=== PATIENT | male | born 1950 | race Caucasian/White ===

== ENCOUNTER 2017-03-13 05:58 | Day surgery (SDC) | payer MEDICARE ==
[2017-03-13] MEDS ORDERED: Ketamine HCl 50 MG/ML IV ONE (05:59)
[2017-03-13] MEDS ORDERED: DIPRIVAN 200 MG/20 ML IV ONE (05:59)
[2017-03-13] MEDS ORDERED: Lactated Ringers 1,000 ML IV ONE (06:34)
[2017-03-13] MEDS ORDERED: Lactated Ringers 1,000 ML IV SCH (07:30)
--- NOTE | 2017-03-13 09:20 | OP ---
SURGERY DATE/TIME: 03/13/2017809 PREOPERATIVE DIAGNOSIS: Epigastric pain. POSTOPERATIVE DIAGNOSIS: Moderate to severe gastritis. PROCEDURE: Esophagogastroduodenoscopy with biopsy. SURGEON: Dr. Hester. ANESTHESIA: Medications were given by the anesthesia department. BRIEF HISTORY: The patient is a 66 year old white male patient who has continued to complain of severe epigastric pain where previous endoscopy did reveal moderate to severe gastritis. The patient persists to smoke and takes multiple medications including for diabetes. The patient was felt the need to have endoscopic evaluation. He was appraised of the risks of the procedure including the risk of perforation, phlebitis, untoward reaction to medication, bleeding and missed lesions. The patient verbalized his understanding and desired to have the procedure performed. DESCRIPTION OF PROCEDURE: The patient was given the medications by the anesthesia department. He had continuous pulse oximetry, ECG monitoring, intermittent blood pressure monitoring and tidal CO2 monitoring during the examination. He was placed in the left lateral decubitus position. A bite block was placed and the flexible Olympus gastroscope was used to intubate the oropharynx. A view of the larynx was obtained and was normal. The scope was easily introduced in the esophagus which appeared to be normal throughout its length. The stomach was entered where normal gastric rugal folds were seen and these distended nicely with insufflation of air. There was a fair amount of erythema noted throughout the stomach and what appeared to be mild erosions present but no ulcerations. The pylorus was encountered and intubated. The duodenum was inspected and found to be more normal in its appearance. The scope is then withdrawn towards the stomach. A retroflex view was obtained of the lesser curvature, fundus and cardia regions of the stomach and these appeared to be essentially normal. The scope was redirected towards the gastric antrum and biopsies were obtained to rule out the presence of Helicobacter pylori-type organisms and to confirm the presence of gastritis. The scope was then removed from the patient who tolerated the procedure well and was sent back to outpatient recovery in good condition.
[2017-03-13 10:25] VITALS: O2SAT 96
[2017-03-13 10:28] VITALS: BP 188/97; PULSE 81
== END 2017-03-13 09:45 | disposition home or self-care (01) ==
LOC: SDC 05:58
PROVIDERS: ATTEND Family Medicine
PROC: 0DB78ZX Excision of Stomach, Pylorus, Via Natural or Artificial Opening Endoscopic, Diagnostic (ICD-10-PCS; principal; 2017-03-13)
DX: K29.70 Gastritis, unspecified, without bleeding (principal); E11.9 Type 2 diabetes mellitus without complications; Z79.4 Long term (current) use of insulin; J44.9 Chronic obstructive pulmonary disease, unspecified
CPT/HCPCS: 00740; 82962; 88305; J2704

== ENCOUNTER 2017-05-07 05:38 | Emergency (ER) | payer MEDICARE ==
[2017-05-07] MEDS ORDERED: Phenergan 25 MG INJ IV ONE (05:53)
--- NOTE | 2017-05-07 05:53 | ERPHSYRPT ---
- History of Present Illness Source: patient Exam Limitations: no limitations Hx Tetanus, Diphtheria Vaccination/Date Given: Yes (unknown) Hx Influenza Vaccination/Date Given: Yes Hx Pneumococcal Vaccination/Date Given: No <RAVEN VALDIVIA - Last Filed: 05/07/17 06:55> <RAVEN LOVELACE - Last Filed: 05/07/17 10:18> - History of Present Illness Time Seen by Provider: 05/07/17 05:40 Physician History: THIS AM PT VOMITED X3; DENIES FEVER, ABDOMINAL PAIN, DIARRHEA, CHEST PAIN, SHORTNESS OF AIR. LAST BM WAS YESTERDAY & WNL. PT C/O EARACHES HIS ENTIRE LIFE. (RAVEN VALDIVIA) Allergies/Adverse Reactions: No Known Drug Allergies Allergy (Verified 05/07/17 06:06) Home Medications: Amlodipine Besylate 5 mg [Norvasc 5 mg] 5 mg PO DAILY 04/04/13 [History] Fluoxetine HCl [Prozac] 20 mg PO HS 04/04/13 [History] Glipizide 10 mg [Glucotrol 10 MG] 10 mg PO BID 04/04/13 [History] Lacosamide [Vimpat] 200 mg PO BID 04/04/13 [History] Lamotrigine 150 mg PO BID 04/04/13 [History] Metoprolol Succinate 25 mg Xl* [Toprol-Xl 25MG Tablets] 50 mg PO DAILY [History] Nitroglycerin 0.4 mg Tablet [Nitrostat 0.4 MG Tablet] 1 tab SL Q5MIN PRN MR X 3 PRN 04/04/13 [History] Omeprazole [Prilosec] 1 tab PO BID 06/22/14 [History] Clopidogrel Bisulfate [Plavix] 75 mg PO DAILY 07/29/15 [History] Lovastatin 80 mg PO QPM 07/29/15 [History] Metformin HCl 1000 mg [Glucophage 1000 MG] 1,000 mg PO BID 07/29/15 [History] Oxycodone HCl/Acetaminophen [Percocet 5-325 mg Tablet] 1 tab PO Q6HPRN PRN 07/28 [History] Insulin Glargine [Lantus Insulin] 10 unit SQ DAILY 08/08/16 [History] Lisinopril [Zestril] 12.5 mg PO BID 08/08/16 [History] Cyanocobalamin (Vitamin B-12) [B-12] 500 mcg PO DAILY 03/13/17 [History] Famotidine 20 mg [Pepcid 20 MG] 20 mg PO HS 03/13/17 [History] Loratadine 10 mg [Claritin 10 mg] 10 mg PO DAILY 03/13/17 [History] Metoclopramide HCl 5 mg [Reglan 5 MG] 5 mg PO HS 03/13/17 [History] Polyethylene Glycol 3350 17 gm [Miralax Powder 17GM PACKET] 17 gm PO DAILY [History] Celecoxib 100 mg [celeBREX 100 MG] 100 mg PO BID 05/07/17 [History] Gabapentin [Neurontin] 300 mg PO DAILY 05/07/17 [History] Insulin Lispro [Humalog] 100 unit SQ TID 05/07/17 [History] Muscle Relaxer 05/07/17 [History] - Review of Systems Ears, Nose, & Throat: Ear Pain Abdominal/Gastrointestinal: Vomiting All Other Systems: Reviewed and Negative <RAVEN VALDIVIA - Last Filed: 05/07/17 06:55> - Past Medical History Pertinent Past Medical History: Yes Neurological History: Epilepsy, Seizures, TIA, Other ENT History: No Pertinent History Cardiac History: Angina, High Cholesterol, Hypertension Respiratory History: COPD Endocrine Medical History: Diabetes Type II Musculoskeletal History: Arthritis, Other GI Medical History: GERD, Hernia History: No Pertinent History Psycho-Social History: Depression Male Reproductive Disorders: No Pertinent History Other Medical History: TYPE IIDDM, SZ HX D/T EPILEPSY. hx sort term memory loss. recent chest pain 1 month ago - Past Surgical History Past Surgical History: Yes Neuro Surgical History: No Pertinent History Cardiac: No Pertinent History Respiratory: No Pertinent History Gastrointestinal: Cholecystectomy, Hernia Repair Genitourinary: No Pertinent History Musculoskeletal: Orthopedic Surgery Male Surgical History: No Pertinent History Other Surgical History: cervicle fusion - Social History Smoking Status: Current every day smoker How long have you smoked: 52 years Exposure to second hand smoke: No Drug Use: none Patient Lives Alone: No <RAVEN VALDIVIA - Last Filed: 05/07/17 06:55> - Physical Exam General Appearance: alert Eye Exam: PERRL/EOMI Ears, Nose, Throat Exam: TMs normal, moist mucous membranes, pharyngeal erythema Neck Exam: normal inspection Respiratory Exam: lungs clear Cardiovascular Exam: normal heart sounds Gastrointestinal/Abdomen Exam: soft, normal bowel sounds, No tenderness Back Exam: normal range of motion Extremity Exam: normal inspection, No pedal edema Neurologic Exam: alert, cooperative Skin Exam: warm, dry <RAVEN VALDIVIA - Last Filed: 05/07/17 06:55> - Nursing Vital Signs Nursing Vital Signs: Initial Vital Signs Pulse Rate 90 05/07/17 05:41 Respiratory Rate 20 05/07/17 05:41 Blood Pressure 157/105 05/07/17 05:41 O2 Sat by Pulse Oximetry 96 05/07/17 05:41 Pain Scale Pain Intensity 0 - Course Nursing assessment & vital signs reviewed: Yes <RAVEN VALDIVIA SKYLER - Last Filed: 05/07/17 06:55> - CT Exams Abdomen/Pelvis CT Interpretation: Negative, Tele-radiologist Report, Other (fecal stasis; diverticulosis; no acutes intra-abd/pelvic abnormalities per Dr Arora.) <RAVEN LOVELACE - Last Filed: 05/07/17 10:18> Ordered Tests: Active Orders 24 hr Category Date Time Status ABDOMEN AND PELVIS W/0 CONTRAS [CT] Stat Exams 05/07/17 06:54 Completed AMYLASE Stat Lab 05/07/17 05:58 Completed CBC W DIFF Stat Lab 05/07/17 05:58 Completed CMP Stat Lab 05/07/17 05:58 Completed CULTURE, THROAT Stat Lab 05/07/17 05:48 Received LIPASE Stat Lab 05/07/17 05:58 Completed MAG [MAGNESIUM] Stat Lab 05/07/17 05:58 Completed [place] Screen Stat Lab 05/07/17 05:58 Completed STREP SCREEN-BETA A Stat Lab 05/07/17 05:48 Completed UA W/ MICROSCOPIC Stat Lab 05/07/17 09:30 Completed Medication Summary Discontinued Medications Generic Name Dose Route Start Last Admin Trade Name Freq PRN Reason Stop Dose Admin Sodium Chloride 1,000 mls @ 999 mls/hr 05/07/17 08:38 05/07/17 08:55 Sodium Chloride 0.9% 1000 Ml IV 05/07/17 09:38 999 mls/hr .Q1H1M STA Administration Sodium Chloride Confirm 05/07/17 08:54 Sodium Chloride 0.9% 1000 Ml Administered 05/07/17 08:55 Dose 1,000 mls @ ud .ROUTE .STK-MED ONE Promethazine HCl 12.5 mg 05/07/17 05:53 05/07/17 05:59 Phenergan 25 Mg Inj IV 05/07/17 05:54 12.5 mg STAT ONE Administration Promethazine HCl Confirm 05/07/17 05:57 Phenergan 25 Mg Inj Administered 05/07/17 05:58 Dose 25 mg .ROUTE .STK-MED ONE Lab/Rad Data: Laboratory Result Diagrams 05/07/17 05:58 05/07/17 05:58 Laboratory Results 05/07/17 05/07/17 05/07/17 Range/Units 09:30 06:15 05:58 WBC (4.0-10.5) K/mm3 RBC (4.1-5.6) M/mm3 Hgb (12.5-18.0) gm/dl Hct (42-50) % MCV (78-100) fl MCH (26-32) pg MCHC (32-36) g/dl RDW (11.5-14.0) % Plt Count (150-450) K/mm3 MPV (6-9.5) fl Gran % (36.0-66.0) % Lymphocytes % (24.0-44.0) % Monocytes % (0.0-12.0) % Eosinophils % (0.00-5.0) % Basophils % (0.0-0.4) % Basophils # (0-0.4) Sodium (136-145) mEq/L Potassium (3.5-5.1) mEq/L Chloride (98-107) mEq/L Carbon Dioxide (21-32) mEq/L Anion Gap (5-15) MEQ/L BUN (9-20) mg/dL Creatinine (0.55-1.30) mg/dl Estimated GFR ML/MIN Glucose (70-110) MG/DL Calcium (8.5-10.1) mg/dL Magnesium (1.8-2.4) mg/dL Total Bilirubin (0.2-1.0) mg/dL AST (15-37) U/L ALT (12-78) U/L Alkaline Phosphatase (46-116) U/L Serum Total Protein (6.4-8.2) gm/dL Albumin (3.4-5.0) g/dL Amylase (25-115) U/L Lipase (73-393) U/L Ur Collection Type VOID Urine Color YELLOW (YELLOW) Urine Appearance CLEAR (CLEAR) Urine pH 5.0 (5-6) Ur Specific [place] 1.025 (1.005-1.025) Urine Protein 500 (Negative) Urine Ketones NEGATIVE (NEGATIVE) Urine Blood NEGATIVE (0-5) Chip/ul Urine Nitrite NEGATIVE (NEGATIVE) Urine Bilirubin NEGATIVE (NEGATIVE) Urine Urobilinogen NORMAL (0-1) mg/dL Ur Leukocyte Esterase NEGATIVE (NEGATIVE) Urine Microscopic RBC 0-2 (0-2) /HPF Urine Microscopic WBC 0-2 (0-5) /HPF Ur Epithelial Cells RARE (FEW) /HPF Urine Bacteria RARE (NEGATIVE) /HPF Hyaline Casts 25-50 (0-2) /LPF Urine Mucus SLIGHT (NEGATIVE) /HPF Urine Culture Reflexed NO (NO) Urine Glucose 250 (NEGATIVE) mg/dL Monoscreen NEGATIVE (Negative) Influenza Type A Ag NEGATIVE (NEGATIVE) Influenza Type B Ag NEGATIVE (NEGATIVE) RSV (PCR) NEGATIVE (Negative) Streptococcus Screen (Negative) Specimen Received 05/07/17 0930 05/07/17 05/07/17 05/07/17 Range/Units 05:58 05:58 05:48 WBC 10.5 (4.0-10.5) K/mm3 RBC 4.21 (4.1-5.6) M/mm3 Hgb 13.3 (12.5-18.0) gm/dl Hct 40.5 L (42-50) % MCV 96.2 (78-100) fl MCH 31.6 (26-32) pg MCHC 32.8 (32-36) g/dl RDW 12.8 (11.5-14.0) % Plt Count 295 (150-450) K/mm3 MPV 12.5 H (6-9.5) fl Gran % 48.5 (36.0-66.0) % Lymphocytes % 37.4 (24.0-44.0) % Monocytes % 9.5 (0.0-12.0) % Eosinophils % 4.0 (0.00-5.0) % Basophils % 0.6 (0.0-0.4) % Basophils # 0.06 (0-0.4) Sodium 135 L (136-145) mEq/L Potassium 4.3 (3.5-5.1) mEq/L Chloride 99 (98-107) mEq/L Carbon Dioxide 21.7 (21-32) mEq/L Anion Gap 18.5 H (5-15) MEQ/L BUN 28 H (9-20) mg/dL Creatinine 1.85 H (0.55-1.30) mg/dl Estimated GFR 39 ML/MIN Glucose 254 H (70-110) MG/DL Calcium 9.3 (8.5-10.1) mg/dL Magnesium 2.0 (1.8-2.4) mg/dL Total Bilirubin 0.30 (0.2-1.0) mg/dL AST 33 (15-37) U/L ALT 34 (12-78) U/L Alkaline Phosphatase 88 (46-116) U/L Serum Total Protein 7.9 (6.4-8.2) gm/dL Albumin 3.9 (3.4-5.0) g/dL Amylase 32 (25-115) U/L Lipase 112 (73-393) U/L Ur Collection Type Urine Color (YELLOW) Urine Appearance (CLEAR) Urine pH (5-6) Ur Specific [place] (1.005-1.025) Urine Protein (Negative) Urine Ketones (NEGATIVE) Urine Blood (0-5) Chip/ul Urine Nitrite (NEGATIVE) Urine Bilirubin (NEGATIVE) Urine Urobilinogen (0-1) mg/dL Ur Leukocyte Esterase (NEGATIVE) Urine Microscopic RBC (0-2) /HPF Urine Microscopic WBC (0-5) /HPF Ur Epithelial Cells (FEW) /HPF Urine Bacteria (NEGATIVE) /HPF Hyaline Casts (0-2) /LPF Urine Mucus (NEGATIVE) /HPF Urine Culture Reflexed (NO) Urine Glucose (NEGATIVE) mg/dL Monoscreen (Negative) Influenza Type A Ag (NEGATIVE) Influenza Type B Ag (NEGATIVE) RSV (PCR) (Negative) Streptococcus Screen NEGATIVE (Negative) Specimen Received <RAVEN VALDIVIA - Last Filed: 05/07/17 06:55> - Progress Progress: improved Counseled pt/family regarding: lab results, diagnosis, need for follow-up, rad results <RAVEN LOVELACE - Last Filed: 05/07/17 10:18> - Progress Progress Note: 05/07/17 07:18 Pt care discussed and care accepted from Dr Valdivia at 07:00. (RAVEN LOVELACE) <RAVEN VALDIVIA - Last Filed: 05/07/17 06:55> - Departure Time of Disposition: 10:14 Departure Disposition: Home Critical Care Time: No <RAVEN LOVELACE - Last Filed: 05/07/17 10:18> - Departure Clinical Impression: Vertigo, Vomiting Condition: Stable Referrals: CRYSTAL MURILLO [Primary Care Provider] - Additional Instructions: You have vertigo and vomiting. You were given Phenergan and fluids in the ER. Physical therapy evaluated you and has recommended that your primary care doctor order outpatient treatment for the vertigo. Take meclizine 25 mg every 8 hours as needed for dizziness. Take Zofran 4 mg ODT every 6 hours as needed for nausea and vomiting. Stay well hydrated. Follow-up today or tomorrow. Prescriptions: Ondansetron ODT 4 MG [Zofran Odt 4 mg] 1 tab PO Q6H PRN PRN #10 tab.rapdis PRN Reason: Nausea/Vomiting Meclizine HCl 25 mg [Antivert 25 mg] 25 mg PO Q8H PRN PRN #12 tablet PRN Reason: Dizziness
[2017-05-07] MEDS ORDERED: Phenergan 25 MG INJ ONE (05:57)
[2017-05-07 06:04] LABS: BASOPHIL % 0.6 % (0.0-0.4); Basophil (Absolute #) 0.06 (0-0.4); Eosinophil (Absolute #) 0.42 (0-0.5); Granulocyte Absolute (ANC) 5.11 (1.4-6.9); Granulocytes % 48.5 % (36.0-66.0); Hematocrit 40.5 % (42-50); Hemoglobin 13.3 gm/dl (12.5-18.0); Lymphocyte (Absolute #) 3.94 (1.0-4.6); Lymphocytes % 37.4 % (24.0-44.0); Mean Cell Volume 96.2 fl (78-100); Mean Corpuscular Hemoglobin 31.6 pg (26-32); Mean Corpuscular Hgb Concent. 32.8 g/dl (32-36); Mean Platelet Volume 12.5 fl (6-9.5); Monocytes % 9.5 % (0.0-12.0); Platelet Count 295 K/mm3 (150-450); Red Blood Count 4.21 M/mm3 (4.1-5.6); Red Cell Distribution Width 12.8 % (11.5-14.0); White Blood Count 10.5 K/mm3 (4.0-10.5)
[2017-05-07 06:28] LABS: ALBUMIN 3.9 g/dL (3.4-5.0); ANION GAP 18.5 MEQ/L (5-15); BILIRUBIN,TOTAL 0.3 mg/dL (0.2-1.0); Calcium 9.3 mg/dL (8.5-10.1); Carbon Dioxide 21.7 mEq/L (21-32); Creatinine 1 1.85 mg/dl (0.55-1.30); Potassium 4.3 mEq/L (3.5-5.1); Total Protein 7.9 gm/dL (6.4-8.2)
[2017-05-07 06:44] LABS: INFLUENZA A NEGATIVE (NEGATIVE); INFLUENZA B NEGATIVE (NEGATIVE); RESPIRATORY SYNCTIAL VIRUS NEGATIVE (Negative)
[2017-05-07 07:25] VITALS: PULSE 70
[2017-05-07] MEDS ORDERED: Sodium Chloride 0.9% 1000 ML 1,000 ML IV STA (08:38)
[2017-05-07] MEDS ORDERED: Sodium Chloride 0.9% 1000 ML 1,000 ML ONE (08:54)
--- NOTE | 2017-05-07 08:56 | XRAY ---
Indication: Vomiting, dizziness, and chills. Multiple contiguous axial images obtained through the abdomen and pelvis without contrast as ordered. Comparison: None Lung bases demonstrates bibasilar dependent atelectasis. Heart is not enlarged. Noncontrasted stomach and bowel loops appear nonobstructed. There is mild diffuse scattered colonic fecal debris throughout and scattered descending/sigmoid diverticulosis. Normal appendix. No free fluid/air. Mild diffuse fatty liver and previous cholecystectomy. Remaining liver, pancreas, spleen, adrenal glands, kidneys, ureters, and bladder appear unremarkable for noncontrast exam. Moderate scattered aortoiliac calcifications without AAA. Osseous structures intact with mild degenerative spondylosis. Impression: 1. Fecal stasis without obstruction and diverticulosis without diverticulitis. 2. Fatty liver. 3. No acute intra-abdominal/pelvic abnormalities on this noncontrast exam. CT DI 22.71
[2017-05-07 09:59] LABS: Appearance CLEAR (CLEAR); Bilirubin NEGATIVE (NEGATIVE); Blood NEGATIVE Ery/ul (0-5); Glucose 250 mg/dL (NEGATIVE); Ketones NEGATIVE (NEGATIVE); Leukocyte Esterase NEGATIVE (NEGATIVE); Nitrite NEGATIVE (NEGATIVE); Protein,Urine Dip 500 (Negative); Specific Gravity 1.025 (1.005-1.025); Urobilinogen NORMAL mg/dL (0-1)
[2017-05-07 10:01] LABS: Bacteria RARE /HPF (NEGATIVE); Epithelial Cells RARE /HPF (FEW); Hyaline Casts 25-50 /LPF (0-2); Mucus SLIGHT /HPF (NEGATIVE); WBC 0-2 /HPF (0-5)
[2017-05-07 10:40] VITALS: BP 151/74; O2SAT 94
== END 2017-05-07 10:53 | disposition home or self-care (01) ==
LOC: ED 05:38
DX: R42 Dizziness and giddiness (principal); R11.10 Vomiting, unspecified; E78.00 Pure hypercholesterolemia, unspecified; I10 Essential (primary) hypertension; E11.9 Type 2 diabetes mellitus without complications; J44.9 Chronic obstructive pulmonary disease, unspecified; Z79.4 Long term (current) use of insulin; Z79.891 Long term (current) use of opiate analgesic; Z79.899 Other long term (current) drug therapy; Z79.84 Long term (current) use of oral hypoglycemic drugs; G40.909 Epilepsy, unspecified, not intractable, without status epilepticus; Z87.891 Personal history of nicotine dependence
CPT/HCPCS: 36415; 74176; 80053; 81000; 82150; 83690; 83735; 85025; 86308; 87070; 87430; 87631; 96360; 96374; 99284; J2550

== ENCOUNTER 2017-05-19 22:22 | Inpatient (IN) | payer MEDICARE ==
[2017-05-19] MEDS ORDERED: Sodium Chloride 0.9% 1000 ML 1,000 ML IV STA (22:43)
[2017-05-19] MEDS ORDERED: Zofran 4 MG/2 ML VIAL IV ONE ×2 (22:45→22:51)
--- NOTE | 2017-05-19 22:50 | ERPHSYRPT ---
- History of Present Illness Time Seen by Provider: 05/19/17 22:40 Historian: patient, family Exam Limitations: no limitations Patient Subjective Stated Complaint: c/o nausea and vomiting, unable to hold anything down even with taking medications Triage Nursing Assessment: dry heaving on assessment, pale skin Physician History: 67 y/o male brought in by ambulance for nausea and dry heaving for the last few days. Pt was seen in the ER in the middle of the month for similar reasons and was given meclizine with no relief. Pt has not been able to keep anything down. Pt admits to vertigo an dhaving trouble with balance. Pt states that he gets dizzy with moving his head side to side. Pt denies any fever, chills, headache, blurry vision, chest pain, shortness of breath, palpitations, abdominal pain or diarrhea. Timing/Duration: day(s) Activities at Onset: none Modifying Factors: Improves With: vomiting Associated Symptoms: loss of appetite, nausea, vomiting, weakness, No diarrhea Previous symptoms: no prior history Allergies/Adverse Reactions: No Known Drug Allergies Allergy (Verified 05/07/17 06:06) Home Medications: Amlodipine Besylate 5 mg [Norvasc 5 mg] 5 mg PO DAILY 04/04/13 [History] Fluoxetine HCl [Prozac] 20 mg PO HS 04/04/13 [History] Glipizide 10 mg [Glucotrol 10 MG] 10 mg PO BID 04/04/13 [History] Lacosamide [Vimpat] 200 mg PO BID 04/04/13 [History] Lamotrigine 150 mg PO BID 04/04/13 [History] Metoprolol Succinate 25 mg Xl* [Toprol-Xl 25MG Tablets] 50 mg PO DAILY [History] Nitroglycerin 0.4 mg Tablet [Nitrostat 0.4 MG Tablet] 1 tab SL Q5MIN PRN MR X 3 PRN 04/04/13 [History] Omeprazole [Prilosec] 1 tab PO BID 06/22/14 [History] Clopidogrel Bisulfate [Plavix] 75 mg PO DAILY 07/29/15 [History] Lovastatin 80 mg PO QPM 07/29/15 [History] Metformin HCl 1000 mg [Glucophage 1000 MG] 1,000 mg PO BID 07/29/15 [History] Oxycodone HCl/Acetaminophen [Percocet 5-325 mg Tablet] 1 tab PO Q6HPRN PRN 07/28 [History] Insulin Glargine [Lantus Insulin] 10 unit SQ DAILY 08/08/16 [History] Lisinopril [Zestril] 12.5 mg PO BID 08/08/16 [History] Cyanocobalamin (Vitamin B-12) [B-12] 500 mcg PO DAILY 03/13/17 [History] Famotidine 20 mg [Pepcid 20 MG] 20 mg PO HS 03/13/17 [History] Loratadine 10 mg [Claritin 10 mg] 10 mg PO DAILY 03/13/17 [History] Metoclopramide HCl 5 mg [Reglan 5 MG] 5 mg PO HS 03/13/17 [History] Polyethylene Glycol 3350 17 gm [Miralax Powder 17GM PACKET] 17 gm PO DAILY [History] Celecoxib 100 mg [celeBREX 100 MG] 100 mg PO BID 05/07/17 [History] Gabapentin [Neurontin] 300 mg PO DAILY 05/07/17 [History] Insulin Lispro [Humalog] 100 unit SQ TID 05/07/17 [History] Muscle Relaxer 05/07/17 [History] Hx Tetanus, Diphtheria Vaccination/Date Given: Yes Hx Influenza Vaccination/Date Given: Yes Hx Pneumococcal Vaccination/Date Given: No Immunizations Up to Date: Yes - Review of Systems Constitutional: No Fever, No Chills Eyes: No Symptoms Ears, Nose, & Throat: No Symptoms Respiratory: No Cough, No Dyspnea Cardiac: No Chest Pain, No Edema, No Syncope Abdominal/Gastrointestinal: Nausea, Vomiting, No Abdominal Pain, No Diarrhea, No Constipation Genitourinary Symptoms: No Dysuria, No Frequency, No Hematuria Musculoskeletal: No Back Pain, No Neck Pain Skin: No Rash Neurological: No Dizziness, No Focal Weakness, No Sensory Changes Psychological: No Symptoms Endocrine: No Symptoms All Other Systems: Reviewed and Negative - Past Medical History Pertinent Past Medical History: Yes Neurological History: Epilepsy, Seizures, TIA, Other ENT History: No Pertinent History Cardiac History: Angina, High Cholesterol, Hypertension Respiratory History: COPD Endocrine Medical History: Diabetes Type II Musculoskeletal History: Arthritis, Other GI Medical History: GERD, Hernia History: No Pertinent History Psycho-Social History: Depression Male Reproductive Disorders: No Pertinent History Other Medical History: TYPE IIDDM, SZ HX D/T EPILEPSY. hx sort term memory loss. recent chest pain 1 month ago - Past Surgical History Past Surgical History: Yes Neuro Surgical History: No Pertinent History Cardiac: No Pertinent History Respiratory: No Pertinent History Gastrointestinal: Cholecystectomy, Hernia Repair Genitourinary: No Pertinent History Musculoskeletal: Orthopedic Surgery Male Surgical History: No Pertinent History Other Surgical History: cervicle fusion - Social History Smoking Status: Current every day smoker How long have you smoked: 52 years Exposure to second hand smoke: No Drug Use: none Patient Lives Alone: No - Nursing Vital Signs Nursing Vital Signs: Initial Vital Signs Temperature 98.7 F 05/19/17 22:33 Pulse Rate 82 05/19/17 22:33 Respiratory Rate 14 05/19/17 22:33 Blood Pressure 164/75 05/19/17 22:33 O2 Sat by Pulse Oximetry 96 05/19/17 22:33 Pain Scale Pain Intensity 1 - Physical Exam General Appearance: no apparent distress, alert Eye Exam: PERRL/EOMI, eyes nml inspection, other (horizontal nystagmus) Ears, Nose, Throat Exam: normal ENT inspection, pharynx normal, moist mucous membranes Neck Exam: normal inspection, non-tender, supple, full range of motion Respiratory Exam: normal breath sounds, lungs clear, No chest tenderness, No respiratory distress Cardiovascular Exam: regular rate/rhythm, normal heart sounds Gastrointestinal/Abdomen Exam: soft, normal bowel sounds, No tenderness, No distention, No mass, No guarding Back Exam: normal inspection, normal range of motion, No CVA tenderness, No vertebral tenderness Extremity Exam: normal inspection, normal range of motion, pelvis stable Neurologic Exam: alert, oriented x 3, cooperative, normal mood/affect, nml cerebellar function, sensation nml, No motor deficits Skin Exam: normal color, warm, dry SpO2: 96 Oxygen Delivery: Room Air - Course Nursing assessment & vital signs reviewed: Yes EKG Interpreted by Me: RATE, NORMAL AXIS, NORMAL INTERVALS, Non-specific ST Changes Ordered Tests: Active Orders 24 hr Category Date Time Status EKG-ER Only STAT Care 05/19/17 22:43 Active IV Insertion STAT Care 05/19/17 22:43 Active HEAD WITHOUT CONTRAST [CT] Stat Exams 05/19/17 22:43 Taken OBSTR/ACUTE ABDOMEN SERIES Stat Exams 05/20/17 01:08 Taken AMYLASE Stat Lab 05/19/17 22:51 Completed CBC W DIFF Stat Lab 05/19/17 22:47 Completed CMP Stat Lab 05/19/17 22:47 Completed LIPASE Stat Lab 05/19/17 22:51 Completed MAGNESIUM Stat Lab 05/19/17 22:47 Completed TROPONIN Q3H Lab 05/20/17 00:00 Completed TROPONIN Q3H Lab 05/20/17 04:15 Ordered TROPONIN Q3H Lab 05/20/17 07:15 Ordered TROPONIN Q3H Lab 05/20/17 10:15 Ordered TROPONIN Q3H Lab 05/20/17 13:15 Ordered UA W/RFX UR CULTURE Stat Lab 05/19/17 22:43 Ordered VBG [VENOUS BLOOD GAS] Stat Lab 05/20/17 01:25 Completed Medication Summary Generic Name Dose Route Start Last Admin Trade Name Freq PRN Reason Stop Dose Admin Magnesium Sulfate/Dextrose 100 mls @ 100 mls/hr 05/20/17 00:45 05/20/17 01:23 Magnesium 1 Gm / 100 Ml D5w IV 05/20/17 02:44 100 mls/hr Q1H BELLO Administration Discontinued Medications Generic Name Dose Route Start Last Admin Trade Name Freq PRN Reason Stop Dose Admin Sodium Chloride 1,000 mls @ 999 mls/hr 05/19/17 22:43 05/19/17 22:56 Sodium Chloride 0.9% 1000 Ml IV 05/19/17 23:43 999 mls/hr .Q1H1M STA Administration Sodium Chloride Confirm 05/19/17 22:53 Sodium Chloride 0.9% 1000 Ml Administered 05/19/17 22:54 Dose 1,000 mls @ ud .ROUTE .STK-MED ONE Sodium Chloride 1,000 mls @ 999 mls/hr 05/20/17 00:37 05/20/17 00:50 Sodium Chloride 0.9% 1000 Ml IV 05/20/17 01:37 999 mls/hr .Q1H1M STA Administration Sodium Chloride Confirm 05/20/17 00:45 Sodium Chloride 0.9% 1000 Ml Administered 05/20/17 00:46 Dose 1,000 mls @ ud .ROUTE .STK-MED ONE Insulin Human Regular 8 unit 05/20/17 01:37 05/20/17 01:42 Novolin R IV 05/20/17 01:38 8 unit STAT ONE Administration Insulin Human Regular Confirm 05/20/17 01:40 Novolin R Administered 05/20/17 01:41 Dose 8 unit .ROUTE .STK-MED ONE Ondansetron HCl 8 mg 05/19/17 22:45 05/19/17 23:02 Zofran 4 Mg/2 Ml Vial IV 05/19/17 22:46 Not Given STAT ONE Ondansetron HCl 4 mg 05/19/17 22:51 05/19/17 22:56 Zofran 4 Mg/2 Ml Vial IV 05/19/17 22:52 4 mg STAT ONE Administration Ondansetron HCl Confirm 05/19/17 22:53 Zofran 4 Mg/2 Ml Vial Administered 05/19/17 22:54 Dose 4 mg .ROUTE .STK-[facility] ONE Promethazine HCl 25 mg 05/20/17 00:52 05/20/17 01:02 Phenergan 25 Mg Inj IV 05/20/17 00:53 25 mg STAT ONE Administration Promethazine HCl Confirm 05/20/17 00:59 Phenergan 25 Mg Inj Administered 05/20/17 01:00 Dose 25 mg .ROUTE .[facility] ONE Lab/Rad Data: Laboratory Result Diagrams 05/19/17 22:47 05/19/17 22:47 Laboratory Results 05/20/17 05/20/17 05/19/17 Range/Units 01:25 00:00 22:51 WBC (4.0-10.5) K/mm3 RBC (4.1-5.6) M/mm3 Hgb (12.5-18.0) gm/dl Hct (42-50) % MCV (78-100) fl MCH (26-32) pg MCHC (32-36) g/dl RDW (11.5-14.0) % Plt Count (150-450) K/mm3 MPV (6-9.5) fl Gran % (36.0-66.0) % Lymphocytes % (24.0-44.0) % Monocytes % (0.0-12.0) % Eosinophils % (0.00-5.0) % Basophils % (0.0-0.4) % Basophils # (0-0.4) VBG pH 7.34 (7.32-7.42) VBG pCO2 at Pat Temp 35 L (42-55) mm/Hg VBG pO2 at Pat Temp 51 H (25-40) mm/Hg VBG HCO3 18.9 L (22-28) meq/L VBG O2 Sat (Harry) 90.1 L (95-100) VBG Base Excess -6.1 L (-2.0-2.0) VBG Hemoglobin 12.3 VBG Carboxyhemoglobin 2.3 (0.0-6.9) % T HGB POC Potassium 4.0 (3.5-5.1) Sodium (136-145) mEq/L Potassium (3.5-5.1) mEq/L Chloride (98-107) mEq/L Carbon Dioxide (21-32) mEq/L Anion Gap (5-15) MEQ/L BUN (9-20) mg/dL Creatinine (0.55-1.30) mg/dl Estimated GFR ML/MIN Glucose (70-110) MG/DL Calcium (8.5-10.1) mg/dL Magnesium (1.8-2.4) mg/dL Total Bilirubin (0.2-1.0) mg/dL AST (15-37) U/L ALT (12-78) U/L Alkaline Phosphatase (46-116) U/L Troponin I < 0.017 (0.000-0.056) ng/ml Serum Total Protein (6.4-8.2) gm/dL Albumin (3.4-5.0) g/dL Amylase 30 (25-115) U/L Lipase (73-393) U/L 05/19/17 05/19/17 05/19/17 Range/Units 22:51 22:47 22:47 WBC 12.3 H (4.0-10.5) K/mm3 RBC 4.50 (4.1-5.6) M/mm3 Hgb 14.4 (12.5-18.0) gm/dl Hct 42.6 (42-50) % MCV 94.7 (78-100) fl MCH 32.0 (26-32) pg MCHC 33.8 (32-36) g/dl RDW 12.9 (11.5-14.0) % Plt Count 283 (150-450) K/mm3 MPV 12.2 H (6-9.5) fl Gran % 54.7 (36.0-66.0) % Lymphocytes % 37.0 (24.0-44.0) % Monocytes % 7.0 (0.0-12.0) % Eosinophils % 0.9 (0.00-5.0) % Basophils % 0.4 (0.0-0.4) % Basophils # 0.05 (0-0.4) VBG pH (7.32-7.42) VBG pCO2 at Pat Temp (42-55) mm/Hg VBG pO2 at Pat Temp (25-40) mm/Hg VBG HCO3 (22-28) meq/L VBG O2 Sat (Harry) (95-100) VBG Base Excess (-2.0-2.0) VBG Hemoglobin VBG Carboxyhemoglobin (0.0-6.9) % T HGB POC Potassium (3.5-5.1) Sodium 143 (136-145) mEq/L Potassium 4.4 (3.5-5.1) mEq/L Chloride 103 (98-107) mEq/L Carbon Dioxide 19.5 L (21-32) mEq/L Anion Gap 24.7 H (5-15) MEQ/L BUN 27 H (9-20) mg/dL Creatinine 2.11 H (0.55-1.30) mg/dl Estimated GFR 33 ML/MIN Glucose 327 H (70-110) MG/DL Calcium 9.0 (8.5-10.1) mg/dL Magnesium 1.7 L (1.8-2.4) mg/dL Total Bilirubin 0.20 (0.2-1.0) mg/dL AST 16 (15-37) U/L ALT 31 (12-78) U/L Alkaline Phosphatase 99 (46-116) U/L Troponin I (0.000-0.056) ng/ml Serum Total Protein 7.1 (6.4-8.2) gm/dL Albumin 4.0 (3.4-5.0) g/dL Amylase (25-115) U/L Lipase 96 (73-393) U/L - Progress Progress: improved Progress Note: 05/20/17 01:51 Pt has multiple issues including, acute kidney injury, hyperglycemia with an anion gap but no DKA, hypomagnesemia and vertigo. Pt has a creatinine of 2.11, Mg of 1.7, glucose over 300, an anion gap of about 20 and a bicarb of 19.5, but the pH is 7.34. Pt was given 2 liters of fluids and 8 units of regular insulin. The patient was also given 2 grams of magnesium and a total of 8 mg of zofran and 25mg of phenergan. Pt is starting to feel better after receiving phenergan. The CT scan head and abdominal x ray does not show any acute findings. Pt has been admitted to Dr Hester. 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
[2017-05-19 22:51] LABS: BASOPHIL % 0.4 % (0.0-0.4); Basophil (Absolute #) 0.05 (0-0.4); Eosinophil % 0.9 % (0.00-5.0); Eosinophil (Absolute #) 0.11 (0-0.5); Granulocytes % 54.7 % (36.0-66.0); Hematocrit 42.6 % (42-50); Hemoglobin 14.4 gm/dl (12.5-18.0); Lymphocyte (Absolute #) 4.54 (1.0-4.6); Mean Cell Volume 94.7 fl (78-100); Mean Corpuscular Hgb Concent. 33.8 g/dl (32-36); Mean Platelet Volume 12.2 fl (6-9.5); Monocyte (Absolute #) 0.86 (0.0-1.3); Platelet Count 283 K/mm3 (150-450); Red Cell Distribution Width 12.9 % (11.5-14.0); White Blood Count 12.3 K/mm3 (4.0-10.5)
[2017-05-19] MEDS ORDERED: Sodium Chloride 0.9% 1000 ML 1,000 ML ONE (22:53)
[2017-05-19] MEDS ORDERED: Zofran 4 MG/2 ML VIAL ONE (22:53)
[2017-05-19 23:40] LABS: ANION GAP 24.7 MEQ/L (5-15); BILIRUBIN,TOTAL 0.2 mg/dL (0.2-1.0); Carbon Dioxide 19.5 mEq/L (21-32); Creatinine 1 2.11 mg/dl (0.55-1.30); Potassium 4.4 mEq/L (3.5-5.1); Total Protein 7.1 gm/dL (6.4-8.2)
[2017-05-20] MEDS ORDERED: Sodium Chloride 0.9% 1000 ML 1,000 ML IV STA (00:37)
[2017-05-20] MEDS ORDERED: Sodium Chloride 0.9% 1000 ML 2,000 ML ONE (00:45)
[2017-05-20] MEDS: Magnesium 1 Gm / 100 Ml D5W*** 100 ML IV SCH ×2 (00:50→01:23)
[2017-05-20] MEDS ORDERED: Phenergan 25 MG INJ IV ONE (00:52)
[2017-05-20] MEDS ORDERED: Phenergan 25 MG INJ ONE (00:59)
[2017-05-20 01:35] LABS: VBG BASE EXCESS -6.1 (-2.0-2.0); VBG CARBOXYHEMOGLOBIN 2.3 % T HGB (0.0-6.9); VBG HCO3- 18.9 meq/L (22-28); VBG HEMOGLOBIN 12.3; VBG O2 SATURATION 90.1 (95-100); VBG pH 7.34 (7.32-7.42)
[2017-05-20] MEDS ORDERED: NovoLIN R IV ONE (01:37)
[2017-05-20] MEDS ORDERED: NovoLIN R ONE (01:40)
[2017-05-20] MEDS ORDERED: Phenergan 25 MG INJ IM PRN (01:56)
[2017-05-20 02:14] LABS: Appearance CLEAR (CLEAR); Bacteria MODERATE /HPF (NEGATIVE); Bilirubin NEGATIVE (NEGATIVE); Blood 50 Ery/ul (0-5); Epithelial Cells FEW /HPF (FEW); Glucose 500 mg/dL (NEGATIVE); Hyaline Casts 0-2 /LPF (0-2); Ketones SMALL (NEGATIVE); Leukocyte Esterase NEGATIVE (NEGATIVE); Mucus MODERATE /HPF (NEGATIVE); Nitrite NEGATIVE (NEGATIVE); Protein,Urine Dip 100 (Negative); Urobilinogen NORMAL mg/dL (0-1); WBC 0-2 /HPF (0-5)
[2017-05-20] MEDS: Sodium Chloride 0.9% 1000 ML 1,000 ML IV SCH (04:46)
[2017-05-20 04:55] LABS: BASOPHIL % 0.2 % (0.0-0.4); Basophil (Absolute #) 0.02 (0-0.4); Eosinophil % 0.1 % (0.00-5.0); Eosinophil (Absolute #) 0.01 (0-0.5); Granulocyte Absolute (ANC) 7.64 (1.4-6.9); Granulocytes % 84.2 % (36.0-66.0); Hematocrit 33.7 % (42-50); Hemoglobin 11.3 gm/dl (12.5-18.0); Lymphocyte (Absolute #) 0.94 (1.0-4.6); Lymphocytes % 10.4 % (24.0-44.0); Mean Cell Volume 94.1 fl (78-100); Mean Corpuscular Hgb Concent. 33.5 g/dl (32-36); Mean Platelet Volume 11.8 fl (6-9.5); Monocyte (Absolute #) 0.46 (0.0-1.3); Monocytes % 5.1 % (0.0-12.0); Platelet Count 187 K/mm3 (150-450); Red Blood Count 3.58 M/mm3 (4.1-5.6); Red Cell Distribution Width 12.5 % (11.5-14.0); White Blood Count 9.1 K/mm3 (4.0-10.5)
[2017-05-20 05:01] LABS: Mean Corpuscular Hemoglobin 31.5 pg (26-32)
[2017-05-20 05:14] LABS: ANION GAP 18.8 MEQ/L (5-15); Carbon Dioxide 20.8 mEq/L (21-32); Creatinine 1 1.5 mg/dl (0.55-1.30); Potassium 4.1 mEq/L (3.5-5.1)
--- NOTE | 2017-05-20 08:44 | XRAY ---
Indication: Dizziness and vomiting. Left facial weakness. History of vertigo. Multiple contiguous axial images obtained through the head without contrast. Comparison: August 01, 2015. Stable age-appropriate global atrophy and minimal periventricular degenerative micro-ischemia. No acute intracranial hemorrhage, abnormal extra-axial fluid collection, or mass effect. Fourth ventricle is midline without hydrocephalus. Bony calvarium intact. Visualized paranasal sinuses and mastoid air cells are clear. Impression: Stable nonacute senile brain. Comment: Preliminary interpretation was made by [facility]. No critical discrepancy. CT DI 64.15
--- NOTE | 2017-05-20 08:55 | XRAY ---
Indication: Vomiting. Vertigo. Comparison: Chest exam July 29, 2015. 2 views of the abdomen demonstrates nonspecific nonobstructed bowel gas pattern with cholecystectomy clips and moderate scattered vascular calcifications. Solid organs unremarkable. Osseous structures intact with mild multilevel degenerative spondylosis. Single frontal chest again demonstrates normal heart and lungs with a few incidental calcified granulomas. Bony thorax intact again with partially visualized lower cervical fusion surgery. Impression: Negative abdomen. Stable nonacute one view chest.
[2017-05-20] MEDS ORDERED: Zofran 4 MG/2 ML VIAL IV PRN (09:40)
[2017-05-20] MEDS: PROTONIX 40 MG IV IV SCH (10:02)
[2017-05-20] MEDS: NovoLOG Insulin SQ PRN ×2 (10:02→16:35)
[2017-05-20] MEDS: NICODERM CQ 14 MG TOP SCH (10:02)
--- NOTE | 2017-05-20 10:05 | HP ---
CHIEF COMPLAINT: Nausea and vomiting. HISTORY OF PRESENT ILLNESS: The patient is a 67 year-old white male who has been having problems with abdominal discomfort, nausea and vertigo over the past three months. He has had upper GI endoscopy back in February which was essentially unrevealing other than mild gastritis. The patient has been treated with meclizine with success as well as Zofran. He reports that he is just unable to eat. PAST MEDICAL/SURGICAL HISTORY: Significant for hypertension, diabetes mellitus type 2, chronic pain, arthritis. MEDICATIONS: Amlodipine, Celebrex, Plavix, Pepcid, Prozac, Neurontin, Lantus insulin, Humalog insulin, lamotrigine, Lamictal, lisinopril, Claritin, lovastatin, meclizine, Metformin, glimepiride, Toprol XL, Zofran, Percocet, potassium and Zanaflex. ALLERGIES: NKDA. PHYSICAL EXAMINATION: Revealed a well nourished, well developed 67 year-old white male patient currently in no obvious distress. His vital signs initially showed a blood pressure of 164/75, respiratory rate 14, pulse 82, temperature 98.7F. Pulse ox 94%. HEENT: Normocephalic, atraumatic. Pupils equal round reactive to light. Extraocular movements intact. Oropharynx is dry. NECK: Supple without lymphadenopathy, thyromegaly or JVD. CHEST: Clear to auscultation with good air movement bilaterally. HEART: Regular rate and rhythm without murmurs, rubs or gallops. ABDOMEN: Soft. No palpable massses. EXTREMITIES: Without clubbing, cyanosis or edema. NEUROLOGIC: The patient appears to be alert and oriented x3 with no obvious focal deficits. LAB DATA AND TESTS: His laboratory studies show UA with specific gravity 1.020, glucose 500, protein 100. Troponin was less than 0.017. Venous blood gas showed a pH of 7.34, pCO2 35. International normalized ratio 1.56. His white blood cell count 12,300, hemoglobin 14.4, PLT count 283,000. Lipase is normal. Amylase normal. His metabolic panel showed glucose 327 nonfasting, BUN 27, creatinine 2.11 which is up for him. His electrolytes were normal. Carbon dioxide slightly low at 19.5. Liver enzymes were normal. ASSESSMENT: A patient with vomiting and dehydration. He also has chronic vertigo. His medicine list is exhaustive and likely is part of his problem and we will try to limit these. He will be given IV Reglan, IV Protonix and IV fluid hydration. He is somewhat hypertensive so will continue to receive his hypertensive medications but most all his other medications will be held at the present time. I will get PT evaluation to assess him for fall risk and for ambulatory improvement.
[2017-05-20] MEDS ORDERED: PERCOCET TABLET 5/325MG PO PRN (10:23)
[2017-05-20] MEDS ORDERED: ANTIVERT 25 MG PO PRN (10:23)
[2017-05-20] MEDS ORDERED: ZOFRAN ODT 4 MG PO PRN (10:23)
[2017-05-20] MEDS ORDERED: Toprol-Xl 25MG Tablets PO SCH (10:45)
[2017-05-20] MEDS: PLAVIX 75 MG Tablet PO SCH (11:13)
[2017-05-20] MEDS: Reglan 10 MG/2 ML IV SCH ×3 (11:13→22:51)
[2017-05-20] MEDS: NORVASC 5 MG PO SCH (11:13)
[2017-05-20] MEDS: Zestril 20 MG PO SCH (11:13)
[2017-05-20] MEDS: Toprol Xl 50 MG PO SCH (11:13)
[2017-05-20] MEDS: Pepcid 20 MG PO SCH (11:13)
[2017-05-20] MEDS ORDERED: NON-FORMULARY ITEM (Insulin Lispro 100 UNIT) SQ SCH (15:00)
[2017-05-20] MEDS: Lantus Insulin SQ SCH (16:35)
[2017-05-20] MEDS ORDERED: TYLENOL 325 MG PO PRN (18:04)
[2017-05-20] MEDS: Prozac 20 MG PO SCH (22:50)
[2017-05-21] MEDS: Sodium Chloride 0.9% 1000 ML 1,000 ML IV SCH (04:10)
[2017-05-21 06:17] LABS: Hematocrit 32.6 % (42-50); Mean Cell Volume 95.3 fl (78-100); Mean Corpuscular Hgb Concent. 33.7 g/dl (32-36); Platelet Count 175 K/mm3 (150-450); Red Blood Count 3.42 M/mm3 (4.1-5.6); Red Cell Distribution Width 12.6 % (11.5-14.0); White Blood Count 6.8 K/mm3 (4.0-10.5)
[2017-05-21 06:28] LABS: Mean Corpuscular Hemoglobin 32.1 pg (26-32)
[2017-05-21 06:46] LABS: ALKALINE PHOSPHATASE 73 U/L (46-116); ANION GAP 14.9 MEQ/L (5-15); BLOOD UREA NITROGEN 11 mg/dL (9-20); CHLORIDE 110 mEq/L (98-107); Calcium 8.4 mg/dL (8.5-10.1); Carbon Dioxide 24.1 mEq/L (21-32); Creatinine 1 1.15 mg/dl (0.55-1.30); Glucose 101 MG/DL (70-110); Potassium 3.8 mEq/L (3.5-5.1); SGOT/AST 24 U/L (15-37); SGPT/ALT 32 U/L (12-78); SODIUM 145 mEq/L (136-145); Total Protein 5.9 gm/dL (6.4-8.2)
[2017-05-21] MEDS: Reglan 10 MG/2 ML IV SCH ×4 (07:59→21:19)
[2017-05-21] MEDS: PROTONIX 40 MG IV IV SCH (07:59)
[2017-05-21] MEDS: NICODERM CQ 14 MG TOP SCH (07:59)
[2017-05-21] MEDS: Pepcid 20 MG PO SCH (08:00)
[2017-05-21] MEDS: Zestril 20 MG PO SCH (08:00)
[2017-05-21] MEDS: NORVASC 5 MG PO SCH (08:00)
[2017-05-21] MEDS: PLAVIX 75 MG Tablet PO SCH (08:01)
[2017-05-21] MEDS: Toprol Xl 50 MG PO SCH (08:01)
[2017-05-21] MEDS: hydroDIURIL 25 MG PO SCH (09:54)
[2017-05-21] MEDS ORDERED: LISINOPRIL PO SCH (10:00)
[2017-05-21] MEDS ORDERED: HCTZ PO SCH (10:00)
[2017-05-21] MEDS ORDERED: MAALOX ES 30 ML UNIT DOSE PO ONE (13:05)
[2017-05-21] MEDS: Lantus Insulin SQ SCH (16:50)
[2017-05-21] MEDS: NovoLOG Insulin SQ PRN (16:51)
[2017-05-21] MEDS ORDERED: Sodium Chloride 0.9% 10 ML FLUSH Syringe IV PRN (17:12)
[2017-05-21] MEDS: Prozac 20 MG PO SCH (21:19)
[2017-05-21] MEDS: Sodium Chloride 0.9% 10 ML FLUSH Syringe IV SCH (21:21)
[2017-05-22] MEDS: Sodium Chloride 0.9% 10 ML FLUSH Syringe IV SCH (05:42)
[2017-05-22] MEDS: Zestril 20 MG PO SCH (08:40)
[2017-05-22] MEDS: NORVASC 5 MG PO SCH (08:40)
[2017-05-22] MEDS: Toprol Xl 50 MG PO SCH (08:40)
[2017-05-22] MEDS: PLAVIX 75 MG Tablet PO SCH (08:40)
[2017-05-22] MEDS: PROTONIX 40 MG IV IV SCH (08:41)
[2017-05-22] MEDS: Pepcid 20 MG PO SCH (08:41)
[2017-05-22] MEDS: hydroDIURIL 25 MG PO SCH (08:41)
[2017-05-22] MEDS: NICODERM CQ 14 MG TOP SCH (08:45)
[2017-05-22] MEDS: Reglan 10 MG/2 ML IV SCH ×2 (08:45→11:02)
[2017-05-22 08:59] VITALS: BP 191/81; PULSE 74; O2SAT 96
--- NOTE | 2017-05-22 09:09 | PCM.DS ---
Discharge Summary Date of Admission: 05/20/17 02:11 Admitting Physician: CRYSTAL MURILLO Primary Care Provider: CRYSTAL MURILLO Allergies Allergies No Known Drug Allergies Allergy (Verified 05/07/17 06:06) Hospital Summary - Hospital Course Hospital Course: Pt admitted with vomiting and dehydration; has a hx chronic GI issues which he is being worked up for. He improved during his stay. Abd series neg. CT head neg acutely. Will d/c after breakfast if he tolerates. Discussed diet, advised against biscuits and gravy. - Vitals & Intake/Output Vital Signs: Vital Signs Temperature 98.6 F 05/22/17 08:56 Pulse Rate 74 05/22/17 08:56 Respiratory Rate 20 05/22/17 08:56 Blood Pressure 191/81 05/22/17 08:56 O2 Sat by Pulse Oximetry 96 05/22/17 08:56 Intake & Output: Intake & Output 05/19/17 05/20/17 05/21/17 05/22/17 11:59 11:59 11:59 11:59 Intake Total 0 2731 2753 Output Total 150 1200 850 Balance -150 1531 1903 Weight 76.3 kg - Lab Result Diagrams: 05/21/17 06:06 05/21/17 06:06 Lab Results-Last 24 Hrs: Accuchecks Date 05/22/17 Date 05/21/17 Date 05/21/17 Date 05/21/17 Time 07:30 Time 21:00 Time 16:30 Time 11:30 Accucheck Value: 128 Accucheck Value: 89 Accucheck Value: 216 Accucheck Value: 133 Lab Results-Last 24 Hours 05/21/17 Range/Units 13:20 Troponin I < 0.017 (0.000-0.056) ng/ml Micro Results-Entire Visit: Accuchecks Date 05/22/17 Date 05/21/17 Date 05/21/17 Date 05/21/17 Time 07:30 Time 21:00 Time 16:30 Time 11:30 Accucheck Value: 128 Accucheck Value: 89 Accucheck Value: 216 Accucheck Value: 133 - Procedures and Test Procedures and Tests throughout Hospitalization: Therapy Orders & Screens 05/20/17 03:39 Smoking Cessation Education ONCE Comment: Diagnosis: acute kidney injury Smoking Status: Current every day smoker How long have you smoked: since 14yo Have you smoked in the past 12 months: Yes Approximately how many cigarettes per day: 1pk Do you dip or chew tobacco: No If,Former Smoker,when did you quit: 4 WEEKS 05/20/17 09:37 PT Eval & Treat ( Order) ROUTINE Reason for Eval:: weakness and vertigo Diagnosis: acute kidney injury 05/21/17 13:02 EKG STAT Comment: Diagnosis: acute kidney injury, DEHYDRATION Discharge Exam General Appearance: no apparent distress, alert Neurologic Exam: oriented x 3, cooperative Skin Exam: normal color, warm, dry, No rash Respiratory Exam: normal breath sounds, lungs clear, No crackles/rales, No rhonchi, No wheezing Cardiovascular Exam: regular rate/rhythm, normal heart sounds, No murmur Gastrointestinal/Abdomen Exam: soft, normal bowel sounds, No tenderness, No distention, No mass Extremity Exam: No pedal edema, No swelling Back Exam: normal inspection, No rash Final Diagnosis/Problem List - Final Discharge Diagnosis/Problem (1) Vomiting Current Visit: Yes Status: Resolved Assessment & Plan: resolved; will try a bland breakfast, if can mandy ok to d/c home. (2) Dehydration Current Visit: Yes Status: Resolved (3) Acute kidney injury Current Visit: Yes Status: Resolved - Discharge Disposition: Home, Self-Care Condition: Stable Prescriptions: New Hydrochlorothiazide 25 mg [hydroDIURIL 25 MG] 25 mg PO QAM #30 tablet Continue Fluoxetine HCl [Prozac] 20 mg PO HS Amlodipine Besylate 5 mg [Norvasc 5 mg] 10 mg PO DAILY Metoprolol Succinate 25 mg Xl* [Toprol-Xl 25MG Tablets] 50 mg PO DAILY Omeprazole [Prilosec] 40 mg PO BID Clopidogrel Bisulfate [Plavix] 75 mg PO DAILY Oxycodone HCl/Acetaminophen [Percocet 5-325 mg Tablet] 1 tab PO Q8HPRN PRN PRN Reason: Pain Insulin Glargine [Lantus Insulin] 10 unit SQ 1600 Famotidine 20 mg [Pepcid 20 MG] 40 mg PO DAILY Metoclopramide HCl 5 mg [Reglan 5 MG] 10 mg PO ACHS Insulin Lispro [Humalog] 100 unit SQ TID Ondansetron ODT 4 MG [Zofran Odt 4 mg] 1 tab PO Q6H PRN PRN #10 tab.rapdis PRN Reason: Nausea/Vomiting Meclizine HCl 25 mg [Antivert 25 mg] 25 mg PO Q8H PRN PRN #12 tablet PRN Reason: Dizziness Lisinopril/Hctz 20/12.5 mg [Lisinopril/ Hctz 20/12.5] 2 tab PO DAILY Discontinued Lacosamide [Vimpat] 200 mg PO BID Lamotrigine 150 mg PO DAILY Metformin HCl 1000 mg [Glucophage 1000 MG] 1,000 mg PO BID Lovastatin 40 mg PO QPM Loratadine 10 mg [Claritin 10 mg] 10 mg PO DAILY Celecoxib 100 mg [celeBREX 100 MG] 200 mg PO BID Gabapentin [Neurontin] 1 - 2 tab PO HS Potassium Chloride 10 Meq Tab* [Klor Con 10 MEQ] 10 meq PO DAILY Lamotrigine [Lamictal] 225 mg PO EVENING MEAL Tizanidine HCl 4 mg [Zanaflex 4 MG] 4 mg PO HS Instructions: Dehydration, Adult (DC), Nausea and Vomiting, Adult (DC) Additional Instructions: Take accu check reading before each meal and at bedtime. Record each accu check reading. Take the record to your next physician's appointment. Follow up with: CRYSTAL MURILLO [Primary Care Provider] - 05/28/17 10:15 am Forms: Discharge Instructions
[2017-05-22] MEDS: NovoLOG Insulin SQ PRN (11:02)
== END 2017-05-22 11:59 | disposition home or self-care (01) | DRG 392 ==
LOC: ED 22:22 → MED SURG 05-20 02:11
PROVIDERS: ADMIT Family Medicine; ATTEND Family Medicine
DX: R42 Dizziness and giddiness (principal); E83.42 Hypomagnesemia; R11.2 Nausea with vomiting, unspecified; E11.65 Type 2 diabetes mellitus with hyperglycemia; E86.0 Dehydration; N17.9 Acute kidney failure, unspecified; E78.00 Pure hypercholesterolemia, unspecified; E11.9 Type 2 diabetes mellitus without complications; J44.9 Chronic obstructive pulmonary disease, unspecified; Z79.4 Long term (current) use of insulin; K21.9 Gastro-esophageal reflux disease without esophagitis; F32.9 Major depressive disorder, single episode, unspecified; G40.909 Epilepsy, unspecified, not intractable, without status epilepticus; F17.200 Nicotine dependence, unspecified, uncomplicated; F41.9 Anxiety disorder, unspecified; I10 Essential (primary) hypertension; F03.90 Unspecified dementia, unspecified severity, without behavioral disturbance, psychotic disturbance, mood disturbance, and anxiety; M19.90 Unspecified osteoarthritis, unspecified site; G89.29 Other chronic pain; F45.42 Pain disorder with related psychological factors; Z79.899 Other long term (current) drug therapy
CPT/HCPCS: 36415; 70450; 74022; 80048; 80053; 81000; 82150; 82805; 82962; 83690; 83735; 84484; 85025; 85027; 87086; 93005; 96360; 96361; 96365; 96366; 96374; 99285; J2405; J2550; J3475; A9270-GY

== ENCOUNTER 2017-07-01 08:05 | Day surgery (SDC) | payer MEDICARE ==
[2012-02-24 16:24] VITALS: BP 125/64
[2017-07-01] MEDS ORDERED: DIPRIVAN 200 MG/20 ML IV ONE (08:06)
[2017-07-01 09:05] LABS: Hematocrit 39.7 % (42-50); Hemoglobin 13.7 gm/dl (12.5-18.0); Mean Cell Volume 93.4 fl (78-100); Mean Corpuscular Hemoglobin 32.2 pg (26-32); Mean Corpuscular Hgb Concent. 34.5 g/dl (32-36); Mean Platelet Volume 11.9 fl (6-9.5); Platelet Count 238 K/mm3 (150-450); Red Blood Count 4.25 M/mm3 (4.1-5.6); Red Cell Distribution Width 12.7 % (11.5-14.0); White Blood Count 8.6 K/mm3 (4.0-10.5)
[2017-07-01 09:23] LABS: INR 1.02 (0.8-3.0)
[2017-07-01] MEDS ORDERED: Marcaine 0.5% SDV 10 ML ONE (10:00)
[2017-07-01] MEDS ORDERED: LIDOCAINE HCL 1% AMPUL 5 ML IJ ONE (10:00)
[2017-07-01] MEDS ORDERED: LIDOCAINE HCL 2% 100 MG/5 ML ONE (10:00)
--- NOTE | 2017-07-01 11:36 | XRAY ---
13 seconds fluoroscopy time in surgery for L3-4 MBB.
--- NOTE | 2017-07-01 11:41 | XRAY ---
Indication: L3-L4 MBB. Intraoperative fluoroscopy was provided for 13 seconds. 2 digital spot images submitted for interpretation demonstrates 2 posterior spinal needle tips projecting over the left L3 and L4 pedicles. Correlate with intraoperative findings/report.
--- NOTE | 2017-07-02 08:27 | OP ---
DATE OF PROCEDURE: 07/01/2017 0955 SURGEON: Mariah Tran D.O. PREOPERATIVE DIAGNOSIS: Degenerative lumbar spine disease, spondylosis, low back pain. POSTOPERATIVE DIAGNOSIS: Degenerative lumbar spine disease, spondylosis, low back pain. PROCEDURE PERFORMED: Left L3-L2 medial branch block under fluoroscopic guidance. DESCRIPTION OF THE PROCEDURE: The patient was taken to the operating room and placed in the prone position on the table. Skin at the injection site was prepped and draped in sterile fashion. Under fluoroscopy, bony anatomy of the targeted injection site was visualized. Induction agent was given as per anesthesia while vital signs were monitored. Local anesthetic agent of 0.5 cc of 1% lidocaine preservative free was introduced to anesthetize the skin and the subcutaneous tissue through the injection site. Under fluoroscopic guidance, a #20 gauge standard spinal needle was advanced into the target medial branch through the oblique approach. The preservative free 0.5 cc of 1% lidocaine and 0.5 cc of 0.25% Marcaine were injected into each of the targeted medial branch nerve. After the needle was being removed, the skin was cleansed with alcohol and then a bandage was applied. No complications or adverse consequences were observed. The patient was returned to the holding area until stabilized before discharge to home. Preoperative pain level is 9 out of 10 and the postoperative pain level is 0 out of 10. The patient will be followed up within ten days after the injection for re-evaluation.
== END 2017-07-01 10:35 | disposition home or self-care (01) ==
LOC: SDC-PAIN 08:05
PROVIDERS: ATTEND Internal Medicine
DX: M54.5 Low back pain (principal); M51.36 Other intervertebral disc degeneration, lumbar region; M47.816 Spondylosis without myelopathy or radiculopathy, lumbar region; Z79.891 Long term (current) use of opiate analgesic
CPT/HCPCS: 36415; 64493; 64494; 72020; 77003; 85027; 85610; 85730; J2704

== ENCOUNTER 2018-01-20 09:01 | Day surgery (SDC) | payer MEDICARE ==
[2012-02-24 16:24] VITALS: BP 125/64
[2018-01-20] MEDS ORDERED: DIPRIVAN 200 MG/20 ML IV ONE (09:02)
[2018-01-20] MEDS ORDERED: NovoLIN R SQ ONE ×2 (09:02→10:00)
[2018-01-20] MEDS ORDERED: Xylocaine-Mpf 2% 5 Ml Vial IJ ONE (09:02)
[2018-01-20] MEDS ORDERED: Depo-Medrol 40 MG/ML IM ONE (09:02)
[2018-01-20] MEDS ORDERED: NovoLIN R ONE (09:39)
--- NOTE | 2018-01-20 10:39 | XRAY ---
27 seconds fluoroscopy time in surgery for Bilateral L4-S1 MBB.
--- NOTE | 2018-01-20 10:40 | XRAY ---
Indication: Bilateral L4-S1 MBB. Intraoperative fluoroscopy was provided for 27 seconds. 2 digital spot images submitted for interpretation demonstrates posterior spinal needle tips projecting over the expected course of the left and right L4-S1 nerve roots. Correlate with intraoperative findings/report.
[2018-01-20] MEDS ORDERED: Lactated Ringers 1,000 ML IV ONE (10:54)
== END 2018-01-20 10:40 | disposition home or self-care (01) ==
LOC: SDC-PAIN 09:01
PROVIDERS: ATTEND Psychiatry & Neurology Pain Medicine
DX: M47.16 Other spondylosis with myelopathy, lumbar region (principal); M54.5 Low back pain; E11.9 Type 2 diabetes mellitus without complications
CPT/HCPCS: 64493; 64494; 72020; 77003; 82962; J1030; J2704; A9270-GY

== ENCOUNTER 2018-05-26 07:55 | Day surgery (SDC) | payer MEDICARE ==
[2012-02-24 16:24] VITALS: BP 125/64
[2018-05-26] MEDS ORDERED: Depo-Medrol 40 MG/ML IM ONE (07:56)
[2018-05-26] MEDS ORDERED: Sodium Chloride 0.9(Preservative Free) 10 ML IJ ONE (07:56)
[2018-05-26] MEDS ORDERED: Xylocaine 1% Vial 30 ML PF IJ ONE (07:56)
[2018-05-26] MEDS ORDERED: DIPRIVAN 200 MG/20 ML IV ONE (07:56)
--- NOTE | 2018-05-26 10:25 | XRAY ---
Indication: L4-L5 BANDAR. Intraoperative fluoroscopy was provided for 22 seconds. 2 digital spot images submitted for interpretation demonstrates posterior spinal needle tip projecting just posterior to the L4-L5 interspace. Correlate with intraoperative findings/report.
--- NOTE | 2018-05-26 10:28 | XRAY ---
22 seconds fluoroscopy time in surgery for L4-5 BANDAR.
[2018-05-26] MEDS ORDERED: Lactated Ringers 1,000 ML IV ONE (11:29)
== END 2018-05-26 09:50 | disposition home or self-care (01) ==
LOC: SDC-PAIN 07:55
PROVIDERS: ATTEND Psychiatry & Neurology Pain Medicine
DX: M54.16 Radiculopathy, lumbar region (principal); I10 Essential (primary) hypertension; E11.9 Type 2 diabetes mellitus without complications; Z79.899 Other long term (current) drug therapy
CPT/HCPCS: 62323; 72020; 77003; 82962; J1030; J2001; J2704; Q9967

== ENCOUNTER 2018-06-16 09:54 | Day surgery (SDC) | payer MEDICARE ==
[2012-02-24 16:24] VITALS: BP 125/64
[2018-06-16] MEDS ORDERED: Ketamine HCl 50 MG/ML IJ ONE (09:55)
[2018-06-16] MEDS ORDERED: Marcaine 0.5% SDV 10 ML IJ ONE (09:55)
--- NOTE | 2018-06-16 12:17 | XRAY ---
Indication: Bilateral L4-S1 MBB. Intraoperative fluoroscopy was provided for 9 seconds. Single digital spot image submitted for interpretation demonstrates posterior needle tips projecting over the expected course of the left and right L4-S1 nerve roots. Correlate with intraoperative findings/report.
--- NOTE | 2018-06-16 12:19 | XRAY ---
9 seconds fluoroscopy time in surgery for bilateral L4-S1 MBB.
[2018-06-16] MEDS ORDERED: Lactated Ringers 1,000 ML IV ONE (13:03)
[2018-06-16] MEDS ORDERED: DIPRIVAN 200 MG/20 ML IV ONE (15:24)
== END 2018-06-16 11:27 | disposition home or self-care (01) ==
LOC: SDC-PAIN 09:54
PROVIDERS: ATTEND Psychiatry & Neurology Pain Medicine
DX: M47.816 Spondylosis without myelopathy or radiculopathy, lumbar region (principal); E11.9 Type 2 diabetes mellitus without complications; J44.9 Chronic obstructive pulmonary disease, unspecified; Z79.899 Other long term (current) drug therapy; I10 Essential (primary) hypertension
CPT/HCPCS: 72020; 77002; J2704

== ENCOUNTER 2018-07-21 07:43 | Day surgery (SDC) | payer MEDICARE ==
[2012-02-24 16:24] VITALS: BP 125/64
[2018-07-21] MEDS ORDERED: DIPRIVAN 200 MG/20 ML IV ONE (07:44)
[2018-07-21] MEDS ORDERED: Marcaine 0.5% SDV 10 ML IJ ONE (07:44)
[2018-07-21] MEDS ORDERED: Ketamine HCl 50 MG/ML IJ ONE (07:44)
--- NOTE | 2018-07-21 12:03 | XRAY ---
Indication: Bilateral L4-S1 MBB. Intraoperative fluoroscopy was provided for 11 seconds. Single digital spot image submitted for interpretation demonstrates posterior needle tips projecting over the expected course of the left and right L4-S1 nerve roots. Correlate with intraoperative findings/report.
--- NOTE | 2018-07-21 12:07 | XRAY ---
11 seconds of fluoroscopy was used in surgery for bilateral L4-L5, L5-S1 MBB.
[2018-07-21] MEDS ORDERED: Lactated Ringers 1,000 ML IV ONE (14:51)
== END 2018-07-21 09:52 | disposition home or self-care (01) ==
LOC: SDC-PAIN 07:43
PROVIDERS: ATTEND Psychiatry & Neurology Pain Medicine
DX: M47.816 Spondylosis without myelopathy or radiculopathy, lumbar region (principal); E11.9 Type 2 diabetes mellitus without complications; I10 Essential (primary) hypertension; G89.4 Chronic pain syndrome; K21.9 Gastro-esophageal reflux disease without esophagitis; Z79.01 Long term (current) use of anticoagulants; Z79.899 Other long term (current) drug therapy
CPT/HCPCS: 64493; 64494; 72020; 77002; 82962; J2704

== ENCOUNTER 2019-08-17 08:02 | Day surgery (SDC) | payer MEDICARE ==
[2012-02-24 16:24] VITALS: BP 125/64
[2019-08-17] MEDS ORDERED: Marcaine 0.5% SDV 10 ML IM ONE (08:03)
[2019-08-17] MEDS ORDERED: Depo-Medrol 40 MG/ML IM ONE (08:03)
[2019-08-17] MEDS ORDERED: Ketamine HCl 50 MG/ML ONE (09:19)
[2019-08-17] MEDS ORDERED: DIPRIVAN 200 MG/20 ML IV ONE (09:19)
--- NOTE | 2019-08-17 10:57 | XRAY ---
Indication: Bilateral SI joint injection. Intraoperative fluoroscopy was provided for 13 seconds. 4 digital spot images submitted for interpretation demonstrates posterior needle tip projecting over the inferior left and right SI joint. Correlate with intraoperative findings/report.
--- NOTE | 2019-08-17 11:13 | XRAY ---
13 seconds fluoroscopy time in surgery for bilateral SI joint injections.
[2019-08-17] MEDS ORDERED: Lactated Ringers 1,000 ML IV ONE (14:43)
== END 2019-08-17 09:43 | disposition home or self-care (01) ==
LOC: SDC-PAIN 08:02
PROVIDERS: ATTEND Psychiatry & Neurology Pain Medicine
DX: M46.1 Sacroiliitis, not elsewhere classified (principal); E11.9 Type 2 diabetes mellitus without complications; I10 Essential (primary) hypertension; G89.4 Chronic pain syndrome; K21.9 Gastro-esophageal reflux disease without esophagitis; Z86.73 Personal history of transient ischemic attack (TIA), and cerebral infarction without residual deficits; Z86.79 Personal history of other diseases of the circulatory system
CPT/HCPCS: 64451; 72202; 77002; 82962; J1030; J2704

== ENCOUNTER 2019-09-14 07:59 | Day surgery (SDC) | payer MEDICARE ==
[2012-02-24 16:24] VITALS: BP 125/64
[2019-09-14] MEDS ORDERED: Xylocaine 1% Vial 30 ML PF IJ ONE (08:00)
[2019-09-14] MEDS ORDERED: Marcaine 0.5% SDV 10 ML IM ONE (08:00)
[2019-09-14] MEDS ORDERED: Depo-Medrol 40 MG/ML IM ONE (08:00)
[2019-09-14] MEDS ORDERED: DIPRIVAN 200 MG/20 ML IV ONE (08:44)
[2019-09-14] MEDS ORDERED: Ketamine HCl 50 MG/ML ONE (08:45)
--- NOTE | 2019-09-14 10:59 | XRAY ---
Indication: Left L4-S1 RFA. Intraoperative fluoroscopy was provided for 33 seconds. 3 digital spot images submitted for interpretation demonstrates posterior needle tips projecting over the expected course of the left L4-S1 nerve roots. Correlate with intraoperative findings/report.
--- NOTE | 2019-09-14 11:52 | XRAY ---
33 seconds fluoroscopy time in surgery for left L4-S1 RFA.
[2019-09-14] MEDS ORDERED: Lactated Ringers 1,000 ML IV ONE (14:50)
== END 2019-09-14 09:27 | disposition home or self-care (01) ==
LOC: SDC-PAIN 07:59
PROVIDERS: ATTEND Psychiatry & Neurology Pain Medicine
DX: M47.816 Spondylosis without myelopathy or radiculopathy, lumbar region (principal); I10 Essential (primary) hypertension; E11.9 Type 2 diabetes mellitus without complications; K21.9 Gastro-esophageal reflux disease without esophagitis; Z86.73 Personal history of transient ischemic attack (TIA), and cerebral infarction without residual deficits; G89.4 Chronic pain syndrome; Z79.899 Other long term (current) drug therapy
CPT/HCPCS: 64635; 64636; 72100; 77002; 82962; J1030; J2001; J2704

== ENCOUNTER 2019-09-28 07:52 | Day surgery (SDC) | payer MEDICARE ==
[2012-02-24 16:24] VITALS: BP 125/64
[2019-09-28] MEDS ORDERED: Xylocaine 1% Vial 30 ML PF IJ ONE (07:53)
[2019-09-28] MEDS ORDERED: Depo-Medrol 40 MG/ML IM ONE (07:53)
[2019-09-28] MEDS ORDERED: Marcaine 0.5% SDV 10 ML IJ ONE (07:53)
[2019-09-28] MEDS ORDERED: DIPRIVAN 200 MG/20 ML IV ONE (09:04)
[2019-09-28] MEDS ORDERED: Ketamine HCl 50 MG/ML ONE (09:07)
--- NOTE | 2019-09-28 11:02 | XRAY ---
Indication: Right L4-S1 RFA. Intraoperative fluoroscopy was provided for 16 seconds. 3 digital spot images submitted for interpretation demonstrates posterior needle tips projecting over the expected course of the right L4-S1 nerve roots. Correlate with intraoperative findings/report.
--- NOTE | 2019-09-28 11:49 | XRAY ---
16 seconds of fluoroscopy was used in surgery for right L4-S1 RFA.
[2019-09-28] MEDS ORDERED: Lactated Ringers 1,000 ML IV ONE (15:54)
== END 2019-09-28 09:30 | disposition home or self-care (01) ==
LOC: SDC-PAIN 07:52
PROVIDERS: ATTEND Psychiatry & Neurology Pain Medicine
DX: M47.816 Spondylosis without myelopathy or radiculopathy, lumbar region (principal); E11.9 Type 2 diabetes mellitus without complications; I10 Essential (primary) hypertension; G89.4 Chronic pain syndrome; K21.9 Gastro-esophageal reflux disease without esophagitis; Z86.73 Personal history of transient ischemic attack (TIA), and cerebral infarction without residual deficits; Z79.899 Other long term (current) drug therapy
CPT/HCPCS: 64635; 64636; 72100; 77002; 82962; J1030; J2001; J2704

== ENCOUNTER 2020-01-25 10:58 | Day surgery (SDC) | payer MEDICARE ==
[2012-02-24 16:24] VITALS: BP 125/64
[2020-01-25] MEDS ORDERED: Depo-Medrol 40 MG/ML IM ONE (10:59)
[2020-01-25] MEDS ORDERED: BUPIVACAINE 0.5% VIAL IJ ONE (10:59)
[2020-01-25] MEDS ORDERED: DIPRIVAN 200 MG/20 ML IV ONE (12:55)
[2020-01-25] MEDS ORDERED: Ketamine HCl 50 MG/ML ONE (12:55)
--- NOTE | 2020-01-25 14:07 | XRAY ---
13 seconds fluoroscopy time in surgery for bilateral SI joint injections.
[2020-01-25] MEDS ORDERED: Lactated Ringers 1,000 ML IV ONE (16:47)
== END 2020-01-25 13:20 | disposition home or self-care (01) ==
LOC: SDC-PAIN 10:58
PROVIDERS: ATTEND Psychiatry & Neurology Pain Medicine
DX: M46.1 Sacroiliitis, not elsewhere classified (principal); I10 Essential (primary) hypertension; E11.9 Type 2 diabetes mellitus without complications; G89.4 Chronic pain syndrome; K21.9 Gastro-esophageal reflux disease without esophagitis; Z86.73 Personal history of transient ischemic attack (TIA), and cerebral infarction without residual deficits; Z79.899 Other long term (current) drug therapy
CPT/HCPCS: 72202; 77002; 82947; 82962; G0260; 27096; J1030; J2704

== ENCOUNTER 2020-02-09 09:10 | Emergency (ER) | payer MEDICARE ==
--- NOTE | 2020-02-09 09:56 | ERPHSYRPT ---
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 Symptoms worsened in the evening of 02/08/2020 but he was not evaluated or treated anywhere Timing/Duration: day(s) (2), worse (over the past one day) Activities at Onset: none Quality: aching, stabbing Abdominal Pain Onset Location: LLQ Pain Radiation: no radiation Severity of Pain-Max: severe Severity of Pain-Current: moderate Modifying Factors: Worsens With: movement Associated Symptoms: chest pain (chest pain lasts less than 10 minutes, intermittent, aching without any radiation, none currently; symptoms began last evening, substernally without radiation), No back, No diaphoresis, No diarrhea, No fever/chills, No fatigue, No headache, No heartburn, No loss of appetite, No nausea, No neck pain, No rash, No shortness of breath, No syncope, No testicular pain, No vomiting Previous symptoms: no prior history, no recent treatment Allergies/Adverse Reactions: No Known Drug Allergies Allergy (Verified 05/07/17 06:06) Home Medications: Amlodipine Besylate 5 mg [Norvasc 5 mg] 10 mg PO DAILY 04/04/13 [History] Fluoxetine HCl [Prozac] 20 mg PO HS 04/04/13 [History] Metoprolol Succinate 25 mg Xl* [Toprol-Xl 25MG Tablets] 50 mg PO DAILY 04/04/13 [History] Omeprazole [Prilosec] 40 mg PO BID 06/22/14 [History] Clopidogrel Bisulfate [Plavix] 75 mg PO DAILY 07/29/15 [History] Insulin Glargine [Lantus Insulin] 10 unit SQ 1600 08/08/16 [History] Metoclopramide HCl 5 mg [Reglan 5 MG] 10 mg PO ACHS 03/13/17 [History] Insulin Lispro [Humalog] 100 unit SQ TID 05/07/17 [History] Lisinopril/Hctz 20/12.5 mg [Lisinopril/ Hctz 20/12.5] 2 tab PO DAILY 05/20/17 [History] Gabapentin 300 mg PO DAILY 02/09/20 [History] Hydrocodone/APAP 10/325 mg [[place] 10/325 MG Tablet] 1 tab PO TID PRN PRN 02/09/20 [History] Hx Tetanus, Diphtheria Vaccination/Date Given: Yes Hx Influenza Vaccination/Date Given: Yes Hx Pneumococcal Vaccination/Date Given: No Travel Risk - International Travel Have you traveled outside of the country in past 3 weeks: No - Coronavirus Screening Are you exhibiting any of the following symptoms?: No Close contact with a COVID-19 positive Pt in past 14-21 Days: No - Review of Systems Constitutional: No Fever, No Chills, No Fatigue Eyes: No Symptoms, No Discharge, No Eye Pain Ears, Nose, & Throat: No Nose Congestion, No Sinus Drainage, No Throat Pain Respiratory: No Cough, No Dyspnea Cardiac: Chest Pain, No Edema, No Syncope Abdominal/Gastrointestinal: Abdominal Pain, No Nausea, No Vomiting, No Diarrhea, No Constipation, No Hematemesis, No Hematochezia, No Melena Genitourinary Symptoms: No Dysuria, No Hematuria, No Flank Pain Musculoskeletal: No Back Pain, No Neck Pain Skin: No Pruritis, No Rash Neurological: No Dizziness, No Focal Weakness, No Headache, No Sensory Changes Psychological: No Alcohol Abuse, No Anxiety Hematologic/Lymphatic: No Easy Bleeding, No Gum Bleeding All Other Systems: Reviewed and Negative - Past Medical History Pertinent Past Medical History: Yes Neurological History: Peripheral Neuropathy ENT History: No Pertinent History Cardiac History: High Cholesterol, Hypertension Respiratory History: No Pertinent History Endocrine Medical History: Diabetes Type II Musculoskeletal History: Arthritis GI Medical History: GERD, Other History: No Pertinent History Psycho-Social History: Depression Male Reproductive Disorders: No Pertinent History Other Medical History: TYPE IIDDM, SZ HX D/T EPILEPSY. hx sort term memory loss. recent chest pain 1 month ago. gastritis,vertigo - Past Surgical History Past Surgical History: Yes Neuro Surgical History: No Pertinent History Cardiac: No Pertinent History Respiratory: No Pertinent History Gastrointestinal: Cholecystectomy, Hernia Repair Genitourinary: No Pertinent History Musculoskeletal: Orthopedic Surgery Male Surgical History: No Pertinent History Other Surgical History: cervicle fusion - Social History Smoking Status: Current every day smoker How long have you smoked: since 14yo Exposure to second hand smoke: No Drug Use: none Patient Lives Alone: No - Nursing Vital Signs Nursing Vital Signs: Initial Vital Signs Temperature 98.3 F 02/09/20 09:27 Pulse Rate 84 02/09/20 09:27 Respiratory Rate 20 02/09/20 09:27 Blood Pressure 195/93 02/09/20 09:27 O2 Sat by Pulse Oximetry 96 02/09/20 09:27 Pain Scale Pain Intensity 4 - Physical Exam General Appearance: no apparent distress, alert Eye Exam: PERRL/EOMI, eyes nml inspection, No scleral icterus Ears, Nose, Throat Exam: normal ENT inspection, pharynx normal, moist mucous membranes Neck Exam: normal inspection, non-tender, supple, full range of motion Respiratory Exam: normal breath sounds, lungs clear, airway intact, No respiratory distress, No diminished breath sounds, No accessory muscle use, No crackles/rales, No rhonchi, No wheezing, No stridor Cardiovascular Exam: regular rate/rhythm, normal heart sounds, normal peripheral pulses Gastrointestinal/Abdomen Exam: soft, normal bowel sounds, tenderness (LLQ), No distention, No mass, No guarding, No rebound Back Exam: normal inspection, normal range of motion, No CVA tenderness, No vertebral tenderness Extremity Exam: normal inspection, normal range of motion, pelvis stable, calf tenderness (left posterior) Neurologic Exam: alert, oriented x 3, cooperative, 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 as tested, normal mood/affect, sensation nml, No motor deficits Skin Exam: normal color, warm, dry, No rash, No petechiae, No jaundice SpO2 Interpretation: normal SpO2: 96 O2 Delivery: Room Air - Course Nursing assessment & vital signs reviewed: Yes EKG Interpreted by Me: RATE (61), Sinus Rhythm, NORMAL AXIS, NORMAL INTERVALS, NORMAL QRS, NORMAL ST-T, Other (Normal sinus rhythm at 61 bpm normal RI and QTC intervals, normal axis, no acute ST or T wave changes with no appreciable change in comparison to EKG from 05/20/2017) - Radiology Exams Chest X-ray Interpretation: Interpreted by me, Reviewed by me, Other (Per radiology interpretation in comparison to chest x-ray from 05/12/2017, formal chest remains clear. Heart is not enlarged. Bony thorax intact again with mild degenerative changes in the cervical fusion hardware. No new/acute findings) - Radiology Ultrasound Exam Venous Lower Extremity Ultrasound: negative, Other (Per radiologist, negative for any DVT bilaterally) Ordered Tests: Active Orders 24 hr Category Date Time Status IV Insertion STAT Care 02/09/20 10:24 Active ABDOMEN AND PELVIS W/0 CONTRAS [CT] Stat Exams 02/09/20 11:28 Completed CHEST 1 VIEW (PORTABLE) Stat Exams 02/09/20 10:24 Completed VENOUS BILATERAL EXTREMITY [US] Stat Exams 02/09/20 10:08 Completed AMYLASE Stat Lab 02/09/20 10:50 Completed CBC W DIFF Stat Lab 02/09/20 10:50 Completed CMP Stat Lab 02/09/20 10:50 Completed LIPASE Stat Lab 02/09/20 10:50 Completed Lactic Acid Stat Lab 02/09/20 10:58 Completed PROTIME WITH INR Stat Lab 02/09/20 10:50 Completed TROPONIN Q3H Lab 02/09/20 10:50 Completed TROPONIN Q3H Lab 02/09/20 13:30 Ordered TROPONIN Q3H Lab 02/09/20 16:30 Ordered TROPONIN Q3H Lab 02/09/20 19:30 Ordered TROPONIN Q3H Lab 02/09/20 22:30 Ordered UA W/RFX UR CULTURE Stat Lab 02/09/20 10:50 Completed Medication Summary Discontinued Medications Generic Name Dose Route Start Last Admin Trade Name Freq PRN Reason Stop Dose Admin Aspirin 324 mg 02/09/20 10:25 02/09/20 10:30 Baby Aspirin 81 Mg Chew PO 02/09/20 10:26 324 mg STAT ONE Administration Aspirin Confirm 02/09/20 10:27 Baby Aspirin 81 Mg Chew Administered 02/09/20 10:28 Dose 324 mg .ROUTE .STK-MED ONE Sodium Chloride 1,000 mls @ 999 mls/hr 02/09/20 10:24 02/09/20 11:36 Sodium Chloride 0.9% 1000 Ml IV 02/09/20 11:24 Infused .Q1H1M STA Infusion Sodium Chloride Confirm 02/09/20 10:27 Sodium Chloride 0.9% 1000 Ml Administered 02/09/20 10:28 Dose 1,000 mls @ ud .ROUTE .K-MED ONE Lab/Rad Data: Laboratory Result Diagrams 02/09/20 10:50 02/09/20 10:50 Laboratory Results 02/09/20 02/09/20 02/09/20 Range/Units 10:58 10:50 10:50 WBC (4.0-10.5) K/mm3 RBC (4.1-5.6) M/mm3 Hgb (12.5-18.0) gm/dl Hct (42-50) % MCV (78-100) fl MCH (26-32) pg MCHC (32-36) g/dl RDW (11.5-14.0) % Plt Count (150-450) K/mm3 MPV (7.5-11.0) fl Gran % (36.0-66.0) % Eos # (Auto) (0-0.5) Absolute Lymphs (auto) (1.0-4.6) Absolute Monos (auto) (0.0-1.3) Lymphocytes % (24.0-44.0) % Monocytes % (0.0-12.0) % Eosinophils % (0.00-5.0) % Basophils % (0.0-0.4) % Absolute Granulocytes (1.4-6.9) Basophils # (0-0.4) PT 12.2 (8.83-12.87) SECONDS INR 1.08 (0.8-3.0) Sodium (137-145) mmol/L Potassium (3.5-5.1) mmol/L Chloride (98-107) mmol/L Carbon Dioxide (22-30) mmol/L Anion Gap (5-15) MEQ/L BUN (9-20) mg/dL Creatinine (0.66-1.25) mg/dL Estimated GFR ML/MIN Glucose (74-106) mg/dL Lactic Acid 1.0 (0.4-2.0) Calcium (8.4-10.2) mg/dL Total Bilirubin (0.2-1.3) mg/dL AST (17-59) U/L ALT (0-50) U/L Alkaline Phosphatase (38-126) U/L Troponin I < 0.012 (0.000-0.034) ng/mL Serum Total Protein (6.3-8.2) g/dL Albumin (3.5-5.0) g/dL Amylase (30-110) U/L Lipase (23-300) U/L Urine Color (YELLOW) Urine Appearance (CLEAR) Urine pH (5-6) Ur Specific [place] (1.005-1.025) Urine Protein (Negative) Urine Ketones (NEGATIVE) Urine Blood (0-5) Chip/ul Urine Nitrite (NEGATIVE) Urine Bilirubin (NEGATIVE) Urine Urobilinogen (0-1) mg/dL Ur Leukocyte Esterase (NEGATIVE) Urine WBC (Auto) (0-5) /HPF Urine RBC (Auto) (0-2) /HPF U Epithel Cells (Auto) (FEW) /HPF Urine Bacteria (Auto) (NEGATIVE) /HPF Urine Mucus (Auto) (NEGATIVE) /HPF Urine Culture Reflexed (NO) Urine Glucose (NEGATIVE) mg/dL 02/09/20 02/09/20 02/09/20 Range/Units 10:50 10:50 10:50 WBC 8.5 (4.0-10.5) K/mm3 RBC 4.19 (4.1-5.6) M/mm3 Hgb 13.3 (12.5-18.0) gm/dl Hct 40.7 L (42-50) % MCV 97.1 (78-100) fl MCH 31.7 (26-32) pg MCHC 32.7 (32-36) g/dl RDW 13.6 (11.5-14.0) % Plt Count 170 (150-450) K/mm3 MPV 12.2 H (7.5-11.0) fl Gran % 67.2 H (36.0-66.0) % Eos # (Auto) 0.36 (0-0.5) Absolute Lymphs (auto) 1.54 (1.0-4.6) Absolute Monos (auto) 0.84 (0.0-1.3) Lymphocytes % 18.1 L (24.0-44.0) % Monocytes % 9.9 (0.0-12.0) % Eosinophils % 4.2 (0.00-5.0) % Basophils % 0.6 (0.0-0.4) % Absolute Granulocytes 5.72 (1.4-6.9) Basophils # 0.05 (0-0.4) PT (8.83-12.87) SECONDS INR (0.8-3.0) Sodium 138 (137-145) mmol/L Potassium 4.2 (3.5-5.1) mmol/L Chloride 109 H (98-107) mmol/L Carbon Dioxide 22 (22-30) mmol/L Anion Gap 11.0 (5-15) MEQ/L BUN 31 H (9-20) mg/dL Creatinine 1.36 H (0.66-1.25) mg/dL Estimated GFR 55.2 ML/MIN Glucose 193 H (74-106) mg/dL Lactic Acid (0.4-2.0) Calcium 9.0 (8.4-10.2) mg/dL Total Bilirubin 0.30 (0.2-1.3) mg/dL AST 20 (17-59) U/L ALT 20 (0-50) U/L Alkaline Phosphatase 66 (38-126) U/L Troponin I (0.000-0.034) ng/mL Serum Total Protein 6.8 (6.3-8.2) g/dL Albumin 3.9 (3.5-5.0) g/dL Amylase 50 (30-110) U/L Lipase 62 (23-300) U/L Urine Color YELLOW (YELLOW) Urine Appearance CLEAR (CLEAR) Urine pH 5.0 (5-6) Ur Specific [place] 1.016 (1.005-1.025) Urine Protein 100 (Negative) Urine Ketones NEGATIVE (NEGATIVE) Urine Blood NEGATIVE (0-5) Chip/ul Urine Nitrite NEGATIVE (NEGATIVE) Urine Bilirubin NEGATIVE (NEGATIVE) Urine Urobilinogen NEGATIVE (0-1) mg/dL Ur Leukocyte Esterase NEGATIVE (NEGATIVE) Urine WBC (Auto) 0-2 (0-5) /HPF Urine RBC (Auto) 0-2 (0-2) /HPF U Epithel Cells (Auto) FEW (FEW) /HPF Urine Bacteria (Auto) RARE (NEGATIVE) /HPF Urine Mucus (Auto) SLIGHT (NEGATIVE) /HPF Urine Culture Reflexed NO (NO) Urine Glucose NEGATIVE (NEGATIVE) mg/dL - Progress Progress: improved Progress Note: 02/09/20 12:40 Patient's pain has improved and he does take [place] 10 mg tablets through pain management services. Due to patient's renal function and his pain management that he has with the fecal stasis seen on the CT scan, no further pain management is required at this time as patient does not appear to be in significant distress and has pain medication at home 02/09/20 13:00 Patient comes in the emergency department due to having increasing left lower quadrant pain over last 2 days with intermittent chest pain in the evening of 02/08/2020. Patient's cardiac evaluation was negative as EKG, chest x-ray, and lab work did not show any definitive etiology to his symptoms as his troponin was negative and his chest x-ray was negative andhis EKG had not changed in comparison to previous EKGs and he was currently asymptomatic in regards to his chest pain. Patient's left lower quadrant abdominal pain had no specific etiology in comparison the labs and urinalysis, and with patient's renal function not being at its premium, a CT of the abdomen pelvis was performed without contrast. The CT of the abdomen and pelvis did not show any acute abnormalities to explain his pain but did show some diverticulosis with no diverticulitis, fecal stasis and most likely chronic arteriosclerotic disease and fatty liver. Patient has [place] you take for pain control, I explained to him that this may be contributing to his discomfort is having to that area do the fecal stasis seen on the CT scan so he will be given a short course of MiraLAX take once daily to see if that helps with the symptoms as he takes his [place] 10 mg tablets as directed. Patient is to follow-up with his primary care provider or general surgery referral in 1 day if symptoms persist and return immediately back to the emergency room if he has any worsening abdominal pain at any time or is unable to get into his primary care physician or general surgery referral for immediate reevaluation in the emergency department. I reviewed with patient the importance of follow-up and when to return back to the emergency department in detail. At this time, patient denies any acute surgical or urologic abnormalities that required inpatient admission or immediate general surgical or urologic surgical consultation and patient be discharged home to follow-up as an outpatient. Counseled pt/family regarding: lab results, diagnosis, need for follow-up, rad results - Departure Departure Disposition: Home Clinical Impression: LLQ abdominal pain, Diverticulosis of colon, Fatty liver, Arteriosclerosis, Chest pain in adult CKD (chronic kidney disease) stage 3, GFR 30-59 ml/min Qualifiers: Chronic kidney disease stage 3 subtype: stage 3a (GFR 45-59) Qualified Code(s): N18.31 - Chronic kidney disease, stage 3a Hypertension Qualifiers: Hypertension type: essential hypertension Qualified Code(s): I10 - Essential ( primary) hypertension Condition: Good Critical Care Time: No Referrals: CRYSTAL MURILLO [Primary Care Provider] - 02/10/20 (Return immediately back to the emergency department if you have any worse abdominal pain or unable to get into see her primary care provider) ARTHUR DELONG MD [ASSOCIATE STAFF] - 02/10/20 (General surgeon for your reference) Instructions: Atherosclerosis, Constipation, Adult (DC), High Blood Pressure (DC), Flank Pain, Acute Abdomen (Belly Pain), Adult (DC), Diverticulosis (DC), Nonalcoholic Fatty Liver Disease (DC) Additional Instructions: Return immediately back to the emergency department if you have any worsening abdominal pain, any fever, any blood in the stool, new chest pain, new fever, any shortness of breath, new cough, new vomiting blood, new black stool, new blood in the urine, new painful urination, new uncontrolled diarrhea or any other concerning signs or symptoms that were not present at today's emergency room visit for immediate reevaluation in the emergency department Prescriptions: Polyethylene Glycol 3350 17 gm [Miralax Powder 17GM PACKET] 17 gm PO DAILY PRN #7 packet PRN Reason: Constipation
[2020-02-09] MEDS ORDERED: Sodium Chloride 0.9% 1000 ML 1,000 ML IV STA (10:24)
[2020-02-09] MEDS ORDERED: BABY ASPIRIN 81 MG CHEW PO ONE (10:25)
[2020-02-09] MEDS ORDERED: BABY ASPIRIN 81 MG CHEW ONE (10:27)
[2020-02-09] MEDS ORDERED: Sodium Chloride 0.9% 1000 ML 1,000 ML ONE (10:27)
--- NOTE | 2020-02-09 11:00 | XRAY ---
Indication: Left lower extremity pain. Two-dimensional sonogram and color Doppler imaging of the major venous vessels of the left and right leg was performed. Comparison: None No thrombus seen in the examined deep venous vessels of the left and right leg including greater saphenous vein. Veins demonstrate normal compressibility. Venous waveforms are normal with and without augmentation. Impression: Left and right legs negative for DVT.
[2020-02-09 11:04] LABS: Absolute Neutrophil Ct (ANC) 5.72 (1.4-6.9); BASOPHIL % 0.6 % (0.0-0.4); Basophil (Absolute #) 0.05 (0-0.4); Eosinophil % 4.2 % (0.00-5.0); Eosinophil (Absolute #) 0.36 (0-0.5); Hematocrit 40.7 % (42-50); Hemoglobin 13.3 gm/dl (12.5-18.0); Lymphocyte (Absolute #) 1.54 (1.0-4.6); Lymphocytes % 18.1 % (24.0-44.0); Mean Cell Volume 97.1 fl (78-100); Mean Corpuscular Hemoglobin 31.7 pg (26-32); Mean Corpuscular Hgb Concent. 32.7 g/dl (32-36); Mean Platelet Volume 12.2 fl (7.5-11.0); Monocyte (Absolute #) 0.84 (0.0-1.3); Monocytes % 9.9 % (0.0-12.0); Neutrophil % 67.2 % (36.0-66.0); Platelet Count 170 K/mm3 (150-450); Red Blood Count 4.19 M/mm3 (4.1-5.6); Red Cell Distribution Width 13.6 % (11.5-14.0); White Blood Count 8.5 K/mm3 (4.0-10.5)
[2020-02-09 11:05] LABS: Appearance CLEAR (CLEAR); Bilirubin NEGATIVE (NEGATIVE); Blood NEGATIVE Ery/ul (0-5); Glucose NEGATIVE (NEGATIVE); Ketones NEGATIVE (NEGATIVE); Leukocyte Esterase NEGATIVE (NEGATIVE); Mucus SLIGHT /HPF (NEGATIVE); Nitrite NEGATIVE (NEGATIVE); Protein,Urine Dip 100 (Negative); Specific Gravity 1.016 (1.005-1.025); Urobilinogen NEGATIVE mg/dL (0-1)
[2020-02-09 11:10] LABS: INR 1.08 (0.8-3.0); PROTIME 12.2 SECONDS (8.83-12.87)
[2020-02-09 11:13] LABS: Bacteria RARE /HPF (NEGATIVE); Epithelial Cells FEW /HPF (FEW); RBC 0-2 /HPF (0-2); WBC 0-2 /HPF (0-5)
[2020-02-09 11:14] LABS: ALBUMIN 3.9 g/dL (3.5-5.0); BILIRUBIN,TOTAL 0.3 mg/dL (0.2-1.3); Creatinine 1 1.36 mg/dL (0.66-1.25); EST GLOMERULAR FILTRATION RATE 55.2 ML/MIN; Potassium 4.2 mmol/L (3.5-5.1); Total Protein 6.8 g/dL (6.3-8.2)
--- NOTE | 2020-02-09 11:20 | XRAY ---
Indication: Chest pain. Comparison: May 20, 2017. Portable chest remains clear. Heart is not enlarged. Bony thorax intact again with mild degenerative changes and cervical fusion hardware. No new/acute findings.
--- NOTE | 2020-02-09 12:35 | XRAY ---
Indication: Left groin pain. Multiple contiguous axial images obtained through the abdomen and pelvis without contrast as ordered. Comparison: May 07, 2017. Lung bases again demonstrates scattered atelectasis/scarring. No infiltrate or effusion. Heart is not enlarged. Noncontrasted stomach and bowel loops appear nonobstructed. Normal appendix. There is again mild diffuse scattered colonic fecal debris and descending/sigmoid diverticulosis. No free fluid/air. Stable fatty liver, cholecystectomy, and splenic calcified granulomas. Remaining liver, pancreas, spleen, adrenal glands, kidneys, ureters, and bladder appear unremarkable for noncontrast exam. Stable moderate scattered vascular calcifications including both renal arteries. No AAA. Osseous structures intact again with mild degenerative changes throughout the thoracolumbar spine. No ventral or inguinal hernias. Impression: 1. Again diffuse fecal stasis, colonic diverticulosis, fatty liver, and diffuse arteriosclerotic disease. 2. Remaining CT abdomen/pelvis without contrast exam is negative.
[2020-02-09 12:47] VITALS: O2SAT 96
[2020-02-09 13:18] VITALS: BP 172/82; PULSE 82
== END 2020-02-09 13:15 | disposition home or self-care (01) ==
LOC: ED 09:10
DX: R10.32 Left lower quadrant pain (principal); K57.30 Diverticulosis of large intestine without perforation or abscess without bleeding; I70.90 Unspecified atherosclerosis; R07.9 Chest pain, unspecified; R07.89 Other chest pain; Z79.899 Other long term (current) drug therapy; Z79.4 Long term (current) use of insulin; Z79.891 Long term (current) use of opiate analgesic; E11.9 Type 2 diabetes mellitus without complications; E78.00 Pure hypercholesterolemia, unspecified; I10 Essential (primary) hypertension; G62.9 Polyneuropathy, unspecified
CPT/HCPCS: 36000; 36415; 71045; 74176; 80053; 81001; 82150; 83605; 83690; 84484; 85025; 85610; 93970; 96360; 99284; A9270-GY

== ENCOUNTER 2020-04-25 08:05 | Day surgery (SDC) | payer MEDICARE ==
[2012-02-24 16:24] VITALS: BP 125/64
[~2020-04-25 08:05] MED LIST: DIPRIVAN 200 MG/20 ML IV ONE; Ketamine HCl 50 MG/ML ONE
[2020-04-25] MEDS ORDERED: Depo-Medrol 40 MG/ML IM ONE (08:06)
[2020-04-25] MEDS ORDERED: Xylocaine 1% Vial 30 ML PF IJ ONE (08:06)
[2020-04-25] MEDS ORDERED: BUPIVACAINE 0.5% VIAL IJ ONE (08:06)
[2020-04-25] MEDS ORDERED: Ketamine HCl 50 MG/ML ONE (09:46)
[2020-04-25] MEDS ORDERED: DIPRIVAN 200 MG/20 ML IV ONE (09:46)
--- NOTE | 2020-04-25 10:37 | XRAY ---
Indication: Right SI joint RFA. Intraoperative fluoroscopy was provided for 43 seconds. 3 digital spot images submitted for interpretation demonstrates 4 posterior needle tips projecting over the right sacrum, possibly S1-S4 nerve roots. Correlate with intraoperative findings/report.
--- NOTE | 2020-04-25 12:12 | XRAY ---
43 seconds of fluoroscopy was used in surgery for a right SI joint RFA.
[2020-04-25] MEDS ORDERED: Lactated Ringers 1,000 ML IV ONE (14:40)
== END 2020-04-25 10:30 | disposition home or self-care (01) ==
LOC: SDC-PAIN 08:05
PROVIDERS: ATTEND Psychiatry & Neurology Pain Medicine
DX: M47.816 Spondylosis without myelopathy or radiculopathy, lumbar region (principal); I10 Essential (primary) hypertension; K21.9 Gastro-esophageal reflux disease without esophagitis; Z86.73 Personal history of transient ischemic attack (TIA), and cerebral infarction without residual deficits; Z79.899 Other long term (current) drug therapy; E11.9 Type 2 diabetes mellitus without complications; R56.9 Unspecified convulsions
CPT/HCPCS: 64625; 72202; 77002; 82947; 99100; J1030; J2001; J2704

== ENCOUNTER 2020-05-23 08:00 | Day surgery (SDC) | payer MEDICARE ==
[2012-02-24 16:24] VITALS: BP 125/64
[2020-05-23] MEDS ORDERED: BUPIVACAINE 0.5% VIAL IJ ONE (08:01)
[2020-05-23] MEDS ORDERED: Xylocaine 1% Vial 30 ML PF IJ ONE (08:01)
[2020-05-23] MEDS ORDERED: Depo-Medrol 40 MG/ML IM ONE (08:01)
[2020-05-23] MEDS ORDERED: DIPRIVAN 200 MG/20 ML IV ONE ×2 (08:53→09:34)
[2020-05-23] MEDS ORDERED: Ketamine HCl 50 MG/ML ONE ×2 (08:54→09:34)
--- NOTE | 2020-05-23 10:54 | XRAY ---
Indication: Left SI joint RFA. Intraoperative fluoroscopy provided for 58 seconds. 2 digital spot images submitted for interpretation demonstrates 4 posterior needle tips projecting over the left sacrum, possibly S1-S4 nerve roots. Correlate with intraoperative findings/report.
--- NOTE | 2020-05-23 12:00 | XRAY ---
58 seconds fluoroscopy time in surgery for left SI joint RFA.
[2020-05-23] MEDS ORDERED: Lactated Ringers 1,000 ML IV ONE (14:58)
== END 2020-05-23 10:10 | disposition home or self-care (01) ==
LOC: SDC-PAIN 08:00
PROVIDERS: ATTEND Psychiatry & Neurology Pain Medicine
DX: M46.1 Sacroiliitis, not elsewhere classified (principal); K21.9 Gastro-esophageal reflux disease without esophagitis; F41.9 Anxiety disorder, unspecified; F32.9 Major depressive disorder, single episode, unspecified; E11.9 Type 2 diabetes mellitus without complications; R51.9 Headache, unspecified; I10 Essential (primary) hypertension; M19.90 Unspecified osteoarthritis, unspecified site; R56.9 Unspecified convulsions; Z79.899 Other long term (current) drug therapy
CPT/HCPCS: 64625; 72202; 77002; 82947; 99100; J1030; J2001; J2704

== ENCOUNTER 2020-08-01 09:07 | Day surgery (SDC) | payer MEDICARE ==
[2012-02-24 16:24] VITALS: BP 125/64
[2020-08-01] MEDS ORDERED: Lactated Ringers 1,000 ML IV ONE (16:28)
== END 2020-08-01 10:20 | disposition home or self-care (01) ==
LOC: SDC-PAIN 09:07
PROVIDERS: ATTEND Psychiatry & Neurology Pain Medicine
DX: Z53.09 Procedure and treatment not carried out because of other contraindication (principal); E11.9 Type 2 diabetes mellitus without complications; I10 Essential (primary) hypertension; Z79.899 Other long term (current) drug therapy
CPT/HCPCS: 82947

== ENCOUNTER 2020-08-22 07:38 | Day surgery (SDC) | payer MEDICARE ==
[2012-02-24 16:24] VITALS: BP 125/64
[2020-08-22] MEDS ORDERED: Depo-Medrol 40 MG/ML IM ONE (07:39)
[2020-08-22] MEDS ORDERED: BUPIVACAINE 0.5% VIAL IJ ONE (07:39)
[2020-08-22] MEDS ORDERED: DIPRIVAN 200 MG/20 ML IV ONE (08:54)
--- NOTE | 2020-08-22 10:41 | XRAY ---
Indication: Left hip injection. Intraoperative fluoroscopy provided for 17 seconds. Single digital spot image submitted for interpretation demonstrates needle tip projecting just lateral to left femur head. Small amount of contrast injected for needle tip placement. Correlate with intraoperative findings/report.
--- NOTE | 2020-08-22 12:07 | XRAY ---
17 seconds fluoroscopy time in surgery for intra-articular injection of the left hip.
[2020-08-22] MEDS ORDERED: Lactated Ringers 1,000 ML IV ONE (15:53)
== END 2020-08-22 09:35 | disposition home or self-care (01) ==
LOC: SDC-PAIN 07:38
PROVIDERS: ATTEND Psychiatry & Neurology Pain Medicine
DX: M16.12 Unilateral primary osteoarthritis, left hip (principal); I10 Essential (primary) hypertension; G45.9 Transient cerebral ischemic attack, unspecified; E11.9 Type 2 diabetes mellitus without complications; K21.9 Gastro-esophageal reflux disease without esophagitis; F41.9 Anxiety disorder, unspecified; F32.9 Major depressive disorder, single episode, unspecified; Z79.899 Other long term (current) drug therapy
CPT/HCPCS: 20610; 73501; 77002; 82947; J1030; J2704; Q9966

== ENCOUNTER 2020-09-11 05:58 | Day surgery (SDC) | payer MEDICARE ==
[2020-09-11] MEDS ORDERED: Lactated Ringers 1,000 ML IV ONE (06:44)
[2020-09-11] MEDS ORDERED: Lactated Ringers 1,000 ML IV SCH (07:30)
[2020-09-11] MEDS ORDERED: DIPRIVAN 200 MG/20 ML IV ONE (07:47)
[2020-09-11] MEDS ORDERED: Xylocaine-Mpf 2% 5 Ml Vial ONE (07:47)
[2020-09-11 08:27] VITALS: O2SAT 95
[2020-09-11 08:58] VITALS: BP 127/59; PULSE 67
--- NOTE | 2020-09-11 15:14 | OP ---
SURGERY DATE: 09/11/2020 SURGERY TIME: 751 PREOPERATIVE DIAGNOSIS: 1. ABDOMINAL PAIN. 2. CHOKING. POSTOPERATIVE DIAGNOSIS: 1. MODERATE GASTRITIS. PROCEDURE: 1. Esophagogastroduodenoscopy with cold forceps biopsy of the gastric antrum. SURGEON: Dr. Hester. ANESTHESIA: MAC. Medication given by the Anesthesia Department. BRIEF HISTORY: The patient is a 70 y/o WM patient, a diabetic, who complaints of epigastric pain and taking stomach pills like they are candy. The patient was felt to need endoscopic evaluation. He was appraised of the risks of the procedure including the risk of perforation, phlebitis, untoward reaction to medication, bleeding, missed lesions, and sore throat. The patient verbalized his understanding and desired to have the procedure performed. DESCRIPTION OF PROCEDURE: The patient was given the medications by the Anesthesia Department. He had continuous pulse oximetry, ECG monitoring, intermittent BP monitoring, and end tidal CO2 monitoring during the examination. He was placed in the left lateral decubitus position. A bite block was placed and the flexible Olympus gastroscope was used to intubate the oropharynx. A view of the larynx was obtained and was normal. The scope was easily introduced in the esophagus which appeared to be normal throughout its length, although there did appear to be some esophageal spasms occurring. The scope was entered in the stomach where normal gastric rugal folds were seen and these distended nicely with the insufflation of air. The gastric berry was suctioned dry. The stomach was reinsufflated. The scope was passed along the greater curvature of the stomach to the antrum. The pylorus was encountered and intubated. The duodenum was inspected and found to be normal. The scope was withdrawn towards the stomach. Again, a retroflex view was obtained of the lesser curvature, fundus, and cardia regions of the stomach and these appeared normal other than the appearance of some gastritis. The scope was then redirected towards the gastric antrum. Biopsies were obtained to rule out the presence of H-pylori type organisms. The scope was then removed from the patient who tolerated the procedure well and was sent back to outpatient recovery in good condition.
== END 2020-09-11 08:52 | disposition home or self-care (01) ==
LOC: SDC 05:58
PROVIDERS: ATTEND Family Medicine
DX: K29.70 Gastritis, unspecified, without bleeding (principal); R09.89 Other specified symptoms and signs involving the circulatory and respiratory systems; E11.9 Type 2 diabetes mellitus without complications; I10 Essential (primary) hypertension; Z79.899 Other long term (current) drug therapy
CPT/HCPCS: 82947; 99100; J2704

== ENCOUNTER 2020-11-02 23:49 | Emergency (ER) | payer MEDICARE ==
--- NOTE | 2020-11-03 01:12 | ERPHSYRPT ---
- History of Present Illness Time Seen by Provider: 11/03/20 01:12 Source: patient Exam Limitations: clinical condition (Poor historian) Physician History: This is a 70-year-old white male patient of Dr. Hester who is a poor historian. He sees Dr. Sosa for chronic pain issues. Patient has a history of chronic headaches, hypertension, gastroesophageal reflux disease. He did not take his hypertensive medication all day today. He stated he did not remember to take them. He has not had any nausea vomiting or diarrhea. He has had chronic intermittent abdominal pain issues as well. Patient is an insulin-dependent diabetic and takes Plavix chronically. He has elevated cholesterol. Patient has had a cholecystectomy in the past. He is here today primarily because of a headache that has been present all day as well as the chronic intermittent abdominal pain. Timing/Duration: today Severity: mild (To moderate) Associated Symptoms: abdominal pain (Generalized mild), headaches Allergies/Adverse Reactions: No Known Drug Allergies Allergy (Verified 11/03/20 01:18) Home Medications: Amlodipine Besylate 5 mg [Norvasc 5 mg] 10 mg PO DAILY 04/04/13 [History] Fluoxetine HCl [Prozac] 20 mg PO HS 04/04/13 [History] Metoprolol Succinate 25 mg Xl* [Toprol-Xl 25MG Tablets] 50 mg PO DAILY 04/04/13 [History] Clopidogrel Bisulfate [Plavix] 75 mg PO DAILY 07/29/15 [History] Insulin Glargine [Lantus Insulin] 25 unit SQ 1600 08/08/16 [History] Insulin Lispro [Humalog] 80 unit SQ TID 05/07/17 [History] Lisinopril/Hctz 20/12.5 mg [Lisinopril/ Hctz 20/12.5] 12.5 mg PO DAILY 05/20/17 [History] Gabapentin 600 mg PO DAILY 02/09/20 [History] Esomeprazole Magnesium [Nexium] 09/06/20 [History] Hydrochlorothiazide 09/06/20 [History] Metformin HCl 500 mg [Glucophage 500 MG] 500 mg PO 09/06/20 [History] Oxycodone HCl/Acetaminophen [Percocet 7.5-325 mg Tablet] 1 tab PO TID 09/11/20 [History] Hx Tetanus, Diphtheria Vaccination/Date Given: Yes Hx Influenza Vaccination/Date Given: Yes Hx Pneumococcal Vaccination/Date Given: No Travel Risk - International Travel Have you traveled outside of the country in past 3 weeks: No - Coronavirus Screening Are you exhibiting any of the following symptoms?: No Close contact with a COVID-19 positive Pt in past 14-21 Days: No - Review of Systems Constitutional: No Symptoms Eyes: No Symptoms Ears, Nose, & Throat: No Symptoms Respiratory: No Symptoms Cardiac: No Symptoms Abdominal/Gastrointestinal: Abdominal Pain, No Nausea, No Vomiting, No Diarrhea, No Constipation Genitourinary Symptoms: No Symptoms Musculoskeletal: No Symptoms Skin: No Symptoms Neurological: Headache Psychological: No Symptoms Endocrine: No Symptoms Hematologic/Lymphatic: No Symptoms Immunological/Allergic: No Symptoms All Other Systems: Reviewed and Negative - Past Medical History Pertinent Past Medical History: Yes Neurological History: Peripheral Neuropathy ENT History: No Pertinent History Cardiac History: High Cholesterol, Hypertension Respiratory History: No Pertinent History Endocrine Medical History: Diabetes Type II Musculoskeletal History: Arthritis GI Medical History: GERD, Other History: No Pertinent History Psycho-Social History: Depression Male Reproductive Disorders: No Pertinent History Other Medical History: TYPE IIDDM, SZ HX D/T EPILEPSY. hx sort term memory loss. gastritis,vertigo - Past Surgical History Past Surgical History: Yes Neuro Surgical History: No Pertinent History Cardiac: No Pertinent History Respiratory: No Pertinent History Gastrointestinal: Cholecystectomy, Hernia Repair Genitourinary: No Pertinent History Musculoskeletal: Orthopedic Surgery Male Surgical History: No Pertinent History Other Surgical History: cervicle fusion - Social History Smoking Status: Current every day smoker How long have you smoked: 55 Exposure to second hand smoke: Yes Drug Use: none Patient Lives Alone: No - Nursing Vital Signs Nursing Vital Signs: Initial Vital Signs Temperature 99.1 F 11/03/20 00:57 Pulse Rate 70 11/03/20 00:57 Respiratory Rate 18 11/03/20 00:57 Blood Pressure 244/92 11/03/20 00:57 O2 Sat by Pulse Oximetry 96 11/03/20 00:57 Pain Scale Pain Intensity 0 - Physical Exam General Appearance: no apparent distress, alert, anxiety Eye Exam: PERRL/EOMI, eyes nml inspection Ears, Nose, Throat Exam: normal ENT inspection, moist mucous membranes Neck Exam: normal inspection, non-tender, supple, full range of motion Respiratory Exam: normal breath sounds, lungs clear, airway intact, No chest tenderness, No respiratory distress Cardiovascular Exam: regular rate/rhythm, normal heart sounds, normal peripheral pulses Gastrointestinal/Abdomen Exam: soft, normal bowel sounds, tenderness (Mild diffuse), No guarding, No rebound Rectal Exam: not done Back Exam: normal inspection, normal range of motion, No CVA tenderness, No vertebral tenderness Extremity Exam: normal inspection, normal range of motion, pelvis stable Neurologic Exam: alert, oriented x 3, cooperative, communications project lead II-XII nml as tested, normal mood/affect, nml cerebellar function, nml station & gait, sensation nml Skin Exam: normal color, warm, dry Lymphatic Exam: No adenopathy SpO2 Interpretation: normal SpO2: 96 O2 Delivery: Room Air - Course Nursing assessment & vital signs reviewed: Yes Ordered Tests: Active Orders 24 hr Category Date Time Status IV Insertion STAT Care 11/03/20 01:29 Active Pulse Oximetry (ED) STAT Care 11/03/20 01:29 Active ABDOMEN AND PELVIS W/0 CONTRAS [CT] Stat Exams 11/03/20 01:32 Completed HEAD WITHOUT CONTRAST [CT] Stat Exams 11/03/20 01:31 Taken AMYLASE Stat Lab 11/03/20 01:30 Completed CBC W DIFF Stat Lab 11/03/20 01:30 Completed CMP Stat Lab 11/03/20 01:30 Completed LIPASE Stat Lab 11/03/20 01:30 Completed TROPONIN Q3H Lab 11/03/20 01:30 Completed UA W/RFX UR CULTURE Stat Lab 11/03/20 03:33 Completed Medication Summary Discontinued Medications Generic Name Dose Route Start Last Admin Trade Name Marianne PRN Reason Stop Dose Admin Enalaprilat 1.25 mg 11/03/20 01:33 11/03/20 01:55 Vasotec I.V. 2.5 Mg IV 11/03/20 01:34 1.25 mg STAT ONE Administration Enalaprilat Confirm 11/03/20 01:49 Vasotec I.V. 2.5 Mg Administered 11/03/20 01:50 Dose 2.5 mg IV .STK-MED ONE Morphine Sulfate 4 mg 11/03/20 01:29 11/03/20 01:56 Morphine Sulfate 4 Mg Inj IV 11/03/20 01:30 4 mg STAT ONE Administration Morphine Sulfate Confirm 11/03/20 01:50 Morphine Sulfate 4 Mg Inj Administered 11/03/20 01:51 Dose 4 mg .ROUTE .STK-MED ONE Ondansetron HCl 4 mg 11/03/20 01:29 11/03/20 01:55 Zofran 4 Mg/2 Ml Vial IV 11/03/20 01:30 4 mg STAT ONE Administration Ondansetron HCl Confirm 11/03/20 01:49 Zofran 4 Mg/2 Ml Vial Administered 11/03/20 01:50 Dose 4 mg .ROUTE .STK-MED ONE Potassium Chloride 10 meq 11/03/20 03:47 11/03/20 03:54 Klor Con 10 Meq PO 11/03/20 03:48 10 meq STAT ONE Administration Potassium Chloride Confirm 11/03/20 03:53 Klor Con 10 Meq Administered 11/03/20 03:54 Dose 10 meq PO .STK-MED ONE Lab/Rad Data: Laboratory Result Diagrams 11/03/20 01:30 11/03/20 01:30 Laboratory Results 11/03/20 11/03/20 11/03/20 Range/Units 03:33 01:30 01:30 WBC (4.0-10.5) K/mm3 RBC (4.1-5.6) M/mm3 Hgb (12.5-18.0) gm/dl Hct (42-50) % MCV (78-100) fl MCH (26-32) pg MCHC (32-36) g/dl RDW (11.5-14.0) % Plt Count (150-450) K/mm3 MPV (7.5-11.0) fl Gran % (36.0-66.0) % Eos # (Auto) (0-0.5) Absolute Lymphs (auto) (1.0-4.6) Absolute Monos (auto) (0.0-1.3) Lymphocytes % (24.0-44.0) % Monocytes % (0.0-12.0) % Eosinophils % (0.00-5.0) % Basophils % (0.0-0.4) % Absolute Granulocytes (1.4-6.9) Basophils # (0-0.4) Sodium (137-145) mmol/L Potassium (3.5-5.1) mmol/L Chloride (98-107) mmol/L Carbon Dioxide (22-30) mmol/L Anion Gap (5-15) MEQ/L BUN (9-20) mg/dL Creatinine (0.66-1.25) mg/dL Estimated GFR ML/MIN Glucose (74-106) mg/dL Calcium (8.4-10.2) mg/dL Total Bilirubin (0.2-1.3) mg/dL AST (17-59) U/L ALT (0-50) U/L Alkaline Phosphatase (38-126) U/L Troponin I 0.012 (0.000-0.034) ng/mL Serum Total Protein (6.3-8.2) g/dL Albumin (3.5-5.0) g/dL Amylase 47 (30-110) U/L Lipase 77 (23-300) U/L Urine Color YELLOW (YELLOW) Urine Appearance SLIGHTLY CLOUDY (CLEAR) Urine pH 5.0 (5-6) Ur Specific [place] 1.022 (1.005-1.025) Urine Protein 300 mg/dL (Negative) Urine Ketones TRACE (NEGATIVE) Urine Blood NEGATIVE (0-5) Chip/ul Urine Nitrite NEGATIVE (NEGATIVE) Urine Bilirubin NEGATIVE (NEGATIVE) Urine Urobilinogen 2 (0-1) mg/dL Ur Leukocyte Esterase NEGATIVE (NEGATIVE) Urine WBC (Auto) 0-2 (0-5) /HPF Urine RBC (Auto) 0-2 (0-2) /HPF U Epithel Cells (Auto) NONE (FEW) /HPF Urine Bacteria (Auto) NONE SEEN (NEGATIVE) /HPF U Non-Squamous Epi Cells RARE (FEW) /HPF Urine Mucus (Auto) SLIGHT (NEGATIVE) /HPF Urine Culture Reflexed NO (NO) Urine Glucose NEGATIVE (NEGATIVE) mg/dL 11/03/20 11/03/20 Range/Units 01:30 01:30 WBC 6.8 (4.0-10.5) K/mm3 RBC 4.32 (4.1-5.6) M/mm3 Hgb 13.2 (12.5-18.0) gm/dl Hct 40.0 L (42-50) % MCV 92.6 (78-100) fl MCH 30.6 (26-32) pg MCHC 33.0 (32-36) g/dl RDW 13.7 (11.5-14.0) % Plt Count 188 (150-450) K/mm3 MPV 12.2 H (7.5-11.0) fl Gran % 57.1 (36.0-66.0) % Eos # (Auto) 0.25 (0-0.5) Absolute Lymphs (auto) 1.98 (1.0-4.6) Absolute Monos (auto) 0.66 (0.0-1.3) Lymphocytes % 29.1 (24.0-44.0) % Monocytes % 9.7 (0.0-12.0) % Eosinophils % 3.7 (0.00-5.0) % Basophils % 0.4 (0.0-0.4) % Absolute Granulocytes 3.89 (1.4-6.9) Basophils # 0.03 (0-0.4) Sodium 137 (137-145) mmol/L Potassium 3.3 L (3.5-5.1) mmol/L Chloride 104 (98-107) mmol/L Carbon Dioxide 21 L (22-30) mmol/L Anion Gap 15.3 H (5-15) MEQ/L BUN 24 H (9-20) mg/dL Creatinine 1.59 H (0.66-1.25) mg/dL Estimated GFR 46.0 ML/MIN Glucose 152 H (74-106) mg/dL Calcium 9.4 (8.4-10.2) mg/dL Total Bilirubin 0.50 (0.2-1.3) mg/dL AST 21 (17-59) U/L ALT 15 (0-50) U/L Alkaline Phosphatase 78 (38-126) U/L Troponin I (0.000-0.034) ng/mL Serum Total Protein 7.2 (6.3-8.2) g/dL Albumin 4.2 (3.5-5.0) g/dL Amylase (30-110) U/L Lipase (23-300) U/L Urine Color (YELLOW) Urine Appearance (CLEAR) Urine pH (5-6) Ur Specific [place] (1.005-1.025) Urine Protein (Negative) Urine Ketones (NEGATIVE) Urine Blood (0-5) Chip/ul Urine Nitrite (NEGATIVE) Urine Bilirubin (NEGATIVE) Urine Urobilinogen (0-1) mg/dL Ur Leukocyte Esterase (NEGATIVE) Urine WBC (Auto) (0-5) /HPF Urine RBC (Auto) (0-2) /HPF U Epithel Cells (Auto) (FEW) /HPF Urine Bacteria (Auto) (NEGATIVE) /HPF U Non-Squamous Epi Cells (FEW) /HPF Urine Mucus (Auto) (NEGATIVE) /HPF Urine Culture Reflexed (NO) Urine Glucose (NEGATIVE) mg/dL - Progress Progress: improved, pain not gone completely, re-examined Progress Note: 11/03/20 03:32 CAT scan of the head without contrast shows no acute intracranial findings 11/03/20 03:52 Patient reexamined. Patient states that he is feeling much better. Counseled pt/family regarding: lab results, diagnosis, need for follow-up, rad results - Departure Departure Disposition: Home Clinical Impression: Headache, Hypertension, Abdominal pain, Diverticulosis of colon Condition: Stable Critical Care Time: No Referrals: CRYSTAL HESTER [Primary Care Provider] - Additional Instructions: Take medications as prescribed. Follow-up with your primary care physician
[2020-11-03] MEDS ORDERED: MORPHINE SULFATE 4 MG INJ IV ONE (01:29)
[2020-11-03] MEDS ORDERED: Zofran 4 MG/2 ML VIAL IV ONE (01:29)
[2020-11-03] MEDS ORDERED: VASOTEC I.V. 2.5 MG IV ONE ×2 (01:33→01:49)
[2020-11-03 01:49] LABS: Absolute Neutrophil Ct (ANC) 3.89 (1.4-6.9); BASOPHIL % 0.4 % (0.0-0.4); Basophil (Absolute #) 0.03 (0-0.4); Eosinophil % 3.7 % (0.00-5.0); Eosinophil (Absolute #) 0.25 (0-0.5); Hemoglobin 13.2 gm/dl (12.5-18.0); Lymphocyte (Absolute #) 1.98 (1.0-4.6); Lymphocytes % 29.1 % (24.0-44.0); Mean Cell Volume 92.6 fl (78-100); Mean Corpuscular Hemoglobin 30.6 pg (26-32); Mean Platelet Volume 12.2 fl (7.5-11.0); Monocyte (Absolute #) 0.66 (0.0-1.3); Monocytes % 9.7 % (0.0-12.0); Neutrophil % 57.1 % (36.0-66.0); Platelet Count 188 K/mm3 (150-450); Red Blood Count 4.32 M/mm3 (4.1-5.6); Red Cell Distribution Width 13.7 % (11.5-14.0); White Blood Count 6.8 K/mm3 (4.0-10.5)
[2020-11-03] MEDS ORDERED: Zofran 4 MG/2 ML VIAL ONE (01:49)
[2020-11-03] MEDS ORDERED: MORPHINE SULFATE 4 MG INJ ONE (01:50)
[2020-11-03 01:54] LABS: ALBUMIN 4.2 g/dL (3.5-5.0); AMYLASE 47 U/L (30-110); ANION GAP 15.3 MEQ/L (5-15); BILIRUBIN,TOTAL 0.5 mg/dL (0.2-1.3); Calcium 9.4 mg/dL (8.4-10.2); Creatinine 1 1.59 mg/dL (0.66-1.25); LIPASE 77 U/L (23-300); Potassium 3.3 mmol/L (3.5-5.1); Total Protein 7.2 g/dL (6.3-8.2)
[2020-11-03] MEDS ORDERED: Klor Con 10 MEQ PO ONE ×2 (03:47→03:53)
[2020-11-03 04:24] LABS: Appearance SLIGHTLY CLOUDY (CLEAR); Leukocyte Esterase NEGATIVE (NEGATIVE); Nitrite NEGATIVE (NEGATIVE); Specific Gravity 1.022 (1.005-1.025)
[2020-11-03 04:25] LABS: Bilirubin NEGATIVE (NEGATIVE); Blood NEGATIVE Ery/ul (0-5); Glucose NEGATIVE (NEGATIVE); Ketones TRACE (NEGATIVE); Mucus SLIGHT /HPF (NEGATIVE); Protein,Urine Dip 300 mg/dL (Negative); Urobilinogen 2 mg/dL (0-1); WBC 0-2 /HPF (0-5)
[2020-11-03 04:26] LABS: Bacteria NONE SEEN /HPF (NEGATIVE); Non-Squamous Epithelial Cells RARE /HPF (FEW); RBC 0-2 /HPF (0-2)
--- NOTE | 2020-11-03 06:04 | XRAY ---
Indication: Abdomen pain. Multiple contiguous axial images obtained through the abdomen and pelvis without contrast. Comparison: February 09, 2020. Lung bases again demonstrates mild bilateral dependent atelectasis. No infiltrate or effusion. Heart not enlarged. Noncontrasted stomach and bowel loops appear nonobstructed. Normal appendix. Again scattered descending and sigmoid diverticulosis without diverticulitis. Previous cholecystectomy. No free fluid/air. Again fatty liver and splenic calcified granulomas. Remaining liver, pancreas, spleen, adrenal glands, kidneys, ureters, and bladder are unremarkable for noncontrast exam. Moderate scattered aortoiliac calcifications without AAA. Osseous structures intact with again with mild degenerative changes throughout the spine. Impression: 1. Again colonic diverticulosis, fatty liver, chronic bony findings, diffuse arteriosclerotic disease, and old granulomatous disease. 2. Remaining CT abdomen/pelvis without contrast exam is negative. Comment: Preliminary interpretation made by [facility]. No critical discrepancy.
[2020-11-03 06:10] VITALS: BP 170/61; PULSE 68
[2020-11-03 06:15] VITALS: O2SAT 96
--- NOTE | 2020-11-03 06:15 | XRAY ---
Indication: Headache. Multiple contiguous axial images obtained through the head without contrast. Comparison: May 19, 2017. Again age-appropriate global atrophy and minimal periventricular degenerative micro-ischemia. New finding small focus of old infarct right frontal lobe presumed from old infarct/insult. No acute intracranial hemorrhage, abnormal extra-axial fluid collection, or mass effect. Fourth ventricle is midline without hydrocephalus. Bony calvarium intact. Visualized paranasal sinuses and mastoid air cells are clear. 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 Comment: Preliminary interpretation made by [facility]. No critical discrepancy.
== END 2020-11-03 06:18 | disposition home or self-care (01) ==
LOC: ED 23:49
DX: R51.9 Headache, unspecified (principal); I10 Essential (primary) hypertension; R10.9 Unspecified abdominal pain; K21.9 Gastro-esophageal reflux disease without esophagitis; K57.90 Diverticulosis of intestine, part unspecified, without perforation or abscess without bleeding; Z98.890 Other specified postprocedural states; Z79.899 Other long term (current) drug therapy; G62.9 Polyneuropathy, unspecified
CPT/HCPCS: 36000; 36415; 70450; 74176; 80053; 81001; 82150; 83690; 84484; 85025; 94760; 96374; 96375; 99284; J2270; J2405; A9270-GY

== ENCOUNTER 2020-11-07 09:03 | Day surgery (SDC) | payer MEDICARE ==
[2012-02-24 16:24] VITALS: BP 125/64
[2020-11-07] MEDS ORDERED: Depo-Medrol 40 MG/ML IM ONE (09:04)
[2020-11-07] MEDS ORDERED: BUPIVACAINE 0.5% VIAL IJ ONE (09:04)
[2020-11-07] MEDS ORDERED: DIPRIVAN 200 MG/20 ML IV ONE (10:27)
[2020-11-07] MEDS ORDERED: Lactated Ringers 1,000 ML IV ONE (10:31)
--- NOTE | 2020-11-07 17:00 | XRAY ---
9 seconds of fluoroscopy was used in surgery for a bilateral L4-S1 MBB.
--- NOTE | 2020-11-09 09:18 | XRAY ---
Indication: Bilateral L4-S1 MBB. Intraoperative fluoroscopy was provided for 9 seconds. A single digital spot image submitted for interpretation demonstrates posterior spinal needle tips projected over the expected course of the left and right L4-S1 nerve roots. Correlate with intraoperative findings/report.
== END 2020-11-07 11:00 | disposition home or self-care (01) ==
LOC: SDC-PAIN 09:03
PROVIDERS: ATTEND Psychiatry & Neurology Pain Medicine
DX: M47.816 Spondylosis without myelopathy or radiculopathy, lumbar region (principal); Z79.899 Other long term (current) drug therapy; E11.9 Type 2 diabetes mellitus without complications
CPT/HCPCS: 64493; 64494; 72020; 77002; 82947; J1030; J2704

== ENCOUNTER 2021-01-09 09:25 | Day surgery (SDC) | payer MEDICARE ==
[2012-02-24 16:24] VITALS: BP 125/64
[2021-01-09] MEDS ORDERED: Xylocaine 1% Vial 30 ML PF IJ ONE (09:26)
[2021-01-09] MEDS ORDERED: Depo-Medrol 40 MG/ML IM ONE (09:26)
[2021-01-09] MEDS ORDERED: BUPIVACAINE 0.5% VIAL IJ ONE (09:26)
[2021-01-09] MEDS ORDERED: DIPRIVAN 200 MG/20 ML IV ONE (11:18)
--- NOTE | 2021-01-09 13:11 | XRAY ---
Indication: Bilateral hip injection. Intraoperative fluoroscopy provided for 27 seconds. 2 digital spot image submitted for interpretation demonstrates needle tip projecting lateral to the left and right femur necks. Small amount of contrast injected for both needle tip placement. Correlate with intraoperative findings/report.
--- NOTE | 2021-01-09 14:13 | XRAY ---
27 seconds of fluoroscopy was used in surgery for a bilateral intra articular hip injection.
[2021-01-09] MEDS ORDERED: Lactated Ringers 1,000 ML IV ONE (16:28)
== END 2021-01-09 11:47 | disposition home or self-care (01) ==
LOC: SDC-PAIN 09:25
PROVIDERS: ATTEND Psychiatry & Neurology Pain Medicine
DX: M16.0 Bilateral primary osteoarthritis of hip (principal); E11.9 Type 2 diabetes mellitus without complications; Z79.899 Other long term (current) drug therapy
CPT/HCPCS: 20610; 73521; 77002; 82947; J1030; J2001; J2704; Q9966

== ENCOUNTER 2021-07-12 10:45 | Inpatient (IN) | payer MEDICARE ==
[2021-07-12] MEDS ORDERED: Aplisol ID ONE (11:08)
[2021-07-12] MEDS ORDERED: Miralax Powder 17GM PACKET PO PRN (16:19)
[2021-07-12] MEDS ORDERED: NON-FORMULARY ITEM (Oxycodone Hcl/Acetaminophen [Percocet 7.5-325 Mg Tablet] 1 EACH Tablet PO PRN (16:19)
[2021-07-12] MEDS: Lantus Insulin SQ SCH (17:13)
[2021-07-12] MEDS: PERCOCET TABLET 5/325MG PO PRN (19:43)
[2021-07-12] MEDS: HUMALOG SQ PRN (22:01)
[2021-07-12] MEDS: Cymbalta 30 MG Capsule PO SCH (22:02)
[2021-07-12] MEDS: ECOTRIN 81 MG PO SCH (22:02)
[2021-07-12] MEDS: Cordarone 200 MG PO SCH (22:02)
[2021-07-12] MEDS: Zestril 20 MG PO SCH (22:02)
[2021-07-12] MEDS: Lopressor 50 MG PO SCH (22:02)
[2021-07-12] MEDS: TYLENOL 325 MG PO PRN (23:49)
[2021-07-13] MEDS: PERCOCET TABLET 5/325MG PO PRN ×3 (04:51→18:58)
[2021-07-13] MEDS: TYLENOL 325 MG PO PRN ×3 (08:07→23:10)
[2021-07-13] MEDS: Lopressor 50 MG PO SCH ×2 (08:34→21:15)
[2021-07-13] MEDS: PLAVIX 75 MG Tablet PO SCH (08:34)
[2021-07-13] MEDS: Cymbalta 30 MG Capsule PO SCH ×2 (08:34→21:15)
[2021-07-13] MEDS: ZOCOR 20MG PO SCH (08:34)
[2021-07-13] MEDS: Klor Con 10 MEQ PO SCH (08:34)
[2021-07-13] MEDS: Protonix 40MG Tablet PO SCH (08:34)
[2021-07-13] MEDS: Docusate Sodium 100 MG PO SCH (08:35)
[2021-07-13] MEDS: Lasix 40 MG PO SCH (08:35)
[2021-07-13] MEDS: Zestril 20 MG PO SCH ×2 (08:35→21:15)
[2021-07-13] MEDS: Cordarone 200 MG PO SCH ×2 (08:35→21:15)
[2021-07-13] MEDS ORDERED: NON-FORMULARY ITEM (Rosuvastatin Calcium [Rosuvastatin Calcium] 20 MG Tablet) PO SCH (10:00)
--- NOTE | 2021-07-13 17:22 | XRAY ---
Indication: Follow-up thoracentesis July 11, 2021. Comparison: March 21, 2021. PA/lateral chest demonstrates new small left and tiny right effusions/atelectasis. New left hilar surgical clips. No pneumothorax. Heart not enlarged with interval CABG. Bony thorax intact with mild osteopenia, degenerative changes, and lower cervical fusion hardware. Comment: Preliminary interpretation made by [facility]. No critical discrepancy.
[2021-07-13] MEDS: HUMALOG SQ PRN (17:33)
[2021-07-13] MEDS: Lantus Insulin SQ SCH (17:33)
[2021-07-13] MEDS: ECOTRIN 81 MG PO SCH (21:15)
[2021-07-14] MEDS: Tums EX 750 MG PO PRN (00:18)
[2021-07-14] MEDS: PERCOCET TABLET 5/325MG PO PRN ×4 (01:35→21:38)
[2021-07-14] MEDS: ZOCOR 20MG PO SCH (08:34)
[2021-07-14] MEDS: Cymbalta 30 MG Capsule PO SCH ×2 (08:34→21:38)
[2021-07-14] MEDS: Lopressor 50 MG PO SCH ×2 (08:35→21:39)
[2021-07-14] MEDS: Docusate Sodium 100 MG PO SCH (08:35)
[2021-07-14] MEDS: Klor Con 10 MEQ PO SCH (08:35)
[2021-07-14] MEDS: Cordarone 200 MG PO SCH ×2 (08:35→21:39)
[2021-07-14] MEDS: PLAVIX 75 MG Tablet PO SCH (08:36)
[2021-07-14] MEDS: Protonix 40MG Tablet PO SCH (08:36)
[2021-07-14] MEDS: Lasix 40 MG PO SCH (08:36)
[2021-07-14] MEDS: Zestril 20 MG PO SCH ×2 (08:36→21:39)
--- NOTE | 2021-07-14 14:14 | PCM.NOTE ---
Date and Time: 07/14/21 1413 Subjective Assessment: Nurse reports patient fatigued and having some confusion and decreased appetite.. is visiting. Objective Exam Wound Assessment: Skin/Wound Assessment Wound/Incision Assessment Start: 07/14/21 09:09 Text: Status: Active Freq: Q6H Protocol: Document 07/14/21 09:09 MW (Rec: 07/14/21 09:28 MW [id number]) Wound/Incision Assessment Left Calf Wound Assessment Shift Assessment Wound Type Incision Wound Stage Non Pressure Wound Dressing Status Dry & Intact General Appearance Well Approximated Surrounding Tissue [place] Primary Dressing Absorbant Pad Comment Scabbed areas x 2 from graft sites. Bandage intact. Abdomen Wound Assessment Shift Assessment Wound Type Incision Wound Stage Non Pressure Wound Dressing Status Dry & Intact Drainage Amount None Drainage Odor None/Absent General Appearance Well Approximated,Reddened Comment Incision x 3 with stitches, reddened. No drainage. Medial Chest Wound Assessment Shift Assessment Wound Type Incision Wound Stage Non Pressure Wound Dressing Status Dry & Intact Drainage Amount None Drainage Odor None/Absent General Appearance Clean/Dry Primary Dressing Black wound vac foam Secondary Dressing Tegarderm Comment Wound vac dressing intact. OBJECTIVE DATA Vital Signs: Vital Signs - 24 hr Temp Pulse Resp BP Pulse Ox 07/14/21 08:00 98.4 F 65 23 181/77 94 L 07/13/21 19:41 97.7 F 65 21 179/74 93 L Pain Assessment - Last Documented Pain Intensity 4 Pain Scale Used 0-10 Pain Scale Intake and Output: Intake & Output 07/12/21 07/13/21 07/14/21 07/15/21 11:59 11:59 11:59 11:59 Intake Total 580 1040 Output Total 525 1150 Balance 55 -110 Weight 81.8 kg 79 kg Lab Results: Lab Results-Last 24 Hours 07/13/21 07/13/21 07/14/21 Range/Units 16:20 21:13 07:40 POC Glucometer 364 H 115 H 115 H (74 to 106) mg/dL 07/14/21 Range/Units 11:51 POC Glucometer 179 H (74 to 106) mg/dL Radiology Exams: Radiology Procedures Category Date Time Status CHEST 2 VIEWS (PA AND LAT) Routine Exams 07/13/21 08:00 Completed
[2021-07-14 15:32] LABS: Hematocrit 31.3 % (42-50); Hemoglobin 10.2 gm/dl (12.5-18.0); Mean Cell Volume 99.1 fl (78-100); Mean Corpuscular Hemoglobin 32.3 pg (26-32); Mean Corpuscular Hgb Concent. 32.6 g/dl (32-36); Mean Platelet Volume 12.3 fl (7.5-11.0); Platelet Count 287 K/mm3 (150-450); Red Blood Count 3.16 M/mm3 (4.1-5.6); Red Cell Distribution Width 16.8 % (11.5-14.0); White Blood Count 7.2 K/mm3 (4.0-10.5)
[2021-07-14 16:13] LABS: ALBUMIN 3.4 g/dL (3.5-5.0); ANION GAP 13.4 MEQ/L (5-15); BILIRUBIN,TOTAL 0.5 mg/dL (0.2-1.3); Calcium 8.5 mg/dL (8.4-10.2); Creatinine 1 1.53 mg/dL (0.66-1.25); EST GLOMERULAR FILTRATION RATE 47.9 ML/MIN; Potassium 4.8 mmol/L (3.5-5.1); TSH, 3RD Generation 3.25 mIU/L (0.47-4.68); Total Protein 6.3 g/dL (6.3-8.2)
[2021-07-14 16:26] LABS: Lymphocytes 12 % (24-44); Total Cells Counted 100
[2021-07-14 16:27] LABS: Platelet Estimate NORMAL (NORMAL)
[2021-07-14] MEDS: HUMALOG SQ PRN ×2 (17:05→21:36)
[2021-07-14] MEDS: Lantus Insulin SQ SCH (17:05)
[2021-07-14] MEDS: ECOTRIN 81 MG PO SCH (21:39)
[2021-07-14 22:52] LABS: Appearance CLEAR (CLEAR); Bilirubin NEGATIVE (NEGATIVE); Dipstick done @ ? MAIN LAB; Glucose 250 mg/dL (NEGATIVE); Ketones NEGATIVE (NEGATIVE); Nitrite NEGATIVE (NEGATIVE); Protein,Urine Dip >=300 (Negative); RBC TRACE-INTACT Ery/ul (0-5); Urobilinogen 0.2 mg/dL (0-1)
[2021-07-14 23:16] LABS: Urine Cultured Indicated? NO
[2021-07-14] MEDS: TYLENOL 325 MG PO PRN (23:55)
[2021-07-15] MEDS: PERCOCET TABLET 5/325MG PO PRN ×5 (01:30→21:57)
[2021-07-15] MEDS ORDERED: PERCOCET TABLET 5/325MG ONE (05:48)
[2021-07-15] MEDS: Protonix 40MG Tablet PO SCH (09:07)
[2021-07-15] MEDS: Docusate Sodium 100 MG PO SCH (09:07)
[2021-07-15] MEDS: Cymbalta 30 MG Capsule PO SCH ×2 (09:07→21:56)
[2021-07-15] MEDS: ZOCOR 20MG PO SCH (09:07)
[2021-07-15] MEDS: Lasix 40 MG PO SCH (09:08)
[2021-07-15] MEDS: Cordarone 200 MG PO SCH ×2 (09:08→21:57)
[2021-07-15] MEDS: Klor Con 10 MEQ PO SCH (09:08)
[2021-07-15] MEDS: Zestril 20 MG PO SCH ×2 (09:08→21:57)
[2021-07-15] MEDS: Lopressor 50 MG PO SCH ×2 (09:08→21:57)
[2021-07-15] MEDS: PLAVIX 75 MG Tablet PO SCH (09:08)
[2021-07-15] MEDS: TYLENOL 325 MG PO PRN ×2 (12:29→23:39)
[2021-07-15] MEDS: HUMALOG SQ PRN (12:29)
[2021-07-15] MEDS: Lantus Insulin SQ SCH (16:48)
[2021-07-15] MEDS: Vitamin B-12 500 MCG PO SCH (17:52)
[2021-07-15] MEDS: ECOTRIN 81 MG PO SCH (21:57)
[2021-07-16] MEDS: PERCOCET TABLET 5/325MG PO PRN ×5 (05:23→23:55)
[2021-07-16] MEDS: Lopressor 50 MG PO SCH ×2 (09:06→21:15)
[2021-07-16] MEDS: TYLENOL 325 MG PO PRN ×3 (09:06→18:32)
[2021-07-16] MEDS: Docusate Sodium 100 MG PO SCH (09:06)
[2021-07-16] MEDS: Protonix 40MG Tablet PO SCH (09:07)
[2021-07-16] MEDS: Zestril 20 MG PO SCH ×2 (09:07→21:15)
[2021-07-16] MEDS: Klor Con 10 MEQ PO SCH (09:07)
[2021-07-16] MEDS: Cordarone 200 MG PO SCH ×2 (09:07→21:15)
[2021-07-16] MEDS: PLAVIX 75 MG Tablet PO SCH (09:07)
[2021-07-16] MEDS: Cymbalta 30 MG Capsule PO SCH ×2 (09:07→21:15)
[2021-07-16] MEDS: ZOCOR 20MG PO SCH (09:07)
[2021-07-16] MEDS: Lasix 40 MG PO SCH (09:07)
[2021-07-16] MEDS: Vitamin B-12 500 MCG PO SCH (09:08)
[2021-07-16] MEDS: Tums EX 750 MG PO PRN (09:16)
[2021-07-16] MEDS: Lantus Insulin SQ SCH (17:17)
[2021-07-16] MEDS: ECOTRIN 81 MG PO SCH (21:15)
[2021-07-16] MEDS: HUMALOG SQ PRN (21:28)
[2021-07-17] MEDS: TYLENOL 325 MG PO PRN (02:10)
[2021-07-17] MEDS: PERCOCET TABLET 5/325MG PO PRN ×3 (03:50→12:08)
[2021-07-17 07:44] VITALS: BP 149/68; PULSE 63; O2SAT 94
[2021-07-17] MEDS: PLAVIX 75 MG Tablet PO SCH (07:59)
[2021-07-17] MEDS: Lasix 40 MG PO SCH (07:59)
[2021-07-17] MEDS: Lopressor 50 MG PO SCH (07:59)
[2021-07-17] MEDS: Klor Con 10 MEQ PO SCH (07:59)
[2021-07-17] MEDS: Vitamin B-12 500 MCG PO SCH (08:00)
[2021-07-17] MEDS: Cymbalta 30 MG Capsule PO SCH (08:00)
[2021-07-17] MEDS: Protonix 40MG Tablet PO SCH (08:00)
[2021-07-17] MEDS: ZOCOR 20MG PO SCH (08:00)
[2021-07-17] MEDS: Cordarone 200 MG PO SCH (08:00)
[2021-07-17] MEDS: Zestril 20 MG PO SCH (08:00)
[2021-07-17] MEDS: Docusate Sodium 100 MG PO SCH (08:00)
--- NOTE | 2021-07-17 09:41 | PCM.DS ---
Discharge Summary Date of Admission: 07/12/21 14:28 Admitting Physician: CRYSTAL MURILLO Primary Care Provider: CRYSTAL MURILLO Allergies Allergies No Known Drug Allergies Allergy (Verified 07/12/21 14:47) Hospital Summary - Hospital Course Hospital Course: patient was admitted for swingbed stay following CABG, had wound vac placed initially. he is ambulatory in his room today, tolerating po intake and able to care for himself, lives with his . will return to home with [facility]. - Vitals & Intake/Output Vital Signs: Vital Signs Temperature 97.5 F 07/17/21 07:44 Pulse Rate 63 07/17/21 07:44 Respiratory Rate 21 07/17/21 07:44 Blood Pressure 149/68 07/17/21 07:44 O2 Sat by Pulse Oximetry 94 L 07/17/21 07:44 Intake & Output: Intake & Output 07/14/21 07/15/21 07/16/21 07/17/21 11:59 11:59 11:59 11:59 Intake Total 1040 1460 840 480 Output Total 1150 300 Balance -110 1160 840 480 Weight 79 kg 76.9 kg 76.9 kg - Lab Result Diagrams: 07/14/21 15:05 07/14/21 15:05 Lab Results-Last 24 Hrs: Lab Results-Last 24 Hours 07/16/21 07/16/21 07/16/21 Range/Units 11:40 16:10 21:24 POC Glucometer 284 H 198 H 235 H (74 to 106) mg/dL 07/17/21 Range/Units 07:34 POC Glucometer 77 (74 to 106) mg/dL Micro Results-Entire Visit: Accuchecks Date 07/17/21 Date 07/16/21 Date 07/16/21 Date 07/16/21 Time 07:35 Time 21:30 Time 16:17 Time 11:47 - Procedures and Test Procedures and Tests throughout Hospitalization: Therapy Orders & Screens 07/12/21 11:08 OT Eval and Treat ( Order) ONCE Comment: Consulting Provider: Physician Instructions: Reason For Exam: PT Eval & Treat ( Order) ONCE Reason for Eval:: WEAKNESS Diagnosis: DECONDITIONING R/T CABGX4 07/15/21 15:26 PT Clarification Order ROUTINE Comment: Physician Instructions: Reason For Exam: PT Clarification: P.T. 5X PER WEEK FOR THERAPEUTIC EXERCISES FOR LOWER EXTREMITY STRENGTHENING, BALANCE AND ADL TRAINING INCLUDING GAIT AND TRANSFERS TO MAXIMIZE ABILITY TO DISCHARGE HOME WITH SPOUSE 07/15/21 16:13 OT Clarification Order ROUTINE Comment: Physician Instructions: Reason For Exam: OT Clarification: OT to provide treatment 5x/week to faciliate independence with I/ADLs, promote safety insight, and reduce caregiver burden. Discharge Exam General Appearance: no apparent distress, alert Neurologic Exam: alert, oriented x 3 Respiratory Exam: normal breath sounds, lungs clear, No respiratory distress Cardiovascular Exam: regular rate/rhythm, normal heart sounds Gastrointestinal/Abdomen Exam: soft, No tenderness, No mass Extremity Exam: normal inspection, normal range of motion Skin Exam: normal color, warm, dry Wound Assessment: Skin/Wound Assessment Wound/Incision Assessment Start: 07/14/21 09:09 Text: Status: Active Freq: Q6H Protocol: Document 07/17/21 03:00 TK (Rec: 07/17/21 03:11 TK [id number]) Wound/Incision Assessment Left Calf Wound Assessment Shift Assessment Wound Type Incision Wound Stage Non Pressure Wound Drainage Amount None General Appearance Well Approximated,Open to air, Clean/Dry Surrounding Tissue Compton Comment open to air Abdomen Wound Assessment Shift Assessment Wound Type Incision Wound Stage Non Pressure Wound Drainage Amount None General Appearance Well Approximated,Open to air, Clean/Dry,Reddened Surrounding Tissue Compton Comment chest tube sites- open to air Medial Chest Wound Assessment Shift Assessment Wound Type Incision Wound Stage Non Pressure Wound Dressing Status Dry & Intact,Changed Drainage Amount None Drainage Odor None/Absent General Appearance Clean/Dry Primary Dressing Non-Adherent Gauze Pads Secondary Dressing [id number] Final Diagnosis/Problem List - Final Discharge Diagnosis/Problem (1) History of coronary artery bypass graft Current Visit: Yes Status: Acute (2) Arteriosclerosis Current Visit: No Status: Acute Code(s): I70.90 - UNSPECIFIED ATHEROSCLER OSIS (3) CKD (chronic kidney disease) stage 3, GFR 30-59 ml/min Current Visit: No Status: Acute Code(s): N18.30 - CHRONIC KIDNEY DISEASE, STAGE 3 UNSPECIFIED - Discharge Disposition: Home, Self-Care Condition: Stable Prescriptions: Continue Clopidogrel Bisulfate [Plavix] 75 mg PO DAILY Insulin Glargine [Lantus Insulin] 30 unit SQ 1600 Esomeprazole Magnesium [Nexium] 20 mg PO DAILY Oxycodone HCl/Acetaminophen [Percocet 7.5-325 mg Tablet] 1 tab PO Q6HPRN PRN PRN Reason: Moderate Pain Rosuvastatin Calcium 20 mg PO DAILY Docusate Sodium 100 mg PO DAILY Potassium Chloride 20 meq PO DAILY Furosemide 40 mg PO DAILY Gabapentin 100 mg [Neurontin 100 MG] 100 mg PO QID PRN PRN Reason: Pain lisinopriL [Lisinopril] 20 mg PO BID Aspirin [Aspirin EC] 81 mg PO HS Metoprolol Tartrate 50 mg [Lopressor 50 MG] 50 mg PO BID Amiodarone HCl 200 mg [Cordarone 200 MG] 200 mg PO BID Polyethylene Glycol 3350 [Miralax] 17 gm PO DAILY PRN PRN Reason: Constipation Duloxetine HCl 30 mg [Cymbalta 30 MG Capsule] 30 mg PO BID Acetaminophen 325 mg [Tylenol 325 mg] 650 mg PO Q4-6HPRN PRN PRN Reason: Pain, Fever, Headache PANTOPRAZOLE 40 mg Tablet [Protonix 40MG Tablet] 40 mg PO DAILY Insulin Lispro [Humalog] 0 unit SQ ACHS Additional Instructions: Stitches x 3 to abdomen from chest drainage tubes to be removed at f/u appt with Dr. Ledbetter. [facility] HAS ACCEPTED YOU FOR CARE AFTER DISCHARGE. THEY WILL CALL YOU TO SET UP YOUR FIRST VISIT. IF YOU NEED TO CONTACT THEM, THEIR PHONE NUMBER IS [phone]. Follow up with: CRYSTAL MURILLO [Primary Care Provider] - LAUREANO LEDBETTER [COURTESY STAFF] - 07/22/21 1:30 pm NEHEMIAS ANTHONY [ACTIVE STAFF] -
[2021-07-24] MEDS ORDERED: Aplisol ID ONE (10:00)
== END 2021-07-17 13:36 | disposition home or self-care (01) | DRG 951 ==
LOC: MED SURG 14:28
PROVIDERS: ADMIT Family Medicine; ATTEND Family Medicine
DX: Z95.1 Presence of aortocoronary bypass graft (principal); I70.90 Unspecified atherosclerosis; E11.22 Type 2 diabetes mellitus with diabetic chronic kidney disease; I12.9 Hypertensive chronic kidney disease with stage 1 through stage 4 chronic kidney disease, or unspecified chronic kidney disease; N18.30 Chronic kidney disease, stage 3 unspecified; I25.10 Atherosclerotic heart disease of native coronary artery without angina pectoris; I73.9 Peripheral vascular disease, unspecified; J44.9 Chronic obstructive pulmonary disease, unspecified; F03.90 Unspecified dementia, unspecified severity, without behavioral disturbance, psychotic disturbance, mood disturbance, and anxiety; R41.0 Disorientation, unspecified; Z72.0 Tobacco use; Z79.899 Other long term (current) drug therapy; Z79.01 Long term (current) use of anticoagulants; Z86.69 Personal history of other diseases of the nervous system and sense organs; Z20.828 Contact with and (suspected) exposure to other viral communicable diseases
CPT/HCPCS: 36415; 71046; 80053; 81015; 82607; 82947; 84443; 85025; J1817; 97110-GP; A9270-GY

== ENCOUNTER 2021-08-02 19:51 | Emergency (ER) | payer MEDICARE ==
[2021-08-02] MEDS ORDERED: BABY ASPIRIN 81 MG CHEW PO ONE (20:12)
--- NOTE | 2021-08-02 20:23 | ERPHSYRPT ---
- History of Present Illness Time Seen by Provider: 08/02/21 20:05 Historian: patient, family Exam Limitations: clinical condition (Patient has a degree of dementia) Patient Subjective Stated Complaint: Pt states "My chest started hurting last night and it hasn't let up." Triage Nursing Assessment: Pt c/o L sided chest pain that radiates to L jaw. pt does have hx of dementia so is answering most questions. pt has hx of open heart surgery on july 05, 2021. pt took 2 nitros and a percocet within the last hour to help relieve the pain Physician History: This is a 71-year-old white male patient who states he is having left-sided chest pain that radiates up to his left jaw that began last evening. Patient took 2 nitroglycerin and a Percocet at home. He arrives to the emergency department with a 6 out of 10 chest pain complaint. He is a current daily smoker of cigarettes. He is on Plavix. On 07/05/2021 patient had an open heart surgery performed at [facility] in [facility]. Patient's [facility] care doctor is Dr. Murillo. Patient has a document control coordinator who is Dr. Velasco and his cardiothoracic surgeon is Dr. Beal. Timing/Duration: yesterday Quality: aching Location: other (Left chest around the nipple) Chest Pain Radiation: jaw (Left), neck (Left) Severity of Pain-Max: mild (To moderate) Severity of Pain-Current: mild (To moderate) Modifying Factors: Improves With: nothing Associated Symptoms: denies symptoms Prior Chest Pain/Cardiac Workup: recently seen/treated, recent hospitalization Nitro Today/Relief: 0.4 mg x 2, provided at home Aspirin Treatment Today: no aspirin today (On Plavix), 81 mg x 4, provided by ED Allergies/Adverse Reactions: No Known Drug Allergies Allergy (Verified 08/02/21 20:03) Home Medications: Clopidogrel Bisulfate [Plavix] 75 mg PO DAILY 07/29/15 [History] Insulin Glargine [Lantus Insulin] 30 unit SQ 1600 08/08/16 [History] Oxycodone HCl/Acetaminophen [Percocet 7.5-325 mg Tablet] 1 tab PO Q6HPRN PRN 09/11/20 [History] Aspirin [Aspirin EC] 81 mg PO HS 07/12/21 [History] Docusate Sodium 100 mg PO DAILY 07/12/21 [History] Duloxetine HCl 30 mg [Cymbalta 30 MG Capsule] 30 mg PO BID 07/12/21 [History] Gabapentin 100 mg [Neurontin 100 MG] 100 mg PO QID PRN 07/12/21 [History] Insulin Lispro [Humalog] 0 unit SQ ACHS 07/12/21 [History] Polyethylene Glycol 3350 [Miralax] 17 gm PO DAILY PRN 07/12/21 [History] Rosuvastatin Calcium 20 mg PO DAILY 07/12/21 [History] Hx Tetanus, Diphtheria Vaccination/Date Given: Yes Hx Influenza Vaccination/Date Given: No Hx Pneumococcal Vaccination/Date Given: No Immunizations Up to Date: Yes Travel Risk - International Travel Have you traveled outside of the country in past 3 weeks: No - Coronavirus Screening Are you exhibiting any of the following symptoms?: No Close contact with a COVID-19 positive Pt in past 14-21 Days: No - Vaccine Status Have you recieved a Covid-19 vaccination: Yes [employer]: Moderna - Vaccination Dates Date of 2cond Vaccination (if applicable): 2020 - Review of Systems Constitutional: No Symptoms Eyes: No Symptoms Ears, Nose, & Throat: No Symptoms Respiratory: No Symptoms Cardiac: Chest Pain Abdominal/Gastrointestinal: No Symptoms Genitourinary Symptoms: No Symptoms Musculoskeletal: No Symptoms Skin: No Symptoms Neurological: No Symptoms Psychological: No Symptoms Endocrine: No Symptoms Hematologic/Lymphatic: No Symptoms Immunological/Allergic: No Symptoms All Other Systems: Reviewed and Negative - Past Medical History Pertinent Past Medical History: Yes Neurological History: Peripheral Neuropathy ENT History: Cataracts Cardiac History: Congestive Heart Failure, Coronary Artery Disease, High Cholesterol, Hypertension, Myocardial Infarction (ND) Respiratory History: No Pertinent History Endocrine Medical History: Diabetes Type II Musculoskeletal History: No Pertinent History GI Medical History: GERD History: No Pertinent History Psycho-Social History: Anxiety, Depression Male Reproductive Disorders: No Pertinent History Other Medical History: PATIENT REPORTS PROBLEMS WITH SHORT TERM MEMORY AND NOTED ON E.R. REPORT FROM OCTOBER 2020. ALSO GERD, DEPRESSION, CERVICAL FUSION, CHOLECYSTECTOMY. PATIENT REPORTS VACCINATED AND BOOSTER FOR COVID. - Past Surgical History Past Surgical History: Yes Neuro Surgical History: No Pertinent History Cardiac: CABG, Cardiac Catheterization, Cardiac Stent Respiratory: Chest Surgery Gastrointestinal: No Pertinent History Genitourinary: No Pertinent History Musculoskeletal: No Pertinent History Male Surgical History: No Pertinent History Other Surgical History: cervicle fusion - Social History Smoking Status: Current every day smoker How long have you smoked: 55 Exposure to second hand smoke: No Drug Use: none Patient Lives Alone: No - Nursing Vital Signs Nursing Vital Signs: Initial Vital Signs Temperature 97.3 F 08/02/21 19:52 Pulse Rate 57 L 08/02/21 19:52 Respiratory Rate 18 08/02/21 19:52 Blood Pressure 147/60 08/02/21 19:52 O2 Sat by Pulse Oximetry 92 L 08/02/21 19:52 Pain Scale Pain Intensity 6 - Physical Exam General Appearance: no apparent distress, alert, anxiety Eye Exam: PERRL/EOMI, eyes nml inspection Ears, Nose, Throat Exam: normal ENT inspection, moist mucous membranes Neck Exam: normal inspection, non-tender, supple, full range of motion Respiratory Exam: normal breath sounds, chest tenderness, lungs clear, No respiratory distress, No airway intact Cardiovascular Exam: regular rate/rhythm, normal heart sounds, normal peripheral pulses Gastrointestinal/Abdomen Exam: soft, normal bowel sounds, No tenderness Rectal Exam: not done Back Exam: normal inspection, normal range of motion, No CVA tenderness, No vertebral tenderness Extremity Exam: normal inspection, normal range of motion, pelvis stable Neurologic Exam: alert, oriented x 3, cooperative, ob/gyn II-XII nml as tested, normal mood/affect, nml cerebellar function, nml station & gait, sensation nml Skin Exam: normal color, warm, dry Lymphatic Exam: No adenopathy SpO2 Interpretation: borderline oxygenation SpO2: 92 O2 Delivery: Room Air - Course Nursing assessment & vital signs reviewed: Yes EKG Interpreted by Me: RATE (56), Sinus Rhythm, NORMAL AXIS, NORMAL INTERVALS, NORMAL QRS, Non-specific ST Changes, Other (No acute ischemic changes on today's EKG. There is no comparison EKG available.) Ordered Tests: Active Orders 24 hr Category Date Time Status EKG-ER Only STAT Care 08/02/21 20:14 Active IV Insertion STAT Care 08/02/21 20:14 Active Pulse Oximetry (ED) STAT Care 08/02/21 20:12 Active CHEST 1 VIEW (PORTABLE) Stat Exams 08/02/21 20:13 Taken CBC W DIFF Stat Lab 08/02/21 20:23 Completed CMP Stat Lab 08/02/21 20:23 Completed D-DIMER QUANTITATIVE Stat Lab 08/02/21 20:23 Completed NT PRO BNP Stat Lab 08/02/21 20:23 Completed TROPONIN Q3H Lab 08/02/21 20:23 Completed TROPONIN Q3H Lab 08/02/21 23:15 Ordered TROPONIN Q3H Lab 08/03/21 02:15 Ordered TROPONIN Q3H Lab 08/03/21 05:15 Ordered TROPONIN Q3H Lab 08/03/21 08:15 Ordered Medication Summary Generic Name Dose Route Start Last Admin Trade Name Freq PRN Reason Stop Dose Admin Ceftriaxone Sodium/Dextrose 1 g in 50 mls @ 100 mls/hr 08/02/21 21:43 Rocephin 1 Gm-D5w 50 Ml Bag IV 08/02/21 22:12 STAT STA Discontinued Medications Generic Name Dose Route Start Last Admin Trade Name Freq PRN Reason Stop Dose Admin Aspirin 324 mg 08/02/21 20:12 08/02/21 20:21 Aspirin 81 Mg Tab.Chew PO 08/02/21 20:13 324 mg STAT ONE Administration Lab/Rad Data: Laboratory Result Diagrams 08/02/21 20:23 08/02/21 20:23 Laboratory Results 08/02/21 08/02/21 08/02/21 Range/Units 20:23 20:23 20:23 WBC (4.0-10.5) K/mm3 RBC (4.1-5.6) M/mm3 Hgb (12.5-18.0) gm/dl Hct (42-50) % MCV (78-100) fl MCH (26-32) pg MCHC (32-36) g/dl RDW (11.5-14.0) % Plt Count (150-450) K/mm3 MPV (7.5-11.0) fl Gran % (36.0-66.0) % Eos # (Auto) (0-0.5) Absolute Lymphs (auto) (1.0-4.6) Absolute Monos (auto) (0.0-1.3) Lymphocytes % (24.0-44.0) % Monocytes % (0.0-12.0) % Eosinophils % (0.00-5.0) % Basophils % (0.0-0.4) % Absolute Granulocytes (1.4-6.9) Basophils # (0-0.4) D-Dimer 3379 H* (215-500) ng/mL Sodium 134 L (137-145) mmol/L Potassium 4.4 (3.5-5.1) mmol/L Chloride 101 (98-107) mmol/L Carbon Dioxide 22 (22-30) mmol/L Anion Gap 15.6 H (5-15) MEQ/L BUN 35 H (9-20) mg/dL Creatinine 1.88 H (0.66-1.25) mg/dL Estimated GFR 37.8 ML/MIN Glucose 313 H (74-106) mg/dL Calcium 8.7 (8.4-10.2) mg/dL Total Bilirubin 0.40 (0.2-1.3) mg/dL AST 18 (17-59) U/L ALT 13 (0-50) U/L Alkaline Phosphatase 155 H (38-126) U/L Troponin I 0.021 (0.000-0.034) ng/mL NT-Pro-B Natriuret Pep 2660 H (0-900) pg/mL Serum Total Protein 6.2 L (6.3-8.2) g/dL Albumin 3.5 (3.5-5.0) g/dL 08/02/21 Range/Units 20:23 WBC 5.8 (4.0-10.5) K/mm3 RBC 3.28 L (4.1-5.6) M/mm3 Hgb 10.4 L (12.5-18.0) gm/dl Hct 32.6 L (42-50) % MCV 99.4 (78-100) fl MCH 31.7 (26-32) pg MCHC 31.9 L (32-36) g/dl RDW 16.3 H (11.5-14.0) % Plt Count 227 (150-450) K/mm3 MPV 11.8 H (7.5-11.0) fl Gran % 63.5 (36.0-66.0) % Eos # (Auto) 0.24 (0-0.5) Absolute Lymphs (auto) 1.19 (1.0-4.6) Absolute Monos (auto) 0.65 (0.0-1.3) Lymphocytes % 20.5 L (24.0-44.0) % Monocytes % 11.2 (0.0-12.0) % Eosinophils % 4.1 (0.00-5.0) % Basophils % 0.7 (0.0-0.4) % Absolute Granulocytes 3.68 (1.4-6.9) Basophils # 0.04 (0-0.4) D-Dimer (215-500) ng/mL Sodium (137-145) mmol/L Potassium (3.5-5.1) mmol/L Chloride (98-107) mmol/L Carbon Dioxide (22-30) mmol/L Anion Gap (5-15) MEQ/L BUN (9-20) mg/dL Creatinine (0.66-1.25) mg/dL Estimated GFR ML/MIN Glucose (74-106) mg/dL Calcium (8.4-10.2) mg/dL Total Bilirubin (0.2-1.3) mg/dL AST (17-59) U/L ALT (0-50) U/L Alkaline Phosphatase (38-126) U/L Troponin I (0.000-0.034) ng/mL NT-Pro-B Natriuret Pep (0-900) pg/mL Serum Total Protein (6.3-8.2) g/dL Albumin (3.5-5.0) g/dL - Progress Progress: improved, re-examined Air Movement: fair Progress Note: 08/02/21 22:10 X-ray shows left-sided infiltrate versus fluid. There is no left side pleural effusion. Medical decision making: This patient has CHF, chest pain, acute renal insufficiency and left pleural effusion. He also may have a left sided infiltrate/pneumonia present. The patient's D-dimer is elevated. However his GFR is too low to perform a CTA of the chest. We will provide him with Lovenox 80 mg subcutaneously. I did speak with Dr. Deutsch who is the emergency department physician. I reviewed the patient history, physical findings, EKG results, laboratory results and x-ray findings. He accepts the patient in transfer. Blood Culture(s) Obtained: No Antibiotics given: Yes Counseled pt/family regarding: lab results, diagnosis, need for follow-up, rad results - Departure Departure Disposition: Transfer Clinical Impression: Chest pain, Elevated d-dimer, Acute renal insufficiency, CHF (congestive heart failure), Pleural effusion on left Condition: Fair Critical Care Time: Yes Critical Care Time(excluding separately billable procedures): Critical 30-74 mins (35 minutes) Referrals: CRYSTAL MURILLO [Primary Care Provider] - Follow up/PCP as directed Instructions: Heart Failure
[2021-08-02 20:26] LABS: Absolute Neutrophil Ct (ANC) 3.68 (1.4-6.9); Basophil (Absolute #) 0.04 (0-0.4); Eosinophil % 4.1 % (0.00-5.0); Eosinophil (Absolute #) 0.24 (0-0.5); Hematocrit 32.6 % (42-50); Hemoglobin 10.4 gm/dl (12.5-18.0); Lymphocyte (Absolute #) 1.19 (1.0-4.6); Lymphocytes % 20.5 % (24.0-44.0); Mean Cell Volume 99.4 fl (78-100); Mean Corpuscular Hemoglobin 31.7 pg (26-32); Mean Corpuscular Hgb Concent. 31.9 g/dl (32-36); Mean Platelet Volume 11.8 fl (7.5-11.0); Monocyte (Absolute #) 0.65 (0.0-1.3); Monocytes % 11.2 % (0.0-12.0); Neutrophil % 63.5 % (36.0-66.0); Platelet Count 227 K/mm3 (150-450); Red Blood Count 3.28 M/mm3 (4.1-5.6); Red Cell Distribution Width 16.3 % (11.5-14.0); White Blood Count 5.8 K/mm3 (4.0-10.5)
[2021-08-02 20:49] LABS: ALBUMIN 3.5 g/dL (3.5-5.0); ANION GAP 15.6 MEQ/L (5-15); BILIRUBIN,TOTAL 0.4 mg/dL (0.2-1.3); Calcium 8.7 mg/dL (8.4-10.2); Creatinine 1 1.88 mg/dL (0.66-1.25); EST GLOMERULAR FILTRATION RATE 37.8 ML/MIN; Potassium 4.4 mmol/L (3.5-5.1); Total Protein 6.2 g/dL (6.3-8.2)
[2021-08-02 21:14] VITALS: PULSE 55
[2021-08-02] MEDS ORDERED: ROCEPHIN 1 Gm-D5w 50 ml Bag** 1 G/50 ML IVPB IV STA (21:43)
[2021-08-02] MEDS ORDERED: ROCEPHIN 1 Gm-D5w 50 ml Bag** 1 G/50 ML IVPB IV ONE (22:08)
[2021-08-02] MEDS ORDERED: ENOXAPARIN SODIUM SQ ONE ×2 (22:10→22:12)
[2021-08-02 22:23] VITALS: BP 165/73; O2SAT 97
--- NOTE | 2021-08-03 07:11 | XRAY ---
Indication: Chest pain. Comparison: July 13, 2021. Portable apical lordotic chest demonstrates increasing moderate left base effusion with worsening atelectasis now obscuring left heart border. Right lung clear. Heart grossly not enlarged again with CABG and left hilar surgical clips. Bony thorax intact with osteopenia, degenerative changes, and cervical fusion hardware.
== END 2021-08-02 23:02 | disposition short-term general hospital (02) ==
LOC: ED 19:51
DX: N28.9 Disorder of kidney and ureter, unspecified (principal); I50.9 Heart failure, unspecified; R79.1 Abnormal coagulation profile; R07.9 Chest pain, unspecified; E78.5 Hyperlipidemia, unspecified; I11.0 Hypertensive heart disease with heart failure; E11.42 Type 2 diabetes mellitus with diabetic polyneuropathy; Z72.0 Tobacco use; Z79.01 Long term (current) use of anticoagulants; Z79.4 Long term (current) use of insulin; Z79.891 Long term (current) use of opiate analgesic; Z79.899 Other long term (current) drug therapy
CPT/HCPCS: 36000; 36415; 71045; 80053; 83880; 84484; 85025; 85379; 93005; 94760; 96365; 96372; 99285; 99291; J0696; J1650; A9270-GY

== ENCOUNTER 2021-08-21 12:46 | Observation (INO) | payer MEDICARE ==
--- NOTE | 2021-08-21 13:07 | XRAY ---
Indication: Left sided weakness and left facial droop. Multiple contiguous axial images obtained through the head without contrast. Comparison: November 03, 2020. 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 No acute intracranial hemorrhage, abnormal extra-axial fluid collection, or mass effect. Fourth ventricle is midline without hydrocephalus. Bony calvarium intact. Visualized paranasal sinuses and mastoid air cells are clear. 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
--- NOTE | 2021-08-21 13:09 | XRAY ---
Indication: Short of breath. Comparison: August 02, 2021. Portable chest unchanged again demonstrating moderate left base pleural effusion/thickening with atelectasis obscuring left heart border. Heart remains borderline enlarged with CABG and left hilar surgical clips. No new cardiopulmonary abnormalities.
--- NOTE | 2021-08-21 13:17 | ERPHSYRPT ---
- History of Present Illness Time Seen by Provider: 08/21/21 12:50 Source: patient, family Exam Limitations: no limitations Physician History: Patient is a 71-year-old male who presents with a complaint of facial droop noted by the this morning which started as facial swelling. Upon presentation nursing staff felt there was some slight left facial droop and left sided weakness. Patient is remarkable for having a CABG x4 July 05 of this year. He has had falls and syncopal episodes since and is scheduled to receive a heart monitor tomorrow at [facility]. He is followed by loading machine tool setter Dr. Velasco. The patient is also an insulin-dependent diabetic diabetic. Timing/Duration: today Severity: moderate Character of Deficits: Left Facial (Initially some left facial droop all different deficits improving), LLE (Left facial droop initially left lower extremity weakness), LUE (Initially left upper extremity weakness) Deficits: falling Baseline/Normal Cognition: alert oriented x 3 Baseline Gait: uses cane Allergies/Adverse Reactions: No Known Drug Allergies Allergy (Verified 08/21/21 13:28) Home Medications: Clopidogrel Bisulfate [Plavix] 75 mg PO DAILY 07/29/15 [History] Insulin Glargine [Lantus Insulin] 30 unit SQ 1600 08/08/16 [History] Oxycodone HCl/Acetaminophen [Percocet 7.5-325 mg Tablet] 1 tab PO Q6HPRN PRN 09/11/20 [History] Aspirin [Aspirin EC] 81 mg PO HS 07/12/21 [History] Duloxetine HCl 30 mg [Cymbalta 30 MG Capsule] 30 mg PO BID 07/12/21 [History] Gabapentin [Neurontin ] 600 mg PO TID 07/12/21 [History] Insulin Lispro [Humalog] 0 unit SQ ACHS 07/12/21 [History] Polyethylene Glycol 3350 [Miralax] 17 gm PO DAILY PRN 07/12/21 [History] Rosuvastatin Calcium 20 mg PO DAILY 07/12/21 [History] Amiodarone HCl 200 mg [Cordarone 200 MG] 200 mg PO DAILY 08/21/21 [History] lisinopriL [Lisinopril] 20 mg PO DAILY 08/21/21 [History] Hx Tetanus, Diphtheria Vaccination/Date Given: Yes Hx Influenza Vaccination/Date Given: No Hx Pneumococcal Vaccination/Date Given: No Travel Risk - Vaccine Status Have you recieved a Covid-19 vaccination: Yes Die Engraving Supervisor: Moderna - Vaccination Dates Date of 2cond Vaccination (if applicable): 2020 - Review of Systems Constitutional: No Fever, No Chills Eyes: No Symptoms Ears, Nose, & Throat: No Symptoms Respiratory: No Cough, No Dyspnea Cardiac: No Chest Pain, No Edema, No Syncope Abdominal/Gastrointestinal: No Abdominal Pain, No Nausea, No Vomiting, No Diarrhea Genitourinary Symptoms: No Dysuria Musculoskeletal: No Back Pain, No Neck Pain Skin: No Rash Neurological: Paralysis, Parasthesia, No Dizziness, No Focal Weakness, No Sensory Changes Psychological: No Symptoms Endocrine: No Symptoms All Other Systems: Reviewed and Negative - Past Medical History Pertinent Past Medical History: Yes Neurological History: Peripheral Neuropathy ENT History: Cataracts Cardiac History: Congestive Heart Failure, Coronary Artery Disease, High Cholesterol, Hypertension, Myocardial Infarction (SD) Respiratory History: No Pertinent History Endocrine Medical History: Diabetes Type II Musculoskeletal History: No Pertinent History GI Medical History: GERD History: No Pertinent History Psycho-Social History: Anxiety, Depression Male Reproductive Disorders: No Pertinent History Other Medical History: PATIENT REPORTS PROBLEMS WITH SHORT TERM MEMORY AND NOTED ON E.R. REPORT FROM OCTOBER 2020. ALSO GERD, DEPRESSION, CERVICAL FUSION, CHOLECYSTECTOMY. PATIENT REPORTS VACCINATED AND BOOSTER FOR COVID. - Past Surgical History Past Surgical History: Yes Neuro Surgical History: No Pertinent History Cardiac: CABG, Cardiac Catheterization, Cardiac Stent Respiratory: Chest Surgery Gastrointestinal: No Pertinent History Genitourinary: No Pertinent History Musculoskeletal: No Pertinent History Male Surgical History: No Pertinent History Other Surgical History: cervicle fusion - Social History Smoking Status: Current every day smoker How long have you smoked: 55 Exposure to second hand smoke: No Drug Use: none Patient Lives Alone: No - Nursing Vital Signs Nursing Vital Signs: Initial Vital Signs Temperature 97.0 F 08/21/21 12:52 Pulse Rate 65 08/21/21 12:52 Blood Pressure 154/62 08/21/21 12:52 O2 Sat by Pulse Oximetry 90 L 08/21/21 12:52 Pain Scale Pain Intensity 0 - [place] Coma Scale Best Eye Response ([place]): (4) open spontaneously Best Verbal Response ([place]): (5) oriented Best Motor Response ([place]): (6) obeys commands [place] Total: 15 - Physical Exam General Appearance: mild distress Eye Exam: bilateral eye: PERRL, EOMI Ears, Nose, Throat Exam: normal ENT inspection Neck Exam: normal inspection, non-tender, supple Respiratory: normal breath sounds, lungs clear, airway intact, No respiratory distress Cardiovascular: regular rate/rhythm, No edema Gastrointestinal: soft, No tenderness, No distention Back Exam: normal inspection Extremity Exam: normal inspection, No pedal edema Mental Status: alert, oriented x 3 shanker out Exam: tongue midline Coordination/Gait: normal finger to nose, normal gait Motor/Sensory: no motor deficit, no sensory deficit, no pronator drift Skin Exam: normal color, warm, dry SpO2 Interpretation: normal O2 Delivery: Room Air - Course Nursing assessment & vital signs reviewed: Yes EKG Interpreted by Me: RATE (64), Sinus Rhythm, NORMAL AXIS, NORMAL INTERVALS, NORMAL QRS, Non-specific ST Changes - Radiology Exams Chest X-ray Interpretation: Reviewed by me (Chest x-ray is basically unchanged from her recent 1 left effusion or pleural thickening noted. ) - CT Exams Head CT Interpretation: Negative (No acute findings there is a previous old CVA) Ordered Tests: Active Orders 24 hr Category Date Time Status Transport Technician STAT Care 08/21/21 13:16 Active EKG-ER Only STAT Care 08/21/21 12:55 Active IV Insertion STAT Care 08/21/21 12:55 Active IV Insertion-2nd Peripheral STAT Care 08/21/21 12:55 Active NPO (ED) STAT Care 08/21/21 12:55 Active Oxygen-ED Only Nasal Cannula 2 lpm Care 08/21/21 13:55 Active CHEST 1 VIEW (PORTABLE) Stat Exams 08/21/21 12:55 Completed HEAD WITHOUT CONTRAST [CT] Stat Exams 08/21/21 12:58 Completed CBC W DIFF Stat Lab 08/21/21 13:15 Completed CMP Stat Lab 08/21/21 15:14 Completed ETHYL ALCOHOL Stat Lab 08/21/21 13:15 Completed Glucose Stat Lab 08/21/21 13:15 Completed NT PRO BNP Stat Lab 08/21/21 13:15 Completed POCT GLUCOSE Stat Lab 08/21/21 13:04 Completed PTT Stat Lab 08/21/21 13:15 Completed TROPONIN Q3H Lab 08/21/21 13:15 Completed TROPONIN Q3H Lab 08/21/21 16:00 Ordered TROPONIN Q3H Lab 08/21/21 19:00 Ordered TROPONIN Q3H Lab 08/21/21 22:00 Ordered TROPONIN Q3H Lab 08/22/21 01:00 Ordered UA W/RFX CULTURE Stat Lab 08/21/21 13:54 Completed Medication Summary Discontinued Medications Generic Name Dose Route Start Last Admin Trade Name Marianne PRN Reason Stop Dose Admin Furosemide 20 mg 08/21/21 15:10 08/21/21 15:30 Furosemide 40 Mg/4 Ml Vial IV 08/21/21 15:11 20 mg STAT ONE Administration Furosemide Confirm 08/21/21 15:28 Furosemide 40 Mg/4 Ml Vial Administered 08/21/21 15:29 Dose 40 mg .ROUTE [facility] Lab/Rad Data: Laboratory Result Diagrams 08/21/21 13:15 08/21/21 15:14 Laboratory Results 08/21/21 08/21/21 08/21/21 Range/Units 15:14 13:54 13:15 WBC (4.0-10.5) x10^3/uL RBC (4.1-5.6) x10^6/uL Hgb (12.5-18.0) g/dL Hct (42-50) % MCV (78-100) fL MCH (26-32) pg MCHC (32-36) g/dL RDW (11.5-14.0) % Plt Count (150-450) x10^3/uL MPV (7.5-11.0) fL Gran % (36.0-66.0) % Immature Gran % (Auto) (0.00-0.4) % Nucleat RBC Rel Count (0.00-0.1) % Eos # (Auto) (0-0.5) x10^3/uL Immature Gran # (Auto) (0.00-0.03) x10^3u/L Absolute Lymphs (auto) (1.0-4.6) x10^3/uL Absolute Monos (auto) (0.0-1.3) x10^3/uL Absolute Nucleated RBC (0.00-0.01) x10^3u/L Lymphocytes % (24.0-44.0) % Monocytes % (0.0-12.0) % Eosinophils % (0.00-5.0) % Basophils % (0.0-0.4) % Absolute Granulocytes (1.4-6.9) x10^3/uL Basophils # (0-0.4) x10^3/uL APTT (25.1-36.5) SECONDS Sodium 133 L (137-145) mmol/L Potassium 4.5 (3.5-5.1) mmol/L Chloride 102 (98-107) mmol/L Carbon Dioxide 23 (22-30) mmol/L Anion Gap 12.6 (5-15) MEQ/L BUN 26 H (9-20) mg/dL Creatinine 1.51 H (0.66-1.25) mg/dL Estimated GFR 48.7 ML/MIN Glucose 126 H (74-106) mg/dL POC Glucometer (74 to 106) mg/dL Calcium 9.0 (8.4-10.2) mg/dL Total Bilirubin 0.40 (0.2-1.3) mg/dL AST 27 (17-59) U/L ALT 29 (0-50) U/L Alkaline Phosphatase 136 H (38-126) U/L Troponin I 0.019 (0.000-0.034) ng/mL NT-Pro-B Natriuret Pep (0-900) pg/mL Serum Total Protein 5.6 L (6.3-8.2) g/dL Albumin 3.0 L (3.5-5.0) g/dL Urinalys Dipstick Clnc MAIN LAB Urine Color YELLOW (YELLOW) Urine Appearance CLEAR (CLEAR) Urine pH 6.5 (5-6) Ur Specific [place] 1.015 (1.005-1.025) POC Urine Protein Conf 100 (Negative) Urine Ketones NEGATIVE (NEGATIVE) Urine Nitrite NEGATIVE (NEGATIVE) Urine Bilirubin NEGATIVE (NEGATIVE) Urine Urobilinogen 0.2 (0-1) mg/dL Urine Leukocytes NEGATIVE (NEGATIVE) Urine WBC (Auto) NONE (0-5) /HPF Urine RBC (Auto) NONE (0-2) /HPF U Epithel Cells (Auto) NONE (FEW) /HPF Urine Bacteria (Auto) NONE (NEGATIVE) /HPF Urine RBC NEGATIVE (0-5) Chip/ul Urine Mucus (Auto) SLIGHT (NEGATIVE) /HPF Ur Culture Indicated? NO Urine Glucose NEGATIVE (NEGATIVE) mg/dL Ethyl Alcohol (0-10) mg/dL 08/21/21 08/21/21 08/21/21 Range/Units 13:15 13:15 13:15 WBC 5.4 (4.0-10.5) x10^3/uL RBC 2.77 L (4.1-5.6) x10^6/uL Hgb 8.8 L (12.5-18.0) g/dL Hct 27.4 L (42-50) % MCV 98.9 (78-100) fL MCH 31.8 (26-32) pg MCHC 32.1 (32-36) g/dL RDW 15.6 H (11.5-14.0) % Plt Count 137 L (150-450) x10^3/uL MPV 12.6 H (7.5-11.0) fL Gran % 66.8 H (36.0-66.0) % Immature Gran % (Auto) 0.4 (0.00-0.4) % Nucleat RBC Rel Count 0.0 (0.00-0.1) % Eos # (Auto) 0.13 (0-0.5) x10^3/uL Immature Gran # (Auto) 0.02 (0.00-0.03) x10^3u/L Absolute Lymphs (auto) 1.10 (1.0-4.6) x10^3/uL Absolute Monos (auto) 0.51 (0.0-1.3) x10^3/uL Absolute Nucleated RBC 0.00 (0.00-0.01) x10^3u/L Lymphocytes % 20.5 L (24.0-44.0) % Monocytes % 9.5 (0.0-12.0) % Eosinophils % 2.4 (0.00-5.0) % Basophils % 0.4 (0.0-0.4) % Absolute Granulocytes 3.58 (1.4-6.9) x10^3/uL Basophils # 0.02 (0-0.4) x10^3/uL APTT 24.8 L (25.1-36.5) SECONDS Sodium (137-145) mmol/L Potassium (3.5-5.1) mmol/L Chloride (98-107) mmol/L Carbon Dioxide (22-30) mmol/L Anion Gap (5-15) MEQ/L BUN (9-20) mg/dL Creatinine (0.66-1.25) mg/dL Estimated GFR ML/MIN Glucose 127 H (74-106) mg/dL POC Glucometer (74 to 106) mg/dL Calcium (8.4-10.2) mg/dL Total Bilirubin (0.2-1.3) mg/dL AST (17-59) U/L ALT (0-50) U/L Alkaline Phosphatase (38-126) U/L Troponin I (0.000-0.034) ng/mL NT-Pro-B Natriuret Pep 4540 H (0-900) pg/mL Serum Total Protein (6.3-8.2) g/dL Albumin (3.5-5.0) g/dL Urinalys Dipstick Clnc Urine Color (YELLOW) Urine Appearance (CLEAR) Urine pH (5-6) Ur Specific [place] (1.005-1.025) POC Urine Protein Conf (Negative) Urine Ketones (NEGATIVE) Urine Nitrite (NEGATIVE) Urine Bilirubin (NEGATIVE) Urine Urobilinogen (0-1) mg/dL Urine Leukocytes (NEGATIVE) Urine WBC (Auto) (0-5) /HPF Urine RBC (Auto) (0-2) /HPF U Epithel Cells (Auto) (FEW) /HPF Urine Bacteria (Auto) (NEGATIVE) /HPF Urine RBC (0-5) Chip/ul Urine Mucus (Auto) (NEGATIVE) /HPF Ur Culture Indicated? Urine Glucose (NEGATIVE) mg/dL Ethyl Alcohol < 10 (0-10) mg/dL 08/21/21 Range/Units 13:04 WBC (4.0-10.5) x10^3/uL RBC (4.1-5.6) x10^6/uL Hgb (12.5-18.0) g/dL Hct (42-50) % MCV (78-100) fL MCH (26-32) pg MCHC (32-36) g/dL RDW (11.5-14.0) % Plt Count (150-450) x10^3/uL MPV (7.5-11.0) fL Gran % (36.0-66.0) % Immature Gran % (Auto) (0.00-0.4) % Nucleat RBC Rel Count (0.00-0.1) % Eos # (Auto) (0-0.5) x10^3/uL Immature Gran # (Auto) (0.00-0.03) x10^3u/L Absolute Lymphs (auto) (1.0-4.6) x10^3/uL Absolute Monos (auto) (0.0-1.3) x10^3/uL Absolute Nucleated RBC (0.00-0.01) x10^3u/L Lymphocytes % (24.0-44.0) % Monocytes % (0.0-12.0) % Eosinophils % (0.00-5.0) % Basophils % (0.0-0.4) % Absolute Granulocytes (1.4-6.9) x10^3/uL Basophils # (0-0.4) x10^3/uL APTT (25.1-36.5) SECONDS Sodium (137-145) mmol/L Potassium (3.5-5.1) mmol/L Chloride (98-107) mmol/L Carbon Dioxide (22-30) mmol/L Anion Gap (5-15) MEQ/L BUN (9-20) mg/dL Creatinine (0.66-1.25) mg/dL Estimated GFR ML/MIN Glucose (74-106) mg/dL POC Glucometer 126 H (74 to 106) mg/dL Calcium (8.4-10.2) mg/dL Total Bilirubin (0.2-1.3) mg/dL AST (17-59) U/L ALT (0-50) U/L Alkaline Phosphatase (38-126) U/L Troponin I (0.000-0.034) ng/mL NT-Pro-B Natriuret Pep (0-900) pg/mL Serum Total Protein (6.3-8.2) g/dL Albumin (3.5-5.0) g/dL Urinalys Dipstick Clnc Urine Color (YELLOW) Urine Appearance (CLEAR) Urine pH (5-6) Ur Specific [place] (1.005-1.025) POC Urine Protein Conf (Negative) Urine Ketones (NEGATIVE) Urine Nitrite (NEGATIVE) Urine Bilirubin (NEGATIVE) Urine Urobilinogen (0-1) mg/dL Urine Leukocytes (NEGATIVE) Urine WBC (Auto) (0-5) /HPF Urine RBC (Auto) (0-2) /HPF U Epithel Cells (Auto) (FEW) /HPF Urine Bacteria (Auto) (NEGATIVE) /HPF Urine RBC (0-5) Chip/ul Urine Mucus (Auto) (NEGATIVE) /HPF Ur Culture Indicated? Urine Glucose (NEGATIVE) mg/dL Ethyl Alcohol (0-10) mg/dL - Progress Progress: improved Discussed with Dr.: Mcintosh (Admission was discussed with Dr. Wood and approved.), Other (Dr Avery telemetry neurologist was consulted his diagnosis was an apparent TIA and recommendation for an MRI MRA of the head neck.) - Departure Departure Disposition: Observation Clinical Impression: TIA (transient ischemic attack), History of coronary artery bypass graft, CHF (congestive heart failure), Cerebral arteriosclerosis with history of previous cerebrovascular accident Condition: Fair Critical Care Time: No Referrals: CRYSTAL MURILLO [Primary Care Provider] - Follow up/PCP as directed Instructions: Heart Failure
[2021-08-21 13:21] LABS: Absolute Neutrophil Ct (ANC) 3.58 x10^3/uL (1.4-6.9); Basophil (Absolute #) 0.02 x10^3/uL (0-0.4); Eosinophil % 2.4 % (0.00-5.0); Eosinophil (Absolute #) 0.13 x10^3/uL (0-0.5); Hematocrit 27.4 % (42-50); Hemoglobin 8.8 g/dL (12.5-18.0); Lymphocytes % 20.5 % (24.0-44.0); Mean Cell Volume 98.9 fL (78-100); Mean Corpuscular Hemoglobin 31.8 pg (26-32); Mean Corpuscular Hgb Concent. 32.1 g/dL (32-36); Mean Platelet Volume 12.6 fL (7.5-11.0); Monocyte (Absolute #) 0.51 x10^3/uL (0.0-1.3); Monocytes % 9.5 % (0.0-12.0); Neutrophil % 66.8 % (36.0-66.0); Platelet Count 137 x10^3/uL (150-450); Red Blood Count 2.77 x10^6/uL (4.1-5.6); Red Cell Distribution Width 15.6 % (11.5-14.0); White Blood Count 5.4 x10^3/uL (4.0-10.5)
[2021-08-21 13:55] LABS: ETHYL ALCOHOL < 10 mg/dL (0-10); Glucose 127 mg/dL (74-106); NT PRO BNP 4540 pg/mL (0-900)
[2021-08-21 15:02] LABS: Mucus SLIGHT /HPF (NEGATIVE)
[2021-08-21 15:04] LABS: Appearance CLEAR (CLEAR); Bilirubin NEGATIVE (NEGATIVE); Dipstick done @ ? MAIN LAB; Glucose NEGATIVE (NEGATIVE); Ketones NEGATIVE (NEGATIVE); Nitrite NEGATIVE (NEGATIVE); Ph 6.5 (5-6); Protein,Urine Dip 100 (Negative); RBC NEGATIVE Ery/ul (0-5); Specific Gravity 1.015 (1.005-1.025); Urine Cultured Indicated? NO; Urobilinogen 0.2 mg/dL (0-1)
[2021-08-21] MEDS ORDERED: Lasix 40 MG/4 ML IV ONE (15:10)
[2021-08-21 15:26] LABS: ANION GAP 12.6 MEQ/L (5-15); BILIRUBIN,TOTAL 0.4 mg/dL (0.2-1.3); Creatinine 1 1.51 mg/dL (0.66-1.25); EST GLOMERULAR FILTRATION RATE 48.7 ML/MIN; Potassium 4.5 mmol/L (3.5-5.1); Total Protein 5.6 g/dL (6.3-8.2)
[2021-08-21] MEDS ORDERED: Lasix 40 MG/4 ML ONE (15:28)
[2021-08-21] MEDS ORDERED: Zofran 4 MG/2 ML VIAL IV PRN (15:47)
[2021-08-21 16:55] LABS: INFLUENZA A NEGATIVE (NEGATIVE); INFLUENZA B NEGATIVE (NEGATIVE); RESPIRATORY SYNCTIAL VIRUS NEGATIVE (Negative); SARS-CoV-2 Xpert Express NEGATIVE (NEGATIVE)
[2021-08-21] MEDS ORDERED: Ecotrin 325 MG PO SCH (18:00)
[2021-08-21] MEDS ORDERED: HUMALOG SQ PRN (18:15)
[2021-08-21] MEDS ORDERED: Nicoderm CQ 21 MG TOP SCH (18:15)
[2021-08-21] MEDS: PLAVIX Tablet PO SCH (18:29)
[2021-08-21] MEDS: PERCOCET TABLET 5/325MG PO PRN (19:36)
[2021-08-21] MEDS: Cymbalta 30 MG Capsule PO SCH (21:36)
[2021-08-21] MEDS: NEURONTIN PO SCH (21:36)
[2021-08-21] MEDS: Lopressor 50 MG PO SCH (21:36)
[2021-08-22 04:44] LABS: Absolute Neutrophil Ct (ANC) 3.15 x10^3/uL (1.4-6.9); Basophil (Absolute #) 0.01 x10^3/uL (0-0.4); Eosinophil % 2.2 % (0.00-5.0); Eosinophil (Absolute #) 0.11 x10^3/uL (0-0.5); Hematocrit 28.7 % (42-50); Hemoglobin 9.3 g/dL (12.5-18.0); Lymphocyte (Absolute #) 1.15 x10^3/uL (1.0-4.6); Lymphocytes % 23.1 % (24.0-44.0); Mean Cell Volume 99.3 fL (78-100); Mean Corpuscular Hemoglobin 32.2 pg (26-32); Mean Corpuscular Hgb Concent. 32.4 g/dL (32-36); Mean Platelet Volume 12.1 fL (7.5-11.0); Monocyte (Absolute #) 0.53 x10^3/uL (0.0-1.3); Monocytes % 10.6 % (0.0-12.0); Neutrophil % 63.3 % (36.0-66.0); Platelet Count 141 x10^3/uL (150-450); Red Blood Count 2.89 x10^6/uL (4.1-5.6); Red Cell Distribution Width 15.9 % (11.5-14.0)
[2021-08-22 05:16] LABS: ANION GAP 11.1 MEQ/L (5-15); BILIRUBIN,TOTAL 0.3 mg/dL (0.2-1.3); Calcium 8.7 mg/dL (8.4-10.2); Creatinine 1 1.57 mg/dL (0.66-1.25); EST GLOMERULAR FILTRATION RATE 46.5 ML/MIN; Potassium 4.1 mmol/L (3.5-5.1)
[2021-08-22 05:17] LABS: INR 1.05 (0.8-3.0); PROTIME 11.1 SECONDS (9.4-12.5)
[2021-08-22] MEDS ORDERED: Miralax Powder 17GM PACKET PO PRN (07:03)
[2021-08-22 07:16] VITALS: O2SAT 96
--- NOTE | 2021-08-22 08:50 | SSS ---
DISCHARGE DIAGNOSIS: TRANSIENT ISCHEMIC ATTACK INVOLVING LEFT SIDE WITH PARTIAL HEMIPARESIS. HISTORY: The patient is a 71-year-old white male patient who had been noted to have a little what appeared to be some facial droop, possible left-sided weakness in his arm and leg. The patient was seen in the emergency room and had a tele-neurology consult. They did not recommend any clot buster medications and he was admitted to the hospital for their desire to have him have a MRI/MRA of the brain. The patient's symptoms have totally resolved. He is back to his normal for him at this point in time. PAST MEDICAL/SURGICAL HISTORY: Significant for previous history of problems with dementia. He has coronary artery disease and in fact a fairly recent coronary artery bypass graft performed at [facility]. The patient is borderline in his functional abilities over the past actually several years. The patient previously had myocardial infarction, has hypertension, hyperlipidemia, congestive heart failure. He previously had cataracts. He has peripheral neuropathy issues. He has history of anxiety, depression, gastroesophageal reflux disease, diabetes mellitus type II. HOME MEDICATIONS: Plavix 75 mg daily. He is on Lantus insulin 30 units subcu in the evening. He takes Percocet 7.5 every 4 hours PRN for pain, aspirin 81 mg a day, duloxetine 30 mg b.i.d., gabapentin 600 mg t.i.d., Lispro insulin on sliding scale coverage. He uses MiraLAX daily, rosuvastatin 20 mg a day, amiodarone 200 mg a day and lisinopril 20 mg a day. ALLERGIES: NKDA. PHYSICAL EXAMINATION: The patient's vital signs on admission temperature 97.0F, pulse 65, blood pressure 154/62. O2 saturation 90%. HEENT: Normocephalic, atraumatic. Pupils equal round reactive to light. He is currently wearing oxygen per nasal cannula. He has poor dentition. Oropharynx is pink and moist. NECK: Supple without lymphadenopathy, thyromegaly or JVD. CHEST: Clear to auscultation. HEART: Regular rate and rhythm without significant murmurs, rubs or gallops heard. ABDOMEN: Soft. No palpable masses. EXTREMITIES: Without cyanosis, clubbing or edema. NEUROLOGIC: The patient is currently alert and oriented x3 and able to move all four extremities without difficulty. I do not notice any particular left facial droop as previously noted. SKIN: The patient's skin showed multiple ecchymosis over his arms likely from his taking aspirin. LAB DATA AND TESTS: The patient's laboratory studies showed his troponins to be 0.021 and 0.017. Lactic acid was 0.7. His hemoglobin is 9.3, white count 5,000, PLT count 141,000. Sugar was at 110. BUN 23, creatinine 1.57. Electrolytes were normal. Liver enzymes were normal. INR 1.05. His UA showed specific gravity 1.015, negative for sugar and no evidence of infection. His Pro-BNP was elevated at 4540. ETOH less than 10. Portable chest x-ray showed borderline enlarged heart, coronary artery bypass graft surgical clips but no other abnormalities noted. CT scan of the head showed acute senile brain with small focus of old right infarct in the frontal lobe. HOSPITAL COURSE: The patient was admitted to the hospital. He was easily awaken this morning with no focal deficits. He was scheduled for MRI/MRA of the brain this morning. We will get him up and move him around. When he is back to his baseline status we will let him go back home again. He actually has an appointment to see his energy manager, Dr. Velasco, today for some cardiac scan of which type he does not know. He will likely not make that appointment by the time he finishes our evaluation here. I will see him in follow up in the office in one week and continue his home medications currently including the aspirin and Plavix.
[2021-08-22] MEDS: NEURONTIN PO SCH (09:58)
[2021-08-22] MEDS: Lopressor 50 MG PO SCH (09:58)
[2021-08-22] MEDS: PLAVIX Tablet PO SCH (09:58)
[2021-08-22] MEDS: Cymbalta 30 MG Capsule PO SCH (09:58)
[2021-08-22] MEDS ORDERED: ZOCOR 20MG PO SCH (10:00)
[2021-08-22] MEDS ORDERED: Zestril 20 MG PO SCH (10:00)
[2021-08-22] MEDS ORDERED: NON-FORMULARY ITEM (Rosuvastatin Calcium [Rosuvastatin Calcium] 20 MG Tablet) PO SCH (10:00)
[2021-08-22] MEDS ORDERED: Protonix 40MG Tablet PO SCH (10:00)
[2021-08-22] MEDS ORDERED: Lantus Insulin SQ SCH (10:00)
[2021-08-22] MEDS ORDERED: Cordarone 200 MG PO SCH (10:00)
[2021-08-22 11:26] VITALS: BP 152/67; PULSE 66
[2021-08-22] MEDS: PERCOCET TABLET 5/325MG PO PRN (13:25)
--- NOTE | 2021-08-22 13:29 | XRAY ---
Indication: TIA. Only sagittal and axial MRI brain was performed without contrast using T1, T2, FLAIR, diffusion, and ADC sequences. Examination incomplete due to patient motion. Comparison: January 23, 2010 Several images/sequences degraded by motion artifact. Age-appropriate global atrophy with progressive worsening mild/moderate periventricular degenerative micro-ischemia signal bilaterally. Right frontal lobe demonstrates new small focus of encephalomalacia with surrounding gliosis favoring old infarct. No gross acute intracranial hemorrhage, abnormal extra-axial fluid collection, or mass effect. Diffusion images are negative for restricted signal. Fourth ventricle is midline without hydrocephalus. 7/8 cranial nerve complex bilaterally symmetric. Normal flow-void signal within the major intracerebral circulation. Normal appearing cranial cervical junction and sella turcica. Impression: 1. Limited incomplete MRI brain exam as detailed. 2. Progressive normal aging brain with atrophy and degenerative micro-ischemia. 3. New finding small old infarct right frontal lobe. 4. No gross acute intracranial abnormalities or evidence for evolving large vessel territorial stroke.
--- NOTE | 2021-08-22 13:31 | XRAY ---
Indication: TIA. Multi-slab 3-D [id number] MRA [place] performed. Comparison: None Distal internal carotid arteries are mildly arteriosclerotic without critical stenosis or obstruction. Normal carotid terminus with normal branching A1 and M1 segments bilaterally. More distal anterior cerebral and middle cerebral arteries are normal in MRA appearance. Posterior circulation demonstrates dominant distal left vertebral artery. Remaining basilar, left/right posterior cerebral, and left/right superior cerebellar arteries are normal in MRA appearance. Impression: Negative MRA [place].
[2021-08-22] MEDS ORDERED: ECOTRIN 81 MG PO SCH (22:00)
== END 2021-08-22 14:34 | disposition home health service (06) ==
LOC: ED 12:46 → MED SURG 17:18
PROVIDERS: ADMIT Family Medicine; ATTEND Family Medicine
DX: G45.9 Transient cerebral ischemic attack, unspecified (principal); I11.0 Hypertensive heart disease with heart failure; I50.9 Heart failure, unspecified; F03.90 Unspecified dementia, unspecified severity, without behavioral disturbance, psychotic disturbance, mood disturbance, and anxiety; I25.10 Atherosclerotic heart disease of native coronary artery without angina pectoris; E11.9 Type 2 diabetes mellitus without complications; E78.5 Hyperlipidemia, unspecified; I25.2 Old myocardial infarction; R79.89 Other specified abnormal findings of blood chemistry; Z79.899 Other long term (current) drug therapy; Z79.01 Long term (current) use of anticoagulants; Z20.828 Contact with and (suspected) exposure to other viral communicable diseases
CPT/HCPCS: 0241U; 36000; 36415; 70450; 70544; 70551; 71045; 80053; 81015; 82947; 83605; 83880; 84484; 85025; 85610; 85730; 93005; 93041; 93268; 94762; 96374; 99285; G0378; G0480; 80307; J1817; J1940; A9270-GY

== ENCOUNTER 2021-09-07 16:06 | Observation (INO) | payer MEDICARE ==
--- NOTE | 2021-09-07 16:54 | ERPHSYRPT ---
- History of Present Illness Source: patient, EMS Exam Limitations: other (Pt w dementia) Patient Subjective Stated Complaint: Pt states "I am weak. I was in the bathroom and my legs gave out and I slid to the floor." Triage Nursing Assessment: Pt presented alert and oriented X 3, skin pwd. Pt able to speak in clear full sentences pt in no apparent respiratory distress. Pt denied any pain. No injuries noted. pt csm x 4. Physician History: 71 yo wm w multiple medical problems presents per EMS after collapsing in his bathroom.He is a very poor historian who is disoriented to time. Pt denies head injury/LOC/Focal weakness/chest pain/dyspnea /fever/cough/coryza/N/V/D/melena/hematochezia. Occurred: just prior to arrival Reason for Fall: unknown (Collapsed) Injuries/Pain Location: no injury Loss of Consciousness: no loss of consciousness Severity of Pain-Max: none Severity of Pain-Current: none Modifying Factors: Improves With: nothing Associated Symptoms (Fall): confusion, No abdominal pain, No back pain, No chest pain, No dizziness, No extremity injury, No headache, No lightheadedness, No muscle spasms, No nausea, No neck pain, No ringing in ears, No seizures, No shortness of breath, No slurred speech, No trouble walking, No vomiting, No vision changes Allergies/Adverse Reactions: No Known Drug Allergies Allergy (Verified 09/07/21 21:03) Home Medications: Insulin Glargine [Lantus Insulin] 30 unit SQ DAILY 08/08/16 [History] Aspirin [Aspirin EC] 81 mg PO DAILY 07/12/21 [History] Duloxetine HCl 30 mg [Cymbalta 30 MG Capsule] 30 mg PO BID 07/12/21 [History] Gabapentin [Neurontin ] 600 mg PO TID 07/12/21 [History] Insulin Lispro [Humalog] 0 unit SQ ACHS 07/12/21 [History] Polyethylene Glycol 3350 [Miralax] 17 gm PO DAILY PRN PRN 07/12/21 [History] Rosuvastatin Calcium 20 mg PO DAILY 07/12/21 [History] Acetaminophen 325 mg [Tylenol 325 mg] 650 mg PO Q4-6HPRN PRN 09/07/21 [History] Albuterol Sulfate [Proventil Hfa] 2 puff IH Q4H PRN PRN 09/07/21 [History] Amiodarone HCl [Pacerone] 100 mg PO DAILY 09/07/21 [History] Amlodipine Besylate 5 mg [Norvasc 5 mg] 10 mg PO DAILY 09/07/21 [History] Furosemide 40 mg [Lasix 40 MG] 40 mg PO DAILY 09/07/21 [History] Oxycodone HCl/Acetaminophen [Oxycodone-Acetaminophn 7.5-325] 1 tab PO QID PRN PRN 09/07/21 [History] PANTOPRAZOLE 40 mg Tablet [Protonix 40MG Tablet] 40 mg PO QHS 09/07/21 [History] Potassium Chloride [Klor-Con] 20 meq PO DAILY 09/07/21 [History] Hx Tetanus, Diphtheria Vaccination/Date Given: Yes Hx Influenza Vaccination/Date Given: No Hx Pneumococcal Vaccination/Date Given: No Immunizations Up to Date: Yes Travel Risk - International Travel Have you traveled outside of the country in past 3 weeks: No - Coronavirus Screening Are you exhibiting any of the following symptoms?: No Close contact with a COVID-19 positive Pt in past 14-21 Days: No - Vaccine Status Have you recieved a Covid-19 vaccination: Yes 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 - Vaccination Dates Date of 2cond Vaccination (if applicable): 2020 - Review of Systems Constitutional: No Symptoms Eyes: No Symptoms Ears, Nose, & Throat: No Symptoms Respiratory: No Symptoms Cardiac: No Symptoms Abdominal/Gastrointestinal: No Symptoms Genitourinary Symptoms: No Symptoms Musculoskeletal: No Symptoms Skin: No Symptoms Neurological: No Symptoms, No Focal Weakness Psychological: No Symptoms Endocrine: No Symptoms Hematologic/Lymphatic: No Symptoms Immunological/Allergic: No Symptoms - Past Medical History Pertinent Past Medical History: Yes Neurological History: Peripheral Neuropathy ENT History: Cataracts Cardiac History: Congestive Heart Failure, Coronary Artery Disease, High Cholesterol, Hypertension, Myocardial Infarction ([place]) Respiratory History: No Pertinent History Endocrine Medical History: Diabetes Type II Musculoskeletal History: No Pertinent History GI Medical History: GERD History: No Pertinent History Psycho-Social History: Anxiety, Depression Male Reproductive Disorders: No Pertinent History Other Medical History: PATIENT REPORTS PROBLEMS WITH SHORT TERM MEMORY AND NOTED ON E.R. REPORT FROM OCTOBER 2020. ALSO GERD, DEPRESSION, CERVICAL FUSION, CHOLECYSTECTOMY. PATIENT REPORTS VACCINATED AND BOOSTER FOR COVID. - Past Surgical History Past Surgical History: Yes Neuro Surgical History: No Pertinent History Cardiac: CABG, Cardiac Catheterization Respiratory: Chest Surgery Gastrointestinal: No Pertinent History Genitourinary: No Pertinent History Musculoskeletal: No Pertinent History Male Surgical History: No Pertinent History Other Surgical History: cervicle fusion - Social History Smoking Status: Current every day smoker How long have you smoked: 55 Exposure to second hand smoke: Yes Drug Use: none Patient Lives Alone: No Significant Family History: no pertinent family hx - Nursing Vital Signs Nursing Vital Signs: Initial Vital Signs Temperature 97.3 F 09/07/21 16:08 Pulse Rate 59 L 09/07/21 16:08 Respiratory Rate 20 09/07/21 16:08 Blood Pressure 116/52 09/07/21 16:08 O2 Sat by Pulse Oximetry 100 09/07/21 16:08 Pain Scale Pain Intensity 0 Borderline bradycardic - [place] Coma Score Best Eye Response ([place]): (4) open spontaneously Best Verbal Response ([place]): (5) oriented (Disoriented to time) Best Motor Response ([place]): (6) obeys commands [place] Total: 15 - Physical Exam General Appearance: no apparent distress Head Injury: no evidence of injury Eye Exam: PERRL/EOMI, eyes nml inspection ENT Exam: airway nml, No evidence of ENT injury, No clear fluid (ears), No clear fluid (nose) Neck Exam: supple, trachea midline, full range of motion, normal inspection (C- spine NTTP), No Brudzinski, No Kernig's, No carotid bruit Respiratory/Chest Exam: normal breath sounds, No chest tenderness, No respiratory distress Cardiovascular Exam: regular rate/rhythm, murmur (2/6 TITO) Gastrointestinal Exam: soft, normal bowel sounds, No tenderness Back Exam: normal inspection, normal range of motion, No CVA tenderness, No vertebral tenderness Extremity Exam: normal inspection, normal range of motion, capillary refill <3 sec, pelvis stable Peripheral Pulses: carotid (R): 2+, carotid (L): 2+ Neurologic Exam: alert, cooperative, 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, normal mood/affect, sensation nml, disoriented (Disoriented to time), No motor deficits, No sensory deficit Skin Exam: normal color, warm, dry, No rash SpO2 Interpretation: normal SpO2: 100 O2 Delivery: Room Air - Course Nursing assessment & vital signs reviewed: Yes EKG Interpreted by Me: RATE (EKG#1Sinus Ethan/Rate53/Prolonged QT/Qwave 3-AVF(No change compared to 08/02/21) EKG #2 16:32 sinus ethan/rate52/Normal QT-QTc/No acute ST changes/No sig change) - Radiology Exams Chest X-ray Interpretation: Interpreted by me (CXR/Nothing acute/post-surgical) - CT Exams Head CT Interpretation: Tele-radiologist Report (CT head-nothing acute) Ordered Tests: Medication Summary Discontinued Medications Generic Name Dose Route Start Last Admin Trade Name Freq PRN Reason Stop Dose Admin Acetaminophen 650 mg 09/07/21 22:37 Acetaminophen 325 Mg Tablet PO 10/07/21 22:36 Q4H PRN PRN PAIN AND/OR FEVER Albuterol Sulfate 4 puff 09/07/21 22:10 Albuterol Common Canister Inhaler IH 10/07/21 22:09 Q4H PRN PRN SHORTNESS OF BREATH/WHEEZING Albuterol/Ipratropium 3 ml 09/08/21 08:00 09/10/21 14:34 Ipratropium/Albuterol Sulfate 3 Ml Ampul.Neb IH 10/08/21 07:59 3 ml QIDRT BELLO Administration Amiodarone HCl 100 mg 09/08/21 10:00 09/10/21 08:20 Amiodarone Hcl 200 Mg Tab PO 10/08/21 09:59 100 mg DAILY BELLO Administration Amlodipine Besylate 10 mg 09/08/21 10:00 09/10/21 08:21 Amlodipine Besylate 5 Mg Tablet PO 10/08/21 09:59 10 mg DAILY BELLO Administration Aspirin 81 mg 09/08/21 10:00 09/10/21 08:21 Aspirin 81 Mg Tablet.Ec PO 10/08/21 09:59 81 mg DAILY BELLO Administration Duloxetine HCl 30 mg 09/07/21 22:39 09/10/21 08:21 Duloxetine Hcl 30 Mg Cap PO 10/07/21 22:38 30 mg BID BELLO Administration Gabapentin 600 mg 09/07/21 22:46 09/10/21 08:19 Gabapentin 300 Mg Capsule PO 10/07/21 22:45 600 mg TID BELLO Administration Sodium Chloride 1,000 mls @ 250 mls/hr 09/07/21 19:45 09/09/21 10:47 Sodium Chloride 0.9% 1000 Ml IV 09/07/21 23:44 60 mls/hr .Q4H BLELO Administration Insulin Human Lispro 0 unit 09/07/21 19:41 09/10/21 12:18 Insulin Lispro 1 Unit SQ 10/07/21 19:40 10 unit UD PRN Administration HYPERGLYCEMIA Metoprolol Tartrate 50 mg 09/07/21 22:47 09/10/21 08:22 Metoprolol Tartrate 50 Mg Tablet PO 10/07/21 22:46 50 mg BID BELLO Administration Ondansetron HCl 4 mg 09/07/21 19:41 Ondansetron Hcl 4 Mg/2 Ml Vial IV 10/07/21 19:40 Q6H PRN PRN NAUSEA/VOMITING Oxycodone/Acetaminophen 1.5 tab 09/07/21 22:47 09/10/21 12:18 Oxycodone Hcl/Apap 5 Mg/325 Mg Tablet PO 09/12/21 22:46 1.5 tab QID PRN PRN Administration PAIN Pantoprazole Sodium 40 mg 09/08/21 10:00 Pantoprazole 40 Mg Vial IV 10/08/21 09:59 Q24H10 BELLO Pantoprazole Sodium 40 mg 09/07/21 22:49 09/07/21 23:01 Protonix (Pantoprazole) 40 Mg Tablet PO 10/07/21 22:48 40 mg DAILY BELLO Administration Pantoprazole Sodium 40 mg 09/08/21 22:00 09/09/21 20:35 Protonix (Pantoprazole) 40 Mg Tablet PO 10/07/21 22:48 40 mg HS BELLO Administration Polyethylene Glycol 17 gm 09/08/21 08:02 Polyethylene Glycol 3350 17 Gm Packet PO 10/08/21 08:01 DAILY PRN PRN CONSTIPATION Simvastatin 40 mg 09/08/21 10:00 09/10/21 08:22 Simvastatin 20 Mg Tablet PO 10/08/21 09:59 40 mg DAILY BELLO Administration Lab/Rad Data: Laboratory Result Diagrams 09/07/21 16:30 09/07/21 16:30 Laboratory Results 09/07/21 09/07/21 09/07/21 Range/Units 19:51 18:30 17:23 WBC (4.0-10.5) x10^3/uL RBC (4.1-5.6) x10^6/uL Hgb (12.5-18.0) g/dL Hct (42-50) % MCV (78-100) fL MCH (26-32) pg MCHC (32-36) g/dL RDW (11.5-14.0) % Plt Count (150-450) x10^3/uL MPV (7.5-11.0) fL Gran % (36.0-66.0) % Immature Gran % (Auto) (0.00-0.4) % Nucleat RBC Rel Count (0.00-0.1) % Eos # (Auto) (0-0.5) x10^3/uL Immature Gran # (Auto) (0.00-0.03) x10^3u/L Absolute Lymphs (auto) (1.0-4.6) x10^3/uL Absolute Monos (auto) (0.0-1.3) x10^3/uL Absolute Nucleated RBC (0.00-0.01) x10^3u/L Lymphocytes % (24.0-44.0) % Monocytes % (0.0-12.0) % Eosinophils % (0.00-5.0) % Basophils % (0.0-0.4) % Absolute Granulocytes (1.4-6.9) x10^3/uL Basophils # (0-0.4) x10^3/uL PT (9.4-12.5) SECONDS INR (0.8-3.0) APTT (25.1-36.5) SECONDS Sodium (137-145) mmol/L Potassium (3.5-5.1) mmol/L Chloride (98-107) mmol/L Carbon Dioxide (22-30) mmol/L Anion Gap (5-15) MEQ/L BUN (9-20) mg/dL Creatinine (0.66-1.25) mg/dL Estimated GFR ML/MIN Glucose (74-106) mg/dL POC Glucometer 139 H 96 (74 to 106) mg/dL Lactic Acid (0.4-2.0) Calcium (8.4-10.2) mg/dL Magnesium (1.6-2.3) mg/dL Total Bilirubin (0.2-1.3) mg/dL AST (17-59) U/L ALT (0-50) U/L Alkaline Phosphatase (38-126) U/L Troponin I 0.012 (0.000-0.034) ng/mL Serum Total Protein (6.3-8.2) g/dL Albumin (3.5-5.0) g/dL Urinalys Dipstick Clnc Urine Color (YELLOW) Urine Appearance (CLEAR) Urine pH (5-6) Ur Specific [place] (1.005-1.025) POC Urine Protein Conf (Negative) Urine Ketones (NEGATIVE) Urine Nitrite (NEGATIVE) Urine Bilirubin (NEGATIVE) Urine Urobilinogen (0-1) mg/dL Urine Leukocytes (NEGATIVE) Urine WBC (Auto) (0-5) /HPF Urine RBC (Auto) (0-2) /HPF U Hyaline Cast (Auto) (0-2) /LPF U Epithel Cells (Auto) (FEW) /HPF Urine Bacteria (Auto) (NEGATIVE) /HPF Urine RBC (0-5) Chip/ul Other Casts (Auto) (NEGATIVE) /LPF Ur Culture Indicated? Urine Glucose (NEGATIVE) mg/dL Urine Opiates Level (NEGATIVE) Ur Methadone (NEGATIVE) Urine Barbiturates (NEGATIVE) Ur Phencyclidine (PCP) (NEGATIVE) Urine Amphetamine (NEGATIVE) U Benzodiazepine Level (NEGATIVE) Urine Cocaine (NEGATIVE) Urine Marijuana (THC) (NEGATIVE) Ethyl Alcohol (0-10) mg/dL Influenza Type A Ag (NEGATIVE) Influenza Type B Ag (NEGATIVE) RSV (PCR) (Negative) SARS-CoV-2 (PCR) (NEGATIVE) 09/07/21 09/07/21 09/07/21 Range/Units 16:31 16:30 16:30 WBC (4.0-10.5) x10^3/uL RBC (4.1-5.6) x10^6/uL Hgb (12.5-18.0) g/dL Hct (42-50) % MCV (78-100) fL MCH (26-32) pg MCHC (32-36) g/dL RDW (11.5-14.0) % Plt Count (150-450) x10^3/uL MPV (7.5-11.0) fL Gran % (36.0-66.0) % Immature Gran % (Auto) (0.00-0.4) % Nucleat RBC Rel Count (0.00-0.1) % Eos # (Auto) (0-0.5) x10^3/uL Immature Gran # (Auto) (0.00-0.03) x10^3u/L Absolute Lymphs (auto) (1.0-4.6) x10^3/uL Absolute Monos (auto) (0.0-1.3) x10^3/uL Absolute Nucleated RBC (0.00-0.01) x10^3u/L Lymphocytes % (24.0-44.0) % Monocytes % (0.0-12.0) % Eosinophils % (0.00-5.0) % Basophils % (0.0-0.4) % Absolute Granulocytes (1.4-6.9) x10^3/uL Basophils # (0-0.4) x10^3/uL PT (9.4-12.5) SECONDS INR (0.8-3.0) APTT (25.1-36.5) SECONDS Sodium (137-145) mmol/L Potassium (3.5-5.1) mmol/L Chloride (98-107) mmol/L Carbon Dioxide (22-30) mmol/L Anion Gap (5-15) MEQ/L BUN (9-20) mg/dL Creatinine (0.66-1.25) mg/dL Estimated GFR ML/MIN Glucose (74-106) mg/dL POC Glucometer (74 to 106) mg/dL Lactic Acid 0.6 (0.4-2.0) Calcium (8.4-10.2) mg/dL Magnesium (1.6-2.3) mg/dL Total Bilirubin (0.2-1.3) mg/dL AST (17-59) U/L ALT (0-50) U/L Alkaline Phosphatase (38-126) U/L Troponin I < 0.012 (0.000-0.034) ng/mL Serum Total Protein (6.3-8.2) g/dL Albumin (3.5-5.0) g/dL Urinalys Dipstick Clnc Urine Color (YELLOW) Urine Appearance (CLEAR) Urine pH (5-6) Ur Specific [place] (1.005-1.025) POC Urine Protein Conf (Negative) Urine Ketones (NEGATIVE) Urine Nitrite (NEGATIVE) Urine Bilirubin (NEGATIVE) Urine Urobilinogen (0-1) mg/dL Urine Leukocytes (NEGATIVE) Urine WBC (Auto) (0-5) /HPF Urine RBC (Auto) (0-2) /HPF U Hyaline Cast (Auto) (0-2) /LPF U Epithel Cells (Auto) (FEW) /HPF Urine Bacteria (Auto) (NEGATIVE) /HPF Urine RBC (0-5) Chip/ul Other Casts (Auto) (NEGATIVE) /LPF Ur Culture Indicated? Urine Glucose (NEGATIVE) mg/dL Urine Opiates Level (NEGATIVE) Ur Methadone (NEGATIVE) Urine Barbiturates (NEGATIVE) Ur Phencyclidine (PCP) (NEGATIVE) Urine Amphetamine (NEGATIVE) U Benzodiazepine Level (NEGATIVE) Urine Cocaine (NEGATIVE) Urine Marijuana (THC) (NEGATIVE) Ethyl Alcohol (0-10) mg/dL Influenza Type A Ag NEGATIVE (NEGATIVE) Influenza Type B Ag NEGATIVE (NEGATIVE) RSV (PCR) NEGATIVE (Negative) SARS-CoV-2 (PCR) NEGATIVE (NEGATIVE) 09/07/21 09/07/21 09/07/21 Range/Units 16:30 16:30 16:30 WBC 6.4 (4.0-10.5) x10^3/uL RBC 2.90 L (4.1-5.6) x10^6/uL Hgb 9.1 L (12.5-18.0) g/dL Hct 29.2 L (42-50) % MCV 100.7 H (78-100) fL MCH 31.4 (26-32) pg MCHC 31.2 L (32-36) g/dL RDW 14.8 H (11.5-14.0) % Plt Count 263 (150-450) x10^3/uL MPV 12.2 H (7.5-11.0) fL Gran % 57.0 (36.0-66.0) % Immature Gran % (Auto) 0.8 H (0.00-0.4) % Nucleat RBC Rel Count 0.0 (0.00-0.1) % Eos # (Auto) 0.11 (0-0.5) x10^3/uL Immature Gran # (Auto) 0.05 H (0.00-0.03) x10^3u/L Absolute Lymphs (auto) 1.78 (1.0-4.6) x10^3/uL Absolute Monos (auto) 0.78 (0.0-1.3) x10^3/uL Absolute Nucleated RBC 0.00 (0.00-0.01) x10^3u/L Lymphocytes % 27.8 (24.0-44.0) % Monocytes % 12.2 H (0.0-12.0) % Eosinophils % 1.7 (0.00-5.0) % Basophils % 0.5 (0.0-0.4) % Absolute Granulocytes 3.66 (1.4-6.9) x10^3/uL Basophils # 0.03 (0-0.4) x10^3/uL PT 10.4 (9.4-12.5) SECONDS INR 0.98 (0.8-3.0) APTT 22.6 L (25.1-36.5) SECONDS Sodium 135 L (137-145) mmol/L Potassium 4.9 (3.5-5.1) mmol/L Chloride 103 (98-107) mmol/L Carbon Dioxide 27 (22-30) mmol/L Anion Gap 10.3 (5-15) MEQ/L BUN 61 H (9-20) mg/dL Creatinine 2.30 H (0.66-1.25) mg/dL Estimated GFR 29.9 ML/MIN Glucose 69 L (74-106) mg/dL POC Glucometer (74 to 106) mg/dL Lactic Acid (0.4-2.0) Calcium 9.2 (8.4-10.2) mg/dL Magnesium 1.7 (1.6-2.3) mg/dL Total Bilirubin 0.20 (0.2-1.3) mg/dL AST 22 (17-59) U/L ALT 16 (0-50) U/L Alkaline Phosphatase 79 (38-126) U/L Troponin I (0.000-0.034) ng/mL Serum Total Protein 6.1 L (6.3-8.2) g/dL Albumin 3.4 L (3.5-5.0) g/dL Urinalys Dipstick Clnc Urine Color (YELLOW) Urine Appearance (CLEAR) Urine pH (5-6) Ur Specific [place] (1.005-1.025) POC Urine Protein Conf (Negative) Urine Ketones (NEGATIVE) Urine Nitrite (NEGATIVE) Urine Bilirubin (NEGATIVE) Urine Urobilinogen (0-1) mg/dL Urine Leukocytes (NEGATIVE) Urine WBC (Auto) (0-5) /HPF Urine RBC (Auto) (0-2) /HPF U Hyaline Cast (Auto) (0-2) /LPF U Epithel Cells (Auto) (FEW) /HPF Urine Bacteria (Auto) (NEGATIVE) /HPF Urine RBC (0-5) Chip/ul Other Casts (Auto) (NEGATIVE) /LPF Ur Culture Indicated? Urine Glucose (NEGATIVE) mg/dL Urine Opiates Level (NEGATIVE) Ur Methadone (NEGATIVE) Urine Barbiturates (NEGATIVE) Ur Phencyclidine (PCP) (NEGATIVE) Urine Amphetamine (NEGATIVE) U Benzodiazepine Level (NEGATIVE) Urine Cocaine (NEGATIVE) Urine Marijuana (THC) (NEGATIVE) Ethyl Alcohol < 10 (0-10) mg/dL Influenza Type A Ag (NEGATIVE) Influenza Type B Ag (NEGATIVE) RSV (PCR) (Negative) SARS-CoV-2 (PCR) (NEGATIVE) 09/07/21 09/07/21 Range/Units 16:24 16:24 WBC (4.0-10.5) x10^3/uL RBC (4.1-5.6) x10^6/uL Hgb (12.5-18.0) g/dL Hct (42-50) % MCV (78-100) fL MCH (26-32) pg MCHC (32-36) g/dL RDW (11.5-14.0) % Plt Count (150-450) x10^3/uL MPV (7.5-11.0) fL Gran % (36.0-66.0) % Immature Gran % (Auto) (0.00-0.4) % Nucleat RBC Rel Count (0.00-0.1) % Eos # (Auto) (0-0.5) x10^3/uL Immature Gran # (Auto) (0.00-0.03) x10^3u/L Absolute Lymphs (auto) (1.0-4.6) x10^3/uL Absolute Monos (auto) (0.0-1.3) x10^3/uL Absolute Nucleated RBC (0.00-0.01) x10^3u/L Lymphocytes % (24.0-44.0) % Monocytes % (0.0-12.0) % Eosinophils % (0.00-5.0) % Basophils % (0.0-0.4) % Absolute Granulocytes (1.4-6.9) x10^3/uL Basophils # (0-0.4) x10^3/uL PT (9.4-12.5) SECONDS INR (0.8-3.0) APTT (25.1-36.5) SECONDS Sodium (137-145) mmol/L Potassium (3.5-5.1) mmol/L Chloride (98-107) mmol/L Carbon Dioxide (22-30) mmol/L Anion Gap (5-15) MEQ/L BUN (9-20) mg/dL Creatinine (0.66-1.25) mg/dL Estimated GFR ML/MIN Glucose (74-106) mg/dL POC Glucometer (74 to 106) mg/dL Lactic Acid (0.4-2.0) Calcium (8.4-10.2) mg/dL Magnesium (1.6-2.3) mg/dL Total Bilirubin (0.2-1.3) mg/dL AST (17-59) U/L ALT (0-50) U/L Alkaline Phosphatase (38-126) U/L Troponin I (0.000-0.034) ng/mL Serum Total Protein (6.3-8.2) g/dL Albumin (3.5-5.0) g/dL Urinalys Dipstick Clnc MAIN LAB Urine Color YELLOW (YELLOW) Urine Appearance SLIGHTLY CLOUDY (CLEAR) Urine pH 5.0 (5-6) Ur Specific [place] 1.015 (1.005-1.025) POC Urine Protein Conf 100 (Negative) Urine Ketones NEGATIVE (NEGATIVE) Urine Nitrite NEGATIVE (NEGATIVE) Urine Bilirubin NEGATIVE (NEGATIVE) Urine Urobilinogen 0.2 (0-1) mg/dL Urine Leukocytes NEGATIVE (NEGATIVE) Urine WBC (Auto) NONE (0-5) /HPF Urine RBC (Auto) NONE (0-2) /HPF U Hyaline Cast (Auto) 0-2 (0-2) /LPF U Epithel Cells (Auto) NONE (FEW) /HPF Urine Bacteria (Auto) NONE (NEGATIVE) /HPF Urine RBC NEGATIVE (0-5) Chip/ul Other Casts (Auto) NEGATIVE (NEGATIVE) /LPF Ur Culture Indicated? NO Urine Glucose NEGATIVE (NEGATIVE) mg/dL Urine Opiates Level NEGATIVE (NEGATIVE) Ur Methadone NEGATIVE (NEGATIVE) Urine Barbiturates NEGATIVE (NEGATIVE) Ur Phencyclidine (PCP) NEGATIVE (NEGATIVE) Urine Amphetamine NEGATIVE (NEGATIVE) U Benzodiazepine Level NEGATIVE (NEGATIVE) Urine Cocaine NEGATIVE (NEGATIVE) Urine Marijuana (THC) NEGATIVE (NEGATIVE) Ethyl Alcohol (0-10) mg/dL Influenza Type A Ag (NEGATIVE) Influenza Type B Ag (NEGATIVE) RSV (PCR) (Negative) SARS-CoV-2 (PCR) (NEGATIVE) - Progress Progress Note: 09/07/21 19:20 Pt collapsed today due to progressive lethargy. No acute evidence of CVA or [place]. Pt has pre-renal azotemia probably due to increase of Lasix to 40mg bid when he was discharged from [facility] on 08/28/21 for CHF. 09/07/21 19:21 09/07/21 19:26 09/07/21 19:[address] Cummings 09/07/21 19:45 Bridging orders entered Counseled pt/family regarding: lab results, diagnosis, rad results - Departure Departure Disposition: Observation Clinical Impression: Lethargy, Prerenal azotemia Condition: Stable Critical Care Time: No
[2021-09-07 16:59] LABS: Absolute Neutrophil Ct (ANC) 3.66 x10^3/uL (1.4-6.9); Basophil (Absolute #) 0.03 x10^3/uL (0-0.4); Eosinophil % 1.7 % (0.00-5.0); Eosinophil (Absolute #) 0.11 x10^3/uL (0-0.5); Hematocrit 29.2 % (42-50); Hemoglobin 9.1 g/dL (12.5-18.0); Lymphocyte (Absolute #) 1.78 x10^3/uL (1.0-4.6); Lymphocytes % 27.8 % (24.0-44.0); Mean Cell Volume 100.7 fL (78-100); Mean Corpuscular Hemoglobin 31.4 pg (26-32); Mean Corpuscular Hgb Concent. 31.2 g/dL (32-36); Mean Platelet Volume 12.2 fL (7.5-11.0); Monocyte (Absolute #) 0.78 x10^3/uL (0.0-1.3); Monocytes % 12.2 % (0.0-12.0); Platelet Count 263 x10^3/uL (150-450); Red Cell Distribution Width 14.8 % (11.5-14.0); White Blood Count 6.4 x10^3/uL (4.0-10.5)
[2021-09-07 17:10] LABS: ALBUMIN 3.4 g/dL (3.5-5.0); ALKALINE PHOSPHATASE 79 U/L (38-126); ANION GAP 10.3 MEQ/L (5-15); BLOOD UREA NITROGEN 61 mg/dL (9-20); CHLORIDE 103 mmol/L (98-107); Calcium 9.2 mg/dL (8.4-10.2); Carbon Dioxide 27 mmol/L (22-30); EST GLOMERULAR FILTRATION RATE 29.9 ML/MIN; ETHYL ALCOHOL < 10 mg/dL (0-10); Glucose 69 mg/dL (74-106); MAGNESIUM 1.7 mg/dL (1.6-2.3); Potassium 4.9 mmol/L (3.5-5.1); SGOT/AST 22 U/L (17-59); SGPT/ALT 16 U/L (0-50); SODIUM 135 mmol/L (137-145); Total Protein 6.1 g/dL (6.3-8.2)
[2021-09-07 17:12] LABS: INR 0.98 (0.8-3.0); PROTIME 10.4 SECONDS (9.4-12.5); PTT 22.6 SECONDS (25.1-36.5)
[2021-09-07 17:19] LABS: Hyaline Casts 0-2 /LPF (0-2)
[2021-09-07 17:20] LABS: Appearance SLIGHTLY CLOUDY (CLEAR); Bilirubin NEGATIVE (NEGATIVE); Dipstick done @ ? MAIN LAB; Glucose NEGATIVE (NEGATIVE); Ketones NEGATIVE (NEGATIVE); Nitrite NEGATIVE (NEGATIVE); Protein,Urine Dip 100 (Negative); RBC NEGATIVE Ery/ul (0-5); Specific Gravity 1.015 (1.005-1.025); Urobilinogen 0.2 mg/dL (0-1)
[2021-09-07 17:21] LABS: Urine Cultured Indicated? NO
[2021-09-07 17:34] LABS: Amphetamine,Urine NEGATIVE (NEGATIVE); Barbiturate,Urine NEGATIVE (NEGATIVE); Benzodiazepine,Urine NEGATIVE (NEGATIVE); Cocaine,Urine NEGATIVE (NEGATIVE); Methadone,Urine NEGATIVE (NEGATIVE); Opiate,Urine NEGATIVE (NEGATIVE); PCP,Urine NEGATIVE (NEGATIVE); THC,Urine NEGATIVE (NEGATIVE)
[2021-09-07 17:39] LABS: INFLUENZA A NEGATIVE (NEGATIVE); INFLUENZA B NEGATIVE (NEGATIVE); RESPIRATORY SYNCTIAL VIRUS NEGATIVE (Negative); SARS-CoV-2 Xpert Express NEGATIVE (NEGATIVE)
[2021-09-07] MEDS ORDERED: Zofran 4 MG/2 ML VIAL IV PRN (19:41)
[2021-09-07] MEDS: Sodium Chloride 0.9% 1000 ML 1,000 ML IV SCH (19:47)
--- NOTE | 2021-09-07 20:48 | XRAY ---
Indication: Lethargy. Comparison: August 21, 2021. Portable apical chest demonstrates interval left lung clearing with new minimal left base fibrosis/scarring. Right lung clear. Heart not enlarged again with CABG. Bony thorax intact again with mild osteopenia, degenerative changes, and lower cervical fusion hardware. Impression: Nonacute chest with chronic features.
--- NOTE | 2021-09-07 20:50 | XRAY ---
Indication: Lethargy. Multiple falls. History dementia. 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 Also negative recent MRA [place] of [place]. Multiple contiguous axial images obtained through the head without contrast. Comparison: August 21, 2021 Again age-appropriate global atrophy, mild periventricular degenerative micro-ischemia bilaterally, and small focus old infarct right frontal lobe. No acute intracranial hemorrhage, abnormal extra-axial fluid collection, or mass effect. Fourth ventricle is midline without hydrocephalus. Bony calvarium intact. Visualized paranasal sinuses and mastoid air cells are clear. Impression: Continued nonacute senile brain with small focus old infarct right frontal lobe. Comment: Preliminary interpretation made by [facility]. No critical discrepancy.
[2021-09-07] MEDS ORDERED: VENTOLIN COMMON CANISTER IH PRN (22:10)
[2021-09-07] MEDS ORDERED: TYLENOL 325 MG PO PRN (22:37)
[2021-09-07] MEDS ORDERED: Protonix 40MG Tablet PO SCH (22:49)
[2021-09-07] MEDS: PERCOCET TABLET 5/325MG PO PRN (23:00)
[2021-09-07] MEDS: Lopressor 50 MG PO SCH (23:01)
[2021-09-07] MEDS: Cymbalta 30 MG Capsule PO SCH (23:01)
[2021-09-07] MEDS: NEURONTIN PO SCH (23:02)
[2021-09-08 05:36] LABS: Absolute Neutrophil Ct (ANC) 4.33 x10^3/uL (1.4-6.9); Basophil (Absolute #) 0.04 x10^3/uL (0-0.4); Eosinophil % 1.9 % (0.00-5.0); Eosinophil (Absolute #) 0.13 x10^3/uL (0-0.5); Hematocrit 30.8 % (42-50); Hemoglobin 9.7 g/dL (12.5-18.0); Lymphocytes % 25.1 % (24.0-44.0); Mean Cell Volume 99.4 fL (78-100); Mean Corpuscular Hemoglobin 31.3 pg (26-32); Mean Corpuscular Hgb Concent. 31.5 g/dL (32-36); Mean Platelet Volume 12.7 fL (7.5-11.0); Monocyte (Absolute #) 0.54 x10^3/uL (0.0-1.3); Neutrophil % 63.8 % (36.0-66.0); Platelet Count 247 x10^3/uL (150-450); Red Cell Distribution Width 14.9 % (11.5-14.0); White Blood Count 6.8 x10^3/uL (4.0-10.5)
[2021-09-08 05:50] LABS: ALBUMIN 3.6 g/dL (3.5-5.0); ANION GAP 13.5 MEQ/L (5-15); BILIRUBIN,TOTAL 0.3 mg/dL (0.2-1.3); Calcium 9.2 mg/dL (8.4-10.2); Creatinine 1 2.09 mg/dL (0.66-1.25); EST GLOMERULAR FILTRATION RATE 33.4 ML/MIN; Potassium 4.7 mmol/L (3.5-5.1); Total Protein 6.4 g/dL (6.3-8.2)
[2021-09-08] MEDS ORDERED: Miralax Powder 17GM PACKET PO PRN (08:02)
[2021-09-08] MEDS ORDERED: VENTOLIN COMMON CANISTER IH PRN (08:02)
[2021-09-08] MEDS ORDERED: NON-FORMULARY ITEM (Rosuvastatin Calcium [Rosuvastatin Calcium] 20 MG Tablet) PO SCH (10:00)
[2021-09-08] MEDS ORDERED: PROTONIX 40 MG IV IV SCH (10:00)
[2021-09-08] MEDS ORDERED: AMIODARONE HCL 100 MG PO SCH (10:00)
[2021-09-08] MEDS: Lopressor 50 MG PO SCH ×2 (10:04→22:02)
[2021-09-08] MEDS: Cordarone 200 MG PO SCH (10:04)
[2021-09-08] MEDS: ECOTRIN 81 MG PO SCH (10:04)
[2021-09-08] MEDS: PERCOCET TABLET 5/325MG PO PRN ×3 (10:05→21:59)
[2021-09-08] MEDS: Cymbalta 30 MG Capsule PO SCH ×2 (10:05→22:02)
[2021-09-08] MEDS: NEURONTIN PO SCH ×3 (10:05→22:02)
[2021-09-08] MEDS: NORVASC 5 MG PO SCH (10:06)
[2021-09-08] MEDS: ZOCOR 20MG PO SCH (10:06)
[2021-09-08] MEDS: Sodium Chloride 0.9% 1000 ML 1,000 ML IV SCH (10:15)
[2021-09-08] MEDS: DUONEB 0.5-3 MG/3 ml Neb IH SCH ×4 (12:00→19:39)
--- NOTE | 2021-09-08 17:28 | PCM.HP ---
History of Present Illness - Chief Complaint Chief Complaint: lethargy, prerenal azotemia History of Present Illness: is a 71 year old male who has not been well since CABG 07/05/21. states he has fallen several times,is confused and wanders at night. States she had to unhook the stove because he turned the burner on during the night while wearing his oxygen. Medications & Allergies Home Medications: Home Medication List Insulin Glargine [Lantus Insulin] 30 unit SQ DAILY 08/08/16 [History Confirmed 09/07/21] Aspirin [Aspirin EC] 81 mg PO DAILY 07/12/21 [History Confirmed 09/07/21] Duloxetine HCl 30 mg [Cymbalta 30 MG Capsule] 30 mg PO BID 07/12/21 [History Confirmed 09/07/21] Gabapentin [Neurontin ] 600 mg PO TID 07/12/21 [History Confirmed 09/07/21] Insulin Lispro [Humalog] 0 unit SQ ACHS 07/12/21 [History Confirmed 09/07/21] Polyethylene Glycol 3350 [Miralax] 17 gm PO DAILY PRN PRN 07/12/21 [History Confirmed 09/07/21] Rosuvastatin Calcium 20 mg PO DAILY 07/12/21 [History Confirmed 09/07/21] Metoprolol Tartrate 50 mg [Lopressor 50 MG] 50 mg PO BID #28 tablet 07/17/21 [Rx Confirmed 09/07/21] Acetaminophen 325 mg [Tylenol 325 mg] 650 mg PO Q4-6HPRN PRN 09/07/21 [History Confirmed 09/07/21] Albuterol Sulfate [Proventil Hfa] 2 puff IH Q4H PRN PRN 09/07/21 [History Confirmed 09/07/21] Albuterol/Ipratropium 3ml Neb* [DUONEB 0.5-3 MG/3 ml Neb] 1 neb IH QID 09/07/21 [History Confirmed 09/07/21] Amiodarone HCl [Pacerone] 100 mg PO DAILY 09/07/21 [History Confirmed 09/07/21] Amlodipine Besylate 5 mg [Norvasc 5 mg] 10 mg PO DAILY 09/07/21 [History Confirmed 09/07/21] Furosemide 40 mg [Lasix 40 MG] 40 mg PO DAILY 09/07/21 [History Confirmed 09/07/21] Oxycodone HCl/Acetaminophen [Oxycodone-Acetaminophn 7.5-325] 1 tab PO QID PRN PRN 09/07/21 [History Confirmed 09/07/21] PANTOPRAZOLE 40 mg Tablet [Protonix 40MG Tablet] 40 mg PO QHS 09/07/21 [History Confirmed 09/07/21] Potassium Chloride [Klor-Con] 20 meq PO DAILY 09/07/21 [History Confirmed 09/07/21] Allergies/Adverse Reactions: Allergies Allergy/AdvReac Type Severity Reaction Status Date / Time No Known Drug Allergies Allergy Verified 09/07/21 21:03 - Past Medical History Past Medical History: Yes Neurological History: Peripheral Neuropathy ENT History: Cataracts Cardiac History: Congestive Heart Failure, Coronary Artery Disease, High Cholesterol, Hypertension, Myocardial Infarction ([place]) Respiratory History: CHF Endocrine Medical History: Diabetes Type II Musculoskelatal History: No Pertinent History GI Medical History: GERD History: No Pertinent History Pyscho-Social History: Anxiety, Depression Male Reproductive Disorders: No Pertinent History Comment: Patient is somewhat of a poor historian. He does report difficulty with short term memory. - Past Surgical History Past Surgical History: Yes Neuro Surgical History: No Pertinent History Cardiac History: CABG, Cardiac Catheterization Respiratory Surgery: Chest Surgery GI Surgical History: Cholecystectomy Genitourinary Surgical Hx: No Pertinent History Musculskeletal Surgical Hx: No Pertinent History Male Surgical History: No Pertinent History Other Surgical History: cervicle fusion - Social History Smoking Status: Former smoker How long have you smoked: 55 Exposure to second hand smoke: Yes Alcohol: None Drug Use: none Significant Family History: no pertinent family hx - Physical Exam Vital Signs: Vital Signs - 24 hr Temp Pulse Resp BP Pulse Ox 09/08/21 16:12 64 18 98 09/08/21 16:00 98.7 F 64 16 118/57 95 09/08/21 11:03 97.5 F 65 18 110/69 96 09/08/21 07:37 57 L 16 98 09/08/21 06:59 97.1 F 58 L 18 101/59 94 L 09/08/21 04:00 97.2 F 56 L 18 118/53 95 09/07/21 22:15 57 L 16 97 09/07/21 21:21 97.1 F 52 L 20 132/62 96 09/07/21 20:11 51 L 109/83 100 09/07/21 19:45 100 09/07/21 19:05 52 L 17 125/61 99 09/07/21 18:14 97.3 F 52 L 18 105/55 99 Results - Labs Lab/Micro Results: Lab Results-Last 24 Hours 09/07/21 09/07/21 09/07/21 Range/Units 16:24 16:30 16:30 WBC (4.0-10.5) x10^3/uL RBC (4.1-5.6) x10^6/uL Hgb (12.5-18.0) g/dL Hct (42-50) % MCV (78-100) fL MCH (26-32) pg MCHC (32-36) g/dL RDW (11.5-14.0) % Plt Count (150-450) x10^3/uL MPV (7.5-11.0) fL Gran % (36.0-66.0) % Immature Gran % (Auto) (0.00-0.4) % Nucleat RBC Rel Count (0.00-0.1) % Eos # (Auto) (0-0.5) x10^3/uL Immature Gran # (Auto) (0.00-0.03) x10^3u/L Absolute Lymphs (auto) (1.0-4.6) x10^3/uL Absolute Monos (auto) (0.0-1.3) x10^3/uL Absolute Nucleated RBC (0.00-0.01) x10^3u/L Lymphocytes % (24.0-44.0) % Monocytes % (0.0-12.0) % Eosinophils % (0.00-5.0) % Basophils % (0.0-0.4) % Absolute Granulocytes (1.4-6.9) x10^3/uL Basophils # (0-0.4) x10^3/uL Sodium (137-145) mmol/L Potassium (3.5-5.1) mmol/L Chloride (98-107) mmol/L Carbon Dioxide (22-30) mmol/L Anion Gap (5-15) MEQ/L BUN (9-20) mg/dL Creatinine (0.66-1.25) mg/dL Estimated GFR ML/MIN Glucose (74-106) mg/dL POC Glucometer (74 to 106) mg/dL Calcium (8.4-10.2) mg/dL Total Bilirubin (0.2-1.3) mg/dL AST (17-59) U/L ALT (0-50) U/L Alkaline Phosphatase (38-126) U/L Troponin I < 0.012 (0.000-0.034) ng/mL Serum Total Protein (6.3-8.2) g/dL Albumin (3.5-5.0) g/dL Urine Opiates Level NEGATIVE (NEGATIVE) Ur Methadone NEGATIVE (NEGATIVE) Urine Barbiturates NEGATIVE (NEGATIVE) Ur Phencyclidine (PCP) NEGATIVE (NEGATIVE) Urine Amphetamine NEGATIVE (NEGATIVE) U Benzodiazepine Level NEGATIVE (NEGATIVE) Urine Cocaine NEGATIVE (NEGATIVE) Urine Marijuana (THC) NEGATIVE (NEGATIVE) Influenza Type A Ag NEGATIVE (NEGATIVE) Influenza Type B Ag NEGATIVE (NEGATIVE) RSV (PCR) NEGATIVE (Negative) SARS-CoV-2 (PCR) NEGATIVE (NEGATIVE) 09/07/21 09/07/21 09/07/21 Range/Units 17:23 18:30 19:51 WBC (4.0-10.5) x10^3/uL RBC (4.1-5.6) x10^6/uL Hgb (12.5-18.0) g/dL Hct (42-50) % MCV (78-100) fL MCH (26-32) pg MCHC (32-36) g/dL RDW (11.5-14.0) % Plt Count (150-450) x10^3/uL MPV (7.5-11.0) fL Gran % (36.0-66.0) % Immature Gran % (Auto) (0.00-0.4) % Nucleat RBC Rel Count (0.00-0.1) % Eos # (Auto) (0-0.5) x10^3/uL Immature Gran # (Auto) (0.00-0.03) x10^3u/L Absolute Lymphs (auto) (1.0-4.6) x10^3/uL Absolute Monos (auto) (0.0-1.3) x10^3/uL Absolute Nucleated RBC (0.00-0.01) x10^3u/L Lymphocytes % (24.0-44.0) % Monocytes % (0.0-12.0) % Eosinophils % (0.00-5.0) % Basophils % (0.0-0.4) % Absolute Granulocytes (1.4-6.9) x10^3/uL Basophils # (0-0.4) x10^3/uL Sodium (137-145) mmol/L Potassium (3.5-5.1) mmol/L Chloride (98-107) mmol/L Carbon Dioxide (22-30) mmol/L Anion Gap (5-15) MEQ/L BUN (9-20) mg/dL Creatinine (0.66-1.25) mg/dL Estimated GFR ML/MIN Glucose (74-106) mg/dL POC Glucometer 96 139 H (74 to 106) mg/dL Calcium (8.4-10.2) mg/dL Total Bilirubin (0.2-1.3) mg/dL AST (17-59) U/L ALT (0-50) U/L Alkaline Phosphatase (38-126) U/L Troponin I 0.012 (0.000-0.034) ng/mL Serum Total Protein (6.3-8.2) g/dL Albumin (3.5-5.0) g/dL Urine Opiates Level (NEGATIVE) Ur Methadone (NEGATIVE) Urine Barbiturates (NEGATIVE) Ur Phencyclidine (PCP) (NEGATIVE) Urine Amphetamine (NEGATIVE) U Benzodiazepine Level (NEGATIVE) Urine Cocaine (NEGATIVE) Urine Marijuana (THC) (NEGATIVE) Influenza Type A Ag (NEGATIVE) Influenza Type B Ag (NEGATIVE) RSV (PCR) (Negative) SARS-CoV-2 (PCR) (NEGATIVE) 09/07/21 09/08/21 09/08/21 Range/Units 22:19 01:29 04:30 WBC (4.0-10.5) x10^3/uL RBC (4.1-5.6) x10^6/uL Hgb (12.5-18.0) g/dL Hct (42-50) % MCV (78-100) fL MCH (26-32) pg MCHC (32-36) g/dL RDW (11.5-14.0) % Plt Count (150-450) x10^3/uL MPV (7.5-11.0) fL Gran % (36.0-66.0) % Immature Gran % (Auto) (0.00-0.4) % Nucleat RBC Rel Count (0.00-0.1) % Eos # (Auto) (0-0.5) x10^3/uL Immature Gran # (Auto) (0.00-0.03) x10^3u/L Absolute Lymphs (auto) (1.0-4.6) x10^3/uL Absolute Monos (auto) (0.0-1.3) x10^3/uL Absolute Nucleated RBC (0.00-0.01) x10^3u/L Lymphocytes % (24.0-44.0) % Monocytes % (0.0-12.0) % Eosinophils % (0.00-5.0) % Basophils % (0.0-0.4) % Absolute Granulocytes (1.4-6.9) x10^3/uL Basophils # (0-0.4) x10^3/uL Sodium (137-145) mmol/L Potassium (3.5-5.1) mmol/L Chloride (98-107) mmol/L Carbon Dioxide (22-30) mmol/L Anion Gap (5-15) MEQ/L BUN (9-20) mg/dL Creatinine (0.66-1.25) mg/dL Estimated GFR ML/MIN Glucose (74-106) mg/dL POC Glucometer (74 to 106) mg/dL Calcium (8.4-10.2) mg/dL Total Bilirubin (0.2-1.3) mg/dL AST (17-59) U/L ALT (0-50) U/L Alkaline Phosphatase (38-126) U/L Troponin I < 0.012 < 0.012 0.012 (0.000-0.034) ng/mL Serum Total Protein (6.3-8.2) g/dL Albumin (3.5-5.0) g/dL Urine Opiates Level (NEGATIVE) Ur Methadone (NEGATIVE) Urine Barbiturates (NEGATIVE) Ur Phencyclidine (PCP) (NEGATIVE) Urine Amphetamine (NEGATIVE) U Benzodiazepine Level (NEGATIVE) Urine Cocaine (NEGATIVE) Urine Marijuana (THC) (NEGATIVE) Influenza Type A Ag (NEGATIVE) Influenza Type B Ag (NEGATIVE) RSV (PCR) (Negative) SARS-CoV-2 (PCR) (NEGATIVE) 09/08/21 09/08/21 09/08/21 Range/Units 04:30 04:30 06:37 WBC 6.8 (4.0-10.5) x10^3/uL RBC 3.10 L (4.1-5.6) x10^6/uL Hgb 9.7 L (12.5-18.0) g/dL Hct 30.8 L (42-50) % MCV 99.4 (78-100) fL MCH 31.3 (26-32) pg MCHC 31.5 L (32-36) g/dL RDW 14.9 H (11.5-14.0) % Plt Count 247 (150-450) x10^3/uL MPV 12.7 H (7.5-11.0) fL Gran % 63.8 (36.0-66.0) % Immature Gran % (Auto) 0.6 H (0.00-0.4) % Nucleat RBC Rel Count 0.0 (0.00-0.1) % Eos # (Auto) 0.13 (0-0.5) x10^3/uL Immature Gran # (Auto) 0.04 H (0.00-0.03) x10^3u/L Absolute Lymphs (auto) 1.70 (1.0-4.6) x10^3/uL Absolute Monos (auto) 0.54 (0.0-1.3) x10^3/uL Absolute Nucleated RBC 0.00 (0.00-0.01) x10^3u/L Lymphocytes % 25.1 (24.0-44.0) % Monocytes % 8.0 (0.0-12.0) % Eosinophils % 1.9 (0.00-5.0) % Basophils % 0.6 (0.0-0.4) % Absolute Granulocytes 4.33 (1.4-6.9) x10^3/uL Basophils # 0.04 (0-0.4) x10^3/uL Sodium 135 L (137-145) mmol/L Potassium 4.7 (3.5-5.1) mmol/L Chloride 101 (98-107) mmol/L Carbon Dioxide 25 (22-30) mmol/L Anion Gap 13.5 (5-15) MEQ/L BUN 57 H (9-20) mg/dL Creatinine 2.09 H (0.66-1.25) mg/dL Estimated GFR 33.4 ML/MIN Glucose 171 H (74-106) mg/dL POC Glucometer 175 H (74 to 106) mg/dL Calcium 9.2 (8.4-10.2) mg/dL Total Bilirubin 0.30 (0.2-1.3) mg/dL AST 27 (17-59) U/L ALT 19 (0-50) U/L Alkaline Phosphatase 84 (38-126) U/L Troponin I (0.000-0.034) ng/mL Serum Total Protein 6.4 (6.3-8.2) g/dL Albumin 3.6 (3.5-5.0) g/dL Urine Opiates Level (NEGATIVE) Ur Methadone (NEGATIVE) Urine Barbiturates (NEGATIVE) Ur Phencyclidine (PCP) (NEGATIVE) Urine Amphetamine (NEGATIVE) U Benzodiazepine Level (NEGATIVE) Urine Cocaine (NEGATIVE) Urine Marijuana (THC) (NEGATIVE) Influenza Type A Ag (NEGATIVE) Influenza Type B Ag (NEGATIVE) RSV (PCR) (Negative) SARS-CoV-2 (PCR) (NEGATIVE) 09/08/21 09/08/21 Range/Units 11:18 16:09 WBC (4.0-10.5) x10^3/uL RBC (4.1-5.6) x10^6/uL Hgb (12.5-18.0) g/dL Hct (42-50) % MCV (78-100) fL MCH (26-32) pg MCHC (32-36) g/dL RDW (11.5-14.0) % Plt Count (150-450) x10^3/uL MPV (7.5-11.0) fL Gran % (36.0-66.0) % Immature Gran % (Auto) (0.00-0.4) % Nucleat RBC Rel Count (0.00-0.1) % Eos # (Auto) (0-0.5) x10^3/uL Immature Gran # (Auto) (0.00-0.03) x10^3u/L Absolute Lymphs (auto) (1.0-4.6) x10^3/uL Absolute Monos (auto) (0.0-1.3) x10^3/uL Absolute Nucleated RBC (0.00-0.01) x10^3u/L Lymphocytes % (24.0-44.0) % Monocytes % (0.0-12.0) % Eosinophils % (0.00-5.0) % Basophils % (0.0-0.4) % Absolute Granulocytes (1.4-6.9) x10^3/uL Basophils # (0-0.4) x10^3/uL Sodium (137-145) mmol/L Potassium (3.5-5.1) mmol/L Chloride (98-107) mmol/L Carbon Dioxide (22-30) mmol/L Anion Gap (5-15) MEQ/L BUN (9-20) mg/dL Creatinine (0.66-1.25) mg/dL Estimated GFR ML/MIN Glucose (74-106) mg/dL POC Glucometer 288 H 405 H (74 to 106) mg/dL Calcium (8.4-10.2) mg/dL Total Bilirubin (0.2-1.3) mg/dL AST (17-59) U/L ALT (0-50) U/L Alkaline Phosphatase (38-126) U/L Troponin I (0.000-0.034) ng/mL Serum Total Protein (6.3-8.2) g/dL Albumin (3.5-5.0) g/dL Urine Opiates Level (NEGATIVE) Ur Methadone (NEGATIVE) Urine Barbiturates (NEGATIVE) Ur Phencyclidine (PCP) (NEGATIVE) Urine Amphetamine (NEGATIVE) U Benzodiazepine Level (NEGATIVE) Urine Cocaine (NEGATIVE) Urine Marijuana (THC) (NEGATIVE) Influenza Type A Ag (NEGATIVE) Influenza Type B Ag (NEGATIVE) RSV (PCR) (Negative) SARS-CoV-2 (PCR) (NEGATIVE) Accuchecks Date 09/08/21 Date 09/08/21 Date 09/08/21 Date 09/07/21 Time 16:09 Time 11:24 Time 06:37 - Radiology Impressions Radiology Exams & Impressions: Radiology Procedures Category Date Time Status CHEST 1 VIEW (PORTABLE) Stat Exams 09/07/21 16:11 Completed HEAD WITHOUT CONTRAST [CT] Stat Exams 09/07/21 17:43 Completed - Other Procedures and Tests Respiratory Therapy 09/07/21 22:12 Respiratory Therapy Assessment DAILY 09/07/21 22:14 Oxygen Nasal Cannula 3 lpm
[2021-09-08] MEDS: HUMALOG SQ PRN ×2 (17:51→22:46)
[2021-09-08] MEDS: Protonix 40MG Tablet PO SCH (22:03)
[2021-09-09] MEDS: PERCOCET TABLET 5/325MG PO PRN ×4 (05:41→22:03)
[2021-09-09] MEDS: DUONEB 0.5-3 MG/3 ml Neb IH SCH ×4 (06:49→19:31)
[2021-09-09] MEDS: Cordarone 200 MG PO SCH (08:28)
[2021-09-09] MEDS: Cymbalta 30 MG Capsule PO SCH ×2 (08:28→20:34)
[2021-09-09] MEDS: ECOTRIN 81 MG PO SCH (08:28)
[2021-09-09] MEDS: NORVASC 5 MG PO SCH (08:28)
[2021-09-09] MEDS: NEURONTIN PO SCH ×3 (08:29→20:34)
[2021-09-09] MEDS: HUMALOG SQ PRN ×4 (08:29→20:32)
[2021-09-09] MEDS: Lopressor 50 MG PO SCH ×2 (08:29→20:35)
[2021-09-09] MEDS: ZOCOR 20MG PO SCH (08:29)
[2021-09-09 09:43] LABS: Hematocrit 28.9 % (42-50); Hemoglobin 9.1 g/dL (12.5-18.0); Mean Cell Volume 99.7 fL (78-100); Mean Corpuscular Hemoglobin 31.4 pg (26-32); Mean Corpuscular Hgb Concent. 31.5 g/dL (32-36); Mean Platelet Volume 12.2 fL (7.5-11.0); Platelet Count 227 x10^3/uL (150-450); Red Cell Distribution Width 14.6 % (11.5-14.0); White Blood Count 6.5 x10^3/uL (4.0-10.5)
[2021-09-09 09:54] LABS: ALBUMIN 3.5 g/dL (3.5-5.0); ANION GAP 13.4 MEQ/L (5-15); BILIRUBIN,TOTAL 0.2 mg/dL (0.2-1.3); Creatinine 1 1.98 mg/dL (0.66-1.25); EST GLOMERULAR FILTRATION RATE 35.6 ML/MIN; Potassium 4.4 mmol/L (3.5-5.1); Total Protein 6.3 g/dL (6.3-8.2)
[2021-09-09] MEDS: Sodium Chloride 0.9% 1000 ML 1,000 ML IV SCH (10:47)
[2021-09-09] MEDS: Protonix 40MG Tablet PO SCH (20:35)
[2021-09-10] MEDS: DUONEB 0.5-3 MG/3 ml Neb IH SCH ×3 (06:59→14:34)
[2021-09-10] MEDS: PERCOCET TABLET 5/325MG PO PRN ×2 (08:18→12:18)
[2021-09-10] MEDS: NEURONTIN PO SCH (08:19)
[2021-09-10] MEDS: Cordarone 200 MG PO SCH (08:20)
[2021-09-10] MEDS: ECOTRIN 81 MG PO SCH (08:21)
[2021-09-10] MEDS: Cymbalta 30 MG Capsule PO SCH (08:21)
[2021-09-10] MEDS: NORVASC 5 MG PO SCH (08:21)
[2021-09-10] MEDS: ZOCOR 20MG PO SCH (08:22)
[2021-09-10] MEDS: Lopressor 50 MG PO SCH (08:22)
[2021-09-10 11:53] VITALS: BP 101/75
[2021-09-10] MEDS: HUMALOG SQ PRN (12:18)
[2021-09-10 14:38] VITALS: PULSE 81
[2021-09-19 09:58] VITALS: O2SAT 100
--- NOTE | 2021-09-30 15:31 | DS ---
DISCHARGE DIAGNOSES: 1) DEMENTIA. 2) FALLING. 3) WEAKNESS. 4) DIABETES MELLITUS TYPE II. 5) ACUTE KIDNEY INJURY. 6) HYPOXIA. 7) CORONARY ARTERY DISEASE. 8) CARDIOMYOPATHY. HISTORY: The patient is a 71-year-old white male who presented to the emergency room after having fallen several times. The patient has had increasing difficulty since he had a coronary artery bypass graft performed on 07/05/2021. The patient prior to that time had some dementia problems but apparently he had gotten much worse since his surgery. PAST MEDICAL/SURGICAL HISTORY: The patient history includes the diabetes mellitus type II on insulin. He has depression, anxiety and dementia. He has hyperlipidemia. He has coronary artery disease and cardiomyopathy. He has chronic pain syndrome and hypoxia. HOME MEDICATIONS: His list of home medications currently include Lantus 37 units subcu daily, aspirin 81 mg a day, duloxetine 30 mg twice a day, Neurontin 600 mg t.i.d., Humalog subcu a.c. and h.s. on sliding scale coverage, rosuvastatin 20 mg daily, Lopressor 50 mg b.i.d., aspirin, Tylenol 650 mg every 4 hours PRN, Albuterol PRN, amiodarone 100 mg daily, amlodipine 10 mg daily, Lasix 40 mg daily, oxycodone 7.5/325 four times a day PRN pain, pantoprazole 40 mg daily, potassium 20 mEq daily. ALLERGIES: NKDA. HOSPITAL COURSE: The patient's evaluation in the hospital including PT/OT, observed with telemetry and pulse oximetry during his stay. He was continued on his usual medications. The patient's after discussion with physical therapy, occupational therapy and otherwise was felt the patient would likely need to be admitted to rehab with possible placement in a care home if he did not improve and this is unlikely as the patient has been deteriorating over the last several months and actually the last few years. Therefore the decision was made to send this patient to rehab with pending admission to the care home. He will continue his medications as listed above.
== END 2021-09-10 15:35 ==
LOC: ED 16:06 → MED SURG 20:37
PROVIDERS: ADMIT Family Medicine; ATTEND Family Medicine
DX: F03.90 Unspecified dementia, unspecified severity, without behavioral disturbance, psychotic disturbance, mood disturbance, and anxiety (principal); R53.1 Weakness; W18.30XA Fall on same level, unspecified, initial encounter; I11.0 Hypertensive heart disease with heart failure; I50.9 Heart failure, unspecified; I25.10 Atherosclerotic heart disease of native coronary artery without angina pectoris; E78.00 Pure hypercholesterolemia, unspecified; N17.9 Acute kidney failure, unspecified; R09.02 Hypoxemia; I25.2 Old myocardial infarction; I42.9 Cardiomyopathy, unspecified; E11.9 Type 2 diabetes mellitus without complications; E78.5 Hyperlipidemia, unspecified; Z91.81 History of falling; Z95.1 Presence of aortocoronary bypass graft; Z79.899 Other long term (current) drug therapy; Z20.828 Contact with and (suspected) exposure to other viral communicable diseases
CPT/HCPCS: 0241U; 36415; 70450; 71045; 80053; 80307; 81015; 82947; 83605; 83735; 84484; 85025; 85027; 85610; 85730; 93005; 93268; 94640; 94760; 97110; 97161; 97165; 99285; G0378; G0480; J1817; A9270-GY

== ENCOUNTER 2022-01-13 10:45 | Emergency (ER) | payer MEDICARE ==
--- NOTE | 2022-01-13 10:59 | ERPHSYRPT ---
- History of Present Illness Time Seen by Provider: 01/13/22 10:59 Source: patient Exam Limitations: no limitations Physician History: This is a 71-year-old white male patient of Dr. Hester and also youtuber Dr. Velasco and presents with a history of coughing intermittently for 1 month. 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 In the last month he has noticed intermittent coughing. Family is concerned about possible pneumonia. Patient did take his medication this morning including his antihypertensive medication and presents with a systolic blood pressure over 200. Patient denies shortness of breath. He denies chest pain. Patient continues to smoke cigarettes. Patient has a history of gastroesophageal reflux disease, hypertension, insulin-dependent diabetes, CHF and hyperlipidemia. Timing/Duration: week(s) (4 weeks) Cough Quality/Degree: mild, dry cough Possible Cause: frequent episodes Modifying Factors: Improves With: coughing Associated Symptoms: cough, muscle aches (Chronic generalized), No chest pain/so reness, No shortness of breath Allergies/Adverse Reactions: No Known Drug Allergies Allergy (Verified 01/13/22 11:00) Home Medications: Insulin Glargine [Lantus Insulin] 30 unit SQ DAILY 08/08/16 [History] Aspirin [Aspirin EC] 81 mg PO DAILY 07/12/21 [History] Duloxetine HCl 30 mg [Cymbalta 30 MG Capsule] 30 mg PO BID 07/12/21 [H istory] Gabapentin [Neurontin ] 600 mg PO TID 07/12/21 [History] Insulin Lispro [Humalog] 0 unit SQ ACHS 07/12/21 [History] Polyethylene Glycol 3350 [Miralax] 17 gm PO DAILY PRN PRN 07/12/21 [History] Rosuvastatin Calcium 20 mg PO DAILY 07/12/21 [History] Acetaminophen 325 mg [Tylenol 325 mg] 650 mg PO Q4-6HPRN PRN 09/07/21 [History] Albuterol Sulfate [Proventil Hfa] 2 puff IH Q4H PRN PRN 09/07/21 [History] Amiodarone HCl [Pacerone] 100 mg PO DAILY 09/07/21 [History] Amlodipine Besylate 5 mg [Norvasc 5 mg] 10 mg PO DAILY 09/07/21 [History] Furosemide 40 mg [Lasix 40 MG] 40 mg PO DAILY 09/07/21 [History] Oxycodone HCl/Acetaminophen [Oxycodone-Acetaminophn 7.5-325] 1 tab PO QID PRN PRN 09/07/21 [History] PANTOPRAZOLE 40 mg Tablet [Protonix 40MG Tablet] 40 mg PO QHS 09/07/21 [History] Potassium Chloride [Klor-Con] 20 meq PO DAILY 09/07/21 [History] Hx Tetanus, Diphtheria Vaccination/Date Given: Yes Hx Influenza Vaccination/Date Given: No Hx Pneumococcal Vaccination/Date Given: No Travel Risk - International Travel Have you traveled outside of the country in past 3 weeks: No - Coronavirus Screening Are you exhibiting any of the following symptoms?: Yes Symptoms: Cough: New Onset - Vaccine Status Have you recieved a Covid-19 vaccination: Yes 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: [employer] - Vaccination Dates Date of 2cond Vaccination (if applicable): 2020 - Review of Systems Constitutional: No Symptoms Eyes: No Symptoms Ears, Nose, & Throat: No Symptoms Respiratory: Cough Cardiac: No Symptoms Abdominal/Gastrointestinal: No Symptoms Genitourinary Symptoms: No Symptoms Musculoskeletal: No Symptoms Skin: No Symptoms Neurological: No Symptoms Psychological: No Symptoms Endocrine: No Symptoms Hematologic/Lymphatic: No Symptoms Immunological/Allergic: No Symptoms All Other Systems: Reviewed and Negative - Past Medical History Pertinent Past Medical History: Yes Neurological History: Peripheral Neuropathy ENT History: Cataracts Cardiac History: Congestive Heart Failure, Coronary Artery Disease, High Cholesterol, Hypertension, Myocardial Infarction ([place]) Respiratory History: No Pertinent History Endocrine Medical History: Diabetes Type II Musculoskeletal History: No Pertinent History GI Medical History: GERD History: No Pertinent History Psycho-Social History: Anxiety, Depression Male Reproductive Disorders: No Pertinent History Other Medical History: PATIENT REPORTS PROBLEMS WITH SHORT TERM MEMORY AND NOTED ON E.R. REPORT FROM OCTOBER 2020. ALSO GERD, DEPRESSION, CERVICAL FUSION, CHOLECYSTECTOMY. PATIENT REPORTS VACCINATED AND BOOSTER FOR COVID. - Past Surgical History Past Surgical History: Yes Neuro Surgical History: No Pertinent History Cardiac: CABG, Cardiac Catheterization Respiratory: Chest Surgery Gastrointestinal: No Pertinent History Genitourinary: No Pertinent History Musculoskeletal: No Pertinent History Male Surgical History: No Pertinent History Other Surgical History: cervicle fusion - Social History Smoking Status: Current every day smoker How long have you smoked: 55 Exposure to second hand smoke: Yes Drug Use: none Patient Lives Alone: No Significant Family History: no pertinent family hx - Nursing Vital Signs Nursing Vital Signs: Initial Vital Signs Temperature 97.4 F 01/13/22 10:50 Pulse Rate 61 01/13/22 10:50 Respiratory Rate 16 01/13/22 10:50 Blood Pressure 217/93 01/13/22 10:50 O2 Sat by Pulse Oximetry 94 L 01/13/22 10:50 Pain Scale Pain Intensity 8 - Physical Exam General Appearance: no apparent distress, alert Eye Exam: PERRL/EOMI, eyes nml inspection Ears, Nose, Throat Exam: normal ENT inspection, moist mucous membranes Neck Exam: normal inspection, non-tender, supple, full range of motion Respiratory Exam: normal breath sounds, lungs clear, airway intact, No chest tenderness, No respiratory distress Cardiovascular Exam: regular rate/rhythm, normal heart sounds, normal peripheral pulses Gastrointestinal/Abdomen Exam: soft, normal bowel sounds, No tenderness Rectal Exam: not done Back Exam: normal inspection, normal range of motion, No CVA tenderness, No vertebral tenderness Extremity Exam: normal inspection, normal range of motion, pelvis stable Neurologic Exam: alert, oriented x 3, cooperative, cash applications representative II-XII nml as tested, normal mood/affect, nml cerebellar function, nml station & gait, sensation nml Skin Exam: normal color, warm, dry Lymphatic Exam: No adenopathy SpO2 Interpretation: borderline oxygenation O2 Delivery: Room Air - Course Nursing assessment & vital signs reviewed: Yes EKG Interpreted by Me: RATE (57), Sinus Rhythm, NORMAL AXIS, NORMAL INTERVALS, NORMAL QRS, NORMAL ST-T, Other (I do not appreciate any acute ischemic changes. The computer printout says there is abnormal inferior Q waves.) Ordered Tests: Active Orders 24 hr Category Date Time Status Skills Instructor STAT Care 01/13/22 11:17 Active EKG-ER Only STAT Care 01/13/22 11:16 Active IV Insertion STAT Care 01/13/22 11:16 Active Pulse Oximetry (ED) STAT Care 01/13/22 11:16 Active CHEST 1 VIEW (PORTABLE) Stat Exams 01/13/22 11:17 Completed CBC W DIFF Stat Lab 01/13/22 11:07 Completed CMP Stat Lab 01/13/22 11:07 Completed D-DIMER QUANTITATIVE Stat Lab 01/13/22 11:07 Completed NT PRO BNP Stat Lab 01/13/22 11:07 Completed TROPONIN Q4H Lab 01/13/22 11:07 Completed TROPONIN Q4H Lab 01/13/22 15:30 Ordered TROPONIN Q4H Lab 01/13/22 19:30 Ordered Medication Summary Discontinued Medications Generic Name Dose Route Start Last Admin Trade Name Marianne PRN Reason Stop Dose Admin Enalaprilat 1.25 mg 01/13/22 11:41 01/13/22 11:51 Enalaprilat 2.5 Mg Injection IV 01/13/22 11:42 1.25 mg STAT ONE Administration Enalaprilat Confirm 01/13/22 11:47 Enalaprilat 2.5 Mg Injection Administered 01/13/22 11:48 Dose 2.5 mg IV .STK-MED ONE Furosemide 40 mg 01/13/22 11:47 01/13/22 11:55 Furosemide 40 Mg/4 Ml Vial IV 01/13/22 11:48 40 mg STAT ONE Administration Furosemide Confirm 01/13/22 11:53 Furosemide 40 Mg/4 Ml Vial Administered 01/13/22 11:54 Dose 40 mg .ROUTE .STK-MED ONE Hydralazine HCl 5 mg 01/13/22 13:11 01/13/22 13:18 Hydralazine Hcl 20 Mg/Ml Vial IV 01/13/22 13:12 5 mg STAT ONE Administration Hydralazine HCl Confirm 01/13/22 13:16 Hydralazine Hcl 20 Mg/Ml Vial Administered 01/13/22 13:17 Dose 20 mg .ROUTE .STK-MED ONE Oxycodone/Acetaminophen 1 tab 01/13/22 13:14 01/13/22 13:17 Oxycodone Hcl/Apap 5 Mg/325 Mg Tablet PO 01/13/22 13:15 1 tab STAT STA Administration Oxycodone/Acetaminophen Confirm 01/13/22 13:16 Oxycodone Hcl/Apap 5 Mg/325 Mg Tablet Administered 01/13/22 13:17 Dose 1 tab .ROUTE .STK-MED ONE Lab/Rad Data: Laboratory Result Diagrams 01/13/22 11:07 01/13/22 11:07 Laboratory Results 1001/13/22 01/13/22 Range/Units 11:25 11:07 11:07 WBC (4.0-10.5) x10^3/uL RBC (4.1-5.6) x10^6/uL Hgb (12.5-18.0) g/dL Hct (42-50) % MCV (78-100) fL MCH (26-32) pg MCHC (32-36) g/dL RDW (11.5-14.0) % Plt Count (150-450) x10^3/uL MPV (7.5-11.0) fL Gran % (36.0-66.0) % Immature Gran % (Auto) (0.00-0.4) % Nucleat RBC Rel Count (0.00-0.1) % Eos # (Auto) (0-0.5) x10^3/uL Immature Gran # (Auto) (0.00-0.03) x10^3u/L Absolute Lymphs (auto) (1.0-4.6) x10^3/uL Absolute Monos (auto) (0.0-1.3) x10^3/uL Absolute Nucleated RBC (0.00-0.01) x10^3u/L Lymphocytes % (24.0-44.0) % Monocytes % (0.0-12.0) % Eosinophils % (0.00-5.0) % Basophils % (0.0-0.4) % Absolute Granulocytes (1.4-6.9) x10^3/uL Basophils # (0-0.4) x10^3/uL D-Dimer 0.70 H* (0.0-0.50) mg/L Sodium (137-145) mmol/L Potassium (3.5-5.1) mmol/L Chloride (98-107) mmol/L Carbon Dioxide (22-30) mmol/L Anion Gap (5-15) MEQ/L BUN (9-20) mg/dL Creatinine (0.66-1.25) mg/dL Estimated GFR ML/MIN Glucose (74-106) mg/dL Calcium (8.4-10.2) mg/dL Total Bilirubin (0.2-1.3) mg/dL AST (17-59) U/L ALT (0-50) U/L Alkaline Phosphatase (38-126) U/L Troponin I 0.073 H* (0.000-0.034) ng/mL NT-Pro-B Natriuret Pep (0-900) pg/mL Serum Total Protein (6.3-8.2) g/dL Albumin (3.5-5.0) g/dL Influenza Type A Ag NEGATIVE (NEGATIVE) Influenza Type B Ag NEGATIVE (NEGATIVE) RSV (PCR) NEGATIVE (Negative) SARS-CoV-2 (PCR) NEGATIVE (NEGATIVE) 01/13/22 01/13/22 Range/Units 11:07 11:07 WBC 6.9 (4.0-10.5) x10^3/uL RBC 3.52 L (4.1-5.6) x10^6/uL Hgb 11.0 L (12.5-18.0) g/dL Hct 34.4 L (42-50) % MCV 97.7 (78-100) fL MCH 31.3 (26-32) pg MCHC 32.0 (32-36) g/dL RDW 13.5 (11.5-14.0) % Plt Count 180 (150-450) x10^3/uL MPV 12.1 H (7.5-11.0) fL Gran % 70.9 H (36.0-66.0) % Immature Gran % (Auto) 0.4 (0.00-0.4) % Nucleat RBC Rel Count 0.0 (0.00-0.1) % Eos # (Auto) 0.29 (0-0.5) x10^3/uL Immature Gran # (Auto) 0.03 (0.00-0.03) x10^3u/L Absolute Lymphs (auto) 1.16 (1.0-4.6) x10^3/uL Absolute Monos (auto) 0.50 (0.0-1.3) x10^3/uL Absolute Nucleated RBC 0.00 (0.00-0.01) x10^3u/L Lymphocytes % 16.7 L (24.0-44.0) % Monocytes % 7.2 (0.0-12.0) % Eosinophils % 4.2 (0.00-5.0) % Basophils % 0.6 (0.0-0.4) % Absolute Granulocytes 4.91 (1.4-6.9) x10^3/uL Basophils # 0.04 (0-0.4) x10^3/uL D-Dimer (0.0-0.50) mg/L Sodium 135 L (137-145) mmol/L Potassium 3.5 (3.5-5.1) mmol/L Chloride 104 (98-107) mmol/L Carbon Dioxide 28 (22-30) mmol/L Anion Gap 7.3 (5-15) MEQ/L BUN 22 H (9-20) mg/dL Creatinine 1.60 H (0.66-1.25) mg/dL Estimated GFR 45.5 ML/MIN Glucose 243 H (74-106) mg/dL Calcium 8.3 L (8.4-10.2) mg/dL Total Bilirubin 0.20 (0.2-1.3) mg/dL AST 31 (17-59) U/L ALT 12 (0-50) U/L Alkaline Phosphatase 104 (38-126) U/L Troponin I (0.000-0.034) ng/mL NT-Pro-B Natriuret Pep 8110 H (0-900) pg/mL Serum Total Protein 6.0 L (6.3-8.2) g/dL Albumin 3.1 L (3.5-5.0) g/dL Influenza Type A Ag (NEGATIVE) Influenza Type B Ag (NEGATIVE) RSV (PCR) (Negative) SARS-CoV-2 (PCR) (NEGATIVE) - Progress Progress: improved, re-examined Air Movement: good Progress Note: 01/13/22 11:49 Chest x-ray shows cardiomegaly with small left pleural effusion. Signs favoring CHF. No evidence of infiltrate. 01/13/22 13:15 Medical decision making: This patient would be best served at that facility and has a higher level of care. Patient has congestive heart failure, he has renal insufficiency, he has shortness of breath, he has a cough, and he has elevated troponins. He is never had an elevated troponin level recorded when I reviewed the patient's past troponin levels. Patient needs to be where there is a youtuber and lawyer probate. Patient also has hypertension. He has an elevated D-dimer level. However, patient did take his aspirin and Plavix today and has been taking those medications consistently on a daily basis. I think a pulmonary embolus is not likely. There is no evidence of pneumonia on the chest x-ray. However, there are findings consistent with congestive heart failure on his chest x-ray. We did provide him with Lasix and supplemental oxygen via nasal cannula. We attempted to contact Dr. Velasco, his youtuber. However, [place] was at the airport [place] to go out [facility]. We did contact [facility] in [facility]. The emergency room physician is dealing with the trauma and a stroke patient and will contact us once he/she is available 01/13/22 14:[address] Baer the emergency room physician at [facility] in [facility]. I reviewed the history physical exam and results of the patient's work-up with him. He accepts the patient in transfer. Blood Culture(s) Obtained: No Antibiotics given: No Counseled pt/family regarding: lab results, diagnosis, need for follow-up, rad results - Departure Departure Disposition: Transfer Clinical Impression: CHF (congestive heart failure), Shortness of breath, Cough, Elevated troponin, Hypertension Condition: Fair Critical Care Time: Yes Critical Care Time(excluding separately billable procedures): Critical 30-74 mins (40 minutes) Referrals: CRYSTAL HESTER [Primary Care Provider] - Follow up/PCP as directed Instructions: Heart Failure
[2022-01-13 11:24] LABS: Absolute Neutrophil Ct (ANC) 4.91 x10^3/uL (1.4-6.9); Basophil (Absolute #) 0.04 x10^3/uL (0-0.4); Eosinophil % 4.2 % (0.00-5.0); Eosinophil (Absolute #) 0.29 x10^3/uL (0-0.5); Hematocrit 34.4 % (42-50); Lymphocyte (Absolute #) 1.16 x10^3/uL (1.0-4.6); Lymphocytes % 16.7 % (24.0-44.0); Mean Cell Volume 97.7 fL (78-100); Mean Corpuscular Hemoglobin 31.3 pg (26-32); Mean Platelet Volume 12.1 fL (7.5-11.0); Monocytes % 7.2 % (0.0-12.0); Neutrophil % 70.9 % (36.0-66.0); Platelet Count 180 x10^3/uL (150-450); Red Blood Count 3.52 x10^6/uL (4.1-5.6); Red Cell Distribution Width 13.5 % (11.5-14.0); White Blood Count 6.9 x10^3/uL (4.0-10.5)
--- NOTE | 2022-01-13 11:31 | XRAY ---
Indication: Cough. Comparison: September 07, 2021 Portable chest again demonstrates CABG with now cardiomegaly and small left/tiny pleural effusions favoring cardiac decompensation/CHF. Bony thorax intact again with osteopenia, degenerative changes, and cervical fusion hardware.
[2022-01-13] MEDS ORDERED: ENALAPRILAT 2.5 MG INJECTION IV ONE ×2 (11:41→11:47)
[2022-01-13] MEDS ORDERED: Lasix 40 MG/4 ML IV ONE (11:47)
[2022-01-13] MEDS ORDERED: Lasix 40 MG/4 ML ONE (11:53)
[2022-01-13 12:04] LABS: INFLUENZA A NEGATIVE (NEGATIVE); INFLUENZA B NEGATIVE (NEGATIVE); RESPIRATORY SYNCTIAL VIRUS NEGATIVE (Negative); SARS-CoV-2 Xpert Express NEGATIVE (NEGATIVE)
[2022-01-13 12:55] LABS: ALBUMIN 3.1 g/dL (3.5-5.0); ANION GAP 7.3 MEQ/L (5-15); BILIRUBIN,TOTAL 0.2 mg/dL (0.2-1.3); Calcium 8.3 mg/dL (8.4-10.2); Creatinine 1 1.6 mg/dL (0.66-1.25); EST GLOMERULAR FILTRATION RATE 45.5 ML/MIN; Potassium 3.5 mmol/L (3.5-5.1)
[2022-01-13] MEDS ORDERED: APRESOLINE 20 MG/ML INJ IV ONE ×2 (13:11→14:13)
[2022-01-13] MEDS ORDERED: PERCOCET TABLET 5/325MG PO STA (13:14)
[2022-01-13] MEDS ORDERED: PERCOCET TABLET 5/325MG ONE (13:16)
[2022-01-13] MEDS ORDERED: APRESOLINE 20 MG/ML INJ ONE ×2 (13:16→14:23)
[2022-01-13 14:54] VITALS: O2SAT 97
[2022-01-13 15:38] VITALS: BP 197/79; PULSE 65
== END 2022-01-13 15:39 | disposition short-term general hospital (02) ==
LOC: ED 10:45
DX: I11.0 Hypertensive heart disease with heart failure (principal); I50.9 Heart failure, unspecified; R06.02 Shortness of breath; R05.9 Cough, unspecified; R77.8 Other specified abnormalities of plasma proteins; N28.9 Disorder of kidney and ureter, unspecified; E78.5 Hyperlipidemia, unspecified; E11.9 Type 2 diabetes mellitus without complications; Z72.0 Tobacco use; Z79.4 Long term (current) use of insulin; Z79.891 Long term (current) use of opiate analgesic; Z79.899 Other long term (current) drug therapy
CPT/HCPCS: 0241U; 36000; 36415; 71045; 80053; 83880; 84484; 85025; 85379; 93005; 93041; 94760; 96374; 96375; 96376; 99285; 99291; J0360; J1940; A9270-GY

== ENCOUNTER 2022-01-25 01:14 | Emergency (ER) | payer MEDICARE ==
--- NOTE | 2022-01-25 01:17 | ERPHSYRPT ---
- History of Present Illness Time Seen by Provider: 01/25/22 01:17 Historian: patient, family Exam Limitations: no limitations Physician History: This is a 71-year-old white male patient of Dr. Murillo who has history of coronary artery disease including myocardial infarction and CABG as well as chronic renal insufficiency and hypertension. Patient sees Dr. Hernandez as his insulator technician and Dr. Velasco as his assembler small products. He is taking Plavix. He was started on hydralazine and told to take increased dose of hydralazine and lisinopril yesterday evening. He also takes amlodipine for high blood pressure. Patient became concerned when the systolic blood pressures were not falling below 170s. They were running between 170 and 200. Late in the evening he is started having chest pain and therefore that in combination with his elevated blood pressure he came to the emergency department for evaluation management. Patient has a history of insulin-dependent diabetes, peripheral neuropathy, hyperlipidemia, gastroesophageal reflux disease, CHF and short-term memory loss. Timing/Duration: yesterday Activities at Onset: none Quality: aching Location: substernal, central Chest Pain Radiation: no radiation Severity of Pain-Max: mild Severity of Pain-Current: mild Modifying Factors: Improves With: nothing Associated Symptoms: denies symptoms Prior Chest Pain/Cardiac Workup: cardiac cath, heart attack Nitro Today/Relief: no nitro taken today Aspirin Treatment Today: no aspirin today Allergies/Adverse Reactions: No Known Drug Allergies Allergy (Verified 01/13/22 11:00) Home Medications: Insulin Glargine [Lantus Insulin] 30 unit SQ DAILY 08/08/16 [History] Aspirin [Aspirin EC] 81 mg PO DAILY 07/12/21 [History] Duloxetine HCl 30 mg [Cymbalta 30 MG Capsule] 30 mg PO BID 07/12/21 [History] Gabapentin [Neurontin ] 600 mg PO TID 07/12/21 [History] Insulin Lispro [Humalog] 0 unit SQ ACHS 07/12/21 [History] Polyethylene Glycol 3350 [Miralax] 17 gm PO DAILY PRN PRN 07/12/21 [History] Rosuvastatin Calcium 20 mg PO DAILY 07/12/21 [History] Acetaminophen 325 mg [Tylenol 325 mg] 650 mg PO Q4-6HPRN PRN 09/07/21 [History] Albuterol Sulfate [Proventil Hfa] 2 puff IH Q4H PRN PRN 09/07/21 [History] Amiodarone HCl [Pacerone] 100 mg PO DAILY 09/07/21 [History] Amlodipine Besylate 5 mg [Norvasc 5 mg] 10 mg PO DAILY 09/07/21 [History] Furosemide 40 mg [Lasix 40 MG] 40 mg PO DAILY 09/07/21 [History] Oxycodone HCl/Acetaminophen [Oxycodone-Acetaminophn 7.5-325] 1 tab PO QID PRN PRN 09/07/21 [History] PANTOPRAZOLE 40 mg Tablet [Protonix 40MG Tablet] 40 mg PO QHS 09/07/21 [History] Potassium Chloride [Klor-Con] 20 meq PO DAILY 09/07/21 [History] Hx Tetanus, Diphtheria Vaccination/Date Given: Yes Hx Influenza Vaccination/Date Given: No Hx Pneumococcal Vaccination/Date Given: No Travel Risk - International Travel Have you traveled outside of the country in past 3 weeks: No - Coronavirus Screening Are you exhibiting any of the following symptoms?: No Close contact with a COVID-19 positive Pt in past 14-21 Days: No - Vaccine Status Have you recieved a Covid-19 vaccination: Yes Rejected Items Clerk: Moderna - Vaccination Dates Date of 2cond Vaccination (if applicable): 2020 - Review of Systems Constitutional: No Symptoms Eyes: No Symptoms Ears, Nose, & Throat: No Symptoms Respiratory: No Symptoms Cardiac: Chest Pain Abdominal/Gastrointestinal: No Symptoms Genitourinary Symptoms: No Symptoms Musculoskeletal: No Symptoms Skin: No Symptoms Neurological: No Symptoms Psychological: No Symptoms Endocrine: No Symptoms Hematologic/Lymphatic: No Symptoms Immunological/Allergic: No Symptoms All Other Systems: Reviewed and Negative - Past Medical History Pertinent Past Medical History: Yes Neurological History: Peripheral Neuropathy ENT History: Cataracts Cardiac History: Congestive Heart Failure, Coronary Artery Disease, High Cholesterol, Hypertension, Myocardial Infarction ([place]) Respiratory History: No Pertinent History Endocrine Medical History: Diabetes Type II Musculoskeletal History: No Pertinent History GI Medical History: GERD History: No Pertinent History Psycho-Social History: Anxiety, Depression Male Reproductive Disorders: No Pertinent History Other Medical History: PATIENT REPORTS PROBLEMS WITH SHORT TERM MEMORY AND NOTED ON E.R. REPORT FROM OCTOBER 2020. ALSO GERD, DEPRESSION, CERVICAL FUSION, CHOLECYSTECTOMY. PATIENT REPORTS VACCINATED AND BOOSTER FOR COVID. - Past Surgical History Past Surgical History: Yes Neuro Surgical History: No Pertinent History Cardiac: CABG, Cardiac Catheterization Respiratory: Chest Surgery Gastrointestinal: No Pertinent History Genitourinary: No Pertinent History Musculoskeletal: No Pertinent History Male Surgical History: No Pertinent History Other Surgical History: cervicle fusion - Social History Smoking Status: Current every day smoker How long have you smoked: 55 Exposure to second hand smoke: Yes Drug Use: none Patient Lives Alone: No Significant Family History: no pertinent family hx - Nursing Vital Signs Nursing Vital Signs: Initial Vital Signs Pulse Rate 58 L 01/25/22 01:15 Respiratory Rate 20 01/25/22 01:15 Blood Pressure 205/70 01/25/22 01:15 O2 Sat by Pulse Oximetry 96 01/25/22 01:15 Pain Scale Pain Intensity 5 - Physical Exam General Appearance: no apparent distress, alert, anxiety Eye Exam: PERRL/EOMI, eyes nml inspection Ears, Nose, Throat Exam: normal ENT inspection, moist mucous membranes Neck Exam: normal inspection, non-tender, supple, full range of motion Respiratory Exam: normal breath sounds, chest tenderness (Mild central substernal achiness), lungs clear, airway intact, No respiratory distress Cardiovascular Exam: regular rate/rhythm, normal heart sounds, normal peripheral pulses Gastrointestinal/Abdomen Exam: soft, normal bowel sounds, No tenderness Rectal Exam: not done Back Exam: normal inspection, normal range of motion, No CVA tenderness, No vertebral tenderness Extremity Exam: normal range of motion, pelvis stable, pedal edema (Bilateral feet and ankles), swelling (Bilateral feet and ankles) Neurologic Exam: alert, oriented x 3, cooperative, transport aide II-XII nml as tested, normal mood/affect, nml cerebellar function, nml station & gait, sensation nml Skin Exam: normal color, warm, dry Lymphatic Exam: No adenopathy SpO2 Interpretation: normal O2 Delivery: Room Air - Course Nursing assessment & vital signs reviewed: Yes EKG Interpreted by Me: RATE (63), Sinus Rhythm, NORMAL AXIS, prolonged QT interval, Other (When compared to old EKG patient has persistent sinus rhythm. There is also persistent inferior Q waves. New on today's twelve-lead EKG there is a borderline prolonged QT interval. I do not see any acute ischemic changes on today's EKG) Ordered Tests: Active Orders 24 hr Category Date Time Status Cigar Tobacco Processing Supervisor STAT Care 01/25/22 01:31 Active EKG-ER Only STAT Care 01/25/22 01:31 Active IV Insertion STAT Care 01/25/22 01:31 Active Pulse Oximetry (ED) STAT Care 01/25/22 01:31 Active Telemetry q4h Care 01/25/22 02:30 Active CHEST 1 VIEW (PORTABLE) Stat Exams 01/25/22 01:31 Ordered CBC W DIFF Stat Lab 01/25/22 02:08 Completed CMP Stat Lab 01/25/22 02:08 Completed NT PRO BNP Stat Lab 01/25/22 02:08 Completed PROTIME WITH INR Stat Lab 01/25/22 02:08 Completed TROPONIN Q4H Lab 01/25/22 02:08 Completed TROPONIN Q4H Lab 01/25/22 05:45 Ordered TROPONIN Q4H Lab 01/25/22 09:45 Ordered Medication Summary Generic Name Dose Route Start Last Admin Trade Name Freq PRN Reason Stop Dose Admin Potassium Chloride 20 meq in 100 mls @ 50 mls/hr 01/25/22 02:29 01/25/22 02:53 Potassium Chloride 20 Meq In Water 100ml IV 01/25/22 04:28 50 mls/hr STAT ONE Administration Sodium Chloride 250 mls @ 250 mls/hr 01/25/22 02:45 01/25/22 03:30 Sodium Chloride 0.9% 250 Ml IV 01/25/22 03:44 250 mls/hr .Q1H BELLO Administration Discontinued Medications Generic Name Dose Route Start Last Admin Trade Name Freq PRN Reason Stop Dose Admin Aspirin 324 mg 01/25/22 01:31 01/25/22 01:40 Aspirin 81 Mg Tab.Chew PO 01/25/22 01:32 324 mg STAT ONE Administration Enalaprilat 1.25 mg 01/25/22 02:39 01/25/22 03:30 Enalaprilat 2.5 Mg Injection IV 01/25/22 02:40 1.25 mg STAT ONE Administration Enalaprilat Confirm 01/25/22 03:29 Enalaprilat 2.5 Mg Injection Administered 01/25/22 03:30 Dose 2.5 mg IV .STK-MED ONE Furosemide 40 mg 01/25/22 01:59 01/25/22 02:32 Furosemide 40 Mg/4 Ml Vial IV 01/25/22 02:00 40 mg STAT ONE Administration Furosemide Confirm 01/25/22 02:30 Furosemide 40 Mg/4 Ml Vial Administered 01/25/22 02:31 Dose 40 mg .ROUTE .STK-MED ONE Hydralazine HCl 10 mg 01/25/22 02:01 01/25/22 02:32 Hydralazine Hcl 20 Mg/Ml Vial IV 01/25/22 02:02 10 mg STAT ONE Administration Hydralazine HCl Confirm 01/25/22 02:30 Hydralazine Hcl 20 Mg/Ml Vial Administered 01/25/22 02:31 Dose 20 mg .ROUTE .STK-MED ONE Potassium Chloride Confirm 01/25/22 02:49 Potassium Chloride 20 Meq In Water 100ml Administered 01/25/22 02:50 Dose 100 mls @ ud IV .STK-MED ONE Potassium Chloride 20 meq 01/25/22 02:29 01/25/22 02:52 Potassium Chloride Tab 10 Meq Tab PO 01/25/22 02:30 20 meq STAT ONE Administration Potassium Chloride Confirm 01/25/22 02:49 Potassium Chloride Tab 10 Meq Tab Administered 01/25/22 02:50 Dose 20 meq PO .STK-MED ONE Lab/Rad Data: Laboratory Result Diagrams 01/25/22 02:08 01/25/22 02:08 Laboratory Results 01/25/22 01/25/22 01/25/22 Range/Units 02:08 02:08 02:08 WBC (4.0-10.5) x10^3/uL RBC (4.1-5.6) x10^6/uL Hgb (12.5-18.0) g/dL Hct (42-50) % MCV (78-100) fL MCH (26-32) pg MCHC (32-36) g/dL RDW (11.5-14.0) % Plt Count (150-450) x10^3/uL MPV (7.5-11.0) fL Gran % (36.0-66.0) % Immature Gran % (Auto) (0.00-0.4) % Nucleat RBC Rel Count (0.00-0.1) % Eos # (Auto) (0-0.5) x10^3/uL Immature Gran # (Auto) (0.00-0.03) x10^3u/L Absolute Lymphs (auto) (1.0-4.6) x10^3/uL Absolute Monos (auto) (0.0-1.3) x10^3/uL Absolute Nucleated RBC (0.00-0.01) x10^3u/L Lymphocytes % (24.0-44.0) % Monocytes % (0.0-12.0) % Eosinophils % (0.00-5.0) % Basophils % (0.0-0.4) % Absolute Granulocytes (1.4-6.9) x10^3/uL Basophils # (0-0.4) x10^3/uL PT 10.2 (9.4-12.5) SECONDS INR 0.96 (0.8-3.0) Sodium 133 L (137-145) mmol/L Potassium 2.9 L* (3.5-5.1) mmol/L Chloride 97 L (98-107) mmol/L Carbon Dioxide 32 H (22-30) mmol/L Anion Gap 6.6 (5-15) MEQ/L BUN 24 H (9-20) mg/dL Creatinine 1.70 H (0.66-1.25) mg/dL Estimated GFR 42.4 ML/MIN Glucose 374 H (74-106) mg/dL Calcium 7.6 L (8.4-10.2) mg/dL Total Bilirubin 0.30 (0.2-1.3) mg/dL AST 19 (17-59) U/L ALT 12 (0-50) U/L Alkaline Phosphatase 96 (38-126) U/L Troponin I 0.068 H* (0.000-0.034) ng/mL NT-Pro-B Natriuret Pep 9350 H (0-900) pg/mL Serum Total Protein 5.8 L (6.3-8.2) g/dL Albumin 3.0 L (3.5-5.0) g/dL 01/25/22 Range/Units 02:08 WBC 5.7 (4.0-10.5) x10^3/uL RBC 3.46 L (4.1-5.6) x10^6/uL Hgb 10.8 L (12.5-18.0) g/dL Hct 33.0 L (42-50) % MCV 95.4 (78-100) fL MCH 31.2 (26-32) pg MCHC 32.7 (32-36) g/dL RDW 13.0 (11.5-14.0) % Plt Count 183 (150-450) x10^3/uL MPV 11.3 H (7.5-11.0) fL Gran % 65.9 (36.0-66.0) % Immature Gran % (Auto) 0.4 (0.00-0.4) % Nucleat RBC Rel Count 0.0 (0.00-0.1) % Eos # (Auto) 0.19 (0-0.5) x10^3/uL Immature Gran # (Auto) 0.02 (0.00-0.03) x10^3u/L Absolute Lymphs (auto) 1.21 (1.0-4.6) x10^3/uL Absolute Monos (auto) 0.48 (0.0-1.3) x10^3/uL Absolute Nucleated RBC 0.00 (0.00-0.01) x10^3u/L Lymphocytes % 21.3 L (24.0-44.0) % Monocytes % 8.5 (0.0-12.0) % Eosinophils % 3.4 (0.00-5.0) % Basophils % 0.5 (0.0-0.4) % Absolute Granulocytes 3.74 (1.4-6.9) x10^3/uL Basophils # 0.03 (0-0.4) x10^3/uL PT (9.4-12.5) SECONDS INR (0.8-3.0) Sodium (137-145) mmol/L Potassium (3.5-5.1) mmol/L Chloride (98-107) mmol/L Carbon Dioxide (22-30) mmol/L Anion Gap (5-15) MEQ/L BUN (9-20) mg/dL Creatinine (0.66-1.25) mg/dL Estimated GFR ML/MIN Glucose (74-106) mg/dL Calcium (8.4-10.2) mg/dL Total Bilirubin (0.2-1.3) mg/dL AST (17-59) U/L ALT (0-50) U/L Alkaline Phosphatase (38-126) U/L Troponin I (0.000-0.034) ng/mL NT-Pro-B Natriuret Pep (0-900) pg/mL Serum Total Protein (6.3-8.2) g/dL Albumin (3.5-5.0) g/dL - Progress Progress: improved, re-examined Air Movement: fair Progress Note: 01/25/22 03:04 Chest x-ray shows a moderate sized left pleural effusion. Cannot determine if there is an underlying infiltrate present. Medical decision making: I contacted [facility]. They do not have the level of care/beds to manage this patient. I spoke with the emergency room physician Dr. Vinson. We will contact [facility]. 01/25/22 03:48 Medical decision making: I spoke with Dr. Boyce at [facility]. He is a hospitalist on-call for their facility. I reviewed the patient history, physical findings and results of the EKG, and work-up. He accepts the patient in transfer. The [facility] has no monitored beds and therefore we will be transferring the patient to [facility]. Dr. Boyce is aware. Blood Culture(s) Obtained: Yes Counseled pt/family regarding: lab results, diagnosis, rad results - Departure Departure Disposition: Transfer Clinical Impression: Chronic renal failure, CHF (congestive heart failure), Hypokalemia, Elevated troponin I level, Hyperglycemia, Pleural effusion on left, Hypertensive urgency Condition: Fair Critical Care Time: Yes Critical Care Time(excluding separately billable procedures): Critical 30-74 mins (40 minutes) Referrals: CRYSTAL MURILLO [Primary Care Provider] - Follow up/PCP as directed Instructions: Heart Failure
[2022-01-25] MEDS ORDERED: BABY ASPIRIN 81 MG CHEW PO ONE (01:31)
[2022-01-25] MEDS ORDERED: Lasix 40 MG/4 ML IV ONE (01:59)
[2022-01-25] MEDS ORDERED: APRESOLINE 20 MG/ML INJ IV ONE (02:01)
[2022-01-25 02:08] LABS: Absolute Neutrophil Ct (ANC) 3.74 x10^3/uL (1.4-6.9); Basophil (Absolute #) 0.03 x10^3/uL (0-0.4); Eosinophil % 3.4 % (0.00-5.0); Eosinophil (Absolute #) 0.19 x10^3/uL (0-0.5); Hemoglobin 10.8 g/dL (12.5-18.0); Lymphocyte (Absolute #) 1.21 x10^3/uL (1.0-4.6); Lymphocytes % 21.3 % (24.0-44.0); Mean Cell Volume 95.4 fL (78-100); Mean Corpuscular Hemoglobin 31.2 pg (26-32); Mean Corpuscular Hgb Concent. 32.7 g/dL (32-36); Mean Platelet Volume 11.3 fL (7.5-11.0); Monocyte (Absolute #) 0.48 x10^3/uL (0.0-1.3); Monocytes % 8.5 % (0.0-12.0); Neutrophil % 65.9 % (36.0-66.0); Platelet Count 183 x10^3/uL (150-450); Red Blood Count 3.46 x10^6/uL (4.1-5.6); White Blood Count 5.7 x10^3/uL (4.0-10.5)
[2022-01-25 02:17] LABS: INR 0.96 (0.8-3.0); PROTIME 10.2 SECONDS (9.4-12.5)
[2022-01-25 02:26] LABS: ANION GAP 6.6 MEQ/L (5-15); BILIRUBIN,TOTAL 0.3 mg/dL (0.2-1.3); Calcium 7.6 mg/dL (8.4-10.2); Creatinine 1 1.7 mg/dL (0.66-1.25); EST GLOMERULAR FILTRATION RATE 42.4 ML/MIN; Total Protein 5.8 g/dL (6.3-8.2)
[2022-01-25 02:27] LABS: Potassium 2.9 mmol/L (3.5-5.1)
[2022-01-25] MEDS ORDERED: Klor Con PO ONE ×2 (02:29→02:49)
[2022-01-25] MEDS ORDERED: POTASSIUM CHLORIDE 20 mEq IN WATER 100ML 20 MEQ/100 ML BAG IV ONE (02:29)
[2022-01-25] MEDS ORDERED: APRESOLINE 20 MG/ML INJ ONE (02:30)
[2022-01-25] MEDS ORDERED: Lasix 40 MG/4 ML ONE (02:30)
[2022-01-25] MEDS ORDERED: ENALAPRILAT 2.5 MG INJECTION IV ONE ×2 (02:39→03:29)
[2022-01-25] MEDS ORDERED: Sodium Chloride 0.9% 250 ML 250 ML IV SCH (02:45)
[2022-01-25] MEDS ORDERED: Sodium Chloride 0.9% 250 ML 0 ML IV ONE (02:49)
[2022-01-25] MEDS ORDERED: POTASSIUM CHLORIDE 20 mEq IN WATER 100ML 100 ML IV ONE (02:49)
[2022-01-25] MEDS ORDERED: Sodium Chloride 0.9% 250 ML 250 ML IV ONE (03:16)
[2022-01-25] MEDS ORDERED: OXYCODONE-ACETAMINOPHEN 10-325 PO STA (04:28)
[2022-01-25] MEDS ORDERED: OXYCODONE-ACETAMINOPHEN 10-325 ONE (04:35)
[2022-01-25 06:03] VITALS: BP 196/69; PULSE 55; O2SAT 94
[2022-01-25 06:47] LABS: Potassium 2.9 mmol/L (3.5-5.1)
[2022-01-25 06:48] LABS: TROPONIN 0.059 ng/mL (0.000-0.034)
--- NOTE | 2022-01-25 08:58 | XRAY ---
Indication: Chest pain. Comparison: January 13, 2022 Portable chest again demonstrates cardiomegaly with slight worsening bibasilar effusions, again left greater than right, favoring cardiac decompensation/CHF. Superimposed pneumonia not completely excluded. Again chronic findings CABG surgery, osteopenia, and mild bony degenerative changes.
== END 2022-01-25 06:10 | disposition short-term general hospital (02) ==
LOC: ED 01:14
DX: I13.0 Hypertensive heart and chronic kidney disease with heart failure and stage 1 through stage 4 chronic kidney disease, or unspecified chronic kidney disease (principal); I50.9 Heart failure, unspecified; E11.22 Type 2 diabetes mellitus with diabetic chronic kidney disease; E11.65 Type 2 diabetes mellitus with hyperglycemia; N18.9 Chronic kidney disease, unspecified; Z79.4 Long term (current) use of insulin; I16.0 Hypertensive urgency; R77.8 Other specified abnormalities of plasma proteins; E87.6 Hypokalemia; E11.42 Type 2 diabetes mellitus with diabetic polyneuropathy; E78.5 Hyperlipidemia, unspecified; Z79.899 Other long term (current) drug therapy; Z72.0 Tobacco use
CPT/HCPCS: 36000; 36415; 71045; 80053; 83880; 84132; 84484; 85025; 85610; 93005; 93041; 94760; 96360; 96365; 96374; 96375; 99285; 99291; J0360; J1940; J3480; A9270-GY

== ENCOUNTER 2022-03-11 08:02 | Emergency (ER) | payer MEDICARE ==
--- NOTE | 2022-03-11 08:06 | ERPHSYRPT ---
- History of Present Illness Time Seen by Provider: 03/11/22 08:06 Source: patient, family, EMS Exam Limitations: no limitations Physician History: This is a 71-year-old white male patient of Dr. Hester has multiple medical problems and frequents the emergency room often. He also sees Dr. Arcos for his nephrology care. Patient was on the toilet this morning at 5 AM and got up lost his balance and hit his head on the corner cabinet area. He was brought into the emergency department by the ambulance service. His complaints are left ear, left head, left jaw pain and mild cervical spine pain. Ordinarily, the patient is on Plavix but has been off of this for approximately 5 days for an upcoming injection in his spine to aid with back pain relief. Patient has a history of coronary artery disease, hypertension, chronic renal disease, peripheral neuropathy, hyperlipidemia, gastroesophageal reflux disease, CHF and short-term memory loss. He did not take any of his medications this morning. Occurred: this morning (5 AM) Reason for Fall: lost balance Injuries/Pain Location: head, face (Left), neck (Left), lower extremity (Left hip) Loss of Consciousness: no loss of consciousness Quality: aching Severity of Pain-Max: moderate Severity of Pain-Current: mild (Mild to moderate) Modifying Factors: Improves With: movement Associated Symptoms (Fall): headache, neck pain Allergies/Adverse Reactions: No Known Drug Allergies Allergy (Verified 03/11/22 08:23) Home Medications: Insulin Glargine [Lantus Insulin] 30 unit SQ DAILY 08/08/16 [History] Aspirin [Aspirin EC] 81 mg PO DAILY 07/12/21 [History] Duloxetine HCl 30 mg [Cymbalta 30 MG Capsule] 30 mg PO BID 07/12/21 [History] Gabapentin [Neurontin ] 600 mg PO TID 07/12/21 [History] Insulin Lispro [Humalog] 0 unit SQ ACHS 07/12/21 [History] Polyethylene Glycol 3350 [Miralax] 17 gm PO DAILY PRN PRN 07/12/21 [History] Rosuvastatin Calcium 20 mg PO DAILY 07/12/21 [History] Acetaminophen 325 mg [Tylenol 325 mg] 325 mg PO Q4-6HPRN PRN 06/18/22 [History] Albuterol Sulfate [Proventil Hfa] 2 puff IH Q4H PRN PRN 09/07/21 [History] Amiodarone HCl [Pacerone] 100 mg PO DAILY 09/07/21 [History] Furosemide 40 mg [Lasix 40 MG] 40 mg PO DAILY 09/07/21 [History] Oxycodone HCl/Acetaminophen [Oxycodone-Acetaminophn 7.5-325] 1 tab PO QID PRN PRN 09/07/21 [History] PANTOPRAZOLE 40 mg Tablet [Protonix 40MG Tablet] 40 mg PO QHS 09/07/21 [History] Potassium Chloride [Klor-Con] 20 meq PO DAILY 09/07/21 [History] Clopidogrel Bisulfate [Clopidogrel] 75 mg PO DAILY PRN 01/25/22 [History] HydrALAzine HCL 25 MG TAB [Apresoline 25 MG TABLET] 25 mg PO TID 01/25/22 [History] Lisinopril 10 mg [Zestril 10 MG] 10 mg PO DAILY 01/25/22 [History] Hx Tetanus, Diphtheria Vaccination/Date Given: Yes Hx Influenza Vaccination/Date Given: No Hx Pneumococcal Vaccination/Date Given: No Travel Risk - International Travel Have you traveled outside of the country in past 3 weeks: No - Coronavirus Screening Are you exhibiting any of the following symptoms?: No Close contact with a COVID-19 positive Pt in past 14-21 Days: No - Vaccine Status Have you recieved a Covid-19 vaccination: Yes Selling Specialist: Moderna - Vaccination Dates Date of 2cond Vaccination (if applicable): 2020 - Review of Systems Constitutional: No Symptoms Eyes: No Symptoms Ears, Nose, & Throat: Ear Pain Respiratory: No Symptoms Cardiac: No Symptoms Abdominal/Gastrointestinal: Constipation Genitourinary Symptoms: No Symptoms Musculoskeletal: Neck Pain, Fall, Injury (Left hip), No Deformity Skin: No Symptoms Neurological: No Symptoms Psychological: No Symptoms Endocrine: No Symptoms Hematologic/Lymphatic: No Symptoms Immunological/Allergic: No Symptoms All Other Systems: Reviewed and Negative - Past Medical History Pertinent Past Medical History: Yes Neurological History: Peripheral Neuropathy ENT History: Cataracts Cardiac History: Congestive Heart Failure, Coronary Artery Disease, High Cholesterol, Hypertension, Myocardial Infarction ([place]) Respiratory History: No Pertinent History Endocrine Medical History: Diabetes Type II Musculoskeletal History: No Pertinent History GI Medical History: GERD History: No Pertinent History Psycho-Social History: Anxiety, Depression Male Reproductive Disorders: No Pertinent History Other Medical History: PATIENT REPORTS PROBLEMS WITH SHORT TERM MEMORY AND NOTED ON E.R. REPORT FROM OCTOBER 2020. ALSO GERD, DEPRESSION, CERVICAL FUSION, CHOLECYSTECTOMY. PATIENT REPORTS VACCINATED AND BOOSTER FOR COVID. - Past Surgical History Past Surgical History: Yes Neuro Surgical History: No Pertinent History Cardiac: CABG, Cardiac Catheterization Respiratory: Chest Surgery Gastrointestinal: No Pertinent History Genitourinary: No Pertinent History Musculoskeletal: No Pertinent History Male Surgical History: No Pertinent History Other Surgical History: cervicle fusion - Social History Smoking Status: Current every day smoker How long have you smoked: 55 Exposure to second hand smoke: Yes Drug Use: none Patient Lives Alone: No Significant Family History: no pertinent family hx - Nursing Vital Signs Nursing Vital Signs: Initial Vital Signs Temperature 97.0 F 03/11/22 08:26 Pulse Rate 53 L 03/11/22 08:26 Respiratory Rate 18 03/11/22 08:26 Blood Pressure 199/81 03/11/22 08:26 O2 Sat by Pulse Oximetry 94 L 03/11/22 08:26 Pain Scale Pain Intensity 9 - [place] Coma Score Best Eye Response ([place]): (4) open spontaneously Best Verbal Response ([place]): (5) oriented Best Motor Response ([place]): (6) obeys commands [place] Total: 15 - Physical Exam General Appearance: no apparent distress, alert, other (Left ear swelling and ecchymosis. No evidence of laceration needed to be repaired) Head Injury: contusions (Left temporal region), tenderness (Left temporal region) Eye Exam: PERRL/EOMI, eyes nml inspection ENT Exam: airway nml, nml ext.inspection, other (Left ear swelling and ecchymosis without laceration), No evidence of ENT injury, No hemotympanum Neck Exam: supple, trachea midline, full range of motion, normal alignment, normal inspection, tenderness (Mild paraspinous muscle tenderness to palpation.) Respiratory/Chest Exam: normal breath sounds, No chest tenderness, No respiratory distress, No ecchymosis, No crepitus Cardiovascular Exam: normal heart sounds, regular rate/rhythm Gastrointestinal Exam: soft, normal bowel sounds, No tenderness Rectal Exam: not done Back Exam: normal inspection, normal range of motion, No CVA tenderness Extremity Exam: normal inspection, normal range of motion, tenderness (Mild to left hip) Neurologic Exam: alert, oriented x 3, cooperative, chain maker machine II-XII nml as tested, normal mood/affect, nml cerebellar function, sensation nml Skin Exam: warm, dry, ecchymosis (With swelling left ear) SpO2 Interpretation: normal O2 Delivery: Room Air Ordered Tests: Active Orders 24 hr Category Date Time Status CERVICAL SPINE WO CONTRAST [CT] Stat Exams 03/11/22 09:13 Completed FACIAL BONES WO CONTRAST [CT] Stat Exams 03/11/22 08:36 Completed HEAD WITHOUT CONTRAST [CT] Stat Exams 03/11/22 08:36 Completed HIP UNI (2V) INCL PEL IF DONE Stat Exams 03/11/22 09:29 Completed - Progress Progress: improved Progress Note: 03/11/22 09:52 Left hip x-ray is negative for any acute fracture or dislocation. CT scan of cervical spine without contrast is negative for acute fracture or subluxation. There is a normal CT scan without contrast of facial bones. CT scan of head without contrast shows diffuse left ear soft tissue swelling. There is nonacute senile brain with a small focus of old infarction right frontal lobe. 03/11/22 09:54 Medical decision making: I reviewed the patient history from the patient's spouse as well as old emergency department notes. Patient did not take his blood pressure medication today. He will take his blood pressure medication w hen he gets home. He will follow-up with his primary prescribing physician for further evaluation and management. Counseled pt/family regarding: diagnosis, need for follow-up, rad results - Departure Departure Disposition: Home Clinical Impression: Fall with injury, Contusion of left ear, Hypertension Condition: Stable Critical Care Time: No Referrals: CRYSTAL HESTER [Primary Care Provider] - Follow up/PCP as directed Additional Instructions: Ice pack to left ear 3 times a day for the next 48 hours. Take your medication as prescribed. Follow-up with your primary care provider today for further ev aluation management. Prescriptions: Hydrocodone/APAP 5/325 [[place] 5/325 mg] 1 each PO Q8H PRN PRN #6 tablet MDD 3 PRN Reason: Pain
--- NOTE | 2022-03-11 09:44 | XRAY ---
Indication: Left ear pain following fall. Multiple contiguous axial images obtained through the facial bones. Sagittal and coronal reformatted images obtained. Comparison: None No acute fracture, suspicious bony lesions, or radiopaque foreign body. Orbits including roof, omer, and floors intact. Visualized paranasal sinuses and nasal passages are clear. Visualized noncontrasted soft tissues are unremarkable. Impression: Normal CT facial bones.
--- NOTE | 2022-03-11 09:46 | XRAY ---
Indication: Left pain following fall. Multiple contiguous axial images obtained through the cervical spine. Sagittal and coronal reformatted images obtained. Comparison: None Axial images negative for acute fracture, suspicious bony lesions, or spinal canal stenosis. C5-C6 anterior fusion surgery with intact hardware. Minimal/mild C3-C5 and C7-T1 degenerative endplate spurring and mild multilevel bilateral degenerative facet arthropathy. Sagittal and coronal reformatted images demonstrates 1-2 mm anterolisthesis of C2 on C3 and C6 on C7. No acute compression fracture or jumped facet. Normal appearing craniocervical junction. Visualized noncontrasted soft tissues demonstrates moderate bilateral carotid calcifications. Lung apices clear with mild pulmonary emphysema and partially visualized sternotomy wires. Impression: 1. Negative acute fracture. 2. Multilevel degenerative spondylosis, minimal spondylolisthesis C2/C6, and C5-C6 fusion with intact hardware. 3. Incidental bilateral carotid calcifications and pulmonary emphysema.
--- NOTE | 2022-03-11 09:48 | XRAY ---
Indication: Pain following fall. Comparison: None 2 view left demonstrates normal bones and articulation. Extensive scattered vascular calcifications and incidental proximal left thigh vascular clips.
--- NOTE | 2022-03-11 09:50 | XRAY ---
Indication: Left ear pain following fall. Multiple contiguous axial images obtained through the head without contrast. 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 No acute intracranial hemorrhage, abnormal extra-axial fluid collection, mass effect. Fourth ventricle is midline without hydrocephalus. Diffuse left ear soft tissue swelling. Bony calvarium intact. Visualized paranasal sinuses and mastoid air cells are clear. Impression: New diffuse left ear soft tissue swelling. 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
[2022-03-11] MEDS ORDERED: NORCO 5/325 MG PO ONE (09:55)
[2022-03-11] MEDS ORDERED: NORCO 5/325 MG ONE (10:20)
[2022-03-11] MEDS ORDERED: CLONIDINE 0.1 MG TABLET PO ONE (10:41)
[2022-03-11] MEDS ORDERED: Zestril 10 MG PO STA (10:42)
[2022-03-11] MEDS ORDERED: CLONIDINE 0.1 MG TABLET ONE (10:42)
[2022-03-11 11:43] VITALS: BP 198/82; PULSE 62; O2SAT 96
== END 2022-03-11 11:43 | disposition home or self-care (01) ==
LOC: ED 08:02
DX: S00.432A Contusion of left ear, initial encounter (principal); W18.12XA Fall from or off toilet with subsequent striking against object, initial encounter; Y92.002 Bathroom of unspecified non-institutional (private) residence as the place of occurrence of the external cause; I13.0 Hypertensive heart and chronic kidney disease with heart failure and stage 1 through stage 4 chronic kidney disease, or unspecified chronic kidney disease; R51.9 Headache, unspecified; R68.84 Jaw pain; M54.2 Cervicalgia; M25.552 Pain in left hip; E11.42 Type 2 diabetes mellitus with diabetic polyneuropathy; E11.22 Type 2 diabetes mellitus with diabetic chronic kidney disease; N18.9 Chronic kidney disease, unspecified; E78.5 Hyperlipidemia, unspecified; I50.9 Heart failure, unspecified; Z79.4 Long term (current) use of insulin; Z79.891 Long term (current) use of opiate analgesic; Z79.02 Long term (current) use of antithrombotics/antiplatelets; Z79.899 Other long term (current) drug therapy; Z72.0 Tobacco use
CPT/HCPCS: 70450; 70486; 72125; 73502; 99283; A9270-GY

== ENCOUNTER 2022-03-20 14:23 | Emergency (ER) | payer MEDICARE ==
--- NOTE | 2022-03-20 14:35 | ERPHSYRPT ---
- History of Present Illness Time Seen by Provider: 03/20/22 14:35 Historian: patient Exam Limitations: no limitations Physician History: This is a 72-year-old white male patient of Dr. Hester who has multiple medical issues. Patient was at Dr. Hester's office prior to arrival and was being evaluated there. He began having chest pain. A single nitro pill was given to the patient. Patient then went to the restroom stood up and had near syncope. Patient was brought into the emergency department by his spouse. Patient is back on his Plavix. Patient's chest pain began approximately 40 minutes prior to arrival. Patient arrives to the emergency department he is awake alert and oriented. Patient's spouse thought the patient had more confusion this morning and was wondering if he had a urinary tract infection and that was one of the test they were going to do at Dr. Hester's office. Patient has a history of coronary artery disease, CHF, hypertension, chronic renal disease, peripheral neuropathy, hyperlipidemia, gastroesophageal reflux disease, diabetes and short- term memory loss. He sees Dr. Helms for nephrology issues and Dr. Velasco for cardiology issues. Patient describes the chest pain as sharp left anterior chest that radiates into his left arm. His symptoms have improved since his arrival to the emergency department. Timing/Duration: today Activities at Onset: none Quality: sharpness Location: other (Left anterior chest) Chest Pain Radiation: arm Severity of Pain-Max: mild (Left arm to moderate) Severity of Pain-Current: mild Associated Symptoms: weakness, No shortness of breath Prior Chest Pain/Cardiac Workup: cardiac cath, echocardiography, heart attack, recently seen/treated Nitro Today/Relief: 0.4 mg x 1 Aspirin Treatment Today: no aspirin today (Patient on Plavix) Allergies/Adverse Reactions: No Known Drug Allergies Allergy (Verified 03/20/22 14:25) Home Medications: Insulin Glargine [Lantus Insulin] 30 unit SQ DAILY 08/08/16 [History] Aspirin [Aspirin EC] 81 mg PO DAILY 07/12/21 [History] Duloxetine HCl 30 mg [Cymbalta 30 MG Capsule] 30 mg PO BID 07/12/21 [History] Gabapentin [Neurontin ] 600 mg PO TID 07/12/21 [History] Insulin Lispro [Humalog] 0 unit SQ ACHS 07/12/21 [History] Polyethylene Glycol 3350 [Miralax] 17 gm PO DAILY PRN PRN 07/12/21 [History] Rosuvastatin Calcium 20 mg PO DAILY 07/12/21 [History] Acetaminophen 325 mg [Tylenol 325 mg] 325 mg PO Q4-6HPRN PRN 09/07/21 [History] Albuterol Sulfate [Proventil Hfa] 2 puff IH Q4H PRN PRN 09/07/21 [History] Amiodarone HCl [Pacerone] 100 mg PO DAILY 09/07/21 [History] Furosemide 40 mg [Lasix 40 MG] 40 mg PO DAILY 09/07/21 [History] Oxycodone HCl/Acetaminophen [Oxycodone-Acetaminophn 7.5-325] 1 tab PO QID PRN PRN 09/07/21 [History] PANTOPRAZOLE 40 mg Tablet [Protonix 40MG Tablet] 40 mg PO QHS 09/07/21 [History] Potassium Chloride [Klor-Con] 20 meq PO DAILY 09/07/21 [History] Clopidogrel Bisulfate [Clopidogrel] 75 mg PO DAILY PRN 01/25/22 [History] HydrALAzine HCL 25 MG TAB [Apresoline 25 MG TABLET] 25 mg PO TID 01/25/22 [History] Lisinopril 10 mg [Zestril 10 MG] 10 mg PO DAILY 01/25/22 [History] Hx Tetanus, Diphtheria Vaccination/Date Given: Yes Hx Influenza Vaccination/Date Given: No Hx Pneumococcal Vaccination/Date Given: No Travel Risk - Coronavirus Screening Are you exhibiting any of the following symptoms?: No Close contact with a COVID-19 positive Pt in past 14-21 Days: No - Vaccine Status Have you recieved a Covid-19 vaccination: Yes Manager Action: Moderna - Vaccination Dates Date of 2cond Vaccination (if applicable): 2020 - Review of Systems Constitutional: Weakness Eyes: No Symptoms Ears, Nose, & Throat: No Symptoms Respiratory: No Symptoms Cardiac: Chest Pain Abdominal/Gastrointestinal: No Symptoms Genitourinary Symptoms: No Symptoms Musculoskeletal: No Symptoms Skin: No Symptoms Neurological: No Symptoms Psychological: No Symptoms Endocrine: No Symptoms Hematologic/Lymphatic: No Symptoms Immunological/Allergic: No Symptoms All Other Systems: Reviewed and Negative - Past Medical History Pertinent Past Medical History: Yes Neurological History: Peripheral Neuropathy ENT History: Cataracts Cardiac History: Congestive Heart Failure, Coronary Artery Disease, High C holesterol, Hypertension, Myocardial Infarction ([place]) Respiratory History: No Pertinent History Endocrine Medical History: Diabetes Type II Musculoskeletal History: No Pertinent History GI Medical History: GERD History: No Pertinent History Psycho-Social History: Anxiety, Depression Male Reproductive Disorders: No Pertinent History Other Medical History: PATIENT REPORTS PROBLEMS WITH SHORT TERM MEMORY AND NOTED ON E.R. REPORT FROM OCTOBER 2020. ALSO GERD, DEPRESSION, CERVICAL FUSION, CHOLECYSTECTOMY. PATIENT REPORTS VACCINATED AND BOOSTER FOR COVID. - Past Surgical History Past Surgical History: Yes Neuro Surgical History: No Pertinent History Cardiac: CABG, Cardiac Catheterization Respiratory: Chest Surgery Gastrointestinal: No Pertinent History Genitourinary: No Pertinent History Musculoskeletal: No Pertinent History Male Surgical History: No Pertinent History Other Surgical History: cervicle fusion - Social History Smoking Status: Current every day smoker How long have you smoked: 55 Exposure to second hand smoke: Yes Drug Use: none Patient Lives Alone: No Significant Family History: no pertinent family hx - Nursing Vital Signs Nursing Vital Signs: Initial Vital Signs Temperature 96.9 F 03/20/22 14:27 Pulse Rate 54 L 03/20/22 14:27 Respiratory Rate 12 03/20/22 14:27 Blood Pressure 133/63 03/20/22 14:27 O2 Sat by Pulse Oximetry 93 L 03/20/22 14:27 Pain Scale Pain Intensity 0 - Physical Exam General Appearance: no apparent distress, alert Eye Exam: PERRL/EOMI, eyes nml inspection Ears, Nose, Throat Exam: normal ENT inspection, dry mucous membranes Neck Exam: normal inspection, non-tender, supple, full range of motion Respiratory Exam: normal breath sounds, lungs clear, airway intact, No chest tenderness (Significantly improved and nearly gone), No respiratory distress Cardiovascular Exam: regular rate/rhythm, normal heart sounds, normal peripheral pulses Gastrointestinal/Abdomen Exam: soft, normal bowel sounds, No tenderness Rectal Exam: not done Back Exam: normal inspection, normal range of motion, No CVA tenderness, No vertebral tenderness Extremity Exam: normal inspection, normal range of motion, pelvis stable Neurologic Exam: alert, oriented x 3, cooperative, feeder operator automatic II-XII nml as tested, normal mood/affect Skin Exam: pale (And realized but no different than other visits that he has been evaluated by me) Lymphatic Exam: No adenopathy SpO2 Interpretation: borderline oxygenation O2 Delivery: Room Air - Course Nursing assessment & vital signs reviewed: Yes EKG Interpreted by Me: RATE (48), Sinus Ethan, NORMAL AXIS, NORMAL INTERVALS, NORMAL QRS, NORMAL ST-T, Other (No acute ischemic changes on today's EKG.) Ordered Tests: Active Orders 24 hr Category Date Time Status Sanitary Inspector STAT Care 03/20/22 15:07 Active EKG-ER Only STAT Care 03/20/22 15:06 Active IV Insertion STAT Care 03/20/22 15:06 Active Pulse Oximetry (ED) STAT Care 03/20/22 15:06 Active CHEST 1 VIEW (PORTABLE) Stat Exams 03/20/22 15:07 Completed HEAD WITHOUT CONTRAST [CT] Stat Exams 03/20/22 15:07 Completed CBC W DIFF Stat Lab 03/20/22 14:50 Completed CMP Stat Lab 03/20/22 14:50 Completed NT PRO BNP Stat Lab 03/20/22 14:50 Completed POCT GLUCOSE Stat Lab 03/20/22 14:42 Completed TROPONIN Q4H Lab 03/20/22 14:50 Completed TROPONIN Q4H Lab 03/20/22 18:15 Completed TROPONIN Q4H Lab 03/20/22 23:15 Ordered UA W/RFX CULTURE Stat Lab 03/20/22 16:09 Completed Medication Summary Discontinued Medications Generic Name Dose Route Start Last Admin Trade Name Freq PRN Reason Stop Dose Admin Furosemide 40 mg 03/20/22 16:25 03/20/22 16:59 Furosemide 40 Mg/4 Ml Vial IV 03/20/22 16:26 40 mg STAT ONE Administration Furosemide Confirm 03/20/22 16:58 Furosemide 40 Mg/4 Ml Vial Administered 03/20/22 16:59 Dose 40 mg .ROUTE .STK-MED ONE Lab/Rad Data: Laboratory Result Diagrams 03/20/22 14:50 03/20/22 14:50 Laboratory Results 03/20/22 03/20/22 03/20/22 Range/Units 18:15 16:09 14:50 WBC (4.0-10.5) x10^3/uL RBC (4.1-5.6) x10^6/uL Hgb (12.5-18.0) g/dL Hct (42-50) % MCV (78-100) fL MCH (26-32) pg MCHC (32-36) g/dL RDW (11.5-14.0) % Plt Count (150-450) x10^3/uL MPV (7.5-11.0) fL Gran % (36.0-66.0) % Immature Gran % (Auto) (0.00-0.4) % Nucleat RBC Rel Count (0.00-0.1) % Eos # (Auto) (0-0.5) x10^3/uL Immature Gran # (Auto) (0.00-0.03) x10^3u/L Absolute Lymphs (auto) (1.0-4.6) x10^3/uL Absolute Monos (auto) (0.0-1.3) x10^3/uL Absolute Nucleated RBC (0.00-0.01) x10^3u/L Lymphocytes % (24.0-44.0) % Monocytes % (0.0-12.0) % Eosinophils % (0.00-5.0) % Basophils % (0.0-0.4) % Absolute Granulocytes (1.4-6.9) x10^3/uL Basophils # (0-0.4) x10^3/uL Sodium (137-145) mmol/L Potassium (3.5-5.1) mmol/L Chloride (98-107) mmol/L Carbon Dioxide (22-30) mmol/L Anion Gap (5-15) MEQ/L BUN (9-20) mg/dL Creatinine (0.66-1.25) mg/dL Estimated GFR ML/MIN Glucose (74-106) mg/dL POC Glucometer (74 to 106) mg/dL Calcium (8.4-10.2) mg/dL Total Bilirubin (0.2-1.3) mg/dL AST (17-59) U/L ALT (0-50) U/L Alkaline Phosphatase (38-126) U/L Ammonia < 9 L (9-30) umol/L Troponin I 0.016 (0.000-0.034) ng/mL NT-Pro-B Natriuret Pep (0-900) pg/mL Serum Total Protein (6.3-8.2) g/dL Albumin (3.5-5.0) g/dL Urinalys Dipstick Clnc MAIN LAB Urine Color YELLOW (YELLOW) Urine Appearance CLEAR (CLEAR) Urine pH 5.5 (5-6) Ur Specific [place] 1.015 (1.005-1.025) POC Urine Protein Conf >=300 A (Negative) Urine Ketones NEGATIVE (NEGATIVE) Urine Nitrite NEGATIVE (NEGATIVE) Urine Bilirubin NEGATIVE (NEGATIVE) Urine Urobilinogen 0.2 (0-1) mg/dL Urine Leukocytes NEGATIVE (NEGATIVE) Urine WBC (Auto) 0-2 (0-5) /HPF Urine RBC (Auto) 0-2 (0-2) /HPF U Epithel Cells (Auto) NONE (FEW) /HPF Urine Bacteria (Auto) NONE (NEGATIVE) /HPF Urine RBC NEGATIVE (0-5) Chip/ul Ur Culture Indicated? NO Urine Glucose NEGATIVE (NEGATIVE) mg/dL 03/20/22 03/20/22 03/20/22 Range/Units 14:50 14:50 14:50 WBC 6.9 (4.0-10.5) x10^3/uL RBC 3.71 L (4.1-5.6) x10^6/uL Hgb 11.6 L (12.5-18.0) g/dL Hct 36.1 L (42-50) % MCV 97.3 (78-100) fL MCH 31.3 (26-32) pg MCHC 32.1 (32-36) g/dL RDW 14.3 H (11.5-14.0) % Plt Count 279 (150-450) x10^3/uL MPV 11.6 H (7.5-11.0) fL Gran % 58.5 (36.0-66.0) % Immature Gran % (Auto) 0.1 (0.00-0.4) % Nucleat RBC Rel Count 0.0 (0.00-0.1) % Eos # (Auto) 0.61 H (0-0.5) x10^3/uL Immature Gran # (Auto) 0.01 (0.00-0.03) x10^3u/L Absolute Lymphs (auto) 1.65 (1.0-4.6) x10^3/uL Absolute Monos (auto) 0.54 (0.0-1.3) x10^3/uL Absolute Nucleated RBC 0.00 (0.00-0.01) x10^3u/L Lymphocytes % 23.8 L (24.0-44.0) % Monocytes % 7.8 (0.0-12.0) % Eosinophils % 8.8 H (0.00-5.0) % Basophils % 1.0 (0.0-0.4) % Absolute Granulocytes 4.06 (1.4-6.9) x10^3/uL Basophils # 0.07 (0-0.4) x10^3/uL Sodium 129 L (137-145) mmol/L Potassium 4.8 (3.5-5.1) mmol/L Chloride 100 (98-107) mmol/L Carbon Dioxide 23 (22-30) mmol/L Anion Gap 10.5 (5-15) MEQ/L BUN 41 H (9-20) mg/dL Creatinine 2.23 H (0.66-1.25) mg/dL Estimated GFR 30.9 ML/MIN Glucose 152 H (74-106) mg/dL POC Glucometer (74 to 106) mg/dL Calcium 8.7 (8.4-10.2) mg/dL Total Bilirubin 0.50 (0.2-1.3) mg/dL AST 27 (17-59) U/L ALT 15 (0-50) U/L Alkaline Phosphatase 110 (38-126) U/L Ammonia (9-30) umol/L Troponin I 0.025 (0.000-0.034) ng/mL NT-Pro-B Natriuret Pep 5740 H (0-900) pg/mL Serum Total Protein 7.2 (6.3-8.2) g/dL Albumin 3.7 (3.5-5.0) g/dL Urinalys Dipstick Clnc Urine Color (YELLOW) Urine Appearance (CLEAR) Urine pH (5-6) Ur Specific [place] (1.005-1.025) POC Urine Protein Conf (Negative) Urine Ketones (NEGATIVE) Urine Nitrite (NEGATIVE) Urine Bilirubin (NEGATIVE) Urine Urobilinogen (0-1) mg/dL Urine Leukocytes (NEGATIVE) Urine WBC (Auto) (0-5) /HPF Urine RBC (Auto) (0-2) /HPF U Epithel Cells (Auto) (FEW) /HPF Urine Bacteria (Auto) (NEGATIVE) /HPF Urine RBC (0-5) Chip/ul Ur Culture Indicated? Urine Glucose (NEGATIVE) mg/dL 03/20/22 Range/Units 14:42 WBC (4.0-10.5) x10^3/uL RBC (4.1-5.6) x10^6/uL Hgb (12.5-18.0) g/dL Hct (42-50) % MCV (78-100) fL MCH (26-32) pg MCHC (32-36) g/dL RDW (11.5-14.0) % Plt Count (150-450) x10^3/uL MPV (7.5-11.0) fL Gran % (36.0-66.0) % Immature Gran % (Auto) (0.00-0.4) % Nucleat RBC Rel Count (0.00-0.1) % Eos # (Auto) (0-0.5) x10^3/uL Immature Gran # (Auto) (0.00-0.03) x10^3u/L Absolute Lymphs (auto) (1.0-4.6) x10^3/uL Absolute Monos (auto) (0.0-1.3) x10^3/uL Absolute Nucleated RBC (0.00-0.01) x10^3u/L Lymphocytes % (24.0-44.0) % Monocytes % (0.0-12.0) % Eosinophils % (0.00-5.0) % Basophils % (0.0-0.4) % Absolute Granulocytes (1.4-6.9) x10^3/uL Basophils # (0-0.4) x10^3/uL Sodium (137-145) mmol/L Potassium (3.5-5.1) mmol/L Chloride (98-107) mmol/L Carbon Dioxide (22-30) mmol/L Anion Gap (5-15) MEQ/L BUN (9-20) mg/dL Creatinine (0.66-1.25) mg/dL Estimated GFR ML/MIN Glucose (74-106) mg/dL POC Glucometer 143 H (74 to 106) mg/dL Calcium (8.4-10.2) mg/dL Total Bilirubin (0.2-1.3) mg/dL AST (17-59) U/L ALT (0-50) U/L Alkaline Phosphatase (38-126) U/L Ammonia (9-30) umol/L Troponin I (0.000-0.034) ng/mL NT-Pro-B Natriuret Pep (0-900) pg/mL Serum Total Protein (6.3-8.2) g/dL Albumin (3.5-5.0) g/dL Urinalys Dipstick Clnc Urine Color (YELLOW) Urine Appearance (CLEAR) Urine pH (5-6) Ur Specific [place] (1.005-1.025) POC Urine Protein Conf (Negative) Urine Ketones (NEGATIVE) Urine Nitrite (NEGATIVE) Urine Bilirubin (NEGATIVE) Urine Urobilinogen (0-1) mg/dL Urine Leukocytes (NEGATIVE) Urine WBC (Auto) (0-5) /HPF Urine RBC (Auto) (0-2) /HPF U Epithel Cells (Auto) (FEW) /HPF Urine Bacteria (Auto) (NEGATIVE) /HPF Urine RBC (0-5) Chip/ul Ur Culture Indicated? Urine Glucose (NEGATIVE) mg/dL - Progress Progress: improved Air Movement: good Progress Note: 03/20/22 16:36 Chest x-ray shows no acute cardiopulmonary process. CT scan of the head without contrast shows no change from the CAT scan of the head without contrast performed 9 days ago. It is a nonacute senile brain with old infarct in the right frontal lobe. Blood Culture(s) Obtained: No Counseled pt/family regarding: lab results, diagnosis, need for follow-up, rad results - Departure Departure Disposition: Home Clinical Impression: Non-cardiac chest pain, CHF (congestive heart failure) Condition: Stable Critical Care Time: No Referrals: CRYSTAL HESTER [Primary Care Provider] - Follow up/PCP as directed Instructions: Heart Failure Additional Instructions: Continue medication as prescribed. Follow-up with a hand dry cleaner and primary care physician for further evaluation management.
[2022-03-20 15:25] LABS: Absolute Neutrophil Ct (ANC) 4.06 x10^3/uL (1.4-6.9); Basophil (Absolute #) 0.07 x10^3/uL (0-0.4); Eosinophil % 8.8 % (0.00-5.0); Eosinophil (Absolute #) 0.61 x10^3/uL (0-0.5); Hematocrit 36.1 % (42-50); Hemoglobin 11.6 g/dL (12.5-18.0); Lymphocyte (Absolute #) 1.65 x10^3/uL (1.0-4.6); Lymphocytes % 23.8 % (24.0-44.0); Mean Cell Volume 97.3 fL (78-100); Mean Corpuscular Hemoglobin 31.3 pg (26-32); Mean Corpuscular Hgb Concent. 32.1 g/dL (32-36); Mean Platelet Volume 11.6 fL (7.5-11.0); Monocyte (Absolute #) 0.54 x10^3/uL (0.0-1.3); Monocytes % 7.8 % (0.0-12.0); Neutrophil % 58.5 % (36.0-66.0); Platelet Count 279 x10^3/uL (150-450); Red Blood Count 3.71 x10^6/uL (4.1-5.6); Red Cell Distribution Width 14.3 % (11.5-14.0); White Blood Count 6.9 x10^3/uL (4.0-10.5)
[2022-03-20 15:42] LABS: ALBUMIN 3.7 g/dL (3.5-5.0); ANION GAP 10.5 MEQ/L (5-15); BILIRUBIN,TOTAL 0.5 mg/dL (0.2-1.3); Calcium 8.7 mg/dL (8.4-10.2); Creatinine 1 2.23 mg/dL (0.66-1.25); EST GLOMERULAR FILTRATION RATE 30.9 ML/MIN; Potassium 4.8 mmol/L (3.5-5.1); Total Protein 7.2 g/dL (6.3-8.2)
--- NOTE | 2022-03-20 16:04 | XRAY ---
Indication: Acute mental status change. Dizziness. Multiple contiguous axial images obtained through the head without contrast. 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 No acute intracranial hemorrhage, abnormal extra-axial fluid collection, or mass effect. Fourth ventricle is midline without hydrocephalus. Bony calvarium intact. Visualized paranasal sinuses and mastoid air cells are clear. Again diffuse left ear soft tissue swelling mildly improved. Impression: No change compared to CT 9 days ago. 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 Left ear soft tissue swelling again presumed posttraumatic.
--- NOTE | 2022-03-20 16:06 | XRAY ---
Indication: Acute mental status change. Comparison: January 25, 2022 Portable chest is better inflated and now clear. Heart not enlarged again with CABG. Bony thorax intact again with osteopenia, degenerative changes, and cervical fusion hardware. No acute findings. Impression: Nonacute chest with chronic features.
[2022-03-20] MEDS ORDERED: Lasix 40 MG/4 ML IV ONE (16:25)
[2022-03-20] MEDS ORDERED: Lasix 40 MG/4 ML ONE (16:58)
[2022-03-20 17:26] LABS: Appearance CLEAR (CLEAR); Bilirubin NEGATIVE (NEGATIVE); Dipstick done @ ? MAIN LAB; Glucose NEGATIVE (NEGATIVE); Ketones NEGATIVE (NEGATIVE); Nitrite NEGATIVE (NEGATIVE); Ph 5.5 (5-6); Protein,Urine Dip >=300 (Negative); RBC NEGATIVE Ery/ul (0-5); Specific Gravity 1.015 (1.005-1.025); Urobilinogen 0.2 mg/dL (0-1)
[2022-03-20 17:27] LABS: RBC 0-2 /HPF (0-2); Urine Cultured Indicated? NO; WBC 0-2 /HPF (0-5)
[2022-03-20 18:10] VITALS: O2SAT 95
[2022-03-20 19:22] VITALS: BP 149/70; PULSE 53
== END 2022-03-20 19:45 | disposition home or self-care (01) ==
LOC: ED 14:23
DX: I13.0 Hypertensive heart and chronic kidney disease with heart failure and stage 1 through stage 4 chronic kidney disease, or unspecified chronic kidney disease (principal); I50.9 Heart failure, unspecified; R07.89 Other chest pain; R55 Syncope and collapse; N18.9 Chronic kidney disease, unspecified; E11.22 Type 2 diabetes mellitus with diabetic chronic kidney disease; E11.42 Type 2 diabetes mellitus with diabetic polyneuropathy; E78.5 Hyperlipidemia, unspecified; Z79.4 Long term (current) use of insulin; Z79.891 Long term (current) use of opiate analgesic; Z79.02 Long term (current) use of antithrombotics/antiplatelets; Z79.899 Other long term (current) drug therapy; Z72.0 Tobacco use
CPT/HCPCS: 36000; 36415; 51702; 70450; 71045; 80053; 81015; 82140; 82947; 83880; 84484; 85025; 93005; 93041; 94760; 96374; 99284; P9612; J1940

== ENCOUNTER 2022-03-28 11:35 | Observation (INO) | payer MEDICARE ==
--- NOTE | 2022-03-28 11:53 | ERPHSYRPT ---
- History of Present Illness Time Seen by Provider: 03/28/22 11:53 Source: patient, EMS, old records Exam Limitations: clinical condition Physician History: This is a 72-year-old white male patient known to our emergency room. He visits frequently. He has multiple medical issues. Patient presents via EMS because of altered mental status. Blood sugar on arrival by EMS to his home showed the blood sugar level of 51. Patient received 1 amp of D50 and his mental status immediately improved. Upon arrival to the emergency department his blood sugar level was 126 and he is at the baseline mentally. He has no complaints of chest pain or shortness of breath. He has no abdominal pain. He has been having frequent falls. EMS placed a cervical collar on him. He does not recall hitting his head or having a fall injuring his neck recently. Patient has multiple medical issues including hypertension, insulin-dependent diabetes, gastroesophageal reflux disease, CHF, coronary artery disease and hyperlipidemia. He arrives with a Morales catheter in place. His is convinced he has a urinary tract infection. Timing/Duration: today Severity: mild Associated Symptoms: weakness, No nausea, No vomiting, No abdominal pain, No shortness of breath, No chest pain Allergies/Adverse Reactions: No Known Drug Allergies Allergy (Verified 03/28/22 12:05) Home Medications: Insulin Glargine [Lantus Insulin] 0 unit SQ DAILY 08/08/16 [History] Aspirin [Aspirin EC] 81 mg PO DAILY 07/12/21 [History] Duloxetine HCl 30 mg [Cymbalta 30 MG Capsule] 30 mg PO BID 07/12/21 [History] Gabapentin [Neurontin ] 600 mg PO TID 07/12/21 [History] Insulin Lispro [Humalog] 0 unit SQ ACHS 07/12/21 [History] Polyethylene Glycol 3350 [Miralax] 17 gm PO DAILY PRN PRN 07/12/21 [History] Rosuvastatin Calcium 20 mg PO DAILY 07/12/21 [History] Acetaminophen 325 mg [Tylenol 325 mg] 325 mg PO Q4H 09/07/21 [History] Albuterol Sulfate [Proventil Hfa] 2 puff IH Q4H PRN PRN 09/07/21 [History] Amiodarone HCl [Pacerone] 100 mg PO DAILY 09/07/21 [History] Furosemide 40 mg [Lasix 40 MG] 20 mg PO DAILY 09/07/21 [History] PANTOPRAZOLE 40 mg Tablet [Protonix 40MG Tablet] 40 mg PO QHS 09/07/21 [History] Potassium Chloride [Klor-Con] 10 meq PO DAILY 09/07/21 [History] Clopidogrel Bisulfate [Clopidogrel] 75 mg PO DAILY PRN 01/25/22 [History] HydrALAzine HCL 25 MG TAB [Apresoline 25 MG TABLET] 100 mg PO TID 01/25/22 [History] Lisinopril 10 mg [Zestril 10 MG] 10 mg PO DAILY 01/25/22 [History] Metoprolol Tartrate 50 mg [Lopressor 50 MG] 100 mg PO BID 03/28/22 [History] Oxycodone / APAP 10/325 mg [Oxycodone-Acetaminophen 10-325] 1 each PO Q6H 03/28/22 [History] cloNIDine HCL [Clonidine HCl] 0.3 mg PO TID 03/28/22 [History] Hx Tetanus, Diphtheria Vaccination/Date Given: Yes Hx Influenza Vaccination/Date Given: No Hx Pneumococcal Vaccination/Date Given: No Travel Risk - International Travel Have you traveled outside of the country in past 3 weeks: No - Coronavirus Screening Are you exhibiting any of the following symptoms?: No Close contact with a COVID-19 positive Pt in past 14-21 Days: No - Vaccine Status Have you recieved a Covid-19 vaccination: Yes Blankbook Forwarder: Moderna - Vaccination Dates Date of 2cond Vaccination (if applicable): 2020 - Review of Systems Constitutional: Weakness Eyes: No Symptoms (Mild) Ears, Nose, & Throat: No Symptoms Respiratory: No Symptoms Cardiac: No Symptoms Abdominal/Gastrointestinal: No Symptoms Genitourinary Symptoms: No Symptoms Musculoskeletal: No Symptoms Skin: No Symptoms Neurological: No Symptoms Psychological: No Symptoms Endocrine: No Symptoms Hematologic/Lymphatic: No Symptoms Immunological/Allergic: No Symptoms All Other Systems: Reviewed and Negative - Past Medical History Pertinent Past Medical History: Yes Neurological History: Peripheral Neuropathy ENT History: Cataracts Cardiac History: Congestive Heart Failure, Coronary Artery Disease, High Cholesterol, Hypertension, Myocardial Infarction ([place]) Respiratory History: No Pertinent History Endocrine Medical History: Diabetes Type II Musculoskeletal History: No Pertinent History GI Medical History: GERD History: No Pertinent History Psycho-Social History: Anxiety, Depression Male Reproductive Disorders: No Pertinent History Other Medical History: PATIENT REPORTS PROBLEMS WITH SHORT TERM MEMORY AND NOTED ON E.R. REPORT FROM OCTOBER 2020. ALSO GERD, DEPRESSION, CERVICAL FUSION, CHOLECYSTECTOMY. PATIENT REPORTS VACCINATED AND BOOSTER FOR COVID. - Past Surgical History Past Surgical History: Yes Neuro Surgical History: No Pertinent History Cardiac: CABG, Cardiac Catheterization Respiratory: Chest Surgery Gastrointestinal: No Pertinent History Genitourinary: No Pertinent History Musculoskeletal: No Pertinent History Male Surgical History: No Pertinent History Other Surgical History: cervicle fusion - Social History Smoking Status: Current every day smoker How long have you smoked: 55 Exposure to second hand smoke: Yes Drug Use: none Patient Lives Alone: No Significant Family History: no pertinent family hx - Nursing Vital Signs Nursing Vital Signs: Initial Vital Signs Temperature 97.2 F 03/28/22 11:39 Pulse Rate 54 L 03/28/22 11:39 Blood Pressure 178/62 03/28/22 11:39 O2 Sat by Pulse Oximetry 92 L 03/28/22 11:39 Pain Scale Pain Intensity 0 - Physical Exam General Appearance: no apparent distress, alert, thin Eye Exam: PERRL/EOMI, eyes nml inspection Ears, Nose, Throat Exam: dry mucous membranes Neck Exam: normal inspection, non-tender, supple, full range of motion Respiratory Exam: normal breath sounds, lungs clear, airway intact, No chest tenderness, No respiratory distress Cardiovascular Exam: regular rate/rhythm, normal heart sounds, normal peripheral pulses Gastrointestinal/Abdomen Exam: soft, normal bowel sounds, No tenderness Male Genitalia Exam: other (Morales catheter in place) Rectal Exam: not done Back Exam: normal inspection, normal range of motion, No CVA tenderness, No vertebral tenderness Extremity Exam: normal inspection, normal range of motion, pelvis stable Neurologic Exam: alert, oriented x 3, cooperative, 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, normal mood/affect Skin Exam: normal color, warm, dry Lymphatic Exam: No adenopathy SpO2 Interpretation: borderline oxygenation O2 Delivery: Room Air - Course Nursing assessment & vital signs reviewed: Yes Ordered Tests: Active Orders 24 hr Category Date Time Status EKG-ER Only STAT Care 03/28/22 11:56 Active Morales [Catheter-[place] Morales] STAT Care 03/28/22 12:05 Active IV Insertion STAT Care 03/28/22 11:56 Active CERVICAL SPINE WO CONTRAST [CT] Stat Exams 03/28/22 11:58 Completed HEAD WITHOUT CONTRAST [CT] Stat Exams 03/28/22 11:58 Completed CBC W DIFF Stat Lab 03/28/22 12:14 Completed CMP Stat Lab 03/28/22 12:14 Completed CULTURE,URINE Stat Lab 03/28/22 12:37 Received POCT GLUCOSE Stat Lab 03/28/22 13:32 Completed PROTIME WITH INR Stat Lab 03/28/22 12:14 Completed UA W/RFX UR CULTURE Stat Lab 03/28/22 12:09 Completed Medication Summary Generic Name Dose Route Start Last Admin Trade Name Freq PRN Reason Stop Dose Admin Sodium Chloride 1,000 mls @ 100 mls/hr 03/28/22 12:00 Sodium Chloride 0.9% 1000 Ml IV 04/27/22 11:59 .Q10H BELLO Dextrose/Sodium Chloride 1,000 mls @ 75 mls/hr 03/28/22 14:00 03/28/22 13:46 Dextrose 5%-Ns Iv Solution 1000 Ml IV 04/27/22 13:59 75 mls/hr .[id number] BELLO Administration Discontinued Medications Generic Name Dose Route Start Last Admin Trade Name Freq PRN Reason Stop Dose Admin Dextrose Confirm 03/28/22 13:34 Dextrose 50%-Water 50 Ml Abboject Administered 03/28/22 13:35 Dose 50 ml IV .STK-MED ONE Dextrose 25 ml 03/28/22 13:43 03/28/22 13:46 Dextrose 50%-Water 50 Ml Abboject IV 03/28/22 13:44 25 ml STAT ONE Administration Dextrose/Sodium Chloride Confirm 03/28/22 13:34 Dextrose 5%-Ns Iv Solution 1000 Ml Administered 03/28/22 13:35 Dose 1,000 mls @ ud IV .STK-MED ONE Ceftriaxone Sodium/Dextrose 1 g in 50 mls @ 100 mls/hr 03/28/22 13:41 03/28/22 13:57 Rocephin 1 Gm-D5w 50 Ml Bag IV 03/28/22 14:10 100 mls/hr STAT STA 100 mls/hr Administration Ceftriaxone Sodium/Dextrose Confirm 03/28/22 13:52 Rocephin 1 Gm-D5w 50 Ml Bag Administered 03/28/22 13:53 Dose 1 g in 50 mls @ ud IV .STK-MED ONE Lab/Rad Data: Laboratory Result Diagrams 03/28/22 12:14 03/28/22 12:14 Laboratory Results 03/28/22 03/28/22 03/28/22 Range/Units 13:32 12:14 12:14 WBC (4.0-10.5) x10^3/uL RBC (4.1-5.6) x10^6/uL Hgb (12.5-18.0) g/dL Hct (42-50) % MCV (78-100) fL MCH (26-32) pg MCHC (32-36) g/dL RDW (11.5-14.0) % Plt Count (150-450) x10^3/uL MPV (7.5-11.0) fL Gran % (36.0-66.0) % Immature Gran % (Auto) (0.00-0.4) % Nucleat RBC Rel Count (0.00-0.1) % Eos # (Auto) (0-0.5) x10^3/uL Immature Gran # (Auto) (0.00-0.03) x10^3u/L Absolute Lymphs (auto) (1.0-4.6) x10^3/uL Absolute Monos (auto) (0.0-1.3) x10^3/uL Absolute Nucleated RBC (0.00-0.01) x10^3u/L Lymphocytes % (24.0-44.0) % Monocytes % (0.0-12.0) % Eosinophils % (0.00-5.0) % Basophils % (0.0-0.4) % Absolute Granulocytes (1.4-6.9) x10^3/uL Basophils # (0-0.4) x10^3/uL PT 11.0 (9.4-12.5) SECONDS INR 1.04 (0.8-3.0) Sodium (137-145) mmol/L Potassium (3.5-5.1) mmol/L Chloride (98-107) mmol/L Carbon Dioxide (22-30) mmol/L Anion Gap (5-15) MEQ/L BUN (9-20) mg/dL Creatinine (0.66-1.25) mg/dL Estimated GFR ML/MIN Glucose (74-106) mg/dL POC Glucometer 57 L (74 to 106) mg/dL Calcium (8.4-10.2) mg/dL Total Bilirubin (0.2-1.3) mg/dL AST (17-59) U/L ALT (0-50) U/L Alkaline Phosphatase (38-126) U/L Ammonia < 9 L (9-30) umol/L Serum Total Protein (6.3-8.2) g/dL Albumin (3.5-5.0) g/dL Urine Color (Yellow) Urine Appearance (Clear) Urine pH (4.6-8.0) Ur Specific [place] (1.005-1.030) Urine Protein (Negative) Urine Ketones (Negative) Urine Blood (Negative) Urine Nitrite (Negative) Urine Bilirubin (Negative) Urine Urobilinogen (0.2) mg/dL Ur Leukocyte Esterase (Negative) U Hyaline Cast (Auto) (0-2) /LPF Urine Microscopic RBC (0-5) /HPF Urine Microscopic WBC (0-5) /HPF Ur Epithelial Cells (None Seen) /HPF Urine Bacteria (None Seen) /HPF Urine Culture Reflexed (NO) Urine Glucose (Negative) mg/dL 03/28/22 03/28/22 03/28/22 Range/Units 12:14 12:14 12:09 WBC 7.5 (4.0-10.5) x10^3/uL RBC 3.79 L (4.1-5.6) x10^6/uL Hgb 11.7 L (12.5-18.0) g/dL Hct 36.4 L (42-50) % MCV 96.0 (78-100) fL MCH 30.9 (26-32) pg MCHC 32.1 (32-36) g/dL RDW 13.7 (11.5-14.0) % Plt Count 254 (150-450) x10^3/uL MPV 10.5 (7.5-11.0) fL Gran % 67.8 H (36.0-66.0) % Immature Gran % (Auto) 0.3 (0.00-0.4) % Nucleat RBC Rel Count 0.0 (0.00-0.1) % Eos # (Auto) 0.61 H (0-0.5) x10^3/uL Immature Gran # (Auto) 0.02 (0.00-0.03) x10^3u/L Absolute Lymphs (auto) 1.03 (1.0-4.6) x10^3/uL Absolute Monos (auto) 0.70 (0.0-1.3) x10^3/uL Absolute Nucleated RBC 0.00 (0.00-0.01) x10^3u/L Lymphocytes % 13.7 L (24.0-44.0) % Monocytes % 9.3 (0.0-12.0) % Eosinophils % 8.1 H (0.00-5.0) % Basophils % 0.8 (0.0-0.4) % Absolute Granulocytes 5.11 (1.4-6.9) x10^3/uL Basophils # 0.06 (0-0.4) x10^3/uL PT (9.4-12.5) SECONDS INR (0.8-3.0) Sodium 136 L (137-145) mmol/L Potassium 4.7 (3.5-5.1) mmol/L Chloride 103 (98-107) mmol/L Carbon Dioxide 26 (22-30) mmol/L Anion Gap 11.6 (5-15) MEQ/L BUN 28 H (9-20) mg/dL Creatinine 2.36 H (0.66-1.25) mg/dL Estimated GFR 29.0 ML/MIN Glucose 78 (74-106) mg/dL POC Glucometer (74 to 106) mg/dL Calcium 8.8 (8.4-10.2) mg/dL Total Bilirubin 0.40 (0.2-1.3) mg/dL AST 22 (17-59) U/L ALT 12 (0-50) U/L Alkaline Phosphatase 121 (38-126) U/L Ammonia (9-30) umol/L Serum Total Protein 6.4 (6.3-8.2) g/dL Albumin 3.5 (3.5-5.0) g/dL Urine Color Yellow (Yellow) Urine Appearance Cloudy A (Clear) Urine pH 6.5 (4.6-8.0) Ur Specific [place] 1.010 (1.005-1.030) Urine Protein 300 A (Negative) Urine Ketones Negative (Negative) Urine Blood Large A (Negative) Urine Nitrite Negative (Negative) Urine Bilirubin Negative (Negative) Urine Urobilinogen 1.0 A (0.2) mg/dL Ur Leukocyte Esterase Large A (Negative) U Hyaline Cast (Auto) 6-10 A (0-2) /LPF Urine Microscopic RBC >100 A (0-5) /HPF Urine Microscopic WBC >100 A (0-5) /HPF Ur Epithelial Cells None Seen (None Seen) /HPF Urine Bacteria None Seen (None Seen) /HPF Urine Culture Reflexed ORDERED SEPARATELY (NO) Urine Glucose Negative (Negative) mg/dL - Progress Progress Note: 03/28/22 13:37 CT scan head without contrast shows a nonacute senile brain with old right frontal lobe infarct. CT scan without contrast cervical spine shows chronic, degenerative changes. 03/28/22 14:20 Medical decision making: This patient's old medical records from the hospital admission and old emergency room visits were reviewed. History was obtained from the patient's and from EMS service. The patient's labs and x-ray results were reviewed by me. After reviewing, it is determined that the patient has a significant urinary tract infection as well as hypoglycemia. I spoke with Dr. Miller and reviewed the above with him as well. We discussed the plan of admitting this patient and provide him with intravenous D5 normal saline, intravenous antibiotics to treat his urinary tract infection, recheck labs in the morning. We will provide a sliding scale regular insulin and monitor his blood glucose level. Counseled pt/family regarding: lab results, diagnosis, rad results - Departure Departure Disposition: In-patient Admission Clinical Impression: Hypoglycemia, Altered mental status, Urinary tract infection Condition: Fair Critical Care Time: No Referrals: CRYSTAL MURILLO [Primary Care Provider] - Follow up/PCP as directed
[2022-03-28] MEDS ORDERED: Sodium Chloride 0.9% 1000 ML 1,000 ML IV SCH (12:00)
[2022-03-28 12:20] LABS: Absolute Neutrophil Ct (ANC) 5.11 x10^3/uL (1.4-6.9); BASOPHIL % 0.8 % (0.0-0.4); Basophil (Absolute #) 0.06 x10^3/uL (0-0.4); Eosinophil % 8.1 % (0.00-5.0); Eosinophil (Absolute #) 0.61 x10^3/uL (0-0.5); Hematocrit 36.4 % (42-50); Hemoglobin 11.7 g/dL (12.5-18.0); IMMATURE GRAN # 0.02 x10^3u/L (0.00-0.03); IMMATURE GRAN % 0.3 % (0.00-0.4); Lymphocyte (Absolute #) 1.03 x10^3/uL (1.0-4.6); Lymphocytes % 13.7 % (24.0-44.0); Mean Corpuscular Hemoglobin 30.9 pg (26-32); Mean Corpuscular Hgb Concent. 32.1 g/dL (32-36); Mean Platelet Volume 10.5 fL (7.5-11.0); Monocytes % 9.3 % (0.0-12.0); Neutrophil % 67.8 % (36.0-66.0); Platelet Count 254 x10^3/uL (150-450); Red Blood Count 3.79 x10^6/uL (4.1-5.6); Red Cell Distribution Width 13.7 % (11.5-14.0); White Blood Count 7.5 x10^3/uL (4.0-10.5)
[2022-03-28 12:34] LABS: INR 1.04 (0.8-3.0)
[2022-03-28 12:39] LABS: ALBUMIN 3.5 g/dL (3.5-5.0); ANION GAP 11.6 MEQ/L (5-15); BILIRUBIN,TOTAL 0.4 mg/dL (0.2-1.3); Calcium 8.8 mg/dL (8.4-10.2); Creatinine 1 2.36 mg/dL (0.66-1.25); Potassium 4.7 mmol/L (3.5-5.1); Total Protein 6.4 g/dL (6.3-8.2)
--- NOTE | 2022-03-28 13:07 | XRAY ---
Indication: Acute mental status change. Frequent falls. Multiple contiguous axial images obtained through the head without contrast. Comparison: March 11 and March 20, 2022. 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 No acute intracranial hemorrhage, abnormal extra axial fluid collection, or mass effect. Fourth ventricle is midline without hydrocephalus. Bony calvarium intact. Visualized paranasal sinuses and mastoid air cells are clear. 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
[2022-03-28 13:09] LABS: Appearance Cloudy (Clear); Bacteria None Seen /HPF (None Seen); Bilirubin Negative (Negative); Blood Large (Negative); Epithelial Cells None Seen /HPF (None Seen); Glucose Negative (Negative); Ketones Negative (Negative); Leukocyte Esterase Large (Negative); Nitrite Negative (Negative); Ph 6.5 (4.6-8.0); Protein,Urine Dip 300 (Negative); RBC >100 /HPF (0-5); WBC >100 /HPF (0-5)
--- NOTE | 2022-03-28 13:11 | XRAY ---
Indication: Acute mental status change. Frequent falls. Multiple contiguous axial images obtained through the cervical spine. Sagittal and coronal reformatted images obtained. Comparison: March 11, 2022. Axial images again negative for acute fracture, suspicious bony lesions, or spinal canal stenosis. Stable C5-C6 anterior fusion with intact hardware, minimal/mild multilevel degenerative endplate spurring, and mild multilevel bilateral degenerative facet arthropathy. Sagittal and coronal reformatted images again demonstrate minimal grade 1 anterolisthesis of C6 on C7 and multilevel disc space loss. No acute compression fracture or jumped facet. Normal appearing craniocervical junction. Visualized noncontrasted soft tissues again demonstrates moderate bilateral carotid calcifications. Lung apices clear. Impression: 1. Continued negative acute fracture. 2. Stable multilevel degenerative spondylosis, minimal grade 1 C6 anterolisthesis, and C5-C6 fusion with intact hardware.
[2022-03-28 13:14] LABS: ADD URINE CULTURE? ORDERED SEPARATELY (NO)
[2022-03-28] MEDS ORDERED: Dextrose 5%-NS IV Solution 1000 ML 1,000 ML IV ONE (13:34)
[2022-03-28] MEDS ORDERED: D50W 50 ml Abboject IV ONE ×2 (13:34→13:43)
[2022-03-28] MEDS ORDERED: ROCEPHIN 1 Gm-D5w 50 ml Bag** 1 G/50 ML IVPB IV STA (13:41)
[2022-03-28] MEDS ORDERED: ROCEPHIN 1 Gm-D5w 50 ml Bag** 1 G/50 ML IVPB IV ONE (13:52)
[2022-03-28] MEDS ORDERED: Dextrose 5%-NS IV Solution 1000 ML 1,000 ML IV SCH (14:00)
[2022-03-28 14:35] LABS: INFLUENZA A NEGATIVE (NEGATIVE); INFLUENZA B NEGATIVE (NEGATIVE); RESPIRATORY SYNCTIAL VIRUS NEGATIVE (Negative); SARS-CoV-2 Xpert Express NEGATIVE (NEGATIVE)
[2022-03-28] MEDS ORDERED: TYLENOL 325 MG PO PRN (14:59)
[2022-03-28] MEDS ORDERED: HUMULIN R SQ PRN (14:59)
[2022-03-28] MEDS ORDERED: DEXTROSE 5% -NACL 0.9% 1000 ML + KCl 20 MEQ 1,000 ML IV SCH (14:59)
[2022-03-28] MEDS ORDERED: Zofran 4 MG/2 ML VIAL IV PRN (14:59)
[2022-03-28] MEDS ORDERED: VENTOLIN COMMON CANISTER IH PRN (15:59)
[2022-03-28] MEDS ORDERED: Miralax Powder 17GM PACKET PO PRN (15:59)
[2022-03-28] MEDS: Dextrose 5%-NS IV Solution 1000 ML 1,000 ML IV SCH (16:19)
[2022-03-28] MEDS: ZOCOR 20MG PO SCH (16:26)
[2022-03-28] MEDS: Cordarone 200 MG PO SCH (16:26)
[2022-03-28] MEDS: Apresoline 25 MG TABLET PO SCH ×2 (16:26→22:00)
[2022-03-28] MEDS: PLAVIX Tablet PO SCH (16:26)
[2022-03-28] MEDS: Klor Con PO SCH (16:27)
[2022-03-28] MEDS: CLONIDINE 0.1 MG TABLET PO SCH ×2 (16:27→22:00)
[2022-03-28] MEDS: ECOTRIN 81 MG PO SCH (16:27)
[2022-03-28] MEDS: OXYCODONE-ACETAMINOPHEN 10-325 PO PRN (16:27)
[2022-03-28] MEDS: NEURONTIN PO SCH ×2 (16:27→22:00)
[2022-03-28] MEDS: LASIX 20 MG PO SCH (16:27)
[2022-03-28] MEDS: Zestril 10 MG PO SCH (16:27)
[2022-03-28] MEDS: Lantus Insulin SQ SCH (17:08)
[2022-03-28] MEDS: Lopressor 50 MG PO SCH (22:00)
[2022-03-28] MEDS ORDERED: CLONIDINE HCL 0.3 MG PO SCH (22:00)
[2022-03-28] MEDS ORDERED: NON-FORMULARY ITEM (Hydralazine Hcl [Hydralazine Hcl] 100 MG Tablet) PO SCH (22:00)
[2022-03-28] MEDS: Protonix 40MG Tablet PO SCH (22:00)
[2022-03-28] MEDS: Cymbalta 30 MG Capsule PO SCH (22:01)
[2022-03-29] MEDS: Dextrose 5%-NS IV Solution 1000 ML 1,000 ML IV SCH (02:47)
[2022-03-29] MEDS: OXYCODONE-ACETAMINOPHEN 10-325 PO PRN ×4 (05:11→23:18)
[2022-03-29 06:01] LABS: Absolute Neutrophil Ct (ANC) 2.95 x10^3/uL (1.4-6.9); BASOPHIL % 1.2 % (0.0-0.4); Basophil (Absolute #) 0.07 x10^3/uL (0-0.4); Eosinophil % 15.3 % (0.00-5.0); Eosinophil (Absolute #) 0.88 x10^3/uL (0-0.5); Hematocrit 33.6 % (42-50); Hemoglobin 10.8 g/dL (12.5-18.0); IMMATURE GRAN # 0.02 x10^3u/L (0.00-0.03); IMMATURE GRAN % 0.3 % (0.00-0.4); Lymphocyte (Absolute #) 1.25 x10^3/uL (1.0-4.6); Lymphocytes % 21.7 % (24.0-44.0); Mean Cell Volume 95.7 fL (78-100); Mean Corpuscular Hemoglobin 30.8 pg (26-32); Mean Corpuscular Hgb Concent. 32.1 g/dL (32-36); Mean Platelet Volume 10.8 fL (7.5-11.0); Monocyte (Absolute #) 0.59 x10^3/uL (0.0-1.3); Monocytes % 10.2 % (0.0-12.0); Neutrophil % 51.3 % (36.0-66.0); Platelet Count 224 x10^3/uL (150-450); Red Blood Count 3.51 x10^6/uL (4.1-5.6); Red Cell Distribution Width 13.9 % (11.5-14.0); White Blood Count 5.8 x10^3/uL (4.0-10.5)
[2022-03-29 06:46] LABS: ANION GAP 7.8 MEQ/L (5-15); BILIRUBIN,TOTAL 0.3 mg/dL (0.2-1.3); Calcium 8.1 mg/dL (8.4-10.2); Creatinine 1 2.13 mg/dL (0.66-1.25); EST GLOMERULAR FILTRATION RATE 32.6 ML/MIN; Potassium 4.5 mmol/L (3.5-5.1); Total Protein 6.1 g/dL (6.3-8.2)
[2022-03-29] MEDS: Lopressor 50 MG PO SCH ×2 (08:17→21:04)
[2022-03-29] MEDS: ZOCOR 20MG PO SCH (08:17)
[2022-03-29] MEDS: PLAVIX Tablet PO SCH (08:17)
[2022-03-29] MEDS: Apresoline 25 MG TABLET PO SCH ×3 (08:17→21:05)
[2022-03-29] MEDS: NEURONTIN PO SCH ×3 (08:17→21:04)
[2022-03-29] MEDS: CLONIDINE 0.1 MG TABLET PO SCH ×3 (08:18→21:04)
[2022-03-29] MEDS: Lantus Insulin SQ SCH (08:18)
[2022-03-29] MEDS: Cordarone 200 MG PO SCH (08:18)
[2022-03-29] MEDS: LASIX 20 MG PO SCH (08:18)
[2022-03-29] MEDS: Klor Con PO SCH (08:18)
[2022-03-29] MEDS: Cymbalta 30 MG Capsule PO SCH ×2 (08:18→21:04)
[2022-03-29] MEDS: Zestril 10 MG PO SCH (08:18)
[2022-03-29] MEDS: ECOTRIN 81 MG PO SCH (08:18)
[2022-03-29] MEDS: ROCEPHIN 1 Gm-D5w 50 ml Bag** 1 G/50 ML IVPB IV SCH (09:04)
[2022-03-29] MEDS ORDERED: AMIODARONE HCL 100 MG PO SCH (10:00)
[2022-03-29] MEDS ORDERED: NON-FORMULARY ITEM (Rosuvastatin Calcium [Rosuvastatin Calcium] 20 MG Tablet) PO SCH (10:00)
[2022-03-29] MEDS ORDERED: NON-FORMULARY ITEM (Potassium Chloride [Klor-Con] 20 MEQ Packet) PO SCH (10:00)
[2022-03-29] MEDS: Aricept 10 MG PO SCH (11:45)
[2022-03-29] MEDS: TYLENOL 325 MG PO PRN ×2 (11:47→17:29)
[2022-03-29] MEDS: Sodium Chloride 0.9% 1000 ML 1,000 ML IV SCH (15:30)
[2022-03-29] MEDS: HUMALOG SQ PRN ×2 (16:46→21:03)
[2022-03-29] MEDS: Protonix 40MG Tablet PO SCH (21:04)
[2022-03-30] MEDS: Sodium Chloride 0.9% 1000 ML 1,000 ML IV SCH ×2 (03:32→17:29)
[2022-03-30 05:13] LABS: Hematocrit 31.6 % (42-50); Hemoglobin 10.3 g/dL (12.5-18.0); Mean Cell Volume 95.8 fL (78-100); Mean Corpuscular Hemoglobin 31.2 pg (26-32); Mean Corpuscular Hgb Concent. 32.6 g/dL (32-36); Mean Platelet Volume 10.7 fL (7.5-11.0); Platelet Count 205 x10^3/uL (150-450); Red Cell Distribution Width 13.6 % (11.5-14.0); White Blood Count 6.7 x10^3/uL (4.0-10.5)
[2022-03-30] MEDS: OXYCODONE-ACETAMINOPHEN 10-325 PO PRN ×4 (05:17→23:32)
[2022-03-30 05:32] LABS: ANION GAP 8.6 MEQ/L (5-15); Calcium 7.8 mg/dL (8.4-10.2); Creatinine 1 2.27 mg/dL (0.66-1.25); EST GLOMERULAR FILTRATION RATE 30.3 ML/MIN; Potassium 4.5 mmol/L (3.5-5.1)
[2022-03-30] MEDS: CLONIDINE 0.1 MG TABLET PO SCH ×3 (10:01→19:55)
[2022-03-30] MEDS: Apresoline 25 MG TABLET PO SCH ×3 (10:01→21:27)
[2022-03-30] MEDS: LASIX 20 MG PO SCH (10:02)
[2022-03-30] MEDS: ZOCOR 20MG PO SCH (10:02)
[2022-03-30] MEDS: PLAVIX Tablet PO SCH (10:02)
[2022-03-30] MEDS: ECOTRIN 81 MG PO SCH (10:02)
[2022-03-30] MEDS: NEURONTIN PO SCH ×3 (10:02→19:55)
[2022-03-30] MEDS: Zestril 10 MG PO SCH (10:02)
[2022-03-30] MEDS: Klor Con PO SCH (10:02)
[2022-03-30] MEDS: Aricept 10 MG PO SCH (10:02)
[2022-03-30] MEDS: TYLENOL 325 MG PO PRN (10:02)
[2022-03-30] MEDS: Lopressor 50 MG PO SCH ×2 (10:02→19:55)
[2022-03-30] MEDS: Lantus Insulin SQ SCH (10:03)
[2022-03-30] MEDS: Cordarone 200 MG PO SCH (10:03)
[2022-03-30] MEDS: ROCEPHIN 1 Gm-D5w 50 ml Bag** 1 G/50 ML IVPB IV SCH (10:03)
[2022-03-30] MEDS: Cymbalta 30 MG Capsule PO SCH ×2 (10:03→19:55)
[2022-03-30] MEDS ORDERED: Zestril 10 MG*** 10 MG, hydroDIURIL 25 MG*** 12.5 MG PO ONE ×2 (11:30)
[2022-03-30] MEDS: MOTRIN 400 MG PO SCH ×2 (16:00→19:55)
[2022-03-30] MEDS: HUMALOG SQ PRN ×2 (17:28→21:26)
--- NOTE | 2022-03-30 18:14 | XRAY ---
Indication: Low back pain following fall 2 days ago. Multiple contiguous axial images obtained through the lumbar spine. Sagittal and coronal reformatted images obtained. Comparison: CT abdomen/pelvis November 03, 2020. Axial images again demonstrates mild broad-based L3-S1 disc bulge and minimal T12-L1/L3-L4/L5-S1 degenerative vacuum disc phenomena. No acute fracture, suspicious bony lesions, or spinal canal stenosis. Facets are symmetric. Sagittal and coronal reformatted images again demonstrate normal alignment with vertebral body heights/disc spaces maintained. Stable small incidental superior L4 Schmorl node. No acute compression fracture. Visualized noncontrasted soft tissues again demonstrates moderate scattered arteriosclerotic calcifications including both renal arteries. Impression: 1. Stable L3-S1 degenerative disc disease better evaluated with outpatient MRI. 2. Again incidental L4 Schmorl node and scattered arteriosclerotic disease. 3. Remaining CT lumbar spine without contrast exam is negative. Comment: Preliminary interpretation made by C. No critical discrepancy.
[2022-03-30] MEDS: Protonix 40MG Tablet PO SCH (19:55)
[2022-03-31] MEDS: Sodium Chloride 0.9% 1000 ML 1,000 ML IV SCH ×2 (03:08→20:57)
[2022-03-31 05:35] LABS: Hematocrit 30.4 % (42-50); Mean Cell Volume 94.4 fL (78-100); Mean Corpuscular Hemoglobin 31.1 pg (26-32); Mean Corpuscular Hgb Concent. 32.9 g/dL (32-36); Mean Platelet Volume 11.2 fL (7.5-11.0); Platelet Count 205 x10^3/uL (150-450); Red Blood Count 3.22 x10^6/uL (4.1-5.6); Red Cell Distribution Width 13.6 % (11.5-14.0); White Blood Count 6.4 x10^3/uL (4.0-10.5)
[2022-03-31 06:01] LABS: ANION GAP 8.1 MEQ/L (5-15); Calcium 7.6 mg/dL (8.4-10.2); Creatinine 1 2.04 mg/dL (0.66-1.25); EST GLOMERULAR FILTRATION RATE 34.3 ML/MIN; Potassium 4.8 mmol/L (3.5-5.1)
[2022-03-31] MEDS: OXYCODONE-ACETAMINOPHEN 10-325 PO PRN ×3 (08:20→21:02)
[2022-03-31] MEDS: MOTRIN 400 MG PO SCH ×3 (08:27→22:59)
[2022-03-31] MEDS: NEURONTIN PO SCH ×3 (11:02→22:59)
[2022-03-31] MEDS: Aricept 10 MG PO SCH (11:02)
[2022-03-31] MEDS: Klor Con PO SCH (11:02)
[2022-03-31] MEDS: CLONIDINE 0.1 MG TABLET PO SCH ×3 (11:03→23:00)
[2022-03-31] MEDS: ZOCOR 20MG PO SCH (11:03)
[2022-03-31] MEDS: ECOTRIN 81 MG PO SCH (11:03)
[2022-03-31] MEDS: Zestril 20 MG*** 20 MG, hydroDIURIL 25 MG*** 12.5 MG PO SCH ×2 (11:03)
[2022-03-31] MEDS: PLAVIX Tablet PO SCH (11:03)
[2022-03-31] MEDS: Cordarone 200 MG PO SCH (11:04)
[2022-03-31] MEDS: Cymbalta 30 MG Capsule PO SCH ×2 (11:04→23:00)
[2022-03-31] MEDS: Lopressor 50 MG PO SCH ×2 (11:05→22:59)
[2022-03-31] MEDS: LASIX 20 MG PO SCH (11:05)
[2022-03-31] MEDS: Apresoline 25 MG TABLET PO SCH ×3 (11:05→23:00)
[2022-03-31] MEDS: ROCEPHIN 1 Gm-D5w 50 ml Bag** 1 G/50 ML IVPB IV SCH (11:07)
[2022-03-31] MEDS: Lantus Insulin SQ SCH (11:07)
[2022-03-31] MEDS: TYLENOL 325 MG PO PRN (16:51)
[2022-03-31] MEDS: HUMALOG SQ PRN (17:40)
[2022-03-31] MEDS: Protonix 40MG Tablet PO SCH (23:00)
[2022-04-01] MEDS ORDERED: Lasix 20 MG/2 ML IV ONE (00:57)
[2022-04-01] MEDS ORDERED: TORAdol 30 mg Injection IV ONE (04:50)
[2022-04-01] MEDS ORDERED: Cyclobenzaprine 10 MG PO SCH (04:50)
[2022-04-01] MEDS ORDERED: NITRO-DUR 0.2 MG/HR TD ONE (04:50)
[2022-04-01] MEDS ORDERED: OXYCODONE-ACETAMINOPHEN 10-325 PO PRN (04:51)
[2022-04-01 07:20] LABS: Absolute Neutrophil Ct (ANC) 3.19 x10^3/uL (1.4-6.9); BASOPHIL % 1.2 % (0.0-0.4); Basophil (Absolute #) 0.08 x10^3/uL (0-0.4); Eosinophil % 17.3 % (0.00-5.0); Eosinophil (Absolute #) 1.13 x10^3/uL (0-0.5); Hematocrit 30.7 % (42-50); Hemoglobin 9.8 g/dL (12.5-18.0); IMMATURE GRAN # 0.01 x10^3u/L (0.00-0.03); IMMATURE GRAN % 0.2 % (0.00-0.4); Lymphocyte (Absolute #) 1.48 x10^3/uL (1.0-4.6); Lymphocytes % 22.7 % (24.0-44.0); Mean Cell Volume 96.5 fL (78-100); Mean Corpuscular Hemoglobin 30.8 pg (26-32); Mean Corpuscular Hgb Concent. 31.9 g/dL (32-36); Mean Platelet Volume 10.6 fL (7.5-11.0); Monocyte (Absolute #) 0.64 x10^3/uL (0.0-1.3); Monocytes % 9.8 % (0.0-12.0); Neutrophil % 48.8 % (36.0-66.0); Platelet Count 195 x10^3/uL (150-450); Red Blood Count 3.18 x10^6/uL (4.1-5.6); Red Cell Distribution Width 13.2 % (11.5-14.0); White Blood Count 6.5 x10^3/uL (4.0-10.5)
[2022-04-01] MEDS ORDERED: Cyclobenzaprine 10 MG PO PRN (07:30)
[2022-04-01 07:33] LABS: ALBUMIN 2.9 g/dL (3.5-5.0); ANION GAP 9.4 MEQ/L (5-15); BILIRUBIN,TOTAL 0.3 mg/dL (0.2-1.3); Calcium 8.1 mg/dL (8.4-10.2); Creatinine 1 2.04 mg/dL (0.66-1.25); EST GLOMERULAR FILTRATION RATE 34.3 ML/MIN; Potassium 4.3 mmol/L (3.5-5.1); Total Protein 5.7 g/dL (6.3-8.2)
[2022-04-01] MEDS: CLONIDINE 0.1 MG TABLET PO SCH (09:06)
[2022-04-01] MEDS: ZOCOR 20MG PO SCH (09:07)
[2022-04-01] MEDS: MOTRIN 400 MG PO SCH (09:09)
[2022-04-01] MEDS: Apresoline 25 MG TABLET PO SCH (09:10)
[2022-04-01] MEDS: Lantus Insulin SQ SCH (09:10)
[2022-04-01] MEDS: NEURONTIN PO SCH (09:11)
[2022-04-01] MEDS: Cymbalta 30 MG Capsule PO SCH (09:11)
[2022-04-01] MEDS: ECOTRIN 81 MG PO SCH (09:11)
[2022-04-01] MEDS: LASIX 20 MG PO SCH (09:11)
[2022-04-01] MEDS: Lopressor 50 MG PO SCH (09:12)
[2022-04-01] MEDS: Cordarone 200 MG PO SCH (09:12)
[2022-04-01] MEDS: Klor Con PO SCH (09:12)
[2022-04-01] MEDS: Zestril 20 MG*** 20 MG, hydroDIURIL 25 MG*** 12.5 MG PO SCH ×2 (09:14)
[2022-04-01] MEDS: Aricept 10 MG PO SCH (09:15)
[2022-04-01] MEDS: PLAVIX Tablet PO SCH (09:16)
[2022-04-01] MEDS: ROCEPHIN 1 Gm-D5w 50 ml Bag** 1 G/50 ML IVPB IV SCH (09:19)
[2022-04-01] MEDS: HUMALOG SQ PRN (11:45)
[2022-04-01 11:57] VITALS: BP 139/63; PULSE 49; O2SAT 94
--- NOTE | 2022-04-18 19:41 | PCM.HP ---
History of Present Illness - Chief Complaint Chief Complaint: AMS, UTI History of Present Illness: is a 72 year old male.This is a 72-year-old white male patient known to our emergency room. He visits frequently. He has multiple medical issues. Patient presents via EMS because of altered mental status. Blood sugar on arrival by EMS to his home showed the blood sugar level of 51. Patient received 1 amp of D50 and his mental status immediately improved. Upon arrival to the emergency department his blood sugar level was 126 and he is at the baseline mentally. He has no complaints of chest pain or shortness of breath. He has no abdominal pain. He has been having frequent falls. EMS placed a cervical collar on him. He does not recall hitting his head or having a fall injuring his neck recently. Patient has multiple medical issues including hypertension, insulin-dependent diabetes, gastroesophageal reflux disease, CHF, coronary artery disease and hyperlipidemia. He arrives with a Morales catheter in place. His is convinced he has a urinary tract infection. - Review of Systems Constitutional: Lethargy, No Fever, No Chills Eyes: No Symptoms Ears, Nose, & Throat: No Symptoms Respiratory: No Cough, No Short Of Breath Cardiac: No Chest Pain, No Edema, No Syncope Abdominal/Gastrointestinal: No Abdominal Pain, No Nausea, No Vomiting, No Diarrhea Genitourinary Symptoms: No Dysuria Musculoskeletal: No Back Pain, No Neck Pain Skin: No Rash Neurological: No Dizziness, No Focal Weakness, No Sensory Changes Psychological: No Symptoms Endocrine: No Symptoms Hematologic/Lymphatic: No Symptoms Immunological/Allergic: No Symptoms Medications & Allergies Home Medications: Home Medication List Duloxetine HCl 30 mg [Cymbalta 30 MG Capsule] 30 mg PO BID 07/12/21 [History Confirmed 04/07/22] Gabapentin [Neurontin ] 600 mg PO TID 07/12/21 [History Confirmed 04/07/22] Insulin Lispro [Humalog] 0 unit SQ ACHS 07/12/21 [History Confirmed 04/07/22] Polyethylene Glycol 3350 [Miralax] 17 gm PO DAILY PRN PRN 07/12/21 [History Confirmed 04/07/22] Rosuvastatin Calcium 20 mg PO DAILY 07/12/21 [History Confirmed 04/07/22] Acetaminophen 325 mg [Tylenol 325 mg] 325 mg PO Q4H PRN 09/07/21 [History Confirmed 04/07/22] Albuterol Sulfate [Proventil Hfa] 2 puff IH Q4H PRN PRN 09/07/21 [History Confirmed 04/07/22] PANTOPRAZOLE 40 mg Tablet [Protonix 40MG Tablet] 40 mg PO QHS 09/07/21 [History Confirmed 04/07/22] Metoprolol Tartrate 50 mg [Lopressor 50 MG] 100 mg PO BID 03/28/22 [History Confirmed 04/07/22] Oxycodone / APAP 10/325 mg [Oxycodone-Acetaminophen 10-325] 1 each PO Q6H PRN 03/28/22 [History Confirmed 04/07/22] cloNIDine HCL [Clonidine HCl] 0.3 mg PO TID 03/28/22 [History Confirmed 04/07/22] Amlodipine Besylate 5 mg [Norvasc 5 mg] 10 mg PO QHS tablet 04/15/22 [Rx] Clonidine HCl 0.1 mg [Clonidine 0.1 mg Tablet] 0.3 mg PO TID tablet 04/15/22 [Rx] HydrALAzine HCL 25 MG TAB [Apresoline 25 MG TABLET] 100 mg PO TID tablet 04/15/22 [Rx] Metoprolol Tartrate 50 mg [Lopressor 50 MG] 100 mg PO BID tablet 04/15/22 [Rx] Allergies/Adverse Reactions: Allergies Allergy/AdvReac Type Severity Reaction Status Date / Time No Known Drug Allergies Allergy Verified 04/07/22 11:13 - Past Medical History Past Medical History: Yes Neurological History: Peripheral Neuropathy ENT History: Cataracts Cardiac History: Congestive Heart Failure, Coronary Artery Disease, High Cholesterol, Hypertension, Myocardial Infarction ([place]) Respiratory History: No Pertinent History Endocrine Medical History: Diabetes Type II Musculoskelatal History: No Pertinent History GI Medical History: GERD History: No Pertinent History Pyscho-Social History: Anxiety, Depression Male Reproductive Disorders: No Pertinent History Comment: PATIENT REPORTS PROBLEMS WITH SHORT TERM MEMORY AND NOTED ON E.R. REPORT FROM OCTOBER 2020. ALSO GERD, DEPRESSION, CERVICAL FUSION, CHO LECYSTECTOMY. PATIENT REPORTS VACCINATED AND BOOSTER FOR COVID. - Past Surgical History Past Surgical History: Yes Neuro Surgical History: No Pertinent History Cardiac History: CABG, Cardiac Catheterization Respiratory Surgery: Chest Surgery GI Surgical History: No Pertinent History Genitourinary Surgical Hx: No Pertinent History Musculskeletal Surgical Hx: No Pertinent History Male Surgical History: No Pertinent History Other Surgical History: cervicle fusion - Social History Smoking Status: Former smoker How long have you smoked: 55 Exposure to second hand smoke: Yes Alcohol: None Drug Use: none Significant Family History: no pertinent family hx - Physical Exam General Appearance: no apparent distress, alert Neurologic Exam: alert, cooperative, nml cerebellar function, nml station & gait, sensation nml, No motor deficits Eye Exam: PERRL/EOMI, eyes nml inspection Ears, Nose, Throat Exam: normal ENT inspection, TMs normal, pharynx normal, moist mucous membranes Neck Exam: normal inspection, non-tender, supple, full range of motion Respiratory Exam: normal breath sounds, lungs clear, No respiratory distress Cardiovascular Exam: regular rate/rhythm, normal heart sounds, normal peripheral pulses Gastrointestinal/Abdomen Exam: soft, normal bowel sounds, No tenderness, No mass Back Exam: normal inspection, normal range of motion, No CVA tenderness, No vertebral tenderness Extremity Exam: normal inspection, normal range of motion, pelvis stable Skin Exam: normal color, warm, dry, No rash Lymphatic Exam: No adenopathy Results - Labs Lab/Micro Results: Microbiology 03/28/22 12:37 Urine Culture - Final Catherized MIXED CORKY; 3 OR MORE TYPES. NO PREDOMINANT ORGANISM. NO FURTHER WORKUP. PLEASE RESUBMIT IF CLINICALLY INDICATED. Assessment/Plan (1) Altered mental status Status: Acute Code(s): R41.82 - ALTERED MENTAL STATUS, UNSPECIFIED (2) Urinary tract infection Status: Acute Code(s): N39.0 - URINARY TRACT INFECTION, SITE NOT SPECIFIED
--- NOTE | 2022-04-18 19:43 | PCM.DS ---
Discharge Summary Date of Admission: 03/28/22 14:52 Date of Discharge: 04/01/2022 Admitting Physician: MAURI HOWARD Primary Care Provider: CRYSTAL MURILLO Allergies Allergies No Known Drug Allergies Allergy (Verified 04/07/22 11:13) Hospital Summary - Hospital Course Hospital Course: Pt. admitted and found to rapidly improved back to baseline symptoms, he was ready for discharge. - Vitals & Intake/Output Vital Signs: Vital Signs Temperature 97.6 F 04/01/22 11:55 Pulse Rate 49 L 04/01/22 11:55 Respiratory Rate 16 04/01/22 11:55 Blood Pressure 139/63 04/01/22 11:55 O2 Sat by Pulse Oximetry 94 L 04/01/22 11:55 - Lab Result Diagrams: 04/01/22 07:14 04/01/22 07:14 Micro Results-Entire Visit: Microbiology 03/28/22 12:37 Urine Culture - Final Catherized MIXED CORKY; 3 OR MORE TYPES. NO PREDOMINANT ORGANISM. NO FURTHER WORKUP. PLEASE RESUBMIT IF CLINICALLY INDICATED. - Procedures and Test Procedures and Tests throughout Hospitalization: Therapy Orders & Screens 03/28/22 14:59 PT Eval & Treat ( Order) ONCE Reason for Eval:: Eval for range of motion, strengthening, transferring and stamina Diagnosis: Weakness, frequent falls EKG REPEAT IN AM Comment: 03/29/22 11:16 ST Eval & Treat ( Order) .as ordered Comment: Physician Instructions: Reason For Exam: difficulty swallowing Evaluate: Yes Treat: Yes Reason for Eval: swallow eval Diagnosis: AMS, UTI Discharge Exam General Appearance: no apparent distress, alert Neurologic Exam: alert, oriented x 3, cooperative, normal mood/affect, nml cerebellar function, sensation nml, No motor deficits Eye Exam: PERRL, EOMI, eyes nml inspection Ears, Nose, Throat Exam: normal ENT inspection, pharynx normal, moist mucous membranes Neck Exam: normal inspection, non-tender, supple, full range of motion Respiratory Exam: normal breath sounds, lungs clear, No respiratory distress Cardiovascular Exam: regular rate/rhythm, normal heart sounds Gastrointestinal/Abdomen Exam: soft, No tenderness, No mass Male Genitalia Exam: deferred Rectal Exam: deferred Back Exam: normal inspection, normal range of motion, No CVA tenderness, No vertebral tenderness Extremity Exam: normal inspection, normal range of motion Skin Exam: normal color, warm, dry Final Diagnosis/Problem List - Final Discharge Diagnosis/Problem (1) Altered mental status Status: Acute Code(s): R41.82 - ALTERED MENTAL STATUS, UNSPECIFIED (2) Urinary tract infection Status: Acute Code(s): N39.0 - URINARY TRACT INFECTION, SITE NOT SPECIFIED - Discharge Discharge Date: 04/01/22 Disposition: HOME HEALTH SERVICE Condition: Fair Prescriptions: Continue Rosuvastatin Calcium 20 mg PO DAILY Gabapentin [Neurontin ] 600 mg PO TID Polyethylene Glycol 3350 [Miralax] 17 gm PO DAILY PRN PRN PRN Reason: Constipation Duloxetine HCl 30 mg [Cymbalta 30 MG Capsule] 30 mg PO BID Insulin Lispro [Humalog] 0 unit SQ ACHS Acetaminophen 325 mg [Tylenol 325 mg] 325 mg PO Q4H PRN PRN Reason: Pain Albuterol Sulfate [Proventil Hfa] 2 puff IH Q4H PRN PRN PRN Reason: Shortness Of Breath PANTOPRAZOLE 40 mg Tablet [Protonix 40MG Tablet] 40 mg PO QHS cloNIDine HCL [Clonidine HCl] 0.3 mg PO TID Metoprolol Tartrate 50 mg [Lopressor 50 MG] 100 mg PO BID Oxycodone / APAP 10/325 mg [Oxycodone-Acetaminophen 10-325] 1 each PO Q6H PRN PRN Reason: pain No Action Amlodipine Besylate 5 mg [Norvasc 5 mg] 10 mg PO QHS tablet HydrALAzine HCL 25 MG TAB [Apresoline 25 MG TABLET] 100 mg PO TID t ablet Clonidine HCl 0.1 mg [Clonidine 0.1 mg Tablet] 0.3 mg PO TID tablet Metoprolol Tartrate 50 mg [Lopressor 50 MG] 100 mg PO BID tablet Instructions: Urinary Tract Infection, Adult (DC) Additional Instructions: REFERRAL TO [facility]. THEY WILL CALL YOU TO ARRANGE YOUR FIRST VISIT. Follow up with: CRYSTAL MURILLO [Primary Care Provider] - 04/07/22 10:15 am
== END 2022-04-01 13:50 | disposition home health service (06) ==
LOC: ED 11:35 → MED SURG 14:52
PROVIDERS: ADMIT Family Medicine; ATTEND Family Medicine
DX: R41.82 Altered mental status, unspecified (principal); N39.0 Urinary tract infection, site not specified; E11.649 Type 2 diabetes mellitus with hypoglycemia without coma; I25.10 Atherosclerotic heart disease of native coronary artery without angina pectoris; I11.0 Hypertensive heart disease with heart failure; I15.0 Renovascular hypertension; Z91.81 History of falling; Z72.0 Tobacco use; Z79.899 Other long term (current) drug therapy; Z20.828 Contact with and (suspected) exposure to other viral communicable diseases
CPT/HCPCS: 0241U; 36415; 51702; 70450; 72125; 72131; 80048; 80053; 81001; 82140; 82947; 83036; 83735; 83880; 85025; 85027; 85610; 87086; 93005; 94760; 96365; 96374; 97161; 97530; 99285; G0378; 96375; J0696; J1817; J1885; J1940; A9270-GY

== ENCOUNTER 2022-04-07 11:05 | Inpatient (IN) | payer MEDICARE ==
[2022-04-07] MEDS ORDERED: Sodium Chloride 0.9% 1000 ML 1,000 ML ONE ×2 (11:18→11:50)
[2022-04-07] MEDS ORDERED: Zofran 4 MG/2 ML VIAL ONE (11:23)
[2022-04-07] MEDS ORDERED: Sodium Chloride 0.9% 1000 ML 1,000 ML IV STA (11:24)
[2022-04-07 11:43] LABS: VBG BASE EXCESS -4.5 (-2.0-2.0); VBG CARBOXYHEMOGLOBIN 3.1 % T HGB (0.0-6.9); VBG HCO3- 21.7 meq/L (22-28); VBG HEMOGLOBIN 14.3; VBG POTASSIUM 4.8 (3.5-5.1); VBG pH 7.31 (7.32-7.42)
[2022-04-07 11:46] LABS: Absolute Neutrophil Ct (ANC) 2.96 x10^3/uL (1.4-6.9); BASOPHIL % 0.7 % (0.0-0.4); Basophil (Absolute #) 0.04 x10^3/uL (0-0.4); Eosinophil % 6.4 % (0.00-5.0); Eosinophil (Absolute #) 0.38 x10^3/uL (0-0.5); Hematocrit 42.4 % (42-50); Hemoglobin 13.7 g/dL (12.5-18.0); IMMATURE GRAN # 0.02 x10^3u/L (0.00-0.03); IMMATURE GRAN % 0.3 % (0.00-0.4); Lymphocyte (Absolute #) 2.11 x10^3/uL (1.0-4.6); Lymphocytes % 35.8 % (24.0-44.0); Mean Cell Volume 94.6 fL (78-100); Mean Corpuscular Hemoglobin 30.6 pg (26-32); Mean Corpuscular Hgb Concent. 32.3 g/dL (32-36); Mean Platelet Volume 11.5 fL (7.5-11.0); Monocyte (Absolute #) 0.39 x10^3/uL (0.0-1.3); Monocytes % 6.6 % (0.0-12.0); Neutrophil % 50.2 % (36.0-66.0); Platelet Count 320 x10^3/uL (150-450); Red Blood Count 4.48 x10^6/uL (4.1-5.6); Red Cell Distribution Width 13.2 % (11.5-14.0); White Blood Count 5.9 x10^3/uL (4.0-10.5)
--- NOTE | 2022-04-07 11:52 | XRAY ---
Indication: Chest pain. Comparison: March 20, 2022 Portable chest demonstrates new hazy left infrahilar/base infiltrate versus atelectasis without consolidation/large effusion. Remaining heart and lungs unremarkable again with incidental CABG surgery. Bony thorax intact again with osteopenia and mild degenerative changes.
[2022-04-07 12:07] LABS: ALBUMIN 4.1 g/dL (3.5-5.0); ANION GAP 16.2 MEQ/L (5-15); BILIRUBIN,TOTAL 0.6 mg/dL (0.2-1.3); Calcium 9.8 mg/dL (8.4-10.2); Creatinine 1 2.73 mg/dL (0.66-1.25); EST GLOMERULAR FILTRATION RATE 24.5 ML/MIN; Potassium 4.7 mmol/L (3.5-5.1); Total Protein 7.9 g/dL (6.3-8.2)
[2022-04-07 12:08] LABS: Appearance Clear (Clear); Bilirubin Negative (Negative); Blood Negative (Negative); Glucose, Urine 100 mg/dL (Negative); Ketones Negative (Negative); Leukocyte Esterase Negative (Negative); Nitrite Negative (Negative); Protein,Urine Dip >=1000 (Negative); Specific Gravity 1.015 (1.005-1.030); Urobilinogen 0.2 mg/dL (0.2)
[2022-04-07] MEDS ORDERED: PROTONIX 40 MG IV IV ONE ×2 (12:09→12:11)
[2022-04-07] MEDS ORDERED: Zofran 4 MG/2 ML VIAL IV ONE (12:13)
[2022-04-07] MEDS ORDERED: ROCEPHIN 2 Gm-D5w 50ML BAG** 2 G/50 ML IVPB IV STA (12:19)
[2022-04-07] MEDS ORDERED: Zithromax 500 MG/ 250 ML NaCl Premix 500 MG/250 ML IVPB IV STA (12:19)
[2022-04-07 12:23] LABS: Barbiturate,Urine NEGATIVE (NEGATIVE); Cocaine,Urine NEGATIVE (NEGATIVE); Methadone,Urine NEGATIVE (NEGATIVE); Opiate,Urine NEGATIVE (NEGATIVE); THC,Urine NEGATIVE (NEGATIVE)
--- NOTE | 2022-04-07 12:24 | ERPHSYRPT ---
- History of Present Illness Time Seen by Provider: 04/07/22 11:20 Source: patient Exam Limitations: no limitations Patient Subjective Stated Complaint: pt sent from drs office for being sweaty, and hypotension, co nausea and vomiting Triage Nursing Assessment: went to get pt out of waiting room and he was in bathroom nurse went to check on him and he was pale, sweaty and vomiting, pt helped to wc per 2 nurses,and placed in bed, pt cold, clammy, skin moist, lower legs mottled. no edema noted , no cough, temp 95.0 core Physician History: Patient is 72-year-old male presents to our ED via private vehicle for evalua tion of feeling unwell. Patient experiencing nausea and vomiting. Upon arrival patient was cold clammy. Patient is pale diaphoretic. Patient complains of generalized weakness. Patient denies chest pain. No abdominal pain upon arrival. However approximately hour after arrival patient began to complain of abdominal pain. at bedside. states that patient is a diabetic. He has a significant cardiac history. Past medical history includes quadruple bypass approximately 4 months ago per . Patient is a active smoker. Family informs the patient is a DNR. They do not want CPR or intubation. They are okay with pressors. Patient unable to contribute to this HPI due to mental status Timing/Duration: today Severity: severe Modifying Factors: Improves With: nothing Associated Symptoms: nausea, vomiting, abdominal pain, diaphoresis, weakness (Generalized weakness), No shortness of breath, No chest pain, No syncope, No seizure Allergies/Adverse Reactions: No Known Drug Allergies Allergy (Verified 04/07/22 11:13) Home Medications: Insulin Glargine [Lantus Insulin] 30 unit SQ DAILY 08/08/16 [History] Aspirin [Aspirin EC] 81 mg PO DAILY 07/12/21 [History] Duloxetine HCl 30 mg [Cymbalta 30 MG Capsule] 30 mg PO BID 07/12/21 [History] Gabapentin [Neurontin ] 600 mg PO TID 07/12/21 [History] Insulin Lispro [Humalog] 0 unit SQ ACHS 07/12/21 [History] Polyethylene Glycol 3350 [Miralax] 17 gm PO DAILY PRN PRN 07/12/21 [History] Rosuvastatin Calcium 20 mg PO DAILY 07/12/21 [History] Acetaminophen 325 mg [Tylenol 325 mg] 325 mg PO Q4H PRN 09/07/21 [History] Albuterol Sulfate [Proventil Hfa] 2 puff IH Q4H PRN PRN 09/07/21 [History] PANTOPRAZOLE 40 mg Tablet [Protonix 40MG Tablet] 40 mg PO QHS 09/07/21 [History] Potassium Chloride [Klor-Con] 10 meq PO DAILY 09/07/21 [History] Clopidogrel Bisulfate [Clopidogrel] 75 mg PO DAILY 01/25/22 [History] Lisinopril 10 mg [Zestril 10 MG] 10 mg PO DAILY 01/25/22 [History] Furosemide 20 mg [Lasix 20 mg] 20 mg PO DAILY 03/28/22 [History] Hydralazine HCl 75 mg PO TID 03/28/22 [History] Metoprolol Tartrate 50 mg [Lopressor 50 MG] 100 mg PO BID 03/28/22 [History] Oxycodone / APAP 10/325 mg [Oxycodone-Acetaminophen 10-325] 1 each PO Q6H PRN 03/28/22 [History] cloNIDine HCL [Clonidine HCl] 0.3 mg PO TID 03/28/22 [History] Hx Tetanus, Diphtheria Vaccination/Date Given: Yes Hx Influenza Vaccination/Date Given: No Hx Pneumococcal Vaccination/Date Given: No Immunizations Up to Date: Yes Travel Risk - International Travel Have you traveled outside of the country in past 3 weeks: No - Coronavirus Screening Are you exhibiting any of the following symptoms?: No - Vaccine Status Have you recieved a Covid-19 vaccination: Yes 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 - Vaccination Dates Date of 2cond Vaccination (if applicable): 2020 - Review of Systems All Other Systems: Unable due to condition - Past Medical History Pertinent Past Medical History: Yes Neurological History: Peripheral Neuropathy ENT History: Cataracts Cardiac History: Congestive Heart Failure, Coronary Artery Disease, High Cholesterol, Hypertension, Myocardial Infarction (NM) Respiratory History: No Pertinent History Endocrine Medical History: Diabetes Type II Musculoskeletal History: No Pertinent History GI Medical History: GERD History: No Pertinent History Psycho-Social History: Anxiety, Depression Male Reproductive Disorders: No Pertinent History Other Medical History: PATIENT REPORTS PROBLEMS WITH SHORT TERM MEMORY AND NOTED ON E.R. REPORT FROM OCTOBER 2020. ALSO GERD, DEPRESSION, CERVICAL FUSION, CHOLECYSTECTOMY. PATIENT REPORTS VACCINATED AND BOOSTER FOR COVID. - Past Surgical History Past Surgical History: Yes Neuro Surgical History: No Pertinent History Cardiac: CABG, Cardiac Catheterization Respiratory: Chest Surgery Gastrointestinal: No Pertinent History Genitourinary: No Pertinent History Musculoskeletal: No Pertinent History Male Surgical History: No Pertinent History Other Surgical History: cervicle fusion - Social History Smoking Status: Former smoker How long have you smoked: 55 Exposure to second hand smoke: No Drug Use: none Patient Lives Alone: No Significant Family History: no pertinent family hx - Nursing Vital Signs Nursing Vital Signs: Initial Vital Signs Pulse Rate 55 L 04/07/22 11:16 Respiratory Rate 16 04/07/22 11:16 Blood Pressure 77/44 04/07/22 11:16 O2 Sat by Pulse Oximetry 99 04/07/22 11:16 Pain Scale Pain Intensity 4 - Physical Exam General Appearance: no apparent distress, moderate distress, lethargy, other (Patient is pale cool clammy diaphoretic. Feet are mottled) Eye Exam: PERRL/EOMI, eyes nml inspection Ears, Nose, Throat Exam: normal ENT inspection, TMs normal, pharynx normal, moist mucous membranes Neck Exam: normal inspection, non-tender, supple, full range of motion Respiratory Exam: normal breath sounds, lungs clear, airway intact, No respiratory distress Cardiovascular Exam: regular rate/rhythm, normal heart sounds, normal peripheral pulses Gastrointestinal/Abdomen Exam: soft, normal bowel sounds, No tenderness, No mass Back Exam: normal inspection, normal range of motion, No CVA tenderness, No vertebral tenderness Extremity Exam: normal inspection, normal range of motion, pelvis stable Neurologic Exam: alert, oriented x 3, cooperative, normal mood/affect, sensation nml, No motor deficits Skin Exam: normal color, warm, dry, No rash Lymphatic Exam: No adenopathy SpO2 Interpretation: normal SpO2: 95 O2 Delivery: Room Air - Course Nursing assessment & vital signs reviewed: Yes - Radiology Exams Chest X-ray Interpretation: Teleradiologist Report (New left infiltrate) - CT Exams Head CT Interpretation: Tele-radiologist Report (Nonacute senile brain. 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) Abdomen/Pelvis CT Interpretation: Tele-radiologist Report (Small hiatal hernia rectal impaction fecal stasis chronic findings atherosclerotic disease old granulomatous disease) Ordered Tests: Active Orders 24 hr Category Date Time Status Bedrest ROUTINE Activity 04/07/22 16:04 Active Sail Finisher Hand STAT Care 04/07/22 11:25 Completed Code Status Order ROUTINE Care 04/07/22 16:04 Active EKG-ER Only STAT Care 04/07/22 11:24 Completed IV Care Q4H Care 04/07/22 16:04 Active IV Insertion STAT Care 04/07/22 11:24 Completed Neuro Checks Q4H Care 04/07/22 16:[address] in Observation ROUTINE Care 04/07/22 16:04 Active Pulse Oximetry (ED) STAT Care 04/07/22 11:24 Completed Telemetry q6h Care 04/07/22 16:04 Active Consistent Carbohydrate Diet 1800 Calorie Diet 04/07/22 Dinner Active ABDOMEN AND PELVIS W/0 CONTRAS [CT] Stat Exams 04/07/22 13:17 Completed CHEST 1 VIEW (PORTABLE) Stat Exams 04/07/22 11:25 Completed HEAD WITHOUT CONTRAST [CT] Stat Exams 04/07/22 13:08 Completed BLOOD CULTURE Stat Lab 04/07/22 12:20 Received CBC W DIFF AM.LAB Lab 04/08/22 04:20 Completed CBC W DIFF Stat Lab 04/07/22 11:20 Completed CMP AM.LAB Lab 04/08/22 04:20 Received CMP Stat Lab 04/07/22 11:20 Completed Lactic Acid Stat Lab 04/07/22 11:24 Completed Lactic Acid Stat Lab 04/07/22 13:44 Completed NT PRO BNP Stat Lab 04/07/22 11:20 Completed POCT GLUCOSE Stat Lab 04/07/22 11:11 Completed TROPONIN Q4H Lab 04/07/22 11:20 Completed TROPONIN Q4H Lab 04/07/22 15:14 Completed TROPONIN Q4H Lab 04/07/22 19:40 Completed TSH [TSH, 3RD Generation] Stat Lab 04/07/22 11:40 Completed UA W/RFX UR CULTURE Stat Lab 04/07/22 12:00 Completed Urine Triage Profile Stat Lab 04/07/22 12:00 Completed VBG [VENOUS BLOOD GAS] Stat Lab 04/07/22 11:42 Completed Pulse Oximetry CONTINUOUS RT 04/07/22 16:04 Completed Medication Summary Generic Name Dose Route Start Last Admin Trade Name Marianne PRN Reason Stop Dose Admin Acetaminophen 650 mg 04/07/22 20:43 04/08/22 03:55 Acetaminophen 325 Mg Tablet PO 05/07/22 20:42 650 mg Q4H PRN PRN Administration PAIN AND/OR FEVER Fentanyl Citrate 12.5 mcg 04/07/22 17:56 04/08/22 03:55 Fentanyl Citrate 100 Mcg/2 Ml* Vial IV 04/12/22 17:55 12.5 mcg Q4H PRN PRN Administration SEVERE PAIN Norepinephrine/Dextrose 8 mg in 250 mls @ 15 mls/hr 04/07/22 12:27 04/07/22 18:33 Norepinephrine 8 Mg/250 Ml-D5w IV 05/07/22 12:26 0 mcg/min .[id number] PRN 0 mls/hr HYPOTENSION Titration Protocol 8 MCG/MIN Meropenem 1 gm/ Sodium 100 mls @ 200 mls/hr 04/07/22 16:04 04/07/22 21:01 Chloride IV 04/10/22 16:03 200 mls/hr Q8HT BELLO Administration Lactated Ringer's 1,000 mls @ 100 mls/hr 04/07/22 18:00 04/08/22 03:42 Lactated Ringers IV 05/07/22 17:59 100 mls/hr .Q10H BELLO Administration Insulin Human Lispro 0 unit 04/07/22 17:58 04/07/22 23:08 Insulin Lispro 1 Unit SQ 05/07/22 17:57 2 unit UD PRN Administration HYPERGLYCEMIA Discontinued Medications Generic Name Dose Route Start Last Admin Trade Name Marianne PRN Reason Stop Dose Admin Duloxetine HCl 30 mg 04/07/22 22:00 04/07/22 21:01 Duloxetine Hcl 30 Mg Cap PO 04/07/22 22:01 30 mg ONCE ONE Administration Gabapentin 300 mg 04/07/22 22:00 04/07/22 21:01 Gabapentin 300 Mg Capsule PO 04/07/22 22:01 300 mg ONCE ONE Administration Hydrocortisone Sodium Succinate 100 mg 04/07/22 13:45 04/07/22 13:53 Hydrocortisone Sod Succinate 100 Mg/Vial Vial IV 04/07/22 13:46 100 mg STAT ONE Administration Hydrocortisone Sodium Succinate Confirm 04/07/22 13:52 Hydrocortisone Sod Succinate 100 Mg/Vial Vial Administered 04/07/22 13:53 Dose 100 mg .ROUTE .STK-MED ONE Sodium Chloride Confirm 04/07/22 11:18 Sodium Chloride 0.9% 1000 Ml Administered 04/07/22 11:19 Dose 1,000 mls @ ud .ROUTE .STK-MED ONE Sodium Chloride 1,000 mls @ 999 mls/hr 04/07/22 11:24 04/07/22 13:24 Sodium Chloride 0.9% 1000 Ml IV 04/07/22 12:24 Infused .Q1H1M STA Infusion Sodium Chloride Confirm 04/07/22 11:50 Sodium Chloride 0.9% 1000 Ml Administered 04/07/22 11:51 Dose 1,000 mls @ ud .ROUTE .STK-MED ONE Ceftriaxone Sodium/Dextrose 2 g in 50 mls @ 100 mls/hr 04/07/22 12:19 04/07/22 13:24 Rocephin 2 Gm-D5w 50ml Bag IV 04/07/22 12:48 Infused STAT STA Infusion Azithromycin 500 mg in 250 mls @ 250 mls/hr 04/07/22 12:19 04/07/22 14:06 Zithromax 500 Mg/ 250 Ml Nacl Premix IV 04/07/22 13:18 Infused STAT STA Infusion Azithromycin Confirm 04/07/22 12:32 Zithromax 500 Mg/ 250 Ml Nacl Premix Administered 04/07/22 12:33 Dose 500 mg in 250 mls @ ud IV .STK-MED ONE Ceftriaxone Sodium/Dextrose Confirm 04/07/22 12:32 Rocephin 2 Gm-D5w 50ml Bag Administered 04/07/22 12:33 Dose 2 g in 50 mls @ ud IV .STK-MED ONE Meropenem 1 gm/ Sodium 100 mls @ 200 mls/hr 04/07/22 13:58 04/07/22 19:17 Chloride IV 04/07/22 14:27 Not Given STAT ONE Levothyroxine Sodium 300 mcg 04/07/22 13:45 04/07/22 14:01 Levothyroxine Sodium 200 Mcg/Vial Vial IV 04/07/22 13:46 300 mcg STAT ONE Administration Ondansetron HCl Confirm 04/07/22 11:23 Ondansetron Hcl 4 Mg/2 Ml Vial Administered 04/07/22 11:24 Dose 4 mg .ROUTE .STK-MED ONE Ondansetron HCl 4 mg 04/07/22 12:13 04/07/22 12:14 Ondansetron Hcl 4 Mg/2 Ml Vial IV 04/07/22 12:14 4 mg STAT ONE Administration Pantoprazole Sodium 40 mg 04/07/22 12:09 04/07/22 12:13 Pantoprazole 40 Mg Vial IV 04/07/22 12:10 40 mg STAT ONE Administration Pantoprazole Sodium Confirm 04/07/22 12:11 Pantoprazole 40 Mg Vial Administered 04/07/22 12:12 Dose 40 mg IV .K-MED ONE Lab/Rad Data: Laboratory Result Diagrams 04/07/22 11:20 04/07/22 11:20 Laboratory Results 04/07/22 04/07/22 04/07/22 Range/Units 13:44 12:35 12:00 WBC (4.0-10.5) x10^3/uL RBC (4.1-5.6) x10^6/uL Hgb (12.5-18.0) g/dL Hct (42-50) % MCV (78-100) fL MCH (26-32) pg MCHC (32-36) g/dL RDW (11.5-14.0) % Plt Count (150-450) x10^3/uL MPV (7.5-11.0) fL Gran % (36.0-66.0) % Immature Gran % (Auto) (0.00-0.4) % Nucleat RBC Rel Count (0.00-0.1) % Eos # (Auto) (0-0.5) x10^3/uL Immature Gran # (Auto) (0.00-0.03) x10^3u/L Absolute Lymphs (auto) (1.0-4.6) x10^3/uL Absolute Monos (auto) (0.0-1.3) x10^3/uL Absolute Nucleated RBC (0.00-0.01) x10^3u/L Lymphocytes % (24.0-44.0) % Monocytes % (0.0-12.0) % Eosinophils % (0.00-5.0) % Basophils % (0.0-0.4) % Absolute Granulocytes (1.4-6.9) x10^3/uL Basophils # (0-0.4) x10^3/uL pO2/FiO2 Ratio % VBG pH (7.32-7.42) VBG pCO2 at Pat Temp (42-55) mm/Hg VBG pO2 at Pat Temp (25-40) mm/Hg VBG HCO3 (22-28) meq/L VBG O2 Sat (Harry) (95-100) VBG Base Excess (-2.0-2.0) VBG Hemoglobin VBG Carboxyhemoglobin (0.0-6.9) % T HGB POC Potassium (3.5-5.1) Sodium (137-145) mmol/L Potassium (3.5-5.1) mmol/L Chloride (98-107) mmol/L Carbon Dioxide (22-30) mmol/L Anion Gap (5-15) MEQ/L BUN (9-20) mg/dL Creatinine (0.66-1.25) mg/dL Estimated GFR ML/MIN Glucose (74-106) mg/dL POC Glucometer (74 to 106) mg/dL Lactic Acid 2.5 H (0.4-2.0) Calcium (8.4-10.2) mg/dL Total Bilirubin (0.2-1.3) mg/dL AST (17-59) U/L ALT (0-50) U/L Alkaline Phosphatase (38-126) U/L Troponin I (0.000-0.034) ng/mL NT-Pro-B Natriuret Pep (0-900) pg/mL Serum Total Protein (6.3-8.2) g/dL Albumin (3.5-5.0) g/dL TSH 3rd Generation (0.47-4.68) mIU/L Urine Color (Yellow) Urine Appearance (Clear) Urine pH (4.6-8.0) Ur Specific [place] (1.005-1.030) Urine Protein (Negative) Urine Glucose (UA) (Negative) mg/dL Urine Ketones (Negative) Urine Blood (Negative) Urine Nitrite (Negative) Urine Bilirubin (Negative) Urine Urobilinogen (0.2) mg/dL Ur Leukocyte Esterase (Negative) U Hyaline Cast (Auto) (0-2) /LPF Urine Microscopic RBC (0-5) /HPF Urine Microscopic WBC (0-5) /HPF Ur Epithelial Cells (None Seen) /HPF Urine Bacteria (None Seen) /HPF Urine Culture Reflexed (NO) Urine Opiates Level NEGATIVE (NEGATIVE) Ur Methadone NEGATIVE (NEGATIVE) Urine Barbiturates NEGATIVE (NEGATIVE) Ur Phencyclidine (PCP) (NEGATIVE) Urine Amphetamine NEGATIVE (NEGATIVE) U Benzodiazepine Level NEGATIVE (NEGATIVE) Urine Cocaine NEGATIVE (NEGATIVE) Urine Marijuana (THC) NEGATIVE (NEGATIVE) Influenza Type A Ag NEGATIVE (NEGATIVE) Influenza Type B Ag NEGATIVE (NEGATIVE) RSV (PCR) NEGATIVE (Negative) SARS-CoV-2 (PCR) NEGATIVE (NEGATIVE) 04/07/22 04/07/22 04/07/22 Range/Units 12:00 11:42 11:40 WBC (4.0-10.5) x10^3/uL RBC (4.1-5.6) x10^6/uL Hgb (12.5-18.0) g/dL Hct (42-50) % MCV (78-100) fL MCH (26-32) pg MCHC (32-36) g/dL RDW (11.5-14.0) % Plt Count (150-450) x10^3/uL MPV (7.5-11.0) fL Gran % (36.0-66.0) % Immature Gran % (Auto) (0.00-0.4) % Nucleat RBC Rel Count (0.00-0.1) % Eos # (Auto) (0-0.5) x10^3/uL Immature Gran # (Auto) (0.00-0.03) x10^3u/L Absolute Lymphs (auto) (1.0-4.6) x10^3/uL Absolute Monos (auto) (0.0-1.3) x10^3/uL Absolute Nucleated RBC (0.00-0.01) x10^3u/L Lymphocytes % (24.0-44.0) % Monocytes % (0.0-12.0) % Eosinophils % (0.00-5.0) % Basophils % (0.0-0.4) % Absolute Granulocytes (1.4-6.9) x10^3/uL Basophils # (0-0.4) x10^3/uL pO2/FiO2 Ratio 21.0 % VBG pH 7.31 L (7.32-7.42) VBG pCO2 at Pat Temp 43 (42-55) mm/Hg VBG pO2 at Pat Temp 52 H (25-40) mm/Hg VBG HCO3 21.7 L (22-28) meq/L VBG O2 Sat (Harry) 82.0 L (95-100) VBG Base Excess -4.5 L (-2.0-2.0) VBG Hemoglobin 14.3 VBG Carboxyhemoglobin 3.1 (0.0-6.9) % T HGB POC Potassium 4.8 (3.5-5.1) Sodium (137-145) mmol/L Potassium (3.5-5.1) mmol/L Chloride (98-107) mmol/L Carbon Dioxide (22-30) mmol/L Anion Gap (5-15) MEQ/L BUN (9-20) mg/dL Creatinine (0.66-1.25) mg/dL Estimated GFR ML/MIN Glucose (74-106) mg/dL POC Glucometer (74 to 106) mg/dL Lactic Acid (0.4-2.0) Calcium (8.4-10.2) mg/dL Total Bilirubin (0.2-1.3) mg/dL AST (17-59) U/L ALT (0-50) U/L Alkaline Phosphatase (38-126) U/L Troponin I (0.000-0.034) ng/mL NT-Pro-B Natriuret Pep (0-900) pg/mL Serum Total Protein (6.3-8.2) g/dL Albumin (3.5-5.0) g/dL TSH 3rd Generation 9.160 H (0.47-4.68) mIU/L Urine Color Yellow (Yellow) Urine Appearance Clear (Clear) Urine pH 6.0 (4.6-8.0) Ur Specific [place] 1.015 (1.005-1.030) Urine Protein >=1000 A (Negative) Urine Glucose (UA) 100 A (Negative) mg/dL Urine Ketones Negative (Negative) Urine Blood Negative (Negative) Urine Nitrite Negative (Negative) Urine Bilirubin Negative (Negative) Urine Urobilinogen 0.2 (0.2) mg/dL Ur Leukocyte Esterase Negative (Negative) U Hyaline Cast (Auto) 3-5 A (0-2) /LPF Urine Microscopic RBC 0-2 (0-5) /HPF Urine Microscopic WBC 0-2 (0-5) /HPF Ur Epithelial Cells None Seen (None Seen) /HPF Urine Bacteria None Seen (None Seen) /HPF Urine Culture Reflexed NO (NO) Urine Opiates Level (NEGATIVE) Ur Methadone (NEGATIVE) Urine Barbiturates (NEGATIVE) Ur Phencyclidine (PCP) (NEGATIVE) Urine Amphetamine (NEGATIVE) U Benzodiazepine Level (NEGATIVE) Urine Cocaine (NEGATIVE) Urine Marijuana (THC) (NEGATIVE) Influenza Type A Ag (NEGATIVE) Influenza Type B Ag (NEGATIVE) RSV (PCR) (Negative) SARS-CoV-2 (PCR) (NEGATIVE) 04/07/22 04/07/22 04/07/22 Range/Units 11:24 11:20 11:20 WBC (4.0-10.5) x10^3/uL RBC (4.1-5.6) x10^6/uL Hgb (12.5-18.0) g/dL Hct (42-50) % MCV (78-100) fL MCH (26-32) pg MCHC (32-36) g/dL RDW (11.5-14.0) % Plt Count (150-450) x10^3/uL MPV (7.5-11.0) fL Gran % (36.0-66.0) % Immature Gran % (Auto) (0.00-0.4) % Nucleat RBC Rel Count (0.00-0.1) % Eos # (Auto) (0-0.5) x10^3/uL Immature Gran # (Auto) (0.00-0.03) x10^3u/L Absolute Lymphs (auto) (1.0-4.6) x10^3/uL Absolute Monos (auto) (0.0-1.3) x10^3/uL Absolute Nucleated RBC (0.00-0.01) x10^3u/L Lymphocytes % (24.0-44.0) % Monocytes % (0.0-12.0) % Eosinophils % (0.00-5.0) % Basophils % (0.0-0.4) % Absolute Granulocytes (1.4-6.9) x10^3/uL Basophils # (0-0.4) x10^3/uL pO2/FiO2 Ratio % VBG pH (7.32-7.42) VBG pCO2 at Pat Temp (42-55) mm/Hg VBG pO2 at Pat Temp (25-40) mm/Hg VBG HCO3 (22-28) meq/L VBG O2 Sat (Harry) (95-100) VBG Base Excess (-2.0-2.0) VBG Hemoglobin VBG Carboxyhemoglobin (0.0-6.9) % T HGB POC Potassium (3.5-5.1) Sodium 134 L (137-145) mmol/L Potassium 4.7 (3.5-5.1) mmol/L Chloride 100 (98-107) mmol/L Carbon Dioxide 22 (22-30) mmol/L Anion Gap 16.2 H (5-15) MEQ/L BUN 46 H (9-20) mg/dL Creatinine 2.73 H (0.66-1.25) mg/dL Estimated GFR 24.5 ML/MIN Glucose 259 H (74-106) mg/dL POC Glucometer (74 to 106) mg/dL Lactic Acid 3.8 H (0.4-2.0) Calcium 9.8 (8.4-10.2) mg/dL Total Bilirubin 0.60 (0.2-1.3) mg/dL AST 33 (17-59) U/L ALT 20 (0-50) U/L Alkaline Phosphatase 123 (38-126) U/L Troponin I 0.027 (0.000-0.034) ng/mL NT-Pro-B Natriuret Pep 4640 H (0-900) pg/mL Serum Total Protein 7.9 (6.3-8.2) g/dL Albumin 4.1 (3.5-5.0) g/dL TSH 3rd Generation (0.47-4.68) mIU/L Urine Color (Yellow) Urine Appearance (Clear) Urine pH (4.6-8.0) Ur Specific [place] (1.005-1.030) Urine Protein (Negative) Urine Glucose (UA) (Negative) mg/dL Urine Ketones (Negative) Urine Blood (Negative) Urine Nitrite (Negative) Urine Bilirubin (Negative) Urine Urobilinogen (0.2) mg/dL Ur Leukocyte Esterase (Negative) U Hyaline Cast (Auto) (0-2) /LPF Urine Microscopic RBC (0-5) /HPF Urine Microscopic WBC (0-5) /HPF Ur Epithelial Cells (None Seen) /HPF Urine Bacteria (None Seen) /HPF Urine Culture Reflexed (NO) Urine Opiates Level (NEGATIVE) Ur Methadone (NEGATIVE) Urine Barbiturates (NEGATIVE) Ur Phencyclidine (PCP) (NEGATIVE) Urine Amphetamine (NEGATIVE) U Benzodiazepine Level (NEGATIVE) Urine Cocaine (NEGATIVE) Urine Marijuana (THC) (NEGATIVE) Influenza Type A Ag (NEGATIVE) Influenza Type B Ag (NEGATIVE) RSV (PCR) (Negative) SARS-CoV-2 (PCR) (NEGATIVE) 04/07/22 04/07/22 Range/Units 11:20 11:11 WBC 5.9 (4.0-10.5) x10^3/uL RBC 4.48 (4.1-5.6) x10^6/uL Hgb 13.7 (12.5-18.0) g/dL Hct 42.4 (42-50) % MCV 94.6 (78-100) fL MCH 30.6 (26-32) pg MCHC 32.3 (32-36) g/dL RDW 13.2 (11.5-14.0) % Plt Count 320 (150-450) x10^3/uL MPV 11.5 H (7.5-11.0) fL Gran % 50.2 (36.0-66.0) % Immature Gran % (Auto) 0.3 (0.00-0.4) % Nucleat RBC Rel Count 0.0 (0.00-0.1) % Eos # (Auto) 0.38 (0-0.5) x10^3/uL Immature Gran # (Auto) 0.02 (0.00-0.03) x10^3u/L Absolute Lymphs (auto) 2.11 (1.0-4.6) x10^3/uL Absolute Monos (auto) 0.39 (0.0-1.3) x10^3/uL Absolute Nucleated RBC 0.00 (0.00-0.01) x10^3u/L Lymphocytes % 35.8 (24.0-44.0) % Monocytes % 6.6 (0.0-12.0) % Eosinophils % 6.4 H (0.00-5.0) % Basophils % 0.7 (0.0-0.4) % Absolute Granulocytes 2.96 (1.4-6.9) x10^3/uL Basophils # 0.04 (0-0.4) x10^3/uL pO2/FiO2 Ratio % VBG pH (7.32-7.42) VBG pCO2 at Pat Temp (42-55) mm/Hg VBG pO2 at Pat Temp (25-40) mm/Hg VBG HCO3 (22-28) meq/L VBG O2 Sat (Harry) (95-100) VBG Base Excess (-2.0-2.0) VBG Hemoglobin VBG Carboxyhemoglobin (0.0-6.9) % T HGB POC Potassium (3.5-5.1) Sodium (137-145) mmol/L Potassium (3.5-5.1) mmol/L Chloride (98-107) mmol/L Carbon Dioxide (22-30) mmol/L Anion Gap (5-15) MEQ/L BUN (9-20) mg/dL Creatinine (0.66-1.25) mg/dL Estimated GFR ML/MIN Glucose (74-106) mg/dL POC Glucometer 245 H (74 to 106) mg/dL Lactic Acid (0.4-2.0) Calcium (8.4-10.2) mg/dL Total Bilirubin (0.2-1.3) mg/dL AST (17-59) U/L ALT (0-50) U/L Alkaline Phosphatase (38-126) U/L Troponin I (0.000-0.034) ng/mL NT-Pro-B Natriuret Pep (0-900) pg/mL Serum Total Protein (6.3-8.2) g/dL Albumin (3.5-5.0) g/dL TSH 3rd Generation (0.47-4.68) mIU/L Urine Color (Yellow) Urine Appearance (Clear) Urine pH (4.6-8.0) Ur Specific [place] (1.005-1.030) Urine Protein (Negative) Urine Glucose (UA) (Negative) mg/dL Urine Ketones (Negative) Urine Blood (Negative) Urine Nitrite (Negative) Urine Bilirubin (Negative) Urine Urobilinogen (0.2) mg/dL Ur Leukocyte Esterase (Negative) U Hyaline Cast (Auto) (0-2) /LPF Urine Microscopic RBC (0-5) /HPF Urine Microscopic WBC (0-5) /HPF Ur Epithelial Cells (None Seen) /HPF Urine Bacteria (None Seen) /HPF Urine Culture Reflexed (NO) Urine Opiates Level (NEGATIVE) Ur Methadone (NEGATIVE) Urine Barbiturates (NEGATIVE) Ur Phencyclidine (PCP) (NEGATIVE) Urine Amphetamine (NEGATIVE) U Benzodiazepine Level (NEGATIVE) Urine Cocaine (NEGATIVE) Urine Marijuana (THC) (NEGATIVE) Influenza Type A Ag (NEGATIVE) Influenza Type B Ag (NEGATIVE) RSV (PCR) (Negative) SARS-CoV-2 (PCR) (NEGATIVE) - Progress Progress: improved Progress Note: Patient 72-year-old male presents to our ED for evaluation s/p hypotensive generalized weakness with altered mental status. Review of systems unable to be completed due to mental status. Physical exam reveals a hypotensive male with mottled cool clammy skin. Symptoms were acute in onset. Complexity is severe. No clear connection of comorbidities to current presentation. Tests ordered include CBC CMP COVID lactic acid proBNP troponin TSH UA urine triage VBG. Treatments include azithromycin meropenem ceftriaxone levothyroxine hydrocortiso ne Zofran. Results of studies were used for medical decision making. Case discussed with Dr. White who accepts admission to observation. Plan of care discussed with patient. He agrees to admission at [facility] for further evaluation and treatment. Level of EM service provided was high. Complexity of problem is high. Amount and complexity of data reviewed and analyzed was high. Risks of complications and/or risk of morbidity/mortality of patient management is high. Critical care time billed. Patient unable to provide information for this HPI. at bedside provided most of the HPI. Daughter also provided information towards HPI. No senior accounting clerk required. Portions of this note were created with voice recognition technology. There may be grammatical, spelling, punctuation or sound alike errors 04/08/22 05:25 Discussed with : Peg Will see patient in: hospital (observation) Counseled pt/family regarding: lab results, diagnosis, rad results - Departure Departure Disposition: Observation Clinical Impression: Pneumonia, High anion gap metabolic acidosis, Lactic acidosis, Elevated brain natriuretic peptide (BNP) level, Acute renal injury, Hypothermia, Sepsis, Hypothyroidism, Hiatal hernia, Fecal impaction in rectum, Fecal stasis, Atherosclerotic heart disease Condition: Stable Critical Care Time: Yes Critical Care Time(excluding separately billable procedures): Critical 75-104 mins
[2022-04-07 12:25] LABS: Bacteria None Seen /HPF (None Seen); Epithelial Cells None Seen /HPF (None Seen); RBC 0-2 /HPF (0-5); WBC 0-2 /HPF (0-5)
[2022-04-07 12:26] LABS: Amphetamine,Urine NEGATIVE (NEGATIVE)
[2022-04-07] MEDS ORDERED: NOREPINEPHRINE 8 MG/250 ML-D5W 8 MG/250 ML PLAST..BAG IV PRN (12:27)
[2022-04-07 12:32] LABS: ADD URINE CULTURE? NO (NO)
[2022-04-07] MEDS ORDERED: ROCEPHIN 2 Gm-D5w 50ML BAG** 2 G/50 ML IVPB IV ONE (12:32)
[2022-04-07] MEDS ORDERED: Zithromax 500 MG/ 250 ML NaCl Premix 500 MG/250 ML IVPB IV ONE (12:32)
[2022-04-07 12:46] LABS: Benzodiazepine,Urine NEGATIVE (NEGATIVE)
[2022-04-07 13:13] LABS: INFLUENZA A NEGATIVE (NEGATIVE); INFLUENZA B NEGATIVE (NEGATIVE); RESPIRATORY SYNCTIAL VIRUS NEGATIVE (Negative); SARS-CoV-2 Xpert Express NEGATIVE (NEGATIVE)
--- NOTE | 2022-04-07 13:29 | XRAY ---
Indication: Loss of consciousness. Recent fall. Abdominal pain. Decreasing blood pressure. Multiple contiguous axial images obtained through the head without contrast. Comparison: March 28, 2022. 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 No acute intracranial hemorrhage, abnormal extra-axial fluid collection, or mass effect. Fourth ventricle is midline without hydrocephalus. Bony calvarium intact. Visualized paranasal sinuses and mastoid air cells are clear. Impression: No change compared to recent CT head exams March 11, 2022, March 20, 2022, and March 28, 2022. Continued nonacute senile brain with small old infarct right frontal lobe.
--- NOTE | 2022-04-07 13:33 | XRAY ---
Indication: Loss of consciousness. Recent fall. Abdominal pain. Decreasing blood pressure. Multiple contiguous axial images obtained through the abdomen and pelvis without contrast. Comparison: November 03, 2020. Lung bases again demonstrates mild bilateral dependent atelectasis, less than before. Heart not enlarged. New small hiatal hernia. Noncontrasted stomach and bowel loops appear nonobstructed. Colon demonstrates new moderate diffuse scattered fecal debris with fluid leveling and new moderate rectal impaction. Again cholecystectomy and splenic calcified granulomas. Near empty urinary bladder demonstrates new Morales balloon catheter in situ. No free fluid/air. Remaining liver, pancreas, spleen, adrenal glands, kidneys, and ureters are unremarkable for noncontrast exam. Again heavy scattered vascular calcifications including both renal arteries. No AAA. Osseous structures intact again with osteopenia and mild/moderate degenerative changes throughout the thoracolumbar spine. Impression: 1. New diffuse moderate fecal stasis with rectal impaction. 2. New small hiatal hernia and Morales catheter in situ. 3. Again chronic findings including extensive arteriosclerotic disease, chronic bony findings, and old granulomatous disease.
[2022-04-07] MEDS ORDERED: Synthroid 200 MCG INJECTION IV ONE ×2 (13:45)
[2022-04-07] MEDS ORDERED: solu-CORTEF 100MG IV ONE (13:45)
[2022-04-07] MEDS ORDERED: solu-CORTEF 100MG ONE (13:52)
[2022-04-07] MEDS ORDERED: Merrem 1 GM in Sodium Chloride 100ML MINI-BAG PLUS 100 ML IV ONE (13:58)
[2022-04-07] MEDS: Merrem 1 GM in Sodium Chloride 100ML MINI-BAG PLUS 100 ML IV SCH ×2 (16:22→21:01)
[2022-04-07] MEDS: Lactated Ringers 1,000 ML IV SCH (18:10)
[2022-04-07] MEDS: TYLENOL 325 MG PO PRN (20:45)
[2022-04-07] MEDS ORDERED: NEURONTIN PO ONE (22:00)
[2022-04-07] MEDS ORDERED: Cymbalta 30 MG Capsule PO ONE (22:00)
[2022-04-07] MEDS: HUMALOG SQ PRN (23:08)
[2022-04-08] MEDS: Lactated Ringers 1,000 ML IV SCH (03:42)
[2022-04-08] MEDS: TYLENOL 325 MG PO PRN (03:55)
[2022-04-08] MEDS: SUBLIMAZE 100 MCG/2 ML IV PRN (03:55)
[2022-04-08 05:07] LABS: Hematocrit 36.2 % (42-50); Hemoglobin 11.8 g/dL (12.5-18.0); Mean Cell Volume 94.3 fL (78-100); Mean Corpuscular Hemoglobin 30.7 pg (26-32); Mean Corpuscular Hgb Concent. 32.6 g/dL (32-36); Mean Platelet Volume 11.8 fL (7.5-11.0); Platelet Count 243 x10^3/uL (150-450); Red Blood Count 3.84 x10^6/uL (4.1-5.6); Red Cell Distribution Width 13.9 % (11.5-14.0); White Blood Count 17.3 x10^3/uL (4.0-10.5)
[2022-04-08] MEDS: Merrem 1 GM in Sodium Chloride 100ML MINI-BAG PLUS 100 ML IV SCH ×3 (05:25→21:01)
[2022-04-08 05:43] LABS: Lymphocytes 10 % (24-44); Monocyte 4 % (0.0-12.0); Neutrophils 86 % (36.-66.); Platelet Estimate NORMAL (NORMAL); Total Cells Counted 100
[2022-04-08 05:55] LABS: ALBUMIN 3.1 g/dL (3.5-5.0); ANION GAP 15.9 MEQ/L (5-15); BILIRUBIN,TOTAL 0.6 mg/dL (0.2-1.3); Calcium 8.3 mg/dL (8.4-10.2); Creatinine 1 3.66 mg/dL (0.66-1.25); EST GLOMERULAR FILTRATION RATE 17.5 ML/MIN; Potassium 5.1 mmol/L (3.5-5.1); Total Protein 5.9 g/dL (6.3-8.2)
[2022-04-08] MEDS ORDERED: VENTOLIN COMMON CANISTER IH PRN (07:20)
[2022-04-08] MEDS: Lantus Insulin SQ SCH (08:02)
[2022-04-08] MEDS ORDERED: NON-FORMULARY ITEM (Rosuvastatin Calcium [Rosuvastatin Calcium] 20 MG Tablet) PO SCH (10:00)
[2022-04-08] MEDS ORDERED: NEURONTIN PO SCH (10:00)
--- NOTE | 2022-04-08 11:58 | XRAY ---
Indication: Pulmonary edema. Oliguria. Comparison: One day earlier Portable chest does not completely include left costophrenic angle. Grossly stable left base hazy infiltrate/atelectasis and CABG surgery. Remaining heart and right lung unremarkable. No new cardiopulmonary abnormalities.
[2022-04-08] MEDS: Cymbalta 30 MG Capsule PO SCH ×2 (12:49→21:01)
--- NOTE | 2022-04-08 12:51 | PCM.HP ---
History of Present Illness - Chief Complaint Chief Complaint: sepsis, hypotension History of Present Illness: is a 72 year old male pt of Dr. Hester with PMHc DM, CAD (CABG 4 mo ago), cerebrovasc dz, CKD 3, CHF, DM, diverticulosis, labile HTN, mild dementia, sz d/o, fatty liver, TIA, and TOB abuse admitted through ER with sepsis, PNA, AMS, lactic acidosis, and CRI. Pt was sent over from office yesterday; was very weak and diaphoretic. Pt was unable to give any history. Family noted he is DNR but they did not object to pressors. He was on norepinephrine in ER and down to the med surg floor; has been off of it since yesterday afternoon. In ER, CXR with L infiltrate. CT hea d nonacute. Blood cultures pending. TSH 9.16. CT abd/pelvis nonacute. He was given IV rocephin and zithromax, then those were d/c'd in the ER and he was started on IV meropenem. WBC were 5.9 yesterday and 17.3 today. Today he will rouse to voice and answer some questions, but he is obtunded. His daughter is at bedside and said he gets confused off and on, worse when he is sick. He has only had 100cc urine out this morning, brown in color. - Review of Systems All Other Systems: Unable due to condition Medications & Allergies Home Medications: Home Medication List Insulin Glargine [Lantus Insulin] 30 unit SQ DAILY 08/08/16 [History Confirmed 04/07/22] Aspirin [Aspirin EC] 81 mg PO DAILY 07/12/21 [History Confirmed 04/07/22] Duloxetine HCl 30 mg [Cymbalta 30 MG Capsule] 30 mg PO BID 07/12/21 [History Confirmed 04/07/22] Gabapentin [Neurontin ] 600 mg PO TID 07/12/21 [History Confirmed 04/07/22] Insulin Lispro [Humalog] 0 unit SQ ACHS 07/12/21 [History Confirmed 04/07/22] Polyethylene Glycol 3350 [Miralax] 17 gm PO DAILY PRN PRN 07/12/21 [History Confirmed 04/07/22] Rosuvastatin Calcium 20 mg PO DAILY 07/12/21 [History Confirmed 04/07/22] Acetaminophen 325 mg [Tylenol 325 mg] 325 mg PO Q4H PRN 09/07/21 [History Confirmed 04/07/22] Albuterol Sulfate [Proventil Hfa] 2 puff IH Q4H PRN PRN 09/07/21 [History Confirmed 04/07/22] PANTOPRAZOLE 40 mg Tablet [Protonix 40MG Tablet] 40 mg PO QHS 09/07/21 [History Confirmed 04/07/22] Potassium Chloride [Klor-Con] 10 meq PO DAILY 09/07/21 [History Confirmed 04/07/22] Clopidogrel Bisulfate [Clopidogrel] 75 mg PO DAILY 01/25/22 [History Confirmed 04/07/22] Lisinopril 10 mg [Zestril 10 MG] 10 mg PO DAILY 01/25/22 [History Confirmed 04/07/22] Furosemide 20 mg [Lasix 20 mg] 20 mg PO DAILY 03/28/22 [History Confirmed 04/07/22] Hydralazine HCl 75 mg PO TID 03/28/22 [History Confirmed 04/07/22] Metoprolol Tartrate 50 mg [Lopressor 50 MG] 100 mg PO BID 03/28/22 [History Confirmed 04/07/22] Oxycodone / APAP 10/325 mg [Oxycodone-Acetaminophen 10-325] 1 each PO Q6H PRN 03/28/22 [History Confirmed 04/07/22] cloNIDine HCL [Clonidine HCl] 0.3 mg PO TID 03/28/22 [History Confirmed 04/07/22] Allergies/Adverse Reactions: Allergies Allergy/AdvReac Type Severity Reaction Status Date / Time No Known Drug Allergies Allergy Verified 04/07/22 11:13 - Past Medical History Past Medical History: Yes Neurological History: Peripheral Neuropathy ENT History: Cataracts Cardiac History: Congestive Heart Failure, Coronary Artery Disease, High Cholesterol, Hypertension, Myocardial Infarction ([place]) Respiratory History: No Pertinent History Endocrine Medical History: Diabetes Type II Musculoskelatal History: No Pertinent History GI Medical History: GERD History: No Pertinent History Pyscho-Social History: Anxiety, Depression Male Reproductive Disorders: No Pertinent History Comment: PATIENT REPORTS PROBLEMS WITH SHORT TERM MEMORY AND NOTED ON E.R. REPOR T FROM OCTOBER 2020. ALSO GERD, DEPRESSION, CERVICAL FUSION, CHOLECYSTECTOMY. PATIENT REPORTS VACCINATED AND BOOSTER FOR COVID. - Past Surgical History Past Surgical History: Yes Neuro Surgical History: No Pertinent History Cardiac History: CABG, Cardiac Catheterization Respiratory Surgery: Chest Surgery GI Surgical History: No Pertinent History Genitourinary Surgical Hx: No Pertinent History Musculskeletal Surgical Hx: No Pertinent History Male Surgical History: No Pertinent History Other Surgical History: cervicle fusion - Social History Smoking Status: Former smoker How long have you smoked: 55 Exposure to second hand smoke: No Alcohol: None Drug Use: none Significant Family History: no pertinent family hx - Physical Exam Vital Signs: Vital Signs - 24 hr Temp Pulse Resp BP BP Pulse Ox 04/08/22 12:00 99.0 F 63 16 116/65 04/08/22 10:09 99.1 F 61 14 127/66 95 04/08/22 08:00 98 F 62 22 146/54 93 L 04/08/22 05:30 95 04/08/22 05:00 99.9 F 64 14 125/56 04/08/22 04:00 100.0 F 63 18 118/53 98 04/08/22 03:00 100.2 F 64 19 155/53 93 L 04/08/22 02:00 65 129/56 04/08/22 01:00 100.4 F 66 16 112/57 93 L 04/08/22 00:01 69 04/08/22 00:00 100.4 F 69 16 124/57 92 L 04/07/22 23:00 100.2 F 66 20 114/50 93 L 04/07/22 22:00 100.2 F 63 17 104/55 93 L 04/07/22 21:00 100.0 F 61 21 104/49 97 04/07/22 20:32 63 121/55 04/07/22 20:01 63 82/61 04/07/22 20:00 99.9 F 62 15 114/58 92 L 04/07/22 19:45 99.3 F 63 18 85/62 94 L 04/07/22 19:26 62 115/60 04/07/22 18:59 99.3 F 62 18 90/46 92 L 04/07/22 18:00 99.0 F 58 L 16 128/64 04/07/22 17:00 98.4 F 58 L 18 141/58 04/07/22 16:30 96 04/07/22 16:04 96 04/07/22 16:00 98.4 F 56 L 16 130/57 96 04/07/22 15:21 97.9 F 50 L 18 93/49 94 L 04/07/22 15:05 97.9 F 50 L 16 93/49 91 L 04/07/22 15:00 97.9 F 50 L 16 93/49 91 L 04/07/22 14:33 60 18 85/54 94 L 04/07/22 14:11 62 18 115/72 95 04/07/22 14:01 61 18 120/63 94 L 04/07/22 13:29 97.2 F 62 97 H 127/81 96 04/07/22 13:22 148/61 04/07/22 13:00 57 L 18 107/35 94 L 04/07/22 12:51 54 L 75/44 95 General Appearance: no apparent distress, other (head back, mouth open, on room air. eyes open. answers some questions.) Neurologic Exam: disoriented, confusion Eye Exam: eyes nml inspection Ears, Nose, Throat Exam: dry mucous membranes Neck Exam: normal inspection Respiratory Exam: diminished breath sounds (poor effort), No crackles/rales, No rhonchi, No wheezing Cardiovascular Exam: regular rate/rhythm, normal heart sounds, No murmur Gastrointestinal/Abdomen Exam: soft, normal bowel sounds, tenderness (throughout - pt objects to exam), No distention, No mass, No rebound Extremity Exam: No pedal edema, No swelling Skin Exam: normal color, warm, dry, No rash Wound Assessment: Skin/Wound Assessment Wound/Incision Assessment Start: 04/07/22 16:01 Text: Status: Active Freq: Q6H Protocol: Document 04/08/22 08:00 REBEKAH (Rec: 04/08/22 08:19 REBEKAH [id number]) Wound/Incision Assessment Lower Buttock Wound Assessment Shift Assessment Wound Type REDNESS/EXCORIATION Wound Stage Non Pressure Wound Drainage Amount None Comment BARRIER CREAM APPLIED Wound Photo Photo Taken No Results - Labs Lab/Micro Results: Lab Results-Last 24 Hours 04/07/22 04/07/22 04/07/22 Range/Units 11:40 12:00 12:35 WBC (4.0-10.5) x10^3/uL RBC (4.1-5.6) x10^6/uL Hgb (12.5-18.0) g/dL Hct (42-50) % MCV (78-100) fL MCH (26-32) pg MCHC (32-36) g/dL RDW (11.5-14.0) % Plt Count (150-450) x10^3/uL MPV (7.5-11.0) fL Segmented Neutrophils (36.-66.) % Lymphocytes (Manual) (24-44) % Monocytes (Manual) (0.0-12.0) % Platelet Estimate (NORMAL) RBC Morphology Sodium (137-145) mmol/L Potassium (3.5-5.1) mmol/L Chloride (98-107) mmol/L Carbon Dioxide (22-30) mmol/L Anion Gap (5-15) MEQ/L BUN (9-20) mg/dL Creatinine (0.66-1.25) mg/dL Estimated GFR ML/MIN Glucose (74-106) mg/dL POC Glucometer (74 to 106) mg/dL Lactic Acid (0.4-2.0) Calcium (8.4-10.2) mg/dL Total Bilirubin (0.2-1.3) mg/dL AST (17-59) U/L ALT (0-50) U/L Alkaline Phosphatase (38-126) U/L Troponin I (0.000-0.034) ng/mL Serum Total Protein (6.3-8.2) g/dL Albumin (3.5-5.0) g/dL Prealbumin (17.6-36.0) mg/dL TSH 3rd Generation 9.160 H (0.47-4.68) mIU/L Urine Opiates Level NEGATIVE (NEGATIVE) Ur Methadone NEGATIVE (NEGATIVE) Urine Barbiturates NEGATIVE (NEGATIVE) Ur Phencyclidine (PCP) (NEGATIVE) Urine Amphetamine NEGATIVE (NEGATIVE) U Benzodiazepine Level NEGATIVE (NEGATIVE) Urine Cocaine NEGATIVE (NEGATIVE) Urine Marijuana (THC) NEGATIVE (NEGATIVE) Influenza Type A Ag NEGATIVE (NEGATIVE) Influenza Type B Ag NEGATIVE (NEGATIVE) RSV (PCR) NEGATIVE (Negative) SARS-CoV-2 (PCR) NEGATIVE (NEGATIVE) 04/07/22 04/07/22 04/07/22 Range/Units 13:44 15:14 16:01 WBC (4.0-10.5) x10^3/uL RBC (4.1-5.6) x10^6/uL Hgb (12.5-18.0) g/dL Hct (42-50) % MCV (78-100) fL MCH (26-32) pg MCHC (32-36) g/dL RDW (11.5-14.0) % Plt Count (150-450) x10^3/uL MPV (7.5-11.0) fL Segmented Neutrophils (36.-66.) % Lymphocytes (Manual) (24-44) % Monocytes (Manual) (0.0-12.0) % Platelet Estimate (NORMAL) RBC Morphology Sodium (137-145) mmol/L Potassium (3.5-5.1) mmol/L Chloride (98-107) mmol/L Carbon Dioxide (22-30) mmol/L Anion Gap (5-15) MEQ/L BUN (9-20) mg/dL Creatinine (0.66-1.25) mg/dL Estimated GFR ML/MIN Glucose (74-106) mg/dL POC Glucometer (74 to 106) mg/dL Lactic Acid 2.5 H (0.4-2.0) Calcium (8.4-10.2) mg/dL Total Bilirubin (0.2-1.3) mg/dL AST (17-59) U/L ALT (0-50) U/L Alkaline Phosphatase (38-126) U/L Troponin I 0.027 (0.000-0.034) ng/mL Serum Total Protein (6.3-8.2) g/dL Albumin (3.5-5.0) g/dL Prealbumin 27.14 (17.6-36.0) mg/dL TSH 3rd Generation (0.47-4.68) mIU/L Urine Opiates Level (NEGATIVE) Ur Methadone (NEGATIVE) Urine Barbiturates (NEGATIVE) Ur Phencyclidine (PCP) (NEGATIVE) Urine Amphetamine (NEGATIVE) U Benzodiazepine Level (NEGATIVE) Urine Cocaine (NEGATIVE) Urine Marijuana (THC) (NEGATIVE) Influenza Type A Ag (NEGATIVE) Influenza Type B Ag (NEGATIVE) RSV (PCR) (Negative) SARS-CoV-2 (PCR) (NEGATIVE) 04/07/22 04/07/22 04/07/22 Range/Units 16:20 19:40 22:48 WBC (4.0-10.5) x10^3/uL RBC (4.1-5.6) x10^6/uL Hgb (12.5-18.0) g/dL Hct (42-50) % MCV (78-100) fL MCH (26-32) pg MCHC (32-36) g/dL RDW (11.5-14.0) % Plt Count (150-450) x10^3/uL MPV (7.5-11.0) fL Segmented Neutrophils (36.-66.) % Lymphocytes (Manual) (24-44) % Monocytes (Manual) (0.0-12.0) % Platelet Estimate (NORMAL) RBC Morphology Sodium (137-145) mmol/L Potassium (3.5-5.1) mmol/L Chloride (98-107) mmol/L Carbon Dioxide (22-30) mmol/L Anion Gap (5-15) MEQ/L BUN (9-20) mg/dL Creatinine (0.66-1.25) mg/dL Estimated GFR ML/MIN Glucose (74-106) mg/dL POC Glucometer 229 H 245 H (74 to 106) mg/dL Lactic Acid (0.4-2.0) Calcium (8.4-10.2) mg/dL Total Bilirubin (0.2-1.3) mg/dL AST (17-59) U/L ALT (0-50) U/L Alkaline Phosphatase (38-126) U/L Troponin I 0.045 H* (0.000-0.034) ng/mL Serum Total Protein (6.3-8.2) g/dL Albumin (3.5-5.0) g/dL Prealbumin (17.6-36.0) mg/dL TSH 3rd Generation (0.47-4.68) mIU/L Urine Opiates Level (NEGATIVE) Ur Methadone (NEGATIVE) Urine Barbiturates (NEGATIVE) Ur Phencyclidine (PCP) (NEGATIVE) Urine Amphetamine (NEGATIVE) U Benzodiazepine Level (NEGATIVE) Urine Cocaine (NEGATIVE) Urine Marijuana (THC) (NEGATIVE) Influenza Type A Ag (NEGATIVE) Influenza Type B Ag (NEGATIVE) RSV (PCR) (Negative) SARS-CoV-2 (PCR) (NEGATIVE) 04/08/22 04/08/22 04/08/22 Range/Units 04:20 04:20 07:48 WBC 17.3 H (4.0-10.5) x10^3/uL RBC 3.84 L (4.1-5.6) x10^6/uL Hgb 11.8 L (12.5-18.0) g/dL Hct 36.2 L (42-50) % MCV 94.3 (78-100) fL MCH 30.7 (26-32) pg MCHC 32.6 (32-36) g/dL RDW 13.9 (11.5-14.0) % Plt Count 243 (150-450) x10^3/uL MPV 11.8 H (7.5-11.0) fL Segmented Neutrophils 86 H (36.-66.) % Lymphocytes (Manual) 10 L (24-44) % Monocytes (Manual) 4 (0.0-12.0) % Platelet Estimate NORMAL (NORMAL) RBC Morphology NORMAL Sodium 132 L (137-145) mmol/L Potassium 5.1 (3.5-5.1) mmol/L Chloride 104 (98-107) mmol/L Carbon Dioxide 18 L (22-30) mmol/L Anion Gap 15.9 H (5-15) MEQ/L BUN 60 H (9-20) mg/dL Creatinine 3.66 H (0.66-1.25) mg/dL Estimated GFR 17.5 ML/MIN Glucose 259 H (74-106) mg/dL POC Glucometer 227 H (74 to 106) mg/dL Lactic Acid (0.4-2.0) Calcium 8.3 L D (8.4-10.2) mg/dL Total Bilirubin 0.60 (0.2-1.3) mg/dL AST 37 (17-59) U/L ALT 20 (0-50) U/L Alkaline Phosphatase 86 (38-126) U/L Troponin I (0.000-0.034) ng/mL Serum Total Protein 5.9 L (6.3-8.2) g/dL Albumin 3.1 L (3.5-5.0) g/dL Prealbumin (17.6-36.0) mg/dL TSH 3rd Generation (0.47-4.68) mIU/L Urine Opiates Level (NEGATIVE) Ur Methadone (NEGATIVE) Urine Barbiturates (NEGATIVE) Ur Phencyclidine (PCP) (NEGATIVE) Urine Amphetamine (NEGATIVE) U Benzodiazepine Level (NEGATIVE) Urine Cocaine (NEGATIVE) Urine Marijuana (THC) (NEGATIVE) Influenza Type A Ag (NEGATIVE) Influenza Type B Ag (NEGATIVE) RSV (PCR) (Negative) SARS-CoV-2 (PCR) (NEGATIVE) 04/08/22 Range/Units 11:46 WBC (4.0-10.5) x10^3/uL RBC (4.1-5.6) x10^6/uL Hgb (12.5-18.0) g/dL Hct (42-50) % MCV (78-100) fL MCH (26-32) pg MCHC (32-36) g/dL RDW (11.5-14.0) % Plt Count (150-450) x10^3/uL MPV (7.5-11.0) fL Segmented Neutrophils (36.-66.) % Lymphocytes (Manual) (24-44) % Monocytes (Manual) (0.0-12.0) % Platelet Estimate (NORMAL) RBC Morphology Sodium (137-145) mmol/L Potassium (3.5-5.1) mmol/L Chloride (98-107) mmol/L Carbon Dioxide (22-30) mmol/L Anion Gap (5-15) MEQ/L BUN (9-20) mg/dL Creatinine (0.66-1.25) mg/dL Estimated GFR ML/MIN Glucose (74-106) mg/dL POC Glucometer 204 H (74 to 106) mg/dL Lactic Acid (0.4-2.0) Calcium (8.4-10.2) mg/dL Total Bilirubin (0.2-1.3) mg/dL AST (17-59) U/L ALT (0-50) U/L Alkaline Phosphatase (38-126) U/L Troponin I (0.000-0.034) ng/mL Serum Total Protein (6.3-8.2) g/dL Albumin (3.5-5.0) g/dL Prealbumin (17.6-36.0) mg/dL TSH 3rd Generation (0.47-4.68) mIU/L Urine Opiates Level (NEGATIVE) Ur Methadone (NEGATIVE) Urine Barbiturates (NEGATIVE) Ur Phencyclidine (PCP) (NEGATIVE) Urine Amphetamine (NEGATIVE) U Benzodiazepine Level (NEGATIVE) Urine Cocaine (NEGATIVE) Urine Marijuana (THC) (NEGATIVE) Influenza Type A Ag (NEGATIVE) Influenza Type B Ag (NEGATIVE) RSV (PCR) (Negative) SARS-CoV-2 (PCR) (NEGATIVE) Accuchecks Date 04/08/22 Date 04/08/22 Date 04/07/22 Date 04/07/22 Time 12:03 Time 08:07 Time 17:05 Time 16:21 - Radiology Impressions Radiology Exams & Impressions: Radiology Procedures Category Date Time Status ABDOMEN AND PELVIS W/0 CONTRAS [CT] Stat Exams 04/07/22 13:17 Completed CHEST 1 VIEW (PORTABLE) Stat Exams 04/07/22 11:25 Completed CHEST 1 VIEW (PORTABLE) Stat Exams 04/08/22 11:28 Completed HEAD WITHOUT CONTRAST [CT] Stat Exams 04/07/22 13:08 Completed Assessment/Plan (1) Sepsis Current Visit: Yes Status: Acute Qualifiers: Sepsis type: sepsis due to unspecified organism Sepsis acute organ dysfunction status: with acute organ dysfunction Severe sepsis acute organ dysfunction type: acute renal failure Acute renal failure type: unspecified Severe sepsis shock status: with septic shock Qualified Code(s): A41.9 - Sepsis, unspecified organism; R65.21 - Severe sepsis with septic shock; N17.9 - Acute kidney failure, unspecified Assessment & Plan: The shock has resolved. Has been getting IV fluids but renal function is worsening. consulted nephrology. On meropenem day #2. (2) Pneumonia Current Visit: Yes Status: Acute Qualifiers: Pneumonia type: due to unspecified organism Laterality: left Lung location: lower lobe of lung Qualified Code(s): J18.9 - Pneumonia, unspecified organism Code(s): J18.9 - PNEUMONIA, UNSPECIFIED ORGANISM (3) Oliguria Current Visit: Yes Status: Acute Code(s): R34 - ANURIA AND OLIGURIA (4) Acute renal injury Current Visit: Yes Status: Acute Code(s): N17.9 - ACUTE KIDNEY FAILURE, UNSPECIFIED (5) DM2 (diabetes mellitus, type 2) Current Visit: No Status: Chronic (6) Hypertension Current Visit: No Status: Chronic Qualifiers: Hypertension type: primary hypertension Qualified Code(s): I10 - Essential (primary) hypertension Assessment & Plan: labile Code(s): I10 - ESSENTIAL (PRIMARY) HYPERTENSION (7) Seizure disorder Current Visit: No Status: Chronic Code(s): G40.909 - EPILEPSY, UNSP, NOT INTRACTABLE, WITHOUT STATUS EPILEPTICUS
[2022-04-08] MEDS: PLAVIX Tablet PO SCH (13:03)
[2022-04-08] MEDS: ECOTRIN 81 MG PO SCH (13:03)
[2022-04-08] MEDS: ZOCOR 20MG PO SCH (13:04)
[2022-04-08] MEDS: Sodium Chloride 0.9% 1000 ML 1,000 ML IV SCH (14:04)
[2022-04-08] MEDS: Protonix 40MG Tablet PO SCH (21:01)
[2022-04-09] MEDS: Sodium Chloride 0.9% 1000 ML 1,000 ML IV SCH (00:43)
[2022-04-09 05:51] LABS: Absolute Neutrophil Ct (ANC) 9.72 x10^3/uL (1.4-6.9); BASOPHIL % 0.1 % (0.0-0.4); Basophil (Absolute #) 0.01 x10^3/uL (0-0.4); Eosinophil (Absolute #) 0 x10^3/uL (0-0.5); Hematocrit 30.5 % (42-50); Hemoglobin 10.2 g/dL (12.5-18.0); IMMATURE GRAN # 0.05 x10^3u/L (0.00-0.03); IMMATURE GRAN % 0.4 % (0.00-0.4); Lymphocyte (Absolute #) 0.73 x10^3/uL (1.0-4.6); Lymphocytes % 6.3 % (24.0-44.0); Mean Cell Volume 92.1 fL (78-100); Mean Corpuscular Hemoglobin 30.8 pg (26-32); Mean Corpuscular Hgb Concent. 33.4 g/dL (32-36); Mean Platelet Volume 11.7 fL (7.5-11.0); Monocyte (Absolute #) 1.07 x10^3/uL (0.0-1.3); Monocytes % 9.2 % (0.0-12.0); Platelet Count 188 x10^3/uL (150-450); Red Blood Count 3.31 x10^6/uL (4.1-5.6); White Blood Count 11.6 x10^3/uL (4.0-10.5)
[2022-04-09] MEDS: Merrem 1 GM in Sodium Chloride 100ML MINI-BAG PLUS 100 ML IV SCH ×3 (05:55→21:52)
[2022-04-09] MEDS ORDERED: APRESOLINE 20 MG/ML INJ IV ONE (06:11)
[2022-04-09 06:32] LABS: ALBUMIN 2.7 g/dL (3.5-5.0); ANION GAP 14.5 MEQ/L (5-15); BILIRUBIN,TOTAL 0.4 mg/dL (0.2-1.3); Creatinine 1 4.2 mg/dL (0.66-1.25); EST GLOMERULAR FILTRATION RATE 14.9 ML/MIN; MAGNESIUM 2.3 mg/dL (1.6-2.3); Potassium 4.4 mmol/L (3.5-5.1); Total Protein 5.6 g/dL (6.3-8.2)
[2022-04-09] MEDS ORDERED: Catapres-TTS 1 PATCH TOP SCH ×2 (07:00→08:00)
[2022-04-09] MEDS: Lactated Ringers 1,000 ML IV SCH (08:28)
--- NOTE | 2022-04-09 08:59 | PCM.NOTE ---
Date and Time: 04/09/2254 Subjective Assessment: He is more awake. Dr. Griffith saw pt yesterday, thank you. Thought the neurontin may be contributing to AMS so discontinued it. His urine output is more today - was 563 overnight and was light yellow in color. He is oriented to place this morning. Complains when I turn the light on. Overnight, bp up to 201/77. - Review of Systems All Other Systems: Unable due to condition Objective Exam General Appearance: no apparent distress, other (sleeping intially with mouth open; wakes to voice) Neurologic Exam: cooperative, disoriented Skin Exam: normal color, warm, dry, No rash Wound Assessment: Skin/Wound Assessment Wound/Incision Assessment Start: 04/07/22 16:01 Text: Status: Active Freq: Q6H Protocol: Document 04/09/22 08:00 IFTIKHAR (Rec: 04/09/22 08:48 [email or web address] [id number]) Wound/Incision Assessment Lower Buttock Wound Assessment Shift Assessment Wound Type Excoriation Wound Stage Non Pressure Wound Drainage Amount None Wound Photo Photo Taken No Eye Exam: eyes nml inspection Ears, Nose, Throat Exam: dry mucous membranes Neck Exam: normal inspection Respiratory Exam: diminished breath sounds, No crackles/rales, No rhonchi, No wheezing Cardiovascular Exam: regular rate/rhythm, normal heart sounds, No murmur Gastrointestinal/Abdomen Exam: soft, normal bowel sounds, tenderness (appears to have some tenderness), No distention, No mass, No guarding, No rebound Extremity Exam: normal inspection, No pedal edema, No swelling Back Exam: normal inspection, No rash OBJECTIVE DATA Vital Signs: Vital Signs - 24 hr Temp Pulse Resp BP Pulse Ox 04/09/22 08:00 99.3 F 92 H 18 170/66 95 04/09/22 06:35 99.7 F 92 H 22 164/62 93 L 04/09/22 06:00 99.7 F 87 16 201/77 93 L 04/09/22 05:00 99.7 F 87 16 198/74 93 L 04/09/22 04:00 99.9 F 87 18 176/89 93 L 04/09/22 03:00 99.7 F 81 17 189/65 91 L 04/09/22 02:00 99.5 F 82 18 186/68 92 L 04/09/22 01:00 99.5 F 83 20 182/70 94 L 04/09/22 00:00 99.3 F 81 16 181/69 94 L 04/08/22 23:00 99.3 F 79 18 167/68 92 L 04/08/22 22:00 99.3 F 78 16 180/74 92 L 04/08/22 21:00 99.5 F 75 18 154/60 92 L 04/08/22 20:00 99.7 F 79 16 115/74 93 L 04/08/22 16:00 99.3 F 73 18 147/62 94 L 04/08/22 15:48 61 16 96 04/08/22 12:00 99.0 F 63 16 116/65 04/08/22 10:09 99.1 F 61 14 127/66 95 Pain Assessment - Last Documented Pain Intensity 0 Pain Scale Used 0-10 Pain Scale Intake and Output: Intake & Output 04/06/22 04/07/22 04/08/22 04/09/22 11:59 11:59 11:59 11:59 Intake Total 1923 2517 Output Total 550 1083 Balance 1373 1434 Weight 70.76 kg 70.5 kg Lab Results: Lab Results-Last 24 Hours 04/08/22 04/08/22 04/08/22 Range/Units 11:46 15:42 20:56 WBC (4.0-10.5) x10^3/uL RBC (4.1-5.6) x10^6/uL Hgb (12.5-18.0) g/dL Hct (42-50) % MCV (78-100) fL MCH (26-32) pg MCHC (32-36) g/dL RDW (11.5-14.0) % Plt Count (150-450) x10^3/uL MPV (7.5-11.0) fL Gran % (36.0-66.0) % Immature Gran % (Auto) (0.00-0.4) % Nucleat RBC Rel Count (0.00-0.1) % Eos # (Auto) (0-0.5) x10^3/uL Immature Gran # (Auto) (0.00-0.03) x10^3u/L Absolute Lymphs (auto) (1.0-4.6) x10^3/uL Absolute Monos (auto) (0.0-1.3) x10^3/uL Absolute Nucleated RBC (0.00-0.01) x10^3u/L Lymphocytes % (24.0-44.0) % Monocytes % (0.0-12.0) % Eosinophils % (0.00-5.0) % Basophils % (0.0-0.4) % Absolute Granulocytes (1.4-6.9) x10^3/uL Basophils # (0-0.4) x10^3/uL Sodium (137-145) mmol/L Potassium (3.5-5.1) mmol/L Chloride (98-107) mmol/L Carbon Dioxide (22-30) mmol/L Anion Gap (5-15) MEQ/L BUN (9-20) mg/dL Creatinine (0.66-1.25) mg/dL Estimated GFR ML/MIN Glucose (74-106) mg/dL POC Glucometer 204 H 172 H 145 H (74 to 106) mg/dL Calcium (8.4-10.2) mg/dL Magnesium (1.6-2.3) mg/dL Total Bilirubin (0.2-1.3) mg/dL AST (17-59) U/L ALT (0-50) U/L Alkaline Phosphatase (38-126) U/L Serum Total Protein (6.3-8.2) g/dL Albumin (3.5-5.0) g/dL 04/09/22 04/09/22 04/09/22 Range/Units 05:00 05:00 07:03 WBC 11.6 H (4.0-10.5) x10^3/uL RBC 3.31 L (4.1-5.6) x10^6/uL Hgb 10.2 L (12.5-18.0) g/dL Hct 30.5 L (42-50) % MCV 92.1 (78-100) fL MCH 30.8 (26-32) pg MCHC 33.4 (32-36) g/dL RDW 14.0 (11.5-14.0) % Plt Count 188 (150-450) x10^3/uL MPV 11.7 H (7.5-11.0) fL Gran % 84.0 H (36.0-66.0) % Immature Gran % (Auto) 0.4 (0.00-0.4) % Nucleat RBC Rel Count 0.0 (0.00-0.1) % Eos # (Auto) 0 (0-0.5) x10^3/uL Immature Gran # (Auto) 0.05 H (0.00-0.03) x10^3u/L Absolute Lymphs (auto) 0.73 L (1.0-4.6) x10^3/uL Absolute Monos (auto) 1.07 (0.0-1.3) x10^3/uL Absolute Nucleated RBC 0.00 (0.00-0.01) x10^3u/L Lymphocytes % 6.3 L (24.0-44.0) % Monocytes % 9.2 (0.0-12.0) % Eosinophils % 0.0 (0.00-5.0) % Basophils % 0.1 (0.0-0.4) % Absolute Granulocytes 9.72 H (1.4-6.9) x10^3/uL Basophils # 0.01 (0-0.4) x10^3/uL Sodium 137 (137-145) mmol/L Potassium 4.4 (3.5-5.1) mmol/L Chloride 108 H (98-107) mmol/L Carbon Dioxide 19 L (22-30) mmol/L Anion Gap 14.5 (5-15) MEQ/L BUN 62 H (9-20) mg/dL Creatinine 4.20 H (0.66-1.25) mg/dL Estimated GFR 14.9 ML/MIN Glucose 152 H (74-106) mg/dL POC Glucometer 134 H (74 to 106) mg/dL Calcium 8.0 L (8.4-10.2) mg/dL Magnesium 2.3 (1.6-2.3) mg/dL Total Bilirubin 0.40 (0.2-1.3) mg/dL AST 31 (17-59) U/L ALT 15 (0-50) U/L Alkaline Phosphatase 82 (38-126) U/L Serum Total Protein 5.6 L (6.3-8.2) g/dL Albumin 2.7 L (3.5-5.0) g/dL Radiology Exams: Radiology Procedures Category Date Time Status ABDOMEN AND PELVIS W/0 CONTRAS [CT] Stat Exams 04/07/22 13:17 Completed CHEST 1 VIEW (PORTABLE) Stat Exams 04/07/22 11:25 Completed CHEST 1 VIEW (PORTABLE) Stat Exams 04/08/22 11:28 Completed HEAD WITHOUT CONTRAST [CT] Stat Exams 04/07/22 13:08 Completed Assessment/Plan (1) Sepsis Current Visit: Yes Status: Acute Qualifiers: Sepsis type: sepsis due to unspecified organism Sepsis acute organ dysfunction status: with acute organ dysfunction Severe sepsis acute organ dysfunction type: acute renal failure Acute renal failure type: unspecified Severe sepsis shock status: with septic shock Qualified Code(s): A41.9 - Se psis, unspecified organism; R65.21 - Severe sepsis with septic shock; N17.9 - Acute kidney failure, unspecified Assessment & Plan: On meropenem day #3. (2) Pneumonia Current Visit: Yes Status: Acute Qualifiers: Pneumonia type: due to unspecified organism Laterality: left Lung location: lower lobe of lung Qualified Code(s): J18.9 - Pneumonia, unspecified organism Code(s): J18.9 - PNEUMONIA, UNSPECIFIED ORGANISM (3) Oliguria Current Visit: Yes Status: Resolved Code(s): R34 - ANURIA AND OLIGURIA (4) Acute renal injury Current Visit: Yes Status: Acute Assessment & Plan: Urine output is better, but eGFR is worse at 14.9 today. Contacting nephrology to see the plan, may want pt transferred out for dialysis. Code(s): N17.9 - ACUTE KIDNEY FAILURE, UNSPECIFIED (5) DM2 (diabetes mellitus, type 2) Current Visit: No Status: Chronic (6) Hypertension Current Visit: No Status: Chronic Qualifiers: Hypertension type: primary hypertension Qualified Code(s): I10 - Essential (primary) hypertension Assessment & Plan: BP have increased; not taking po well, so will add clonidine patch. Code(s): I10 - ESSENTIAL (PRIMARY) HYPERTENSION (7) Seizure disorder Current Visit: No Status: Chronic Code(s): G40.909 - EPILEPSY, UNSP, NOT INTRACTABLE, WITHOUT STATUS EPILEPTICUS
[2022-04-09] MEDS: ZOCOR 20MG PO SCH (09:55)
[2022-04-09] MEDS: ECOTRIN 81 MG PO SCH (09:55)
[2022-04-09] MEDS: Cymbalta 30 MG Capsule PO SCH ×2 (09:55→21:52)
[2022-04-09] MEDS: PLAVIX Tablet PO SCH (09:55)
[2022-04-09] MEDS: SUBLIMAZE 100 MCG/2 ML IV PRN (09:56)
[2022-04-09] MEDS ORDERED: CLONIDINE 0.1 MG TABLET PO SCH ×2 (10:00)
[2022-04-09] MEDS: Lantus Insulin SQ SCH (11:16)
[2022-04-09] MEDS: TRANDATE 20 MG/4 ML SYRINGE IV PRN ×3 (15:09→22:24)
[2022-04-09] MEDS: Protonix 40MG Tablet PO SCH (21:52)
[2022-04-10] MEDS: TRANDATE 20 MG/4 ML SYRINGE IV PRN ×2 (01:09→04:15)
[2022-04-10] MEDS: Merrem 1 GM in Sodium Chloride 100ML MINI-BAG PLUS 100 ML IV SCH ×3 (05:08→20:54)
[2022-04-10 05:29] LABS: Hematocrit 28.6 % (42-50); Hemoglobin 9.4 g/dL (12.5-18.0); Mean Cell Volume 94.4 fL (78-100); Mean Corpuscular Hgb Concent. 32.9 g/dL (32-36); Mean Platelet Volume 11.9 fL (7.5-11.0); Platelet Count 162 x10^3/uL (150-450); Red Blood Count 3.03 x10^6/uL (4.1-5.6); Red Cell Distribution Width 14.2 % (11.5-14.0)
[2022-04-10 05:56] LABS: ALBUMIN 2.7 g/dL (3.5-5.0); ANION GAP 10.5 MEQ/L (5-15); BILIRUBIN,TOTAL 0.3 mg/dL (0.2-1.3); Calcium 7.8 mg/dL (8.4-10.2); Creatinine 1 3.42 mg/dL (0.66-1.25); EST GLOMERULAR FILTRATION RATE 18.9 ML/MIN; MAGNESIUM 2.2 mg/dL (1.6-2.3); Potassium 3.8 mmol/L (3.5-5.1); Total Protein 5.5 g/dL (6.3-8.2)
[2022-04-10] MEDS: Lantus Insulin SQ SCH (07:46)
[2022-04-10] MEDS: SUBLIMAZE 100 MCG/2 ML IV PRN ×2 (07:46→16:41)
[2022-04-10] MEDS: Cymbalta 30 MG Capsule PO SCH ×2 (08:37→20:54)
[2022-04-10] MEDS: ZOCOR 20MG PO SCH (08:37)
[2022-04-10] MEDS: PLAVIX Tablet PO SCH (09:02)
[2022-04-10] MEDS: ECOTRIN 81 MG PO SCH (09:02)
[2022-04-10] MEDS: Apresoline 25 MG TABLET PO SCH ×3 (09:02→20:54)
[2022-04-10] MEDS: Zestril 10 MG PO SCH (09:02)
--- NOTE | 2022-04-10 16:35 | PCM.NOTE ---
Date and Time: 04/10/22 1628 Subjective Assessment: Pt examined this morning approx 08:40. Pt is more awake today. Has continued to have high BP, despite starting clonidine patch yesterday. Taking po since last night. BP 127-192 systolic. Nephrology was contacted and stopped patient's fluids. He had >1000 cc out in urine yesterday, and 700-800 cc out last night. He did have one bloody stool yesterday. Today he is oriented to place. Was not oriented to day for me, but was for the nurse earlier in the morning. - Review of Systems All Other Systems: Unable due to condition Objective Exam General Appearance: no apparent distress, alert Neurologic Exam: cooperative, disoriented Skin Exam: normal color, warm, dry, No rash Wound Assessment: Skin/Wound Assessment Wound/Incision Assessment Start: 04/07/22 16:01 Text: Status: Active Freq: Q6H Protocol: Document 04/10/22 14:00 IFTIKHAR (Rec: 04/10/22 14:20 IFTIKHAR [id number]) Wound/Incision Assessment Lower Buttock Wound Assessment Shift Assessment Wound Type Excoriation Wound Stage Non Pressure Wound Drainage Amount None Comment BARRIER CREAM APPLIED Wound Photo Photo Taken No Eye Exam: eyes nml inspection Ears, Nose, Throat Exam: moist mucous membranes Neck Exam: normal inspection Respiratory Exam: normal breath sounds, lungs clear, No crackles/rales, No rhonchi, No wheezing Cardiovascular Exam: regular rate/rhythm, normal heart sounds, No murmur Gastrointestinal/Abdomen Exam: soft, normal bowel sounds, No tenderness, No distention, No mass, No guarding, No rebound Extremity Exam: normal inspection, No pedal edema, No swelling OBJECTIVE DATA Vital Signs: Vital Signs - 24 hr Temp Pulse Resp BP BP Pulse Ox 04/10/22 12:00 99.3 F 85 17 171/66 97 04/10/22 08:00 99.0 F 84 21 184/68 04/10/22 07:54 82 04/10/22 07:00 98.8 F 80 19 201/72 93 L 04/10/22 06:00 99.0 F 80 16 168/70 93 L 04/10/22 05:00 99.1 F 82 22 179/66 92 L 04/10/22 04:15 192/66 04/10/22 04:00 99.1 F 88 20 192/66 94 L 04/10/22 03:00 99.3 F 85 18 175/51 94 L 04/10/22 02:00 99.5 F 87 18 156/69 94 L 04/10/22 01:09 189/70 04/10/22 01:00 99.3 F 84 16 189/70 94 L 04/10/22 00:00 99.5 F 87 19 177/69 93 L 04/09/22 23:00 99.7 F 87 16 127/61 95 04/09/22 22:24 204/72 04/09/22 22:00 99.7 F 89 18 189/72 93 L 04/09/22 21:00 99.9 F 93 H 17 165/59 94 L 04/09/22 20:00 99.5 F 87 16 164/58 96 04/09/22 19:00 99.3 F 90 19 171/69 96 04/09/22 18:00 99.3 F 83 22 180/68 94 L 04/09/22 17:00 99.5 F 89 15 186/63 95 Pain Assessment - Last Documented Pain Intensity 0 Pain Scale Used 0-10 Pain Scale Intake and Output: Intake & Output 04/08/22 04/09/22 04/10/22 04/11/22 11:59 11:59 11:59 11:59 Intake Total 1923 2567 2569 240 Output Total 550 1548 1597 450 Balance 1373 1019 972 -210 Weight 70.5 kg 72.1 kg Lab Results: Lab Results-Last 24 Hours 04/09/22 04/09/22 04/10/22 Range/Units 16:31 21:42 05:15 WBC 8.0 (4.0-10.5) x10^3/uL RBC 3.03 L (4.1-5.6) x10^6/uL Hgb 9.4 L (12.5-18.0) g/dL Hct 28.6 L (42-50) % MCV 94.4 (78-100) fL MCH 31.0 (26-32) pg MCHC 32.9 (32-36) g/dL RDW 14.2 H (11.5-14.0) % Plt Count 162 (150-450) x10^3/uL MPV 11.9 H (7.5-11.0) fL Sodium (137-145) mmol/L Potassium (3.5-5.1) mmol/L Chloride (98-107) mmol/L Carbon Dioxide (22-30) mmol/L Anion Gap (5-15) MEQ/L BUN (9-20) mg/dL Creatinine (0.66-1.25) mg/dL Estimated GFR ML/MIN Glucose (74-106) mg/dL POC Glucometer 148 H 171 H (74 to 106) mg/dL Calcium (8.4-10.2) mg/dL Magnesium (1.6-2.3) mg/dL Total Bilirubin (0.2-1.3) mg/dL AST (17-59) U/L ALT (0-50) U/L Alkaline Phosphatase (38-126) U/L Serum Total Protein (6.3-8.2) g/dL Albumin (3.5-5.0) g/dL 04/10/22 04/10/22 04/10/22 Range/Units 05:15 06:31 10:40 WBC (4.0-10.5) x10^3/uL RBC (4.1-5.6) x10^6/uL Hgb (12.5-18.0) g/dL Hct (42-50) % MCV (78-100) fL MCH (26-32) pg MCHC (32-36) g/dL RDW (11.5-14.0) % Plt Count (150-450) x10^3/uL MPV (7.5-11.0) fL Sodium 136 L (137-145) mmol/L Potassium 3.8 (3.5-5.1) mmol/L Chloride 109 H (98-107) mmol/L Carbon Dioxide 20 L (22-30) mmol/L Anion Gap 10.5 (5-15) MEQ/L BUN 55 H (9-20) mg/dL Creatinine 3.42 H (0.66-1.25) mg/dL Estimated GFR 18.9 ML/MIN Glucose 150 H (74-106) mg/dL POC Glucometer 148 H 175 H (74 to 106) mg/dL Calcium 7.8 L (8.4-10.2) mg/dL Magnesium 2.2 (1.6-2.3) mg/dL Total Bilirubin 0.30 (0.2-1.3) mg/dL AST 36 (17-59) U/L ALT 18 (0-50) U/L Alkaline Phosphatase 88 (38-126) U/L Serum Total Protein 5.5 L (6.3-8.2) g/dL Albumin 2.7 L (3.5-5.0) g/dL 04/10/22 Range/Units 16:19 WBC (4.0-10.5) x10^3/uL RBC (4.1-5.6) x10^6/uL Hgb (12.5-18.0) g/dL Hct (42-50) % MCV (78-100) fL MCH (26-32) pg MCHC (32-36) g/dL RDW (11.5-14.0) % Plt Count (150-450) x10^3/uL MPV (7.5-11.0) fL Sodium (137-145) mmol/L Potassium (3.5-5.1) mmol/L Chloride (98-107) mmol/L Carbon Dioxide (22-30) mmol/L Anion Gap (5-15) MEQ/L BUN (9-20) mg/dL Creatinine (0.66-1.25) mg/dL Estimated GFR ML/MIN Glucose (74-106) mg/dL POC Glucometer 137 H (74 to 106) mg/dL Calcium (8.4-10.2) mg/dL Magnesium (1.6-2.3) mg/dL Total Bilirubin (0.2-1.3) mg/dL AST (17-59) U/L ALT (0-50) U/L Alkaline Phosphatase (38-126) U/L Serum Total Protein (6.3-8.2) g/dL Albumin (3.5-5.0) g/dL Multi-Disciplinary Progress Notes: Multi-Disciplinary Progress Notes 04/10/22 10:57 Case Management Note by Dot Quiñones REFERRAL FAXED TO [facility] Initialized on 04/10/22 10:57 - END OF NOTE 04/10/22 10:20 Case Management Note by Dot Quiñones PATIENT IMPROVING. S/W - SHE WOULD LIKE A REHAB AT TIME OF DC. HER FIRST CHOICE IS [facility]. HER SECOND CHOICE WOULD BE [facility]. Initialized on 04/10/22 10:20 - END OF NOTE Assessment/Plan (1) Sepsis Current Visit: Yes Status: Acute Qualifiers: Sepsis type: sepsis due to unspecified organism Sepsis acute organ dysfunction status: with acute organ dysfunction Severe sepsis acute organ dysfunction type: acute renal failure Acute renal failure type: unspecified Severe sepsis shock status: with septic shock Qualified Code(s): A41.9 - Sepsis, unspecified organism; R65.21 - Severe sepsis with septic shock; N17.9 - Acute kidney failure, unspecified Assessment & Plan: He is doing much better. On IV meropenem. Bld cultures pending (neg to date). (2) Pneumonia Current Visit: Yes Status: Acute Qualifiers: Pneumonia type: due to unspecified organism Laterality: left Lung location: lower lobe of lung Qualified Code(s): J18.9 - Pneumonia, unspecified organism Code(s): J18.9 - PNEUMONIA, UNSPECIFIED ORGANISM (3) Hypertension Current Visit: No Status: Chronic Qualifiers: Hypertension type: primary hypertension Qualified Code(s): I10 - Essential (primary) hypertension Assessment & Plan: His BP was very high overnight - restarted hydralazine 75 mg po TID and lisinopril 10mg po daily this morning. Also restarted metoprolol at 50mg po BID, but his home dose is 100mg po BID. He was on the clonidine patch 0.1mg since yesterday, as he wasn't taking po well. Today I spoke with pharmacy (this afternoon) and since BP are still elevated (>200 systolic recently), will stop the patch and start clonidine 0.2 mg po TID (patch will still be in his system for at least 8 hours, and up to 48 h) - tomorrow morning he could be increased to clonidine 0.3mg po TID. Code(s): I10 - ESSENTIAL (PRIMARY) HYPERTENSION (4) Acute renal injury Current Visit: Yes Status: Acute Assessment & Plan: improved, eGFR 18.9 today, was 14.9 yesterday. Nephrology consulted, thank you. Code(s): N17.9 - ACUTE KIDNEY FAILURE, UNSPECIFIED (5) DM2 (diabetes mellitus, type 2) Current Visit: No Status: Chronic Qualifiers: Diabetes mellitus senior care insulin use: with senior care use Diabetes mellitus complication status: with kidney complications Diabetes mellitus complication detail: with chronic kidney disease Chronic kidney disease stage: unspecified stage Qualified Code(s): E11.22 - Type 2 diabetes mellitus with diabetic chronic kidney disease; Z79.4 - residential (current) use of insulin Assessment & Plan: When admitted, lantus was started at 15 units daily instead of his home dose of 30 units daily. If eating well all day today, would increase back to 30 units daily. (6) Hematochezia Current Visit: Yes Status: Acute Assessment & Plan: Unsure etiology. His Hgb is 9.4. Restarted plavix and asa today. Will watch closely. Code(s): K92.1 - MELENA (7) Seizure disorder Current Visit: No Status: Chronic Code(s): G40.909 - EPILEPSY, UNSP, NOT INTRACTABLE, WITHOUT STATUS EPILEPTICUS
[2022-04-10] MEDS: CLONIDINE 0.1 MG TABLET PO SCH ×2 (16:39→20:54)
[2022-04-10] MEDS: Protonix 40MG Tablet PO SCH (20:54)
[2022-04-11] MEDS: TRANDATE 20 MG/4 ML SYRINGE IV PRN ×2 (04:11→23:38)
[2022-04-11] MEDS: Merrem 1 GM in Sodium Chloride 100ML MINI-BAG PLUS 100 ML IV SCH ×3 (05:46→21:38)
--- NOTE | 2022-04-11 08:26 | PCM.NOTE ---
Date and Time: 04/11/22822 Subjective Assessment: patient remains quite hypertensive, on chart review metoprolol was not reordered so it was ordered this morning. he denies pain, states he is feeling "so so" and he is not on oxygen therapy currently Objective Exam General Appearance: no apparent distress, thin Neurologic Exam: alert, cooperative Wound Assessment: Skin/Wound Assessment Wound/Incision Assessment Start: 04/07/22 16:01 Text: Status: Active Freq: Q6H Protocol: Document 04/11/22 02:00 CB (Rec: 04/11/22 04:30 CB [id number]) Wound/Incision Assessment Lower Buttock Wound Assessment Shift Assessment Wound Type Excoriation Wound Stage Non Pressure Wound Drainage Amount None Comment Barrier cream in place Respiratory Exam: normal breath sounds, lungs clear, No respiratory distress Cardiovascular Exam: regular rate/rhythm, normal heart sounds Gastrointestinal/Abdomen Exam: soft, No tenderness, No mass OBJECTIVE DATA Vital Signs: Vital Signs - 24 hr Temp Pulse Resp BP BP Pulse Ox 04/11/22 07:34 99.1 F 78 16 199/69 94 L 04/11/22 04:22 99.0 F 78 18 176/66 93 L 04/11/22 04:11 201/74 93 L 04/11/22 04:00 99.1 F 79 20 201/74 94 L 04/11/22 00:00 99.5 F 72 17 171/54 96 04/10/22 22:00 99.7 F 75 18 121/51 95 04/10/22 19:23 99.3 F 84 18 174/66 96 04/10/22 16:00 99.5 F 89 16 208/74 97 04/10/22 12:00 99.3 F 85 17 171/66 97 Pain Assessment - Last Documented Pain Intensity 0 Pain Scale Used 0-10 Pain Scale Intake and Output: Intake & Output 04/08/22 04/09/22 04/10/22 04/11/22 11:59 11:59 11:59 11:59 Intake Total 1923 2567 2569 700 Output Total 550 1548 1597 1750 Balance 1373 1019 972 -1050 Weight 70.5 kg 72.1 kg 70.7 kg Lab Results: Lab Results-Last 24 Hours 04/10/22 04/10/22 04/10/22 Range/Units 10:40 16:19 21:58 POC Glucometer 175 H 137 H 165 H (74 to 106) mg/dL 04/11/22 Range/Units 07:16 POC Glucometer 123 H (74 to 106) mg/dL Multi-Disciplinary Progress Notes: Multi-Disciplinary Progress Notes 04/10/22 17:53 Physical Therapy Note by Kamilla(L#[id number]),Nicolette ATTEMPTED P.T. RX THIS PM. PT. HAD ELEVATED BP AND WAS IN BED. P.T. HELD THIS AFTERNOON D/T HYPERTENSION. WILL CONT. P.T. TOMORROW IF ABLE. Initialized on 04/10/22 17:53 - END OF NOTE 04/10/22 10:57 Case Management Note by Dot Quiñones REFERRAL FAXED TO [facility] Initialized on 04/10/22 10:57 - END OF NOTE 04/10/22 10:20 Case Management Note by Dot Quiñones PATIENT IMPROVING. S/W - SHE WOULD LIKE A REHAB AT TIME OF DC. HER FIRST CHOICE IS [facility]. HER SECOND CHOICE WOULD BE [facility]. Initialized on 04/10/22 10:20 - END OF NOTE Assessment/Plan (1) Sepsis Current Visit: Yes Status: Acute Qualifiers: Sepsis type: sepsis due to unspecified organism Sepsis acute organ dysfunction status: with acute organ dysfunction Severe sepsis acute organ dysfunction type: acute renal failure Acute renal failure type: unspecified Severe sepsis shock status: with septic shock Qualified Code(s): A41.9 - Sepsis, unspecified organism; R65.21 - Severe sepsis with septic shock; N17.9 - Acute kidney failure, unspecified Assessment & Plan: resolved, no organ system failure and BP is quite hypertensive now. related to pneumonia, improved with meropenem (2) Pneumonia Current Visit: Yes Status: Acute Qualifiers: Pneumonia type: due to unspecified organism Laterality: left Lung location: lower lobe of lung Qualified Code(s): J18.9 - Pneumonia, unspecified organism Assessment & Plan: meropenem, afebrile and on room air currently Code(s): J18.9 - PNEUMONIA, UNSPECIFIED ORGANISM (3) Hypertensive urgency Current Visit: No Status: Acute Assessment & Plan: ordered metoprolol this am, receiving hydralazine Code(s): I16.0 - HYPERTENSIVE URGENCY
[2022-04-11] MEDS: Lantus Insulin SQ SCH (08:42)
[2022-04-11] MEDS: Lopressor 50 MG PO SCH ×2 (08:42→21:38)
[2022-04-11] MEDS: ECOTRIN 81 MG PO SCH (08:42)
[2022-04-11] MEDS: PLAVIX Tablet PO SCH (08:43)
[2022-04-11] MEDS: Apresoline 25 MG TABLET PO SCH ×3 (08:43→18:51)
[2022-04-11] MEDS: Zestril 10 MG PO SCH (08:43)
[2022-04-11] MEDS: ZOCOR 20MG PO SCH (08:43)
[2022-04-11] MEDS: Cymbalta 30 MG Capsule PO SCH ×2 (08:43→21:38)
[2022-04-11] MEDS: CLONIDINE 0.1 MG TABLET PO SCH ×3 (08:43→21:38)
[2022-04-11 11:51] LABS: Hematocrit 29.8 % (42-50); Hemoglobin 9.8 g/dL (12.5-18.0); Mean Cell Volume 94.3 fL (78-100); Mean Corpuscular Hgb Concent. 32.9 g/dL (32-36); Mean Platelet Volume 11.3 fL (7.5-11.0); Platelet Count 177 x10^3/uL (150-450); Red Blood Count 3.16 x10^6/uL (4.1-5.6); Red Cell Distribution Width 14.1 % (11.5-14.0); White Blood Count 7.5 x10^3/uL (4.0-10.5)
[2022-04-11 11:59] LABS: ALBUMIN 2.8 g/dL (3.5-5.0); ANION GAP 9.9 MEQ/L (5-15); BILIRUBIN,TOTAL 0.3 mg/dL (0.2-1.3); Calcium 7.8 mg/dL (8.4-10.2); Creatinine 1 2.65 mg/dL (0.66-1.25); EST GLOMERULAR FILTRATION RATE 25.4 ML/MIN; Potassium 4.3 mmol/L (3.5-5.1); Total Protein 5.7 g/dL (6.3-8.2)
[2022-04-11] MEDS: TYLENOL 325 MG PO PRN ×3 (12:12→21:38)
[2022-04-11] MEDS ORDERED: Apresoline 25 MG TABLET ONE (17:33)
[2022-04-11] MEDS: Protonix 40MG Tablet PO SCH (21:38)
[2022-04-11] MEDS: HUMALOG SQ PRN (21:38)
[2022-04-12] MEDS: TRANDATE 20 MG/4 ML SYRINGE IV PRN (04:16)
[2022-04-12] MEDS: TYLENOL 325 MG PO PRN ×2 (04:21→19:30)
[2022-04-12 05:50] LABS: Absolute Neutrophil Ct (ANC) 4.54 x10^3/uL (1.4-6.9); BASOPHIL % 0.6 % (0.0-0.4); Basophil (Absolute #) 0.05 x10^3/uL (0-0.4); Eosinophil % 16.8 % (0.00-5.0); Hematocrit 29.5 % (42-50); Hemoglobin 9.6 g/dL (12.5-18.0); IMMATURE GRAN # 0.06 x10^3u/L (0.00-0.03); IMMATURE GRAN % 0.8 % (0.00-0.4); Lymphocyte (Absolute #) 1.01 x10^3/uL (1.0-4.6); Lymphocytes % 13.1 % (24.0-44.0); Mean Cell Volume 94.2 fL (78-100); Mean Corpuscular Hemoglobin 30.7 pg (26-32); Mean Corpuscular Hgb Concent. 32.5 g/dL (32-36); Monocyte (Absolute #) 0.76 x10^3/uL (0.0-1.3); Monocytes % 9.8 % (0.0-12.0); Neutrophil % 58.9 % (36.0-66.0); Platelet Count 176 x10^3/uL (150-450); Red Blood Count 3.13 x10^6/uL (4.1-5.6); Red Cell Distribution Width 14.3 % (11.5-14.0); White Blood Count 7.7 x10^3/uL (4.0-10.5)
[2022-04-12] MEDS ORDERED: Sodium Chloride 100ML MINI-BAG PLUS 0 ML IV ONE (06:00)
[2022-04-12] MEDS: Merrem 1 GM in Sodium Chloride 100ML MINI-BAG PLUS 100 ML IV SCH ×3 (06:22→20:30)
[2022-04-12 06:23] LABS: ANION GAP 9.9 MEQ/L (5-15); Calcium 7.9 mg/dL (8.4-10.2); Creatinine 1 2.59 mg/dL (0.66-1.25); MAGNESIUM 1.9 mg/dL (1.6-2.3)
[2022-04-12] MEDS: Lantus Insulin SQ SCH (08:03)
[2022-04-12] MEDS: ZOCOR 20MG PO SCH (08:11)
[2022-04-12] MEDS: Lopressor 50 MG PO SCH ×2 (08:11→20:29)
[2022-04-12] MEDS: ECOTRIN 81 MG PO SCH (08:11)
[2022-04-12] MEDS: CLONIDINE 0.1 MG TABLET PO SCH ×3 (08:11→20:29)
[2022-04-12] MEDS: Cymbalta 30 MG Capsule PO SCH ×2 (08:12→20:29)
[2022-04-12] MEDS: Apresoline 25 MG TABLET PO SCH ×3 (08:12→20:29)
[2022-04-12] MEDS: PLAVIX Tablet PO SCH (08:12)
--- NOTE | 2022-04-12 10:32 | PCM.NOTE ---
Date and Time: 04/12/22 1031 Subjective Assessment: doing ok - Review of Systems Constitutional: No Fever, No Chills Eyes: No Symptoms Ears, Nose, & Throat: No Symptoms Respiratory: No Cough, No Short Of Breath Cardiac: No Chest Pain, No Edema, No Syncope Abdominal/Gastrointestinal: No Abdominal Pain, No Nausea, No Vomiting, No Diarrhea Genitourinary Symptoms: No Dysuria Musculoskeletal: No Back Pain, No Neck Pain Skin: No Rash Neurological: No Dizziness, No Focal Weakness, No Sensory Changes Psychological: No Symptoms Endocrine: No Symptoms Hematologic/Lymphatic: No Symptoms Immunological/Allergic: No Symptoms Objective Exam General Appearance: no apparent distress, alert Neurologic Exam: alert, oriented x 3, cooperative, normal mood/affect, nml cerebellar function, sensation nml, No motor deficits Skin Exam: normal color, warm, dry Wound Assessment: Skin/Wound Assessment Wound/Incision Assessment Start: 04/07/22 16:01 Text: Status: Active Freq: Q6H Protocol: Document 04/12/22 08:00 RB (Rec: 04/12/22 08:25 RB [id number]) Wound/Incision Assessment Lower Buttock Wound Assessment Shift Assessment Wound Type Excoriation Wound Stage Non Pressure Wound Drainage Amount None Wound Photo Photo Taken No Eye Exam: PERRL, EOMI, eyes nml inspection Ears, Nose, Throat Exam: normal ENT inspection, pharynx normal, moist mucous membranes Neck Exam: normal inspection, non-tender, supple, full range of motion Respiratory Exam: normal breath sounds, lungs clear, No respiratory distress Cardiovascular Exam: regular rate/rhythm, normal heart sounds Gastrointestinal/Abdomen Exam: soft, No tenderness, No mass Extremity Exam: normal inspection, normal range of motion Back Exam: normal inspection, normal range of motion, No CVA tenderness, No vertebral tenderness Male Genitalia Exam: deferred Rectal Exam: deferred OBJECTIVE DATA Vital Signs: Vital Signs - 24 hr Temp Pulse Resp BP BP Pulse Ox 04/12/22 07:56 97.3 F 67 18 230/90 96 04/12/22 04:16 213/88 04/12/22 04:00 97.5 F 66 18 213/88 96 04/11/22 23:41 97.3 F 72 15 228/98 96 04/11/22 23:38 228/98 96 04/11/22 21:00 97.5 F 71 18 152/69 96 04/11/22 16:48 98.9 F 72 17 136/61 96 04/11/22 13:00 99.3 F 75 17 156/57 97 Pain Assessment - Last Documented Pain Intensity 3 Pain Scale Used [facility] Intake and Output: Intake & Output 04/09/22 04/10/22 04/11/22 04/12/22 11:59 11:59 11:59 11:59 Intake Total 2567 2569 1060 2120 Output Total 1548 1597 1750 2300 Balance 1019 972 -690 -180 Weight 72.1 kg 70.7 kg 71.1 kg Lab Results: Lab Results-Last 24 Hours 04/11/22 04/11/22 04/11/22 Range/Units 11:11 11:41 11:41 WBC 7.5 (4.0-10.5) x10^3/uL RBC 3.16 L (4.1-5.6) x10^6/uL Hgb 9.8 L (12.5-18.0) g/dL Hct 29.8 L (42-50) % MCV 94.3 (78-100) fL MCH 31.0 (26-32) pg MCHC 32.9 (32-36) g/dL RDW 14.1 H (11.5-14.0) % Plt Count 177 (150-450) x10^3/uL MPV 11.3 H (7.5-11.0) fL Gran % (36.0-66.0) % Immature Gran % (Auto) (0.00-0.4) % Nucleat RBC Rel Count (0.00-0.1) % Eos # (Auto) (0-0.5) x10^3/uL Immature Gran # (Auto) (0.00-0.03) x10^3u/L Absolute Lymphs (auto) (1.0-4.6) x10^3/uL Absolute Monos (auto) (0.0-1.3) x10^3/uL Absolute Nucleated RBC (0.00-0.01) x10^3u/L Lymphocytes % (24.0-44.0) % Monocytes % (0.0-12.0) % Eosinophils % (0.00-5.0) % Basophils % (0.0-0.4) % Absolute Granulocytes (1.4-6.9) x10^3/uL Basophils # (0-0.4) x10^3/uL Sodium (137-145) mmol/L Potassium (3.5-5.1) mmol/L Chloride (98-107) mmol/L Carbon Dioxide (22-30) mmol/L Anion Gap (5-15) MEQ/L BUN (9-20) mg/dL Creatinine (0.66-1.25) mg/dL Estimated GFR ML/MIN Glucose (74-106) mg/dL POC Glucometer 237 H (74 to 106) mg/dL Calcium (8.4-10.2) mg/dL Magnesium 2.0 (1.6-2.3) mg/dL Total Bilirubin (0.2-1.3) mg/dL AST (17-59) U/L ALT (0-50) U/L Alkaline Phosphatase (38-126) U/L Serum Total Protein (6.3-8.2) g/dL Albumin (3.5-5.0) g/dL 04/11/22 04/11/22 04/11/22 Range/Units 11:41 16:15 20:57 WBC (4.0-10.5) x10^3/uL RBC (4.1-5.6) x10^6/uL Hgb (12.5-18.0) g/dL Hct (42-50) % MCV (78-100) fL MCH (26-32) pg MCHC (32-36) g/dL RDW (11.5-14.0) % Plt Count (150-450) x10^3/uL MPV (7.5-11.0) fL Gran % (36.0-66.0) % Immature Gran % (Auto) (0.00-0.4) % Nucleat RBC Rel Count (0.00-0.1) % Eos # (Auto) (0-0.5) x10^3/uL Immature Gran # (Auto) (0.00-0.03) x10^3u/L Absolute Lymphs (auto) (1.0-4.6) x10^3/uL Absolute Monos (auto) (0.0-1.3) x10^3/uL Absolute Nucleated RBC (0.00-0.01) x10^3u/L Lymphocytes % (24.0-44.0) % Monocytes % (0.0-12.0) % Eosinophils % (0.00-5.0) % Basophils % (0.0-0.4) % Absolute Granulocytes (1.4-6.9) x10^3/uL Basophils # (0-0.4) x10^3/uL Sodium 135 L (137-145) mmol/L Potassium 4.3 (3.5-5.1) mmol/L Chloride 111 H (98-107) mmol/L Carbon Dioxide 19 L (22-30) mmol/L Anion Gap 9.9 (5-15) MEQ/L BUN 44 H (9-20) mg/dL Creatinine 2.65 H (0.66-1.25) mg/dL Estimated GFR 25.4 ML/MIN Glucose 243 H (74-106) mg/dL POC Glucometer 228 H 231 H (74 to 106) mg/dL Calcium 7.8 L (8.4-10.2) mg/dL Magnesium (1.6-2.3) mg/dL Total Bilirubin 0.30 (0.2-1.3) mg/dL AST 73 H (17-59) U/L ALT 29 (0-50) U/L Alkaline Phosphatase 88 (38-126) U/L Serum Total Protein 5.7 L (6.3-8.2) g/dL Albumin 2.8 L (3.5-5.0) g/dL 04/12/22 04/12/22 04/12/22 Range/Units 05:42 05:42 07:11 WBC 7.7 (4.0-10.5) x10^3/uL RBC 3.13 L (4.1-5.6) x10^6/uL Hgb 9.6 L (12.5-18.0) g/dL Hct 29.5 L (42-50) % MCV 94.2 (78-100) fL MCH 30.7 (26-32) pg MCHC 32.5 (32-36) g/dL RDW 14.3 H (11.5-14.0) % Plt Count 176 (150-450) x10^3/uL MPV 11.0 (7.5-11.0) fL Gran % 58.9 (36.0-66.0) % Immature Gran % (Auto) 0.8 H (0.00-0.4) % Nucleat RBC Rel Count 0.0 (0.00-0.1) % Eos # (Auto) 1.30 H (0-0.5) x10^3/uL Immature Gran # (Auto) 0.06 H (0.00-0.03) x10^3u/L Absolute Lymphs (auto) 1.01 (1.0-4.6) x10^3/uL Absolute Monos (auto) 0.76 (0.0-1.3) x10^3/uL Absolute Nucleated RBC 0.00 (0.00-0.01) x10^3u/L Lymphocytes % 13.1 L (24.0-44.0) % Monocytes % 9.8 (0.0-12.0) % Eosinophils % 16.8 H (0.00-5.0) % Basophils % 0.6 (0.0-0.4) % Absolute Granulocytes 4.54 (1.4-6.9) x10^3/uL Basophils # 0.05 (0-0.4) x10^3/uL Sodium 137 (137-145) mmol/L Potassium 4.0 (3.5-5.1) mmol/L Chloride 110 H (98-107) mmol/L Carbon Dioxide 21 L (22-30) mmol/L Anion Gap 9.9 (5-15) MEQ/L BUN 43 H (9-20) mg/dL Creatinine 2.59 H (0.66-1.25) mg/dL Estimated GFR 26.0 ML/MIN Glucose 170 H (74-106) mg/dL POC Glucometer 162 H (74 to 106) mg/dL Calcium 7.9 L (8.4-10.2) mg/dL Magnesium 1.9 (1.6-2.3) mg/dL Total Bilirubin (0.2-1.3) mg/dL AST (17-59) U/L ALT (0-50) U/L Alkaline Phosphatase (38-126) U/L Serum Total Protein (6.3-8.2) g/dL Albumin (3.5-5.0) g/dL Multi-Disciplinary Progress Notes: Multi-Disciplinary Progress Notes 04/11/22 13:09 Case Management Note by Dot Quiñones HAS ACCEPTED AND WILL STARTING PRECERT- WILL NEED TO WAIT FOR INSURANCE APPROVAL BEFORE WE CAN DC. THIS WILL NOT LIKELY BE UNTIL THURSDAY OR THURSDAY Initialized on 04/11/22 13:09 - END OF NOTE 04/11/22 12:35 Case Management Note by Mili Berg SPOKE WITH GEORGIE AT [facility], THEY HAVE ACCEPTED PT FOR REHAB STAY WHEN MEDICALLY READY, BUT REQUIRES PRECERTIFICATION WITH PT'S INSURANCE. VERY LIKELY WILL NOT BE BACK BEFORE THURSDAY, APRIL 14, 2022. Initialized on 04/11/22 12:35 - END OF NOTE 04/11/22 12:10 Case Management Note by Dot Quiñones OF [facility] DECLINED PATIENT- NOTIFIED REFERRAL SENT TO [facility] Initialized on 04/11/22 12:10 - END OF NOTE 04/11/22 11:51 Physical Therapy Note by Kamilla(L#[id number])Nicolette PT. WAS SEEN BY P.T. THIS A.M. BP IMPROVED TODAY, BUT [facility] REPORT HE WAS CONFUSED OVERNIGHT. PT. IN BED SLEEPING UPON P.T. ARRIVAL TO ROOM. NO C/O PN. PT. ALERT BUT SLEEPY AND ORIENTED TO SELF AND LOCATION; DID NOT KNOW DATE OR MONTH. PT. AGREEABLE TO WORK W/ P.T. O2 SATS 94% ON RA; BP 154/72. IV, BUNDY CATH, BP, AND PULSE OX IN PLACE. PT. PERFORMED LE EX'S IN SUPINE OF ANKLE PUMPS, HEEL SLIDES, QUAD SETS BUT REQUIRED MANY TACTILE AND VERBAL CUES TO STAY ON TASK AND MOVE LES PROPERLY. PERFORMED SUPINE TO SIT W/ CGA. ABLE TO SIT ON SIDE OF BED TODAY W/ CGA-SBA. SIT TO STAND PERFORMED - CGA-MIN ASSIST. PT. REPORTS NO C/O DIZZINESS W/ TRANSFER. PT. WALKED ~ 80' W/ ROLLATOR AND CGA W/ V.C. FOR DIRECTION CHANGE. VITALS STABLE AFTER WALKING. PT. NEEDS FREQUENT CUES FOR SAFETY W/ MOBILITY. STILL RECOMMEND SNF STAY TO INCREASE STRENGTH AND BALANCE TO MAXIMIZE FUNCTIONAL INDEPENDENCE AND STABILITY. WILL CONT. PT 5X/WK UNTIL D/C. Initialized on 04/11/22 11:51 - END OF NOTE Assessment/Plan (1) Pneumonia Current Visit: Yes Status: Acute Qualifiers: Pneumonia type: due to unspecified organism Laterality: left Lung location: lower lobe of lung Qualified Code(s): J18.9 - Pneumonia, unspecified organism Code(s): J18.9 - PNEUMONIA, UNSPECIFIED ORGANISM (2) Sepsis Current Visit: Yes Status: Acute Qualifiers: Sepsis type: sepsis due to unspecified organism Sepsis acute organ dysfunction status: with acute organ dysfunction Severe sepsis acute organ dysfunction type: acute renal failure Acute renal failure type: unspecified Severe sepsis shock status: with septic shock Qualified Code(s): A41.9 - Sepsis, unspecified organism; R65.21 - Severe sepsis with septic shock; N17.9 - Acute kidney failure, unspecified (3) Acute renal insufficiency Current Visit: No Status: Acute Code(s): N28.9 - DISORDER OF KIDNEY AND URETER, UNSPECIFIED
[2022-04-12] MEDS: HUMALOG SQ PRN (11:13)
[2022-04-12] MEDS ORDERED: NORVASC 5 MG PO ONE ×2 (11:46→14:00)
[2022-04-12] MEDS: SUBLIMAZE 100 MCG/2 ML IV PRN (13:59)
[2022-04-12] MEDS: NORVASC 5 MG PO SCH (20:29)
[2022-04-12] MEDS: Protonix 40MG Tablet PO SCH (20:29)
[2022-04-13] MEDS: TYLENOL 325 MG PO PRN ×3 (01:04→23:24)
[2022-04-13] MEDS: Merrem 1 GM in Sodium Chloride 100ML MINI-BAG PLUS 100 ML IV SCH ×3 (05:03→20:55)
[2022-04-13 06:26] LABS: Absolute Neutrophil Ct (ANC) 3.64 x10^3/uL (1.4-6.9); BASOPHIL % 0.9 % (0.0-0.4); Basophil (Absolute #) 0.06 x10^3/uL (0-0.4); Eosinophil % 14.9 % (0.00-5.0); Eosinophil (Absolute #) 1.02 x10^3/uL (0-0.5); Hematocrit 30.2 % (42-50); Hemoglobin 9.6 g/dL (12.5-18.0); IMMATURE GRAN # 0.07 x10^3u/L (0.00-0.03); Mean Cell Volume 94.7 fL (78-100); Mean Corpuscular Hemoglobin 30.1 pg (26-32); Mean Corpuscular Hgb Concent. 31.8 g/dL (32-36); Mean Platelet Volume 11.2 fL (7.5-11.0); Monocyte (Absolute #) 0.76 x10^3/uL (0.0-1.3); Monocytes % 11.1 % (0.0-12.0); Neutrophil % 53.1 % (36.0-66.0); Platelet Count 198 x10^3/uL (150-450); Red Blood Count 3.19 x10^6/uL (4.1-5.6); Red Cell Distribution Width 13.8 % (11.5-14.0); White Blood Count 6.9 x10^3/uL (4.0-10.5)
[2022-04-13 06:34] LABS: ALBUMIN 2.7 g/dL (3.5-5.0); ANION GAP 6.2 MEQ/L (5-15); BILIRUBIN,TOTAL 0.3 mg/dL (0.2-1.3); Calcium 7.6 mg/dL (8.4-10.2); Creatinine 1 2.17 mg/dL (0.66-1.25); EST GLOMERULAR FILTRATION RATE 31.9 ML/MIN; Potassium 3.5 mmol/L (3.5-5.1); Total Protein 5.3 g/dL (6.3-8.2)
[2022-04-13] MEDS: Lantus Insulin SQ SCH (08:00)
--- NOTE | 2022-04-13 08:08 | PCM.NOTE ---
Date and Time: 04/13/22806 Subjective Assessment: doing ok - Review of Systems Constitutional: No Fever, No Chills Eyes: No Symptoms Ears, Nose, & Throat: No Symptoms Respiratory: No Cough, No Short Of Breath Cardiac: No Chest Pain, No Edema, No Syncope Abdominal/Gastrointestinal: No Abdominal Pain, No Nausea, No Vomiting, No Diarrhea Genitourinary Symptoms: No Dysuria Musculoskeletal: No Back Pain, No Neck Pain Skin: No Rash Neurological: No Dizziness, No Focal Weakness, No Sensory Changes Psychological: No Symptoms Endocrine: No Symptoms Hematologic/Lymphatic: No Symptoms Immunological/Allergic: No Symptoms Objective Exam General Appearance: no apparent distress, alert Neurologic Exam: alert, oriented x 3, cooperative, normal mood/affect, nml cerebellar function, sensation nml, No motor deficits Skin Exam: normal color, warm, dry Wound Assessment: Skin/Wound Assessment Wound/Incision Assessment Start: 04/07/22 16:01 Text: Status: Active Freq: Q6H Protocol: Document 04/13/22 02:00 RB (Rec: 04/13/22 04:06 RB [id number]) Wound/Incision Assessment Lower Buttock Wound Assessment Shift Assessment Wound Type Excoriation Wound Stage Non Pressure Wound Drainage Amount None Wound Photo Photo Taken No Eye Exam: PERRL, EOMI, eyes nml inspection Ears, Nose, Throat Exam: normal ENT inspection, pharynx normal, moist mucous membranes Neck Exam: normal inspection, non-tender, supple, full range of motion Respiratory Exam: normal breath sounds, lungs clear, No respiratory distress Cardiovascular Exam: regular rate/rhythm, normal heart sounds Gastrointestinal/Abdomen Exam: soft, No tenderness, No mass Extremity Exam: normal inspection, normal range of motion Back Exam: normal inspection, normal range of motion, No CVA tenderness, No vertebral tenderness Male Genitalia Exam: deferred Rectal Exam: deferred OBJECTIVE DATA Vital Signs: Vital Signs - 24 hr Temp Pulse Resp BP BP Pulse Ox 04/13/22 08:00 97.1 F 64 18 181/76 97 04/13/22 04:00 97.7 F 67 18 142/65 98 04/12/22 23:43 97.1 F 63 15 181/78 137/66 96 04/12/22 19:37 96.9 F 73 18 142/63 96 04/12/22 16:00 98.6 F 69 20 154/68 96 01/21/23 11:20 97.5 F 74 24 181/78 95 Pain Assessment - Last Documented Pain Intensity 4 Pain Scale Used 0-10 Pain Scale Intake and Output: Intake & Output 04/10/22 04/11/22 04/12/22 04/13/22 11:59 11:59 11:59 11:59 Intake Total 2569 1060 2320 1780 Output Total 1597 1750 2300 3075 Balance 972 -690 20 -1295 Weight 72.1 kg 70.7 kg 71.1 kg 71.1 kg Lab Results: Lab Results-Last 24 Hours 04/12/22 04/12/22 04/12/22 Range/Units 11:06 16:29 20:25 WBC (4.0-10.5) x10^3/uL RBC (4.1-5.6) x10^6/uL Hgb (12.5-18.0) g/dL Hct (42-50) % MCV (78-100) fL MCH (26-32) pg MCHC (32-36) g/dL RDW (11.5-14.0) % Plt Count (150-450) x10^3/uL MPV (7.5-11.0) fL Gran % (36.0-66.0) % Immature Gran % (Auto) (0.00-0.4) % Nucleat RBC Rel Count (0.00-0.1) % Eos # (Auto) (0-0.5) x10^3/uL Immature Gran # (Auto) (0.00-0.03) x10^3u/L Absolute Lymphs (auto) (1.0-4.6) x10^3/uL Absolute Monos (auto) (0.0-1.3) x10^3/uL Absolute Nucleated RBC (0.00-0.01) x10^3u/L Lymphocytes % (24.0-44.0) % Monocytes % (0.0-12.0) % Eosinophils % (0.00-5.0) % Basophils % (0.0-0.4) % Absolute Granulocytes (1.4-6.9) x10^3/uL Basophils # (0-0.4) x10^3/uL Sodium (137-145) mmol/L Potassium (3.5-5.1) mmol/L Chloride (98-107) mmol/L Carbon Dioxide (22-30) mmol/L Anion Gap (5-15) MEQ/L BUN (9-20) mg/dL Creatinine (0.66-1.25) mg/dL Estimated GFR ML/MIN Glucose (74-106) mg/dL POC Glucometer 226 H 188 H 184 H (74 to 106) mg/dL Calcium (8.4-10.2) mg/dL Total Bilirubin (0.2-1.3) mg/dL AST (17-59) U/L ALT (0-50) U/L Alkaline Phosphatase (38-126) U/L Serum Total Protein (6.3-8.2) g/dL Albumin (3.5-5.0) g/dL 04/13/22 04/13/22 04/13/22 Range/Units 05:42 05:42 06:56 WBC 6.9 (4.0-10.5) x10^3/uL RBC 3.19 L (4.1-5.6) x10^6/uL Hgb 9.6 L (12.5-18.0) g/dL Hct 30.2 L (42-50) % MCV 94.7 (78-100) fL MCH 30.1 (26-32) pg MCHC 31.8 L (32-36) g/dL RDW 13.8 (11.5-14.0) % Plt Count 198 (150-450) x10^3/uL MPV 11.2 H (7.5-11.0) fL Gran % 53.1 (36.0-66.0) % Immature Gran % (Auto) 1.0 H (0.00-0.4) % Nucleat RBC Rel Count 0.0 (0.00-0.1) % Eos # (Auto) 1.02 H (0-0.5) x10^3/uL Immature Gran # (Auto) 0.07 H (0.00-0.03) x10^3u/L Absolute Lymphs (auto) 1.30 (1.0-4.6) x10^3/uL Absolute Monos (auto) 0.76 (0.0-1.3) x10^3/uL Absolute Nucleated RBC 0.00 (0.00-0.01) x10^3u/L Lymphocytes % 19.0 L (24.0-44.0) % Monocytes % 11.1 (0.0-12.0) % Eosinophils % 14.9 H (0.00-5.0) % Basophils % 0.9 (0.0-0.4) % Absolute Granulocytes 3.64 (1.4-6.9) x10^3/uL Basophils # 0.06 (0-0.4) x10^3/uL Sodium 135 L (137-145) mmol/L Potassium 3.5 (3.5-5.1) mmol/L Chloride 111 H (98-107) mmol/L Carbon Dioxide 21 L (22-30) mmol/L Anion Gap 6.2 (5-15) MEQ/L BUN 29 H (9-20) mg/dL Creatinine 2.17 H (0.66-1.25) mg/dL Estimated GFR 31.9 ML/MIN Glucose 109 H (74-106) mg/dL POC Glucometer 98 (74 to 106) mg/dL Calcium 7.6 L (8.4-10.2) mg/dL Total Bilirubin 0.30 (0.2-1.3) mg/dL AST 40 (17-59) U/L ALT 31 (0-50) U/L Alkaline Phosphatase 93 (38-126) U/L Serum Total Protein 5.3 L (6.3-8.2) g/dL Albumin 2.7 L (3.5-5.0) g/dL Assessment/Plan (1) Pneumonia Current Visit: Yes Status: Acute Qualifiers: Pneumonia type: due to unspecified organism Laterality: left Lung location: lower lobe of lung Qualified Code(s): J18.9 - Pneumonia, unspecified organism Assessment & Plan: Chief Complaint Diagnosis SEPSIS, PNEUMONIA, Allergies Allergy/AdvReac Type Severity Reaction Status Date / Time No Known Drug Allergies Allergy Verified 04/07/22 11:13 Vital Signs (Last 24 hours) Temp Pulse Resp BP BP Pulse Ox 04/13/22 08:00 97.1 F 64 18 181/76 97 04/13/22 04:00 97.7 F 67 18 142/65 98 04/12/22 23:43 97.1 F 63 15 181/78 137/66 96 04/12/22 19:37 96.9 F 73 18 142/63 96 04/12/22 16:00 98.6 F 69 20 154/68 96 04/12/22 11:20 97.5 F 74 24 181/78 95 Current Medications Generic Name Dose Route Start Last Admin Trade Name Freq PRN Reason Stop Dose Admin Acetaminophen 650 mg 04/07/22 20:43 04/13/22 05:02 Acetaminophen 325 Mg Tablet PO 05/07/22 20:42 650 mg Q4H PRN PRN Administration PAIN AND/OR FEVER Amlodipine Besylate 10 mg 04/12/22 22:00 04/12/22 20:29 Amlodipine Besylate 5 Mg Tablet PO 05/12/22 21:59 10 mg QHS BELLO Administration Aspirin 81 mg 04/08/22 10:00 04/12/22 08:11 Aspirin 81 Mg Tablet.Ec PO 05/08/22 09:59 81 mg DAILY BELLO Administration Clonidine 0.2 mg 04/10/22 16:27 04/12/22 20:29 Clonidine Hcl 0.1 Mg Tablet PO 05/10/22 16:26 0.2 mg TID BELLO Administration Clopidogrel Bisulfate 75 mg 04/08/22 10:00 04/12/22 08:12 Clopidogrel Bisulfate 75 Mg Tablet PO 05/08/22 09:59 75 mg DAILY BELLO Administration Duloxetine HCl 30 mg 04/08/22 10:00 04/12/22 20:29 Duloxetine Hcl 30 Mg Cap PO 05/08/22 09:59 30 mg BID BELLO Administration Hydralazine HCl 100 mg 04/11/22 22:00 04/12/22 20:29 Hydralazine Hcl 25 Mg Tablet PO 05/10/22 09:59 100 mg TID BELLO Administration Meropenem 1 gm/ Sodium 100 mls @ 200 mls/hr 04/07/22 16:04 04/13/22 05:03 Chloride IV 04/13/22 16:03 200 mls/hr Q8HT BELLO Administration Insulin Glargine 15 unit 04/08/22 08:00 04/13/22 08:00 Insulin Glargine 1 Unit SQ 05/08/22 07:59 15 unit AMINSULIN BELLO Administration Insulin Human Lispro 0 unit 04/07/22 17:58 04/12/22 11:13 Insulin Lispro 1 Unit SQ 05/07/22 17:57 2 unit UD PRN Administration HYPERGLYCEMIA Labetalol HCl 10 mg 04/09/22 11:06 04/12/22 04:16 Labetalol Hcl 20 Mg/4 Ml Disp.Syringe IV 05/09/22 11:05 10 mg [id number] PRN Administration HYPERTENSION Metoprolol Tartrate 50 mg 04/11/22 10:00 04/12/22 20:29 Metoprolol Tartrate 50 Mg Tablet PO 05/11/22 09:59 50 mg BID BELLO Administration Pantoprazole Sodium 40 mg 04/08/22 22:00 04/12/22 20:29 Protonix (Pantoprazole) 40 Mg Tablet PO 05/08/22 21:59 40 mg QHS BELLO Administration Polyethylene Glycol/Electrolytes 4,000 ml 04/13/22 14:00 Sod Sulf/Sod/Nahco3/Kcl/Peg's 4000 Ml Bottle PO 04/13/22 14:01 ONCE@1400 ONE Simvastatin 40 mg 04/08/22 10:00 04/12/22 08:11 Simvastatin 20 Mg Tablet PO 05/08/22 09:59 40 mg DAILY BELLO Administration Discontinued Medications Generic Name Dose Route Start Last Admin Trade Name Freq PRN Reason Stop Dose Admin Albuterol Sulfate 2 puff 04/08/22 07:20 Albuterol Common Canister Inhaler IH 05/08/22 07:19 Q4H PRN PRN SHORTNESS OF BREATH Amlodipine Besylate 10 mg 04/12/22 11:46 04/12/22 13:59 Amlodipine Besylate 5 Mg Tablet PO 04/12/22 11:47 10 mg STAT ONE Administration Amlodipine Besylate 10 mg 04/12/22 14:00 04/12/22 14:24 Amlodipine Besylate 5 Mg Tablet PO 04/12/22 14:01 Not Given STAT ONE Clonidine 0.1 mg 04/09/22 10:00 Clonidine Hcl 0.1 Mg Tablet PO 05/09/22 09:59 TID BELLO Clonidine 0.1 mg 04/09/22 10:00 Clonidine Hcl 0.1 Mg Tablet PO 05/09/22 09:59 TID BELLO Clonidine HCl 0.1 mg 04/09/22 07:00 04/09/22 08:27 Clonidine Hcl 0.1 Mg Patch TOP 05/09/22 06:59 Not Given Q7D BELLO Clonidine HCl 0.1 mg 04/09/22 08:00 04/09/22 07:54 Clonidine Hcl 0.1 Mg Patch TOP 05/09/22 07:59 0.1 mg Q7D BELLO Administration Duloxetine HCl 30 mg 04/07/22 22:00 04/07/22 21:01 Duloxetine Hcl 30 Mg Cap PO 04/07/22 22:01 30 mg ONCE ONE Administration Fentanyl Citrate 12.5 mcg 04/07/22 17:56 04/12/22 13:59 Fentanyl Citrate 100 Mcg/2 Ml* Vial IV 04/12/22 17:55 12.5 mcg Q4H PRN PRN Administration SEVERE PAIN Gabapentin 300 mg 04/07/22 22:00 04/07/22 21:01 Gabapentin 300 Mg Capsule PO 04/07/22 22:01 300 mg ONCE ONE Administration Gabapentin 300 mg 04/08/22 10:00 04/08/22 13:03 Gabapentin 300 Mg Capsule PO 05/08/22 09:59 Not Given TID [facility] Hydralazine HCl 10 mg 04/09/22 06:11 04/09/22 06:18 Hydralazine Hcl 20 Mg/Ml Vial IV 04/09/22 06:12 10 mg STAT ONE Administration Hydralazine HCl 75 mg 04/10/22 10:00 04/11/22 18:51 Hydralazine Hcl 25 Mg Tablet PO 05/10/22 09:59 Not Given [facility]ID [facility] Hydralazine HCl Confirm 04/11/22 17:33 Hydralazine Hcl 25 Mg Tablet Administered 04/11/22 17:34 Dose 100 mg .ROUTE .STK-MED ONE Hydrocortisone Sodium Succinate 100 mg 04/07/22 13:45 04/07/22 13:53 Hydrocortisone Sod Succinate 100 Mg/Vial Vial IV 04/07/22 13:46 100 mg STAT ONE Administration Hydrocortisone Sodium Succinate Confirm 04/07/22 13:52 Hydrocortisone Sod Succinate 100 Mg/Vial Vial Administered 04/07/22 13:53 Dose 100 mg .ROUTE .STK-MED ONE Sodium Chloride Confirm 04/07/22 11:18 Sodium Chloride 0.9% 1000 Ml Administered 04/07/22 11:19 Dose 1,000 mls @ ud .ROUTE .STK-MED ONE Sodium Chloride 1,000 mls @ 999 mls/hr 04/07/22 11:24 04/07/22 13:24 Sodium Chloride 0.9% 1000 Ml IV 04/07/22 12:24 Infused .Q1H1M STA Infusion Sodium Chloride Confirm 04/07/22 11:50 Sodium Chloride 0.9% 1000 Ml Administered 04/07/22 11:51 Dose 1,000 mls @ ud .ROUTE .STK-MED ONE Ceftriaxone Sodium/Dextrose 2 g in 50 mls @ 100 mls/hr 04/07/22 12:19 04/07/22 13:24 Rocephin 2 Gm-D5w 50ml Bag IV 04/07/22 12:48 Infused STAT STA Infusion Azithromycin 500 mg in 250 mls @ 250 mls/hr 04/07/22 12:19 04/07/22 14:06 Zithromax 500 Mg/ 250 Ml Nacl Premix IV 04/07/22 13:18 Infused STAT STA Infusion Norepinephrine/Dextrose 8 mg in 250 mls @ 15 mls/hr 04/07/22 12:27 04/07/22 18:33 Norepinephrine 8 Mg/250 Ml-D5w IV 05/07/22 12:26 0 mcg/min .[id number] PRN 0 mls/hr HYPOTENSION Titration Protocol 8 MCG/MIN Azithromycin Confirm 04/07/22 12:32 Zithromax 500 Mg/ 250 Ml Nacl Premix Administered 04/07/22 12:33 Dose 500 mg in 250 mls @ ud IV .STK-MED ONE Ceftriaxone Sodium/Dextrose Confirm 04/07/22 12:32 Rocephin 2 Gm-D5w 50ml Bag Administered 04/07/22 12:33 Dose 2 g in 50 mls @ ud IV .STK-MED ONE Meropenem 1 gm/ Sodium 100 mls @ 200 mls/hr 04/07/22 13:58 04/07/22 19:17 Chloride IV 04/07/22 14:27 Not Given STAT ONE Lactated Ringer's 1,000 mls @ 125 mls/hr 04/07/22 18:00 04/09/22 08:28 Lactated Ringers IV 05/07/22 17:59 Not Given .Q8H BELLO Sodium Chloride 1,000 mls @ 70 mls/hr 04/08/22 14:00 04/09/22 00:43 Sodium Chloride 0.9% 1000 Ml IV 05/08/22 13:59 70 mls/hr .[id number] BELLO Administration Sodium Chloride Confirm 04/12/22 06:00 Sodium Chloride 100ml Mini-Bag Plus Administered 04/12/22 06:01 Dose 100 mls @ ud IV .STK-MED ONE Levothyroxine Sodium 300 mcg 04/07/22 13:45 04/07/22 14:01 Levothyroxine Sodium 200 Mcg/Vial Vial IV 04/07/22 13:46 300 mcg STAT ONE Administration Lisinopril 10 mg 04/10/22 10:00 04/11/22 08:43 Lisinopril 10 Mg Tablet PO 05/10/22 09:59 10 mg DAILY BELLO Administration Ondansetron HCl Confirm 04/07/22 11:23 Ondansetron Hcl 4 Mg/2 Ml Vial Administered 04/07/22 11:24 Dose 4 mg .ROUTE .STK-MED ONE Ondansetron HCl 4 mg 04/07/22 12:13 04/07/22 12:14 Ondansetron Hcl 4 Mg/2 Ml Vial IV 04/07/22 12:14 4 mg STAT ONE Administration Pantoprazole Sodium 40 mg 04/07/22 12:09 04/07/22 12:13 Pantoprazole 40 Mg Vial IV 04/07/22 12:10 40 mg STAT ONE Administration Pantoprazole Sodium Confirm 04/07/22 12:11 Pantoprazole 40 Mg Vial Administered 04/07/22 12:12 Dose 40 mg IV .STK-MED ONE Intake & Output (Last 24 hours) 04/10/22 04/11/22 04/12/22 04/13/22 11:59 11:59 11:59 11:59 Intake Total 2569 1060 2320 1780 Output Total 1597 1750 2300 3075 Balance 042 -571 20 -2221 Weight 72.1 kg 70.7 kg 71.1 kg 71.1 kg Microbiology Results (Last 24 hours) 04/07/22 12:20 Blood Blood Culture Gram Stain - Final Not Reportable 04/07/22 12:20 Blood Blood Culture - Final NO GROWTH 04/07/22 11:35 Blood Blood Culture Gram Stain - Final Not Reportable 04/07/22 11:35 Blood Blood Culture - Final NO GROWTH Laboratory Results (Last 24 hours) 04/13/22 04/13/22 04/13/22 06:56 05:42 05:42 WBC 6.9 RBC 3.19 L Hgb 9.6 L Hct 30.2 L MCV 94.7 MCH 30.1 MCHC 31.8 L RDW 13.8 Plt Count 198 MPV 11.2 H Gran % 53.1 Immature Gran % (Auto) 1.0 H Nucleat RBC Rel Count 0.0 Eos # (Auto) 1.02 H Immature Gran # (Auto) 0.07 H Absolute Lymphs (auto) 1.30 Absolute Monos (auto) 0.76 Absolute Nucleated RBC 0.00 Lymphocytes % 19.0 L Monocytes % 11.1 Eosinophils % 14.9 H Basophils % 0.9 Absolute Granulocytes 3.64 Basophils # 0.06 Sodium 135 L Potassium 3.5 Chloride 111 H Carbon Dioxide 21 L Anion Gap 6.2 BUN 29 H Creatinine 2.17 H Estimated GFR 31.9 Glucose 109 H POC Glucometer 98 Calcium 7.6 L Total Bilirubin 0.30 AST 40 ALT 31 Alkaline Phosphatase 93 Serum Total Protein 5.3 L Albumin 2.7 L 04/12/22 04/12/22 04/12/22 20:25 16:29 11:06 WBC RBC Hgb Hct MCV MCH MCHC RDW Plt Count MPV Gran % Immature Gran % (Auto) Nucleat RBC Rel Count Eos # (Auto) Immature Gran # (Auto) Absolute Lymphs (auto) Absolute Monos (auto) Absolute Nucleated RBC Lymphocytes % Monocytes % Eosinophils % Basophils % Absolute Granulocytes Basophils # Sodium Potassium Chloride Carbon Dioxide Anion Gap BUN Creatinine Estimated GFR Glucose POC Glucometer 184 H 188 H 226 H Calcium Total Bilirubin AST ALT Alkaline Phosphatase Serum Total Protein Albumin Orders (Last 24 hours) Category Date Time Status Clear Liquid Diet 04/13/22 Breakfast Active NPO Diet 04/14/22 00:01 Active CBC W DIFF AM.LAB Lab 04/13/22 05:42 Completed CMP AM.LAB Lab 04/13/22 05:42 Completed POCT GLUCOSE Stat Lab 04/12/22 07:11 Completed POCT GLUCOSE Stat Lab 04/12/22 11:06 Completed POCT GLUCOSE Stat Lab 04/12/22 16:29 Completed POCT GLUCOSE Stat Lab 04/12/22 20:25 Completed POCT GLUCOSE Stat Lab 04/13/22 06:56 Completed Amlodipine Besylate 5 mg [Norvasc 5 mg] Med 04/12/22 22:00 Active 10 mg PO QHS Amlodipine Besylate 5 mg [Norvasc 5 mg] Med 04/12/22 11:46 Discontinued 10 mg PO STAT ONE Amlodipine Besylate 5 mg [Norvasc 5 mg] Med 04/12/22 14:00 Discontinued 10 mg PO STAT ONE Sod Sulf/Sod/Nahco3/KCl/Peg's* [Golytely Solution 4000 Med 04/13/22 14:00 Once ML] 4,000 ml PO ONCE@1400 ONE Patient Care Notes (Last 24 hours) 04/12/22 08:19 Nursing Note by Shaneka Sarabia PT MEDS GIVEN EARLY DUE TO BLOOD PRESSURE OF 230/90, WILL REASSESS IN 1 HR Initialized on 04/12/22 08:19 - END OF NOTE Code(s): J18.9 - PNEUMONIA, UNSPECIFIED ORGANISM (2) Sepsis Current Visit: Yes Status: Acute Qualifiers: Sepsis type: sepsis due to unspecified organism Sepsis acute organ dysfunction status: with acute organ dysfunction Severe sepsis acute organ dysfunction type: acute renal failure Acute renal failure type: unspecified Severe sepsis shock status: with septic shock Qualified Code(s): A41.9 - Sepsis, unspecified organism; R65.21 - Severe sepsis with septic shock; N17.9 - Acute kidney failure, unspecified (3) Acute renal insufficiency Current Visit: No Status: Acute Code(s): N28.9 - DISORDER OF KIDNEY AND URETER, UNSPECIFIED
[2022-04-13] MEDS: Apresoline 25 MG TABLET PO SCH ×3 (08:51→19:23)
[2022-04-13] MEDS: ECOTRIN 81 MG PO SCH (08:51)
[2022-04-13] MEDS: Lopressor 50 MG PO SCH ×2 (08:52→19:24)
[2022-04-13] MEDS: CLONIDINE 0.1 MG TABLET PO SCH ×3 (08:52→19:22)
[2022-04-13] MEDS: ZOCOR 20MG PO SCH (08:52)
[2022-04-13] MEDS: PLAVIX Tablet PO SCH (08:52)
[2022-04-13] MEDS: Cymbalta 30 MG Capsule PO SCH ×2 (08:52→19:23)
[2022-04-13] MEDS ORDERED: Golytely Solution 4000 ML PO ONE (14:00)
[2022-04-13] MEDS: NORVASC 5 MG PO SCH (19:23)
[2022-04-13] MEDS: Protonix 40MG Tablet PO SCH (19:24)
[2022-04-14] MEDS ORDERED: Sodium Chloride 0.9% 1000 ML 1,000 ML IV SCH
[2022-04-14] MEDS: TYLENOL 325 MG PO PRN ×5 (03:51→23:45)
[2022-04-14] MEDS: Sodium Chloride 0.9% 1000 ML 1,000 ML IV SCH (03:54)
[2022-04-14] MEDS: Merrem 1 GM in Sodium Chloride 100ML MINI-BAG PLUS 100 ML IV SCH (05:40)
[2022-04-14 07:05] LABS: Absolute Neutrophil Ct (ANC) 2.49 x10^3/uL (1.4-6.9); BASOPHIL % 0.6 % (0.0-0.4); Basophil (Absolute #) 0.03 x10^3/uL (0-0.4); Eosinophil % 10.1 % (0.00-5.0); Eosinophil (Absolute #) 0.49 x10^3/uL (0-0.5); Hematocrit 28.1 % (42-50); Hemoglobin 9.4 g/dL (12.5-18.0); IMMATURE GRAN # 0.05 x10^3u/L (0.00-0.03); Lymphocyte (Absolute #) 1.12 x10^3/uL (1.0-4.6); Lymphocytes % 23.1 % (24.0-44.0); Mean Cell Volume 92.4 fL (78-100); Mean Corpuscular Hemoglobin 30.9 pg (26-32); Mean Corpuscular Hgb Concent. 33.5 g/dL (32-36); Mean Platelet Volume 11.3 fL (7.5-11.0); Monocyte (Absolute #) 0.66 x10^3/uL (0.0-1.3); Monocytes % 13.6 % (0.0-12.0); Neutrophil % 51.6 % (36.0-66.0); Platelet Count 197 x10^3/uL (150-450); Red Blood Count 3.04 x10^6/uL (4.1-5.6); Red Cell Distribution Width 13.6 % (11.5-14.0); White Blood Count 4.8 x10^3/uL (4.0-10.5)
[2022-04-14 07:11] LABS: ALBUMIN 2.6 g/dL (3.5-5.0); ANION GAP 10.2 MEQ/L (5-15); BILIRUBIN,TOTAL 0.4 mg/dL (0.2-1.3); Calcium 7.2 mg/dL (8.4-10.2); Creatinine 1 1.81 mg/dL (0.66-1.25); EST GLOMERULAR FILTRATION RATE 39.4 ML/MIN; Potassium 3.3 mmol/L (3.5-5.1); Total Protein 5.1 g/dL (6.3-8.2)
[2022-04-14] MEDS: Apresoline 25 MG TABLET PO SCH ×3 (08:25→21:23)
[2022-04-14] MEDS: ZOCOR 20MG PO SCH (08:25)
[2022-04-14] MEDS: CLONIDINE 0.1 MG TABLET PO SCH ×3 (08:25→21:23)
[2022-04-14] MEDS: Cymbalta 30 MG Capsule PO SCH ×2 (08:25→21:23)
[2022-04-14] MEDS: Lopressor 50 MG PO SCH ×2 (08:26→21:22)
[2022-04-14] MEDS: Lantus Insulin SQ SCH (08:29)
[2022-04-14] MEDS ORDERED: Xylocaine-Mpf 2% 5 Ml Vial ONE (13:43)
[2022-04-14] MEDS ORDERED: DIPRIVAN 200 MG/20 ML IV ONE (13:43)
[2022-04-14] MEDS ORDERED: Sodium Chloride 0.9% 1000 ML 1,000 ML ONE (13:55)
[2022-04-14] MEDS ORDERED: APRESOLINE 20 MG/ML INJ ONE (13:56)
[2022-04-14] MEDS: PLAVIX Tablet PO SCH (16:13)
[2022-04-14] MEDS: ECOTRIN 81 MG PO SCH (16:13)
--- NOTE | 2022-04-14 17:06 | PCM.NOTE ---
Date and Time: 04/14/22 1700 Subjective Assessment: Pt seen by me this morning at 07:45. He is alert, oriented to place but not time. Says his urinary catheter hurts, but doesn't complain or any other pain. 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 Eye Exam: eyes nml inspection Ears, Nose, Throat Exam: moist mucous membranes Neck Exam: normal inspection Respiratory Exam: normal breath sounds, lungs clear, No crackles/rales, No rhonchi, No wheezing Cardiovascular Exam: regular rate/rhythm, normal heart sounds, No murmur Gastrointestinal/Abdomen Exam: soft, normal bowel sounds, No tenderness, No distention, No mass, No guarding, No rebound Extremity Exam: normal inspection, No pedal edema, No swelling Back Exam: normal inspection, No rash OBJECTIVE DATA Vital Signs: Vital Signs - 24 hr Temp Pulse Resp BP BP Pulse Ox 04/14/22 12:00 97.5 F 59 L 12 182/74 93 L 04/14/22 11:00 97.5 F 63 14 132/64 158/72 94 L 04/14/22 07:53 97.5 F 63 14 158/72 94 L 04/14/22 03:58 98.1 F 65 18 156/71 96 04/13/22 23:48 97.7 F 65 18 145/95 96 04/13/22 21:00 66 20 132/64 04/13/22 19:31 97.5 F 64 15 191/80 96 Pain Assessment - Last Documented Pain Intensity 2 Pain Scale Used 0-10 Pain Scale Intake and Output: Intake & Output 04/12/22 04/13/22 04/14/22 04/15/22 11:59 11:59 11:59 11:59 Intake Total 2320 2030 1440 0 Output Total 2300 3075 1500 Balance 20 -1045 -60 0 Weight 71.1 kg 71.1 kg 71.1 kg 71.1 kg Lab Results: Lab Results-Last 24 Hours 04/13/22 04/14/22 04/14/22 Range/Units 20:46 06:27 06:42 WBC 4.8 (4.0-10.5) x10^3/uL RBC 3.04 L (4.1-5.6) x10^6/uL Hgb 9.4 L (12.5-18.0) g/dL Hct 28.1 L (42-50) % MCV 92.4 (78-100) fL MCH 30.9 (26-32) pg MCHC 33.5 (32-36) g/dL RDW 13.6 (11.5-14.0) % Plt Count 197 (150-450) x10^3/uL MPV 11.3 H (7.5-11.0) fL Gran % 51.6 (36.0-66.0) % Immature Gran % (Auto) 1.0 H (0.00-0.4) % Nucleat RBC Rel Count 0.0 (0.00-0.1) % Eos # (Auto) 0.49 (0-0.5) x10^3/uL Immature Gran # (Auto) 0.05 H (0.00-0.03) x10^3u/L Absolute Lymphs (auto) 1.12 (1.0-4.6) x10^3/uL Absolute Monos (auto) 0.66 (0.0-1.3) x10^3/uL Absolute Nucleated RBC 0.00 (0.00-0.01) x10^3u/L Lymphocytes % 23.1 L (24.0-44.0) % Monocytes % 13.6 H (0.0-12.0) % Eosinophils % 10.1 H (0.00-5.0) % Basophils % 0.6 (0.0-0.4) % Absolute Granulocytes 2.49 (1.4-6.9) x10^3/uL Basophils # 0.03 (0-0.4) x10^3/uL Sodium (137-145) mmol/L Potassium (3.5-5.1) mmol/L Chloride (98-107) mmol/L Carbon Dioxide (22-30) mmol/L Anion Gap (5-15) MEQ/L BUN (9-20) mg/dL Creatinine (0.66-1.25) mg/dL Estimated GFR ML/MIN Glucose (74-106) mg/dL POC Glucometer 182 H 166 H (74 to 106) mg/dL Calcium (8.4-10.2) mg/dL Total Bilirubin (0.2-1.3) mg/dL AST (17-59) U/L ALT (0-50) U/L Alkaline Phosphatase (38-126) U/L Serum Total Protein (6.3-8.2) g/dL Albumin (3.5-5.0) g/dL 04/14/22 04/14/22 04/14/22 Range/Units 06:42 11:43 16:45 WBC (4.0-10.5) x10^3/uL RBC (4.1-5.6) x10^6/uL Hgb (12.5-18.0) g/dL Hct (42-50) % MCV (78-100) fL MCH (26-32) pg MCHC (32-36) g/dL RDW (11.5-14.0) % Plt Count (150-450) x10^3/uL MPV (7.5-11.0) fL Gran % (36.0-66.0) % Immature Gran % (Auto) (0.00-0.4) % Nucleat RBC Rel Count (0.00-0.1) % Eos # (Auto) (0-0.5) x10^3/uL Immature Gran # (Auto) (0.00-0.03) x10^3u/L Absolute Lymphs (auto) (1.0-4.6) x10^3/uL Absolute Monos (auto) (0.0-1.3) x10^3/uL Absolute Nucleated RBC (0.00-0.01) x10^3u/L Lymphocytes % (24.0-44.0) % Monocytes % (0.0-12.0) % Eosinophils % (0.00-5.0) % Basophils % (0.0-0.4) % Absolute Granulocytes (1.4-6.9) x10^3/uL Basophils # (0-0.4) x10^3/uL Sodium 134 L (137-145) mmol/L Potassium 3.3 L (3.5-5.1) mmol/L Chloride 106 (98-107) mmol/L Carbon Dioxide 21 L (22-30) mmol/L Anion Gap 10.2 (5-15) MEQ/L BUN 20 (9-20) mg/dL Creatinine 1.81 H (0.66-1.25) mg/dL Estimated GFR 39.4 ML/MIN Glucose 174 H (74-106) mg/dL POC Glucometer 190 H 194 H (74 to 106) mg/dL Calcium 7.2 L (8.4-10.2) mg/dL Total Bilirubin 0.40 (0.2-1.3) mg/dL AST 36 (17-59) U/L ALT 28 (0-50) U/L Alkaline Phosphatase 99 (38-126) U/L Serum Total Protein 5.1 L (6.3-8.2) g/dL Albumin 2.6 L (3.5-5.0) g/dL Multi-Disciplinary Progress Notes: Multi-Disciplinary Progress Notes 04/14/22 11:18 Case Management Note by Dot Quiñones S/Ricki JACQUES AT [facility] STILL PENDING AT THIS TIME Initialized on 04/14/22 11:18 - END OF NOTE Assessment/Plan (1) Hypertension Current Visit: No Status: Chronic Qualifiers: Hypertension type: primary hypertension Qualified Code(s): I10 - Essential (primary) hypertension Assessment & Plan: Still having elevated BP. Increase clonidine to pre-hospital level (0.3mg po TID) and increase metoprolol to usual does (100mg po BID). Code(s): I10 - ESSENTIAL (PRIMARY) HYPERTENSION (2) Sepsis Current Visit: Yes Status: Resolved Qualifiers: Sepsis type: sepsis due to unspecified organism Sepsis acute organ dysfunction status: with acute organ dysfunction Severe sepsis acute organ dysfunction type: acute renal failure Acute renal failure type: unspecified Severe sepsis shock status: with septic shock Qualified Code(s): A41.9 - Sepsis, unspecified organism; R65.21 - Severe sepsis with septic shock; N17.9 - Acute kidney failure, unspecified (3) Pneumonia Current Visit: Yes Status: Resolved Qualifiers: Pneumonia type: due to unspecified organism Laterality: left Lung location: lower lobe of lung Qualified Code(s): J18.9 - Pneumonia, unspecified organism Assessment & Plan: Stopping merrem today, which would be day #8. On room air. Breathing well. Nl WBC. Code(s): J18.9 - PNEUMONIA, UNSPECIFIED ORGANISM (4) Acute renal injury Current Visit: Yes Status: Acute Assessment & Plan: much improved - eGFR 39.4 today, up from 18.9 at admission. 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 ON 1800 kcal diet. (6) Hematochezia Current Visit: Yes Status: Acute Assessment & Plan: Colonoscopy today. Code(s): K92.1 - MELENA (7) Seizure disorder Current Visit: No Status: Chronic Code(s): G40.909 - EPILEPSY, UNSP, NOT INTRACTABLE, WITHOUT STATUS EPILEPTICUS (8) Anemia Current Visit: Yes Status: Acute Qualifiers: Anemia type: unspecified type Qualified Code(s): D64.9 - Anemia, unspecified Assessment & Plan: Likely from cronic renal disease exacerbated by blood loss. Code(s): D64.9 - ANEMIA, UNSPECIFIED (9) Hyponatremia Current Visit: Yes Status: Chronic Code(s): E87.1 - HYPO-OSMOLALITY AND HYPONATREMIA (10) Hypokalemia Current Visit: No Status: Acute Assessment & Plan: Mild, 3.3. Code(s): E87.6 - HYPOKALEMIA
[2022-04-14] MEDS: NORVASC 5 MG PO SCH (21:22)
[2022-04-14] MEDS: Protonix 40MG Tablet PO SCH (21:23)
[2022-04-14] MEDS: HUMALOG SQ PRN (21:31)
[2022-04-15] MEDS: TYLENOL 325 MG PO PRN (03:44)
[2022-04-15 04:24] VITALS: O2SAT 98
[2022-04-15 07:13] VITALS: BP 152/64; PULSE 73
[2022-04-15] MEDS: Sodium Chloride 0.9% 1000 ML 1,000 ML IV SCH (07:54)
[2022-04-15] MEDS: Lantus Insulin SQ SCH (07:56)
--- NOTE | 2022-04-15 08:04 | CONS ---
CONSULT DATE: 04/14/2022 HISTORY: The patient was seen for Dr. Avalos who apparently was consulted over the weekend. The patient had some anemia and some rectal bleeding. It was felt the patient would benefit from upper and lower scope. This is a 72-year-old with diabetes, coronary artery disease, congestive heart failure, diverticulosis as well as hypertension. He has dementia-type disease, seizure disorder, transient ischemic attack in the past. Smoker in the past. He had pneumonia, altered mental status when admitted initially. PAST MEDICAL HISTORY: As mentioned above. He has some short term memory problems. PAST SURGICAL HISTORY: Cervical fusion in the past. Cholecystectomy. He had some remote history of endoscopy by Dr. Hester in the past. He is not quite sure what it is now. He had coronary artery bypass graft in the past. Cardiac catheterization in the past. HOME MEDICATIONS: Aspirin, duloxetine, gabapentin, insulin, Humalog, MiraLAX, rosuvastatin for some hyperlipidemia, Tylenol, albuterol for his chronic lung disease, Protonix, Klor-Con, clopidogrel, Zestril, Lasix, hydralazine, Lopressor, oxycodone, clonidine prior to admission. ALLERGIES: NKDA. FAMILY HISTORY: Negative for colon cancer. SOCIAL HISTORY: Former smoker. REVIEW OF SYSTEMS: Fourteen systems reviewed, negative or noncontributory as above and per preadmission questionnaire. PHYSICAL EXAMINATION: GENERAL: A chronically ill gentleman. HEENT: Sclera nonicteric. NECK: No JVD. CHEST: Equal excursion, nonlabored breathing. CVS: Regular rhythm and pulse. ABDOMEN: Very soft. No peritoneal signs. He had some vague generalized aches and pains. EXTREMITIES: No cyanosis. NEURO: Alert, answering questions appropriately. He has history of CVA in the past. RECTAL: Deferred timed to endoscopy exam. IMPRESSION: History of some anemia. Hemoglobin in the 9 range. He had some rectal bleeding. He had been on some blood thinners which have been held. It is felt he would benefit from upper and lower endoscopy for further evaluation given his anemia. General risk of bleeding or infection. Risk of bowel injury or perforation, risk of missed or nondiagnosis, inability to diagnose the etiology his symptoms, incomplete exam possibly requiring barium enema, other studies or procedures. General risk of anesthesia or sedation. Risk of bowel prep but not limited to. He understands and agrees to the planned procedure, will proceed with EGD and colonoscopy when OR time available.
--- NOTE | 2022-04-15 08:29 | OP ---
SURGERY DATE/TIME: 04/14/2022 2212 This patient was seen for Dr. Goyo Avalos who was consulted over the weekend. PREOPERATIVE DIAGNOSES: 1) Rectal bleeding. 2) Anemia. 3) Generalized abdominal pain. POSTOPERATIVE DIAGNOSES: 1) Left colon colitis (likely source of aches, pains and recent bleeding). 2) Colon polyps. 3) Some diverticulosis. 4) Minimal gastritis. PROCEDURES: 1) EGD with cold biopsy of antrum for Helicobacter pylori. 2) Cold biopsy distal esophagus to evaluate for short segment distal esophagitis versus normal variation of gastroesophageal junction. 3) Colonoscopy to cecum. 4) Hot snare polypectomy transverse colon polyp x2. 5) Hot biopsy polypectomy ascending colon polyp hot snare polypectomy additional ascending colon polyp. 6) Multiple cold biopsies of colitis left colon. No active bleeding. Extending to the descending down to rectosigmoid area. 7) Hot biopsy polypectomy small rectal polyp. 8) ASA Class III. SURGEON: Dr. Mack Foster. ANESTHESIA: MAC. ESTIMATED BLOOD LOSS: Minimal. INDICATIONS: As noted above. Risks and benefits explained in detail and not limited to and consent obtained. DESCRIPTION OF PROCEDURE AND FINDINGS: The patient is taken to the operating room. MAC anesthesia introduced. After official time out and no disagreement with planned procedure, bite block positioned. Video gastroscope easily passed down the esophagus to the patent pylorus to the junction into the third portion of the duodenum. No signs of any fresh or old blood. He had some minimal to mild gastritis. Cold biopsy taken to evaluate for Helicobacter pylori in the stomach. On retroflex, he did not have any hiatal hernia. The scope is straightened. Gastroesophageal junction 40 cm. There was plus or minus 1.5 mm or so, whether early inflammation versus normal variation of gastroesophageal junction, cold biopsy taken of distal esophagus. Good hemostasis noted. Otherwise no signs of any ulcers. No signs of any masses on upper endoscopy. Scope is withdrawn. Colonoscopy is accomplished and he remained under MAC anesthesia. Carefully passed through inflamed colon, had some generalized colitis whether transient ischemia or not, the scope was able to be passed through the area. No fresh or old blood in the colon. The scope is passed around to the cecum. Appendiceal orifice and valve well visualized and photo documented. Prep overall was poor. His ASA Class is III. The scope was carefully withdrawn over the next 11 minutes. There were three polyps in the proximal transverse colon removed with hot snare polypectomy with brief bursts of cautery. There was one in the ascending colon removed with hot snare polypectomy, one polyp was removed in two pieces with hot biopsy polypectomy. The scope slowly and carefully withdrawn back to the distal descending sigmoid colon. Areas of colitis were noted, whether this was a transient ischemia, infectious or other etiology, random cold biopsies were taken throughout this colitis segment. He did have some diverticulosis in the left colon that was obscured by the inflammation and colitis. The rectum itself small polyp versus hyperplastic lesion removed with hot biopsy polypectomy. Good hemostasis noted. Again, multiple random cold biopsies had been taken of this colitis segment from the descending down to the distal sigmoid-rectosigmoid area. I will see if he has family to discuss the findings with.
[2022-04-15] MEDS: CLONIDINE 0.1 MG TABLET PO SCH (09:37)
[2022-04-15] MEDS: ZOCOR 20MG PO SCH (09:37)
[2022-04-15] MEDS: Lopressor 50 MG PO SCH (09:37)
[2022-04-15] MEDS: Apresoline 25 MG TABLET PO SCH (09:37)
[2022-04-15] MEDS: Cymbalta 30 MG Capsule PO SCH (09:38)
--- NOTE | 2022-04-18 20:24 | PCM.DS ---
Discharge Summary Date of Admission: 04/08/22 12:46 Date of Discharge: 04/15/2022 Admitting Physician: JAMES TRAN Consults: Consults on Case 04/08/22 11:44 Consult Nephrology ROUTINE 04/11/22 11:09 Consult Surgery ROUTINE Primary Care Provider: CRYSTAL MURILLO Allergies Allergies No Known Drug Allergies Allergy (Verified 04/07/22 11:13) Hospital Summary - Hospital Course Hospital Course: Pt. slowly improved with alterations in medical management and was ready to go to care home. - Vitals & Intake/Output Vital Signs: Vital Signs Temperature 98.7 F 04/15/22 07:13 Pulse Rate 73 04/15/22 07:13 Respiratory Rate 18 04/15/22 07:13 Blood Pressure 152/64 04/15/22 07:13 O2 Sat by Pulse Oximetry 98 04/15/22 07:13 - Lab Result Diagrams: 04/14/22 06:42 04/14/22 06:42 Micro Results-Entire Visit: Microbiology 04/07/22 12:20 Blood Culture Gram Stain - Final Blood Not Reportable Blood Culture - Final NO GROWTH 04/07/22 11:35 Blood Culture Gram Stain - Final Blood Not Reportable Blood Culture - Final NO GROWTH - Procedures and Test Procedures and Tests throughout Hospitalization: Therapy Orders & Screens 04/08/22 15:47 Respiratory Therapy Assessment DAILY Comment: Diagnosis: SEPSIS, PNEUMONIA, 04/10/22 09:23 PT Eval & Treat ( Order) ONCE Reason for Eval:: REHAB PLACEMENT Diagnosis: SEPSIS, PNEUMONIA, Discharge Exam General Appearance: no apparent distress, alert Neurologic Exam: alert, oriented x 3, cooperative, normal mood/affect, nml cerebellar function, sensation nml, No motor deficits Eye Exam: PERRL, EOMI, eyes nml inspection Ears, Nose, Throat Exam: normal ENT inspection, pharynx normal, moist mucous membranes Neck Exam: normal inspection, non-tender, supple, full range of motion Respiratory Exam: normal breath sounds, lungs clear, No respiratory distress Cardiovascular Exam: regular rate/rhythm, normal heart sounds Gastrointestinal/Abdomen Exam: soft, No tenderness, No mass Male Genitalia Exam: deferred Rectal Exam: deferred Back Exam: normal inspection, normal range of motion, No CVA tenderness, No vertebral tenderness Extremity Exam: normal inspection, normal range of motion Skin Exam: normal color, warm, dry Final Diagnosis/Problem List - Final Discharge Diagnosis/Problem (1) Acute renal injury Status: Acute Code(s): N17.9 - ACUTE KIDNEY FAILURE, UNSPECIFIED (2) Altered mental status Status: Acute Code(s): R41.82 - ALTERED MENTAL STATUS, UNSPECIFIED (3) CHF (congestive heart failure) Status: Acute Code(s): I50.9 - HEART FAILURE, UNSPECIFIED (4) CKD (chronic kidney disease) stage 3, GFR 30-59 ml/min Status: Acute Code(s): N18.30 - CHRONIC KIDNEY DISEASE, STAGE 3 UNSPECIFIED (5) Fecal impaction in rectum Status: Acute Code(s): K56.41 - FECAL IMPACTION (6) High anion gap metabolic acidosis Status: Acute Code(s): E87.29 - (7) Urinary tract infection Status: Acute Code(s): N39.0 - URINARY TRACT INFECTION, SITE NOT SPECIFIED - Discharge Discharge Date: 04/15/22 Disposition: DC TO ANY "OTHER" [facility] Condition: Good Prescriptions: New Amlodipine Besylate 5 mg [Norvasc 5 mg] 10 mg PO QHS tablet HydrALAzine HCL 25 MG TAB [Apresoline 25 MG TABLET] 100 mg PO TID tablet Clonidine HCl 0.1 mg [Clonidine 0.1 mg Tablet] 0.3 mg PO TID tablet Metoprolol Tartrate 50 mg [Lopressor 50 MG] 100 mg PO BID tablet Continue Rosuvastatin Calcium 20 mg PO DAILY Gabapentin [Neurontin ] 600 mg PO TID Polyethylene Glycol 3350 [Miralax] 17 gm PO DAILY PRN PRN PRN Reason: Constipation Duloxetine HCl 30 mg [Cymbalta 30 MG Capsule] 30 mg PO BID Insulin Lispro [Humalog] 0 unit SQ ACHS Acetaminophen 325 mg [Tylenol 325 mg] 325 mg PO Q4H PRN PRN Reason: Pain Albuterol Sulfate [Proventil Hfa] 2 puff IH Q4H PRN PRN PRN Reason: Shortness Of Breath PANTOPRAZOLE 40 mg Tablet [Protonix 40MG Tablet] 40 mg PO QHS cloNIDine HCL [Clonidine HCl] 0.3 mg PO TID Metoprolol Tartrate 50 mg [Lopressor 50 MG] 100 mg PO BID Oxycodone / APAP 10/325 mg [Oxycodone-Acetaminophen 10-325] 1 each PO Q6H PRN PRN Reason: pain Discontinued Insulin Glargine [Lantus Insulin] 30 unit SQ DAILY Aspirin [Aspirin EC] 81 mg PO DAILY Potassium Chloride [Klor-Con] 10 meq PO DAILY Lisinopril 10 mg [Zestril 10 MG] 10 mg PO DAILY Clopidogrel Bisulfate [Clopidogrel] 75 mg PO DAILY Furosemide 20 mg [Lasix 20 mg] 20 mg PO DAILY Hydralazine HCl 75 mg PO TID Additional Instructions: [facility] ORDERS: ADMIT TO [facility] ACCU CHECKS [address] DIET PT/OT EVAL AND TREAT SEE ATTACHED MED LIST ---ORDER TO HOLD ASPIRIN AND PLAVIX FOR 7 DAYS, BEGINNING 04/14/22 (FOLLOWING EGD/COLONOSCOPY) ---HOLDING LANTUS CURRENTLY , MAY NEED TO RE-EVALUATE IN FUTURE Follow up with: CRYSTAL MURILLO [Primary Care Provider] -
== END 2022-04-15 11:00 | DRG 981 ==
LOC: ED 11:05 → ICU 14:50 → OBSVTOIN 04-08 12:46 → MED SURG 04-11 15:44
PROVIDERS: ADMIT Family Medicine; ATTEND Family Medicine
PROC: 0DD98ZX Extraction of Duodenum, Via Natural or Artificial Opening Endoscopic, Diagnostic (ICD-10-PCS; principal; 2022-04-14)
PROC: 0DBK0ZZ Excision of Ascending Colon, Open Approach (ICD-10-PCS; 2022-04-14)
PROC: 0DBP0ZZ Excision of Rectum, Open Approach (ICD-10-PCS; 2022-04-14)
PROC: 0DD58ZX Extraction of Esophagus, Via Natural or Artificial Opening Endoscopic, Diagnostic (ICD-10-PCS; 2022-04-14)
DX: N17.9 Acute kidney failure, unspecified (principal); A41.9 Sepsis, unspecified organism; J18.9 Pneumonia, unspecified organism; I13.0 Hypertensive heart and chronic kidney disease with heart failure and stage 1 through stage 4 chronic kidney disease, or unspecified chronic kidney disease; K62.5 Hemorrhage of anus and rectum; E87.1 Hypo-osmolality and hyponatremia; E87.20 Acidosis, unspecified; N39.0 Urinary tract infection, site not specified; I50.9 Heart failure, unspecified; R41.82 Altered mental status, unspecified; N18.30 Chronic kidney disease, stage 3 unspecified; E11.22 Type 2 diabetes mellitus with diabetic chronic kidney disease; R34 Anuria and oliguria; G40.909 Epilepsy, unspecified, not intractable, without status epilepticus; D64.9 Anemia, unspecified; R10.84 Generalized abdominal pain; K52.9 Noninfective gastroenteritis and colitis, unspecified; K63.5 Polyp of colon; K57.30 Diverticulosis of large intestine without perforation or abscess without bleeding; K29.70 Gastritis, unspecified, without bleeding; S30.810A Abrasion of lower back and pelvis, initial encounter; I16.0 Hypertensive urgency; E87.6 Hypokalemia; K56.41 Fecal impaction; Z79.899 Other long term (current) drug therapy; Z20.828 Contact with and (suspected) exposure to other viral communicable diseases; Z79.4 Long term (current) use of insulin
CPT/HCPCS: 00813; 0241U; 36000; 36415; 43239; 45380; 45384; 45385; 51702; 70450; 71045; 74176; 80048; 80053; 80307; 81001; 82805; 82947; 83605; 83735; 83880; 84134; 84443; 84484; 85025; 85027; 87040; 88305; 93005; 93041; 93268; 94760; 96360; 96365; 96367; 96368; 96374; 96375; 97110; 97161; 97530; 99100; 99285; 99291; 99292; G0378; J0360; J0456; J0696; J1720; J1817; J2405; J2704; J3010; A9270-GY

== ENCOUNTER 2022-04-23 17:31 | Observation (INO) | payer MEDICARE ==
[2022-04-23 18:43] LABS: Hematocrit 23.6 % (42-50); Hemoglobin 7.7 g/dL (12.5-18.0); Mean Cell Volume 92.9 fL (78-100); Mean Corpuscular Hemoglobin 30.3 pg (26-32); Mean Corpuscular Hgb Concent. 32.6 g/dL (32-36); Mean Platelet Volume 11.2 fL (7.5-11.0); Platelet Count 206 x10^3/uL (150-450); Red Blood Count 2.54 x10^6/uL (4.1-5.6); Red Cell Distribution Width 13.7 % (11.5-14.0); White Blood Count 4.5 x10^3/uL (4.0-10.5)
[2022-04-23 19:25] LABS: ALBUMIN 2.5 g/dL (3.5-5.0); ANION GAP 8.9 MEQ/L (5-15); BILIRUBIN,TOTAL 0.3 mg/dL (0.2-1.3); Calcium 7.2 mg/dL (8.4-10.2); Creatinine 1 2.33 mg/dL (0.66-1.25); EST GLOMERULAR FILTRATION RATE 29.4 ML/MIN; Potassium 3.4 mmol/L (3.5-5.1); TSH, 3RD Generation 4.28 mIU/L (0.47-4.68); Total Protein 5.3 g/dL (6.3-8.2)
[2022-04-23] MEDS ORDERED: Lasix 40 MG/4 ML IV ONE (19:51)
[2022-04-23] MEDS ORDERED: Lasix 40 MG/4 ML ONE (20:12)
[2022-04-23 20:59] LABS: ABO TYPING A; Antibody Screen NEGATIVE (NEGATIVE); RH TYPING POSITIVE
--- NOTE | 2022-04-23 21:13 | ERPHSYRPT ---
- History of Present Illness Time Seen by Provider: 04/23/22 18:56 Source: patient Exam Limitations: no limitations Patient Subjective Stated Complaint: Patient without any c/o upon arrival to ER. senior living nurse reports patient is here for abnormal labs, drowsiness, had to be started on 02 @ 3L in the jail 3 days ago related to new SOB. Staff at jail unsure of what lab values are abnormal and states that all of the lab results are in the paperwork. States Dr. Arcos wanted patient sent to ER. Triage Nursing Assessment: Patient arrived by ambulance. He is alert to self. He was unaware of place, time, situation upon arrival. No SOB noted at this time; did arrive wearing 02 @ 2L per N/C. Patient sating 93% on the 2L. Skin is pale and face is slightly jaundiced. 1+ pitting edema noted to BLE. Some edema also noted to BUE. He is drowsy, falling asleep at times during the assessment. Doran bracelet noted to ankle upon arrival. Physician History: Patient is here with shortness of breath, volume overload, swollen legs, increased confusion. Patient has known CHF patient apparently had an elevated kidney function today. This was at the jail. Therefore brought into the emergency department. They feel that he is slightly more confused than usual. He is on 3 L of oxygen here. Not usually on oxygen. No other known falls or trauma. Patient's provides most of the history. Timing/Duration: today Severity: moderate Modifying Factors: Improves With: other Associated Symptoms: other Allergies/Adverse Reactions: No Known Drug Allergies Allergy (Verified 04/23/22 17:38) Home Medications: Duloxetine HCl 30 mg [Cymbalta 30 MG Capsule] 30 mg PO BID 07/12/21 [History] Gabapentin [Neurontin ] 600 mg PO TID 07/12/21 [History] Insulin Lispro [Humalog] 0 unit SQ ACHS 07/12/21 [History] Polyethylene Glycol 3350 [Miralax] 17 gm PO DAILY PRN PRN 07/12/21 [History] Rosuvastatin Calcium 20 mg PO DAILY 07/12/21 [History] Acetaminophen 325 mg [Tylenol 325 mg] 325 mg PO Q4H PRN 09/07/21 [History] Albuterol Sulfate [Proventil Hfa] 2 puff IH Q4H PRN PRN 09/07/21 [History] PANTOPRAZOLE 40 mg Tablet [Protonix 40MG Tablet] 40 mg PO QHS 09/07/21 [History] Metoprolol Tartrate 50 mg [Lopressor 50 MG] 100 mg PO BID 03/28/22 [History] Oxycodone / APAP 10/325 mg [Oxycodone-Acetaminophen 10-325] 1 each PO Q6H PRN 03/28/22 [History] cloNIDine HCL [Clonidine HCl] 0.3 mg PO TID 03/28/22 [History] Hx Tetanus, Diphtheria Vaccination/Date Given: Yes Hx Influenza Vaccination/Date Given: No Hx Pneumococcal Vaccination/Date Given: No Immunizations Up to Date: Yes Travel Risk - International Travel Have you traveled outside of the country in past 3 weeks: No - Coronavirus Screening Are you exhibiting any of the following symptoms?: Yes Symptoms: Shortness of Breath Close contact with a COVID-19 positive Pt in past 14-21 Days: No - Vaccine Status Have you recieved a Covid-19 vaccination: Yes Academic Intern: Moderna - Vaccination Dates Date of 2cond Vaccination (if applicable): 2020 - Review of Systems Constitutional: Other (confusion), No Fever, No Chills Eyes: No Symptoms Ears, Nose, & Throat: No Symptoms Respiratory: Dyspnea, No Cough Cardiac: No Chest Pain, No Edema, No Syncope Abdominal/Gastrointestinal: No Abdominal Pain, No Nausea, No Vomiting, No Diarrhea Genitourinary Symptoms: No Dysuria Musculoskeletal: No Back Pain, No Neck Pain Skin: No Rash Neurological: No Dizziness, No Focal Weakness, No Sensory Changes Psychological: No Symptoms Endocrine: No Symptoms All Other Systems: Reviewed and Negative - Past Medical History Pertinent Past Medical History: Yes Neurological History: Peripheral Neuropathy ENT History: Cataracts Cardiac History: Congestive Heart Failure, Coronary Artery Disease, High Cholesterol, Hypertension, Myocardial Infarction (ID) Respiratory History: Pneumonia Endocrine Medical History: Diabetes Type II, Hypothyroidism Musculoskeletal History: No Pertinent History GI Medical History: GERD, Gallbladder Disease History: No Pertinent History Psycho-Social History: Anxiety, Depression Male Reproductive Disorders: No Pertinent History Other Medical History: PATIENT REPORTS PROBLEMS WITH SHORT TERM MEMORY AND NOTED ON E.R. REPORT FROM OCTOBER 2020. ALSO GERD, DEPRESSION, CERVICAL FUSION, CHOLECYSTECTOMY. PATIENT REPORTS VACCINATED AND BOOSTER FOR COVID. - Past Surgical History Past Surgical History: Yes Neuro Surgical History: No Pertinent History Cardiac: CABG, Cardiac Catheterization Respiratory: Chest Surgery Gastrointestinal: No Pertinent History Genitourinary: No Pertinent History Musculoskeletal: No Pertinent History Male Surgical History: No Pertinent History Other Surgical History: cervicle fusion - Social History Smoking Status: Unknown if ever smoked How long have you smoked: 55 Exposure to second hand smoke: No Drug Use: none Patient Lives Alone: No ([facility]) Significant Family History: no pertinent family hx - Nursing Vital Signs Nursing Vital Signs: Initial Vital Signs Temperature 98 F 04/23/22 17:32 Pulse Rate 59 L 04/23/22 17:32 Respiratory Rate 15 04/23/22 17:32 Blood Pressure 163/89 04/23/22 17:32 O2 Sat by Pulse Oximetry 93 L 04/23/22 17:32 Pain Scale Pain Intensity 0 - Physical Exam General Appearance: no apparent distress, alert Eye Exam: PERRL/EOMI, eyes nml inspection Ears, Nose, Throat Exam: normal ENT inspection, TMs normal, pharynx normal, moist mucous membranes Neck Exam: normal inspection, non-tender, supple, full range of motion Respiratory Exam: lungs clear, other (Volume overload), No respiratory distress Cardiovascular Exam: regular rate/rhythm, normal heart sounds, normal peripheral pulses Gastrointestinal/Abdomen Exam: soft, normal bowel sounds, No tenderness, No mass Back Exam: normal inspection, normal range of motion, No CVA tenderness, No vertebral tenderness Extremity Exam: normal inspection, normal range of motion, pelvis stable Neurologic Exam: alert, oriented x 3, cooperative, normal mood/affect, nml cerebellar function, nml station & gait, sensation nml, No motor deficits Skin Exam: normal color, warm, dry, No rash Lymphatic Exam: No adenopathy SpO2: 97 - Course Nursing assessment & vital signs reviewed: Yes Ordered Tests: Active Orders 24 hr Category Date Time Status Code Status Order ROUTINE Care 04/23/22 19:59 Active EKG-ER Only STAT Care 04/23/22 18:59 Active IV Care Q6H Care 04/23/22 19:59 Active IV Insertion STAT Care 04/23/22 18:59 Active Implement CHF Pathway ROUTINE Care 04/23/22 19:[address] in Observation ROUTINE Care 04/23/22 19:59 Active Weight,Daily 0600 Care 04/23/22 19:59 Active CHEST 1 VIEW (PORTABLE) IN AM Exams 04/24/22 06:00 Ordered CHEST 1 VIEW (PORTABLE) Stat Exams 04/23/22 18:59 Taken HEAD WITHOUT CONTRAST [CT] Stat Exams 04/23/22 19:19 Taken BMP AM.LAB Lab 04/24/22 04:00 Ordered CBC AM.LAB Lab 04/24/22 04:00 Ordered CBC Stat Lab 04/23/22 18:30 Completed CMP Stat Lab 04/23/22 18:30 Completed Lactic Acid Stat Lab 04/23/22 18:35 Completed NT PRO BNP AM.LAB Lab 04/24/22 04:00 Ordered NT PRO BNP Stat Lab 04/23/22 18:30 Completed TROPONIN Q4H Lab 04/23/22 18:30 Completed TROPONIN Q4H Lab 04/23/22 23:00 Ordered TROPONIN Q4H Lab 04/24/22 03:00 Ordered TSH, 3RD Generation Stat Lab 04/23/22 18:30 Completed Oxygen NASAL CANNULA 2 lpm RT 04/23/22 19:59 Active Pulse Oximetry .continuos RT 04/23/22 20:00 Active Transfer Order Routine Transfer 04/23/22 Ordered Medication Summary Discontinued Medications Generic Name Dose Route Start Last Admin Trade Name Liusitoq PRN Reason Stop Dose Admin Furosemide 40 mg 04/23/22 19:51 04/23/22 20:13 Furosemide 40 Mg/4 Ml Vial IV 04/23/22 19:52 40 mg STAT ONE Administration Furosemide Confirm 04/23/22 20:12 Furosemide 40 Mg/4 Ml Vial Administered 04/23/22 20:13 Dose 40 mg .ROUTE .STK-MED ONE Lab/Rad Data: Laboratory Result Diagrams 04/23/22 18:30 04/23/22 18:30 Laboratory Results 04/23/22 04/23/22 04/23/22 Range/Units 20:15 18:35 18:30 WBC (4.0-10.5) x10^3/uL RBC (4.1-5.6) x10^6/uL Hgb (12.5-18.0) g/dL Hct (42-50) % MCV (78-100) fL MCH (26-32) pg MCHC (32-36) g/dL RDW (11.5-14.0) % Plt Count (150-450) x10^3/uL MPV (7.5-11.0) fL Sodium (137-145) mmol/L Potassium (3.5-5.1) mmol/L Chloride (98-107) mmol/L Carbon Dioxide (22-30) mmol/L Anion Gap (5-15) MEQ/L BUN (9-20) mg/dL Creatinine (0.66-1.25) mg/dL Estimated GFR ML/MIN Glucose (74-106) mg/dL Lactic Acid 0.8 (0.4-2.0) Calcium (8.4-10.2) mg/dL Total Bilirubin (0.2-1.3) mg/dL AST (17-59) U/L ALT (0-50) U/L Alkaline Phosphatase (38-126) U/L Troponin I 0.063 H* (0.000-0.034) ng/mL NT-Pro-B Natriuret Pep (0-900) pg/mL Serum Total Protein (6.3-8.2) g/dL Albumin (3.5-5.0) g/dL TSH 3rd Generation (0.47-4.68) mIU/L ABO Group A Rh Factor POSITIVE Antibody Screen NEGATIVE (NEGATIVE) 04/23/22 04/23/22 Range/Units 18:30 18:30 WBC 4.5 (4.0-10.5) x10^3/uL RBC 2.54 L (4.1-5.6) x10^6/uL Hgb 7.7 L (12.5-18.0) g/dL Hct 23.6 L (42-50) % MCV 92.9 (78-100) fL MCH 30.3 (26-32) pg MCHC 32.6 (32-36) g/dL RDW 13.7 (11.5-14.0) % Plt Count 206 (150-450) x10^3/uL MPV 11.2 H (7.5-11.0) fL Sodium 132 L (137-145) mmol/L Potassium 3.4 L (3.5-5.1) mmol/L Chloride 102 (98-107) mmol/L Carbon Dioxide 25 (22-30) mmol/L Anion Gap 8.9 (5-15) MEQ/L BUN 29 H (9-20) mg/dL Creatinine 2.33 H (0.66-1.25) mg/dL Estimated GFR 29.4 ML/MIN Glucose 267 H (74-106) mg/dL Lactic Acid (0.4-2.0) Calcium 7.2 L (8.4-10.2) mg/dL Total Bilirubin 0.30 (0.2-1.3) mg/dL AST 21 (17-59) U/L ALT 16 (0-50) U/L Alkaline Phosphatase 116 (38-126) U/L Troponin I (0.000-0.034) ng/mL NT-Pro-B Natriuret Pep 36404 H (0-900) pg/mL Serum Total Protein 5.3 L (6.3-8.2) g/dL Albumin 2.5 L (3.5-5.0) g/dL TSH 3rd Generation 4.280 (0.47-4.68) mIU/L ABO Group Rh Factor Antibody Screen (NEGATIVE) - Progress Progress: improved Progress Note: 04/23/22 21:11 Patient appears volume overloaded on 3 L of oxygen. Patient has 2+ lower extremity swelling. We will give 40 of Lasix here in the emergency department. Patient will need to be admitted given he is hypoxic with volume overload, BNP is greater than 25,000. Patient has elevated troponin most likely from this. No obvious EKG changes indicative of ischemia. Patient will need to be admitted to the hospital at this point in time. Discussed over the phone with on-call physician, Dr. Wood. He excepted the patient to his service. Discussed with : Dayna Will see patient in: hospital (observation) Counseled pt/family regarding: lab results, diagnosis, rad results - Departure Departure Disposition: Observation Clinical Impression: CHF exacerbation, Volume overload, Acute and chronic respiratory failure with hypoxia Condition: Stable Critical Care Time: No Referrals: CRYSTAL MURILLO [Primary Care Provider] - Follow up/PCP as directed Instructions: Heart Failure
[2022-04-24 00:17] LABS: INFLUENZA A NEGATIVE (NEGATIVE); INFLUENZA B NEGATIVE (NEGATIVE); RESPIRATORY SYNCTIAL VIRUS NEGATIVE (Negative); SARS-CoV-2 Xpert Express NEGATIVE (NEGATIVE)
[2022-04-24] MEDS ORDERED: HUMALOG SQ PRN (00:20)
[2022-04-24] MEDS: ZOCOR 20MG PO SCH ×2 (01:13→22:30)
[2022-04-24] MEDS: Lantus Insulin SQ SCH ×2 (01:13→22:27)
[2022-04-24] MEDS: NEURONTIN PO SCH ×3 (01:13→14:42)
[2022-04-24] MEDS: OXYCODONE-ACETAMINOPHEN 10-325 PO PRN ×3 (01:14→22:28)
[2022-04-24] MEDS: Lopressor 50 MG PO SCH ×3 (01:14→22:29)
[2022-04-24] MEDS: NORVASC 5 MG PO SCH ×2 (01:14→22:30)
[2022-04-24] MEDS: Cymbalta 30 MG Capsule PO SCH ×3 (01:14→23:00)
[2022-04-24] MEDS: CLONIDINE 0.1 MG TABLET PO SCH ×4 (01:14→22:29)
[2022-04-24] MEDS: Protonix 40MG Tablet PO SCH ×2 (01:16→22:30)
[2022-04-24] MEDS: Apresoline 25 MG TABLET PO SCH ×4 (01:16→22:29)
[2022-04-24 04:10] LABS: ANION GAP 8.9 MEQ/L (5-15); Calcium 7.3 mg/dL (8.4-10.2); Creatinine 1 2.23 mg/dL (0.66-1.25); EST GLOMERULAR FILTRATION RATE 30.9 ML/MIN; Potassium 3.2 mmol/L (3.5-5.1)
[2022-04-24 04:18] LABS: Hematocrit 23.1 % (42-50); Hemoglobin 7.6 g/dL (12.5-18.0); Mean Cell Volume 94.3 fL (78-100); Mean Corpuscular Hgb Concent. 32.9 g/dL (32-36); Mean Platelet Volume 11.8 fL (7.5-11.0); Platelet Count 189 x10^3/uL (150-450); Red Blood Count 2.45 x10^6/uL (4.1-5.6); Red Cell Distribution Width 13.8 % (11.5-14.0)
--- NOTE | 2022-04-24 08:03 | PCM.HP ---
History of Present Illness - Chief Complaint Chief Complaint: CHF History of Present Illness: is a 72 year old male admitted from a local ECF, he has been more short of breath, increasingly confused and requiring oxygen so was sent for evaluation, he has a cardiac history and states he follows with Dr Velasco. He follows with Dr Hester as his PCP. - Review of Systems Constitutional: No No Symptoms Respiratory: Short Of Breath Cardiac: Edema Abdominal/Gastrointestinal: No Abdominal Pain, No Nausea, No Vomiting, No Diarrhea Skin: No Rash Neurological: No Focal Weakness All Other Systems: Reviewed and Negative Medications & Allergies Home Medications: Home Medication List Duloxetine HCl 30 mg [Cymbalta 30 MG Capsule] 30 mg PO BID 07/12/21 [History Confirmed 04/23/22] Gabapentin [Neurontin ] 600 mg PO TID 07/12/21 [History Confirmed 04/23/22] Insulin Lispro [Humalog] 0 unit SQ ACHS 07/12/21 [History Confirmed 04/23/22] Polyethylene Glycol 3350 [Miralax] 17 gm PO DAILY PRN PRN 07/12/21 [History Confirmed 04/23/22] Rosuvastatin Calcium 20 mg PO DAILY 07/12/21 [History Confirmed 04/23/22] Acetaminophen 325 mg [Tylenol 325 mg] 325 mg PO Q4H PRN 09/07/21 [History Confirmed 04/23/22] Albuterol Sulfate [Proventil Hfa] 2 puff IH Q4H PRN PRN 09/07/21 [History Confirmed 04/23/22] PANTOPRAZOLE 40 mg Tablet [Protonix 40MG Tablet] 40 mg PO QHS 09/07/21 [History Confirmed 04/23/22] Oxycodone / APAP 10/325 mg [Oxycodone-Acetaminophen 10-325] 1 each PO Q6H PRN 03/28/22 [History Confirmed 04/23/22] Clonidine HCl 0.1 mg [Clonidine 0.1 mg Tablet] 0.3 mg PO TID tablet 04/15/22 [Rx Confirmed 04/23/22] HydrALAzine HCL 25 MG TAB [Apresoline 25 MG TABLET] 100 mg PO TID tablet 04/15/22 [Rx Confirmed 04/23/22] Metoprolol Tartrate 50 mg [Lopressor 50 MG] 100 mg PO BID tablet 04/15/22 [Rx Confirmed 04/23/22] Amlodipine Besylate 5 mg [Norvasc 5 mg] 10 mg PO QHS 04/23/22 [History Confirmed 04/23/22] Aspirin EC 81 mg [Ecotrin 81 mg] 81 mg PO DAILY 04/23/22 [History Confirmed 04/23/22] Clopidogrel Bisulfate [Clopidogrel] 75 mg PO QAM 04/23/22 [History Confirmed 04/23/22] Insulin Glargine,Hum.rec.anlog [Lantus] 30 unit SQ HS 04/23/22 [History Confirmed 04/23/22] Polyethylene Glycol 3350 [Miralax] 17 gm PO DAILY 04/23/22 [History Confirmed 04/23/22] glucagon HCL [Glucagon Emergency Kit] 1 mg SQ UD PRN 04/23/22 [History Confirmed 04/23/22] Allergies/Adverse Reactions: Allergies Allergy/AdvReac Type Severity Reaction Status Date / Time No Known Drug Allergies Allergy Verified 04/23/22 17:38 - Past Medical History Past Medical History: Yes Neurological History: Epilepsy, Peripheral Neuropathy ENT History: Cataracts Cardiac History: Congestive Heart Failure, Coronary Artery Disease, High Cholesterol, Hypertension, Myocardial Infarction (MD) Respiratory History: Pneumonia Endocrine Medical History: Diabetes Type II, Hypothyroidism Musculoskelatal History: No Pertinent History GI Medical History: GERD, Gallbladder Disease, Other History: Renal Disease Pyscho-Social History: Anxiety, Depression Male Reproductive Disorders: No Pertinent History Comment: Dysphagia; Renal Failure - Past Surgical History Past Surgical History: Yes Neuro Surgical History: No Pertinent History Cardiac History: CABG, Cardiac Catheterization Respiratory Surgery: Chest Surgery GI Surgical History: No Pertinent History Genitourinary Surgical Hx: No Pertinent History Musculskeletal Surgical Hx: No Pertinent History Male Surgical History: No Pertinent History Other Surgical History: cervicle fusion - Social History Smoking Status: Former smoker How long have you smoked: 55 Exposure to second hand smoke: No Alcohol: None Drug Use: none Significant Family History: no pertinent family hx - Physical Exam Vital Signs: Vital Signs - 24 hr Temp Pulse Resp BP Pulse Ox 04/24/22 07:06 98.0 F 55 L 17 131/63 95 04/24/22 04:00 98.2 F 55 L 21 121/56 97 04/23/22 23:00 98 F 62 142/55 92 L 04/23/22 22:00 62 142/55 97 04/23/22 21:12 97 04/23/22 20:12 57 L 148/70 97 04/23/22 19:00 57 L 146/56 97 04/23/22 18:30 57 L 14 160/60 95 04/23/22 17:32 98 F 59 L 15 163/89 93 L General Appearance: no apparent distress Neurologic Exam: alert, oriented x 3 Respiratory Exam: crackles/rales Cardiovascular Exam: regular rate/rhythm, normal heart sounds, normal peripheral pulses Gastrointestinal/Abdomen Exam: soft, normal bowel sounds, No tenderness, No mass Extremity Exam: normal inspection, normal range of motion, pelvis stable, pedal edema, swelling Skin Exam: normal color, warm, dry, No rash Results - Labs Lab/Micro Results: Lab Results-Last 24 Hours 04/23/22 04/23/22 04/23/22 Range/Units 18:30 18:30 18:30 WBC 4.5 (4.0-10.5) x10^3/uL RBC 2.54 L (4.1-5.6) x10^6/uL Hgb 7.7 L (12.5-18.0) g/dL Hct 23.6 L (42-50) % MCV 92.9 (78-100) fL MCH 30.3 (26-32) pg MCHC 32.6 (32-36) g/dL RDW 13.7 (11.5-14.0) % Plt Count 206 (150-450) x10^3/uL MPV 11.2 H (7.5-11.0) fL Sodium 132 L (137-145) mmol/L Potassium 3.4 L (3.5-5.1) mmol/L Chloride 102 (98-107) mmol/L Carbon Dioxide 25 (22-30) mmol/L Anion Gap 8.9 (5-15) MEQ/L BUN 29 H (9-20) mg/dL Creatinine 2.33 H (0.66-1.25) mg/dL Estimated GFR 29.4 ML/MIN Glucose 267 H (74-106) mg/dL POC Glucometer (74 to 106) mg/dL Lactic Acid (0.4-2.0) Calcium 7.2 L (8.4-10.2) mg/dL Total Bilirubin 0.30 (0.2-1.3) mg/dL AST 21 (17-59) U/L ALT 16 (0-50) U/L Alkaline Phosphatase 116 (38-126) U/L Troponin I 0.063 H* (0.000-0.034) ng/mL NT-Pro-B Natriuret Pep 86657 H (0-900) pg/mL Serum Total Protein 5.3 L (6.3-8.2) g/dL Albumin 2.5 L (3.5-5.0) g/dL TSH 3rd Generation 4.280 (0.47-4.68) mIU/L Influenza Type A Ag (NEGATIVE) Influenza Type B Ag (NEGATIVE) RSV (PCR) (Negative) SARS-CoV-2 (PCR) (NEGATIVE) ABO Group Rh Factor Antibody Screen (NEGATIVE) 04/23/22 04/23/22 04/23/22 Range/Units 18:35 20:15 23:15 WBC (4.0-10.5) x10^3/uL RBC (4.1-5.6) x10^6/uL Hgb (12.5-18.0) g/dL Hct (42-50) % MCV (78-100) fL MCH (26-32) pg MCHC (32-36) g/dL RDW (11.5-14.0) % Plt Count (150-450) x10^3/uL MPV (7.5-11.0) fL Sodium (137-145) mmol/L Potassium (3.5-5.1) mmol/L Chloride (98-107) mmol/L Carbon Dioxide (22-30) mmol/L Anion Gap (5-15) MEQ/L BUN (9-20) mg/dL Creatinine (0.66-1.25) mg/dL Estimated GFR ML/MIN Glucose (74-106) mg/dL POC Glucometer (74 to 106) mg/dL Lactic Acid 0.8 (0.4-2.0) Calcium (8.4-10.2) mg/dL Total Bilirubin (0.2-1.3) mg/dL AST (17-59) U/L ALT (0-50) U/L Alkaline Phosphatase (38-126) U/L Troponin I 0.049 H* (0.000-0.034) ng/mL NT-Pro-B Natriuret Pep (0-900) pg/mL Serum Total Protein (6.3-8.2) g/dL Albumin (3.5-5.0) g/dL TSH 3rd Generation (0.47-4.68) mIU/L Influenza Type A Ag (NEGATIVE) Influenza Type B Ag (NEGATIVE) RSV (PCR) (Negative) SARS-CoV-2 (PCR) (NEGATIVE) ABO Group A Rh Factor POSITIVE Antibody Screen NEGATIVE (NEGATIVE) 04/23/22 04/23/22 04/24/22 Range/Units 23:15 23:42 03:30 WBC (4.0-10.5) x10^3/uL RBC (4.1-5.6) x10^6/uL Hgb (12.5-18.0) g/dL Hct (42-50) % MCV (78-100) fL MCH (26-32) pg MCHC (32-36) g/dL RDW (11.5-14.0) % Plt Count (150-450) x10^3/uL MPV (7.5-11.0) fL Sodium (137-145) mmol/L Potassium (3.5-5.1) mmol/L Chloride (98-107) mmol/L Carbon Dioxide (22-30) mmol/L Anion Gap (5-15) MEQ/L BUN (9-20) mg/dL Creatinine (0.66-1.25) mg/dL Estimated GFR ML/MIN Glucose (74-106) mg/dL POC Glucometer 219 H (74 to 106) mg/dL Lactic Acid (0.4-2.0) Calcium (8.4-10.2) mg/dL Total Bilirubin (0.2-1.3) mg/dL AST (17-59) U/L ALT (0-50) U/L Alkaline Phosphatase (38-126) U/L Troponin I 0.046 H* (0.000-0.034) ng/mL NT-Pro-B Natriuret Pep (0-900) pg/mL Serum Total Protein (6.3-8.2) g/dL Albumin (3.5-5.0) g/dL TSH 3rd Generation (0.47-4.68) mIU/L Influenza Type A Ag NEGATIVE (NEGATIVE) Influenza Type B Ag NEGATIVE (NEGATIVE) RSV (PCR) NEGATIVE (Negative) SARS-CoV-2 (PCR) NEGATIVE (NEGATIVE) ABO Group Rh Factor Antibody Screen (NEGATIVE) 04/24/22 04/24/22 04/24/22 Range/Units 03:30 03:30 06:38 WBC 4.0 (4.0-10.5) x10^3/uL RBC 2.45 L (4.1-5.6) x10^6/uL Hgb 7.6 L (12.5-18.0) g/dL Hct 23.1 L (42-50) % MCV 94.3 (78-100) fL MCH 31.0 (26-32) pg MCHC 32.9 (32-36) g/dL RDW 13.8 (11.5-14.0) % Plt Count 189 (150-450) x10^3/uL MPV 11.8 H (7.5-11.0) fL Sodium 134 L (137-145) mmol/L Potassium 3.2 L (3.5-5.1) mmol/L Chloride 103 (98-107) mmol/L Carbon Dioxide 25 (22-30) mmol/L Anion Gap 8.9 (5-15) MEQ/L BUN 28 H (9-20) mg/dL Creatinine 2.23 H (0.66-1.25) mg/dL Estimated GFR 30.9 ML/MIN Glucose 206 H (74-106) mg/dL POC Glucometer 148 H (74 to 106) mg/dL Lactic Acid (0.4-2.0) Calcium 7.3 L (8.4-10.2) mg/dL Total Bilirubin (0.2-1.3) mg/dL AST (17-59) U/L ALT (0-50) U/L Alkaline Phosphatase (38-126) U/L Troponin I (0.000-0.034) ng/mL NT-Pro-B Natriuret Pep 92067 H (0-900) pg/mL Serum Total Protein (6.3-8.2) g/dL Albumin (3.5-5.0) g/dL TSH 3rd Generation (0.47-4.68) mIU/L Influenza Type A Ag (NEGATIVE) Influenza Type B Ag (NEGATIVE) RSV (PCR) (Negative) SARS-CoV-2 (PCR) (NEGATIVE) ABO Group Rh Factor Antibody Screen (NEGATIVE) Accuchecks Date 04/24/22 Time 07:06 - Radiology Impressions Radiology Exams & Impressions: Radiology Procedures Category Date Time Status CHEST 1 VIEW (PORTABLE) IN AM Exams 04/24/22 06:00 Taken CHEST 1 VIEW (PORTABLE) Stat Exams 04/23/22 18:59 Taken HEAD WITHOUT CONTRAST [CT] Stat Exams 04/23/22 19:19 Taken - Other Procedures and Tests Respiratory Therapy 04/23/22 19:59 Oxygen NASAL CANNULA 2 lpm Assessment/Plan (1) CHF exacerbation Current Visit: Yes Status: Acute Assessment & Plan: will continue to diurese gently due to chronic kidney disease slightly weaker than baseline, mild improvement since admission with diuresis Code(s): I50.9 - HEART FAILURE, UNSPECIFIED (2) Acute and chronic respiratory failure with hypoxia Current Visit: Yes Status: Acute Code(s): J96.21 - ACUTE AND CHRONIC RESPIRATORY FAILURE WITH HYPOXIA (3) CKD (chronic kidney disease) stage 3, GFR 30-59 ml/min Current Visit: No Status: Acute Code(s): N18.30 - CHRONIC KIDNEY DISEASE, STAGE 3 UNSPECIFIED
[2022-04-24] MEDS: TYLENOL 325 MG PO PRN ×2 (08:27→18:47)
[2022-04-24] MEDS: Lasix 40 MG/4 ML IV SCH (09:12)
--- NOTE | 2022-04-24 09:14 | XRAY ---
Indication: Pneumonia. Comparison: April 08, 2022 Portable chest again demonstrates CABG surgery with now borderline cardiomegaly. Also new diffuse pulmonary edema, small left effusion, and tiny right effusion concerning for cardiac decompensation/CHF/fluid overload. Superimposed pneumonia not completely excluded.
--- NOTE | 2022-04-24 09:14 | XRAY ---
Indication: Altered mental status. Multiple contiguous axial images obtained through the head without contrast. Comparison: April 07, 2022 Again age-appropriate global atrophy, mild periventricular degenerative micro-ischemia, and small focus old infarct right frontal lobe. No acute intracranial hemorrhage, abnormal extra-axial fluid collection, or mass effect. Fourth ventricle is midline without hydrocephalus. Bony calvarium intact. Visualized paranasal sinuses and mastoid air cells are clear. 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
--- NOTE | 2022-04-24 09:18 | XRAY ---
Indication: Short of breath. CHF. Comparison: One day earlier. Portable chest demonstrates diminished bibasilar effusions with mild left and minimal right residual effusions. Pulmonary edema and borderline cardiomegaly also slightly improved. No new cardiopulmonary abnormalities.
[2022-04-24] MEDS ORDERED: TYLENOL 325 MG PO PRN (09:59)
[2022-04-24] MEDS: Miralax Powder 17GM PACKET PO SCH (10:31)
[2022-04-24] MEDS: PLAVIX Tablet PO SCH (10:32)
[2022-04-24] MEDS: ECOTRIN 81 MG PO SCH (10:32)
[2022-04-24] MEDS ORDERED: Sodium Chloride 0.9% 1000 ML 1,000 ML IV SCH (16:45)
[2022-04-24 18:53] LABS: Iron 11 ug/dL (49-181); Iron Saturation 8 % (20-39); TIBC 140 ug/dL (261-497)
[2022-04-24 19:46] LABS: Folate (Folic Acid) 9.1 ng/mL (2.76 - >20)
[2022-04-25 05:50] LABS: Absolute Neutrophil Ct (ANC) 3.91 x10^3/uL (1.4-6.9); BASOPHIL % 0.5 % (0.0-0.4); Basophil (Absolute #) 0.03 x10^3/uL (0-0.4); Eosinophil % 2.7 % (0.00-5.0); Eosinophil (Absolute #) 0.17 x10^3/uL (0-0.5); Hematocrit 26.2 % (42-50); Hemoglobin 8.5 g/dL (12.5-18.0); IMMATURE GRAN # 0.04 x10^3u/L (0.00-0.03); IMMATURE GRAN % 0.6 % (0.00-0.4); Lymphocyte (Absolute #) 0.53 x10^3/uL (1.0-4.6); Lymphocytes % 8.4 % (24.0-44.0); Mean Cell Volume 91.9 fL (78-100); Mean Corpuscular Hemoglobin 29.8 pg (26-32); Mean Corpuscular Hgb Concent. 32.4 g/dL (32-36); Mean Platelet Volume 11.7 fL (7.5-11.0); Monocyte (Absolute #) 1.66 x10^3/uL (0.0-1.3); Monocytes % 26.2 % (0.0-12.0); Neutrophil % 61.6 % (36.0-66.0); Platelet Count 238 x10^3/uL (150-450); Red Blood Count 2.85 x10^6/uL (4.1-5.6); Red Cell Distribution Width 14.1 % (11.5-14.0); White Blood Count 6.3 x10^3/uL (4.0-10.5)
[2022-04-25 06:15] LABS: ANION GAP 11.9 MEQ/L (5-15); Calcium 7.5 mg/dL (8.4-10.2); Creatinine 1 2.21 mg/dL (0.66-1.25); EST GLOMERULAR FILTRATION RATE 31.3 ML/MIN; MAGNESIUM 1.7 mg/dL (1.6-2.3); Potassium 3.5 mmol/L (3.5-5.1)
[2022-04-25 07:34] LABS: Slide Review 1 YES
[2022-04-25] MEDS ORDERED: SUBLIMAZE 100 MCG/2 ML IV PRN (08:27)
--- NOTE | 2022-04-25 08:30 | PCM.NOTE ---
Date and Time: 04/25/22827 Subjective Assessment: patient still requiring oxygen, Dr Griffith was apparently consulted with yesterday per family request and now patient is receiving IV fluids. his blood sugar was low this morning. he complains of severe headache Objective Exam General Appearance: no apparent distress Neurologic Exam: alert, cooperative Respiratory Exam: normal breath sounds, lungs clear, No respiratory distress Cardiovascular Exam: regular rate/rhythm, normal heart sounds Gastrointestinal/Abdomen Exam: soft, No tenderness, No mass OBJECTIVE DATA Vital Signs: Vital Signs - 24 hr Temp Pulse Resp BP Pulse Ox 04/25/22 08:00 98.0 F 70 20 175/78 99 04/25/22 06:34 95 04/25/22 04:00 97.4 F 73 17 132/84 96 04/25/22 00:00 97.8 F 57 L 24 139/62 94 L 04/24/22 20:00 98.6 F 60 22 132/60 93 L 04/24/22 18:06 98 04/24/22 16:19 97.8 F 54 L 13 110/53 92 L 04/24/22 13:44 96 04/24/22 11:28 98.0 F 51 L 19 107/53 95 04/24/22 09:10 133/60 Pain Assessment - Last Documented Pain Intensity 5 Pain Scale Used 0-10 Pain Scale Intake and Output: Intake & Output 04/22/22 04/23/22 04/24/22 04/25/22 11:59 11:59 11:59 11:59 Intake Total 1075 2342 Output Total 710 950 Balance 365 1392 Weight 70.7 kg Lab Results: Lab Results-Last 24 Hours 04/24/22 04/24/22 04/24/22 Range/Units 10:41 15:59 22:18 WBC (4.0-10.5) x10^3/uL RBC (4.1-5.6) x10^6/uL Hgb (12.5-18.0) g/dL Hct (42-50) % MCV (78-100) fL MCH (26-32) pg MCHC (32-36) g/dL RDW (11.5-14.0) % Plt Count (150-450) x10^3/uL MPV (7.5-11.0) fL Gran % (36.0-66.0) % Immature Gran % (Auto) (0.00-0.4) % Nucleat RBC Rel Count (0.00-0.1) % Eos # (Auto) (0-0.5) x10^3/uL Immature Gran # (Auto) (0.00-0.03) x10^3u/L Absolute Lymphs (auto) (1.0-4.6) x10^3/uL Absolute Monos (auto) (0.0-1.3) x10^3/uL Absolute Nucleated RBC (0.00-0.01) x10^3u/L Lymphocytes % (24.0-44.0) % Monocytes % (0.0-12.0) % Eosinophils % (0.00-5.0) % Basophils % (0.0-0.4) % Absolute Granulocytes (1.4-6.9) x10^3/uL Basophils # (0-0.4) x10^3/uL Sodium (137-145) mmol/L Potassium (3.5-5.1) mmol/L Chloride (98-107) mmol/L Carbon Dioxide (22-30) mmol/L Anion Gap (5-15) MEQ/L BUN (9-20) mg/dL Creatinine (0.66-1.25) mg/dL Estimated GFR ML/MIN Glucose (74-106) mg/dL POC Glucometer 135 H 139 H 307 H (74 to 106) mg/dL Calcium (8.4-10.2) mg/dL Magnesium (1.6-2.3) mg/dL Iron (49-181) ug/dL TIBC (261-497) ug/dL Iron Saturation (20-39) % Ferritin (17.9-464) ng/mL Vitamin B12 (239-931) pg/mL Folic Acid (2.76 - >20) ng/mL Slides for Path Review 04/24/22 04/24/22 04/25/22 Range/Units Unknown Unknown 05:16 WBC 6.3 (4.0-10.5) x10^3/uL RBC 2.85 L (4.1-5.6) x10^6/uL Hgb 8.5 L (12.5-18.0) g/dL Hct 26.2 L (42-50) % MCV 91.9 (78-100) fL MCH 29.8 (26-32) pg MCHC 32.4 (32-36) g/dL RDW 14.1 H (11.5-14.0) % Plt Count 238 (150-450) x10^3/uL MPV 11.7 H (7.5-11.0) fL Gran % 61.6 (36.0-66.0) % Immature Gran % (Auto) 0.6 H (0.00-0.4) % Nucleat RBC Rel Count 0.0 (0.00-0.1) % Eos # (Auto) 0.17 (0-0.5) x10^3/uL Immature Gran # (Auto) 0.04 H (0.00-0.03) x10^3u/L Absolute Lymphs (auto) 0.53 L (1.0-4.6) x10^3/uL Absolute Monos (auto) 1.66 H (0.0-1.3) x10^3/uL Absolute Nucleated RBC 0.00 (0.00-0.01) x10^3u/L Lymphocytes % 8.4 L (24.0-44.0) % Monocytes % 26.2 H (0.0-12.0) % Eosinophils % 2.7 (0.00-5.0) % Basophils % 0.5 (0.0-0.4) % Absolute Granulocytes 3.91 (1.4-6.9) x10^3/uL Basophils # 0.03 (0-0.4) x10^3/uL Sodium (137-145) mmol/L Potassium (3.5-5.1) mmol/L Chloride (98-107) mmol/L Carbon Dioxide (22-30) mmol/L Anion Gap (5-15) MEQ/L BUN (9-20) mg/dL Creatinine (0.66-1.25) mg/dL Estimated GFR ML/MIN Glucose (74-106) mg/dL POC Glucometer (74 to 106) mg/dL Calcium (8.4-10.2) mg/dL Magnesium (1.6-2.3) mg/dL Iron 11 L (49-181) ug/dL TIBC 140 L (261-497) ug/dL Iron Saturation 8 L (20-39) % Ferritin 175 (17.9-464) ng/mL Vitamin B12 384 (239-931) pg/mL Folic Acid 9.10 (2.76 - >20) ng/mL Slides for Path Review YES 04/25/22 04/25/22 04/25/22 Range/Units 05:16 07:37 07:53 WBC (4.0-10.5) x10^3/uL RBC (4.1-5.6) x10^6/uL Hgb (12.5-18.0) g/dL Hct (42-50) % MCV (78-100) fL MCH (26-32) pg MCHC (32-36) g/dL RDW (11.5-14.0) % Plt Count (150-450) x10^3/uL MPV (7.5-11.0) fL Gran % (36.0-66.0) % Immature Gran % (Auto) (0.00-0.4) % Nucleat RBC Rel Count (0.00-0.1) % Eos # (Auto) (0-0.5) x10^3/uL Immature Gran # (Auto) (0.00-0.03) x10^3u/L Absolute Lymphs (auto) (1.0-4.6) x10^3/uL Absolute Monos (auto) (0.0-1.3) x10^3/uL Absolute Nucleated RBC (0.00-0.01) x10^3u/L Lymphocytes % (24.0-44.0) % Monocytes % (0.0-12.0) % Eosinophils % (0.00-5.0) % Basophils % (0.0-0.4) % Absolute Granulocytes (1.4-6.9) x10^3/uL Basophils # (0-0.4) x10^3/uL Sodium 132 L (137-145) mmol/L Potassium 3.5 (3.5-5.1) mmol/L Chloride 100 (98-107) mmol/L Carbon Dioxide 24 (22-30) mmol/L Anion Gap 11.9 (5-15) MEQ/L BUN 28 H (9-20) mg/dL Creatinine 2.21 H (0.66-1.25) mg/dL Estimated GFR 31.3 ML/MIN Glucose 55 L (74-106) mg/dL POC Glucometer 38 L* 47 L* (74 to 106) mg/dL Calcium 7.5 L (8.4-10.2) mg/dL Magnesium 1.7 (1.6-2.3) mg/dL Iron (49-181) ug/dL TIBC (261-497) ug/dL Iron Saturation (20-39) % Ferritin (17.9-464) ng/mL Vitamin B12 (239-931) pg/mL Folic Acid (2.76 - >20) ng/mL Slides for Path Review 04/25/22 Range/Units 08:13 WBC (4.0-10.5) x10^3/uL RBC (4.1-5.6) x10^6/uL Hgb (12.5-18.0) g/dL Hct (42-50) % MCV (78-100) fL MCH (26-32) pg MCHC (32-36) g/dL RDW (11.5-14.0) % Plt Count (150-450) x10^3/uL MPV (7.5-11.0) fL Gran % (36.0-66.0) % Immature Gran % (Auto) (0.00-0.4) % Nucleat RBC Rel Count (0.00-0.1) % Eos # (Auto) (0-0.5) x10^3/uL Immature Gran # (Auto) (0.00-0.03) x10^3u/L Absolute Lymphs (auto) (1.0-4.6) x10^3/uL Absolute Monos (auto) (0.0-1.3) x10^3/uL Absolute Nucleated RBC (0.00-0.01) x10^3u/L Lymphocytes % (24.0-44.0) % Monocytes % (0.0-12.0) % Eosinophils % (0.00-5.0) % Basophils % (0.0-0.4) % Absolute Granulocytes (1.4-6.9) x10^3/uL Basophils # (0-0.4) x10^3/uL Sodium (137-145) mmol/L Potassium (3.5-5.1) mmol/L Chloride (98-107) mmol/L Carbon Dioxide (22-30) mmol/L Anion Gap (5-15) MEQ/L BUN (9-20) mg/dL Creatinine (0.66-1.25) mg/dL Estimated GFR ML/MIN Glucose (74-106) mg/dL POC Glucometer 83 (74 to 106) mg/dL Calcium (8.4-10.2) mg/dL Magnesium (1.6-2.3) mg/dL Iron (49-181) ug/dL TIBC (261-497) ug/dL Iron Saturation (20-39) % Ferritin (17.9-464) ng/mL Vitamin B12 (239-931) pg/mL Folic Acid (2.76 - >20) ng/mL Slides for Path Review Radiology Exams: Radiology Procedures Category Date Time Status CHEST 1 VIEW (PORTABLE) IN AM Exams 04/24/22 06:00 Completed CHEST 1 VIEW (PORTABLE) Stat Exams 04/23/22 18:59 Completed HEAD WITHOUT CONTRAST [CT] Stat Exams 04/23/22 19:19 Completed Assessment/Plan (1) CHF exacerbation Current Visit: Yes Status: Acute Assessment & Plan: stable at this time but now receiving IV fluids per nephrology. Code(s): I50.9 - HEART FAILURE, UNSPECIFIED (2) Acute and chronic respiratory failure with hypoxia Current Visit: Yes Status: Acute Code(s): J96.21 - ACUTE AND CHRONIC RESPIRATORY FAILURE WITH HYPOXIA (3) CKD (chronic kidney disease) stage 3, GFR 30-59 ml/min Current Visit: No Status: Acute Assessment & Plan: recommendations per Dr Griffith currently Code(s): N18.30 - CHRONIC KIDNEY DISEASE, STAGE 3 UNSPECIFIED (4) Hypoglycemia Current Visit: Yes Status: Acute Assessment & Plan: reduce lantus from 30 units to 15 based on hypoglycemia this am Code(s): E16.2 - HYPOGLYCEMIA, UNSPECIFIED (5) Headache Current Visit: Yes Status: Acute Assessment & Plan: add prn fentanyl Code(s): R51.9 - HEADACHE, UNSPECIFIED
[2022-04-25] MEDS: PLAVIX Tablet PO SCH (09:04)
[2022-04-25] MEDS: Apresoline 25 MG TABLET PO SCH ×2 (09:04→15:07)
[2022-04-25] MEDS: Lopressor 50 MG PO SCH (09:04)
[2022-04-25] MEDS: CLONIDINE 0.1 MG TABLET PO SCH ×2 (09:04→15:07)
[2022-04-25] MEDS: Cymbalta 30 MG Capsule PO SCH (09:04)
[2022-04-25] MEDS: Lasix 40 MG/4 ML IV SCH (09:05)
[2022-04-25] MEDS: Miralax Powder 17GM PACKET PO SCH (09:05)
[2022-04-25] MEDS: ECOTRIN 81 MG PO SCH (09:05)
[2022-04-25] MEDS: OXYCODONE-ACETAMINOPHEN 10-325 PO PRN (09:31)
[2022-04-25 15:55] VITALS: BP 149/68; PULSE 62
--- NOTE | 2022-04-25 16:33 | PCM.DS ---
Discharge Summary Date of Admission: 04/23/22 22:45 Admitting Physician: THEODORA GILLETTE Consults: Consults on Case 04/25/22 10:15 Consult Nephrology ROUTINE Primary Care Provider: CRYSTAL MURILLO Allergies Allergies gabapentin Adverse Reaction (Severe, Verified 04/24/22 14:15) Confusion; lethargy Hospital Summary - Hospital Course Hospital Course: patient was sent for evaluation for trouble breathing and increased confusion, he was found to have some mild volume overload in conjunction with acute on chronic kidney failure. he was initially diuresed then Dr Griffith had consulted and ordered some fluids. Ronald has been stable on 3L oxygen but his volume status is tenuous. I let the patient know and his that he was stable and doing well and I feel he can return [facility] on oxygen at this time and have his renal function followed up with Dr Griffith, they are in agreement. - Vitals & Intake/Output Vital Signs: Vital Signs Temperature 98.2 F 04/25/22 15:54 Pulse Rate 62 04/25/22 15:54 Respiratory Rate 15 04/25/22 15:54 Blood Pressure 149/68 04/25/22 15:54 O2 Sat by Pulse Oximetry 96 04/25/22 15:54 Intake & Output: Intake & Output 04/23/22 04/24/22 04/25/22 04/26/22 11:59 11:59 11:59 11:59 Intake Total 1075 2902 360 Output Total 710 950 Balance 365 1952 360 Weight 70.7 kg 70.6 kg - Lab Result Diagrams: 04/25/22 05:16 04/25/22 05:16 Lab Results-Last 24 Hrs: Lab Results-Last 24 Hours 04/24/22 04/24/22 04/24/22 Range/Units 22:18 Unknown Unknown WBC (4.0-10.5) x10^3/uL RBC (4.1-5.6) x10^6/uL Hgb (12.5-18.0) g/dL Hct (42-50) % MCV (78-100) fL MCH (26-32) pg MCHC (32-36) g/dL RDW (11.5-14.0) % Plt Count (150-450) x10^3/uL MPV (7.5-11.0) fL Gran % (36.0-66.0) % Immature Gran % (Auto) (0.00-0.4) % Nucleat RBC Rel Count (0.00-0.1) % Eos # (Auto) (0-0.5) x10^3/uL Immature Gran # (Auto) (0.00-0.03) x10^3u/L Absolute Lymphs (auto) (1.0-4.6) x10^3/uL Absolute Monos (auto) (0.0-1.3) x10^3/uL Absolute Nucleated RBC (0.00-0.01) x10^3u/L Lymphocytes % (24.0-44.0) % Monocytes % (0.0-12.0) % Eosinophils % (0.00-5.0) % Basophils % (0.0-0.4) % Absolute Granulocytes (1.4-6.9) x10^3/uL Basophils # (0-0.4) x10^3/uL Sodium (137-145) mmol/L Potassium (3.5-5.1) mmol/L Chloride (98-107) mmol/L Carbon Dioxide (22-30) mmol/L Anion Gap (5-15) MEQ/L BUN (9-20) mg/dL Creatinine (0.66-1.25) mg/dL Estimated GFR ML/MIN Glucose (74-106) mg/dL POC Glucometer 307 H (74 to 106) mg/dL Calcium (8.4-10.2) mg/dL Magnesium (1.6-2.3) mg/dL Iron 11 L (49-181) ug/dL TIBC 140 L (261-497) ug/dL Iron Saturation 8 L (20-39) % Ferritin 175 (17.9-464) ng/mL Vitamin B12 384 (239-931) pg/mL Folic Acid 9.10 (2.76 - >20) ng/mL Slides for Path Review 04/25/22 04/25/22 04/25/22 Range/Units 05:16 05:16 07:37 WBC 6.3 (4.0-10.5) x10^3/uL RBC 2.85 L (4.1-5.6) x10^6/uL Hgb 8.5 L (12.5-18.0) g/dL Hct 26.2 L (42-50) % MCV 91.9 (78-100) fL MCH 29.8 (26-32) pg MCHC 32.4 (32-36) g/dL RDW 14.1 H (11.5-14.0) % Plt Count 238 (150-450) x10^3/uL MPV 11.7 H (7.5-11.0) fL Gran % 61.6 (36.0-66.0) % Immature Gran % (Auto) 0.6 H (0.00-0.4) % Nucleat RBC Rel Count 0.0 (0.00-0.1) % Eos # (Auto) 0.17 (0-0.5) x10^3/uL Immature Gran # (Auto) 0.04 H (0.00-0.03) x10^3u/L Absolute Lymphs (auto) 0.53 L (1.0-4.6) x10^3/uL Absolute Monos (auto) 1.66 H (0.0-1.3) x10^3/uL Absolute Nucleated RBC 0.00 (0.00-0.01) x10^3u/L Lymphocytes % 8.4 L (24.0-44.0) % Monocytes % 26.2 H (0.0-12.0) % Eosinophils % 2.7 (0.00-5.0) % Basophils % 0.5 (0.0-0.4) % Absolute Granulocytes 3.91 (1.4-6.9) x10^3/uL Basophils # 0.03 (0-0.4) x10^3/uL Sodium 132 L (137-145) mmol/L Potassium 3.5 (3.5-5.1) mmol/L Chloride 100 (98-107) mmol/L Carbon Dioxide 24 (22-30) mmol/L Anion Gap 11.9 (5-15) MEQ/L BUN 28 H (9-20) mg/dL Creatinine 2.21 H (0.66-1.25) mg/dL Estimated GFR 31.3 ML/MIN Glucose 55 L (74-106) mg/dL POC Glucometer 38 L* (74 to 106) mg/dL Calcium 7.5 L (8.4-10.2) mg/dL Magnesium 1.7 (1.6-2.3) mg/dL Iron (49-181) ug/dL TIBC (261-497) ug/dL Iron Saturation (20-39) % Ferritin (17.9-464) ng/mL Vitamin B12 (239-931) pg/mL Folic Acid (2.76 - >20) ng/mL Slides for Path Review YES 04/25/22 04/25/22 04/25/22 Range/Units 07:53 08:13 10:33 WBC (4.0-10.5) x10^3/uL RBC (4.1-5.6) x10^6/uL Hgb (12.5-18.0) g/dL Hct (42-50) % MCV (78-100) fL MCH (26-32) pg MCHC (32-36) g/dL RDW (11.5-14.0) % Plt Count (150-450) x10^3/uL MPV (7.5-11.0) fL Gran % (36.0-66.0) % Immature Gran % (Auto) (0.00-0.4) % Nucleat RBC Rel Count (0.00-0.1) % Eos # (Auto) (0-0.5) x10^3/uL Immature Gran # (Auto) (0.00-0.03) x10^3u/L Absolute Lymphs (auto) (1.0-4.6) x10^3/uL Absolute Monos (auto) (0.0-1.3) x10^3/uL Absolute Nucleated RBC (0.00-0.01) x10^3u/L Lymphocytes % (24.0-44.0) % Monocytes % (0.0-12.0) % Eosinophils % (0.00-5.0) % Basophils % (0.0-0.4) % Absolute Granulocytes (1.4-6.9) x10^3/uL Basophils # (0-0.4) x10^3/uL Sodium (137-145) mmol/L Potassium (3.5-5.1) mmol/L Chloride (98-107) mmol/L Carbon Dioxide (22-30) mmol/L Anion Gap (5-15) MEQ/L BUN (9-20) mg/dL Creatinine (0.66-1.25) mg/dL Estimated GFR ML/MIN Glucose (74-106) mg/dL POC Glucometer 47 L* 83 104 (74 to 106) mg/dL Calcium (8.4-10.2) mg/dL Magnesium (1.6-2.3) mg/dL Iron (49-181) ug/dL TIBC (261-497) ug/dL Iron Saturation (20-39) % Ferritin (17.9-464) ng/mL Vitamin B12 (239-931) pg/mL Folic Acid (2.76 - >20) ng/mL Slides for Path Review 04/25/22 Range/Units 15:06 WBC (4.0-10.5) x10^3/uL RBC (4.1-5.6) x10^6/uL Hgb (12.5-18.0) g/dL Hct (42-50) % MCV (78-100) fL MCH (26-32) pg MCHC (32-36) g/dL RDW (11.5-14.0) % Plt Count (150-450) x10^3/uL MPV (7.5-11.0) fL Gran % (36.0-66.0) % Immature Gran % (Auto) (0.00-0.4) % Nucleat RBC Rel Count (0.00-0.1) % Eos # (Auto) (0-0.5) x10^3/uL Immature Gran # (Auto) (0.00-0.03) x10^3u/L Absolute Lymphs (auto) (1.0-4.6) x10^3/uL Absolute Monos (auto) (0.0-1.3) x10^3/uL Absolute Nucleated RBC (0.00-0.01) x10^3u/L Lymphocytes % (24.0-44.0) % Monocytes % (0.0-12.0) % Eosinophils % (0.00-5.0) % Basophils % (0.0-0.4) % Absolute Granulocytes (1.4-6.9) x10^3/uL Basophils # (0-0.4) x10^3/uL Sodium (137-145) mmol/L Potassium (3.5-5.1) mmol/L Chloride (98-107) mmol/L Carbon Dioxide (22-30) mmol/L Anion Gap (5-15) MEQ/L BUN (9-20) mg/dL Creatinine (0.66-1.25) mg/dL Estimated GFR ML/MIN Glucose (74-106) mg/dL POC Glucometer 76 (74 to 106) mg/dL Calcium (8.4-10.2) mg/dL Magnesium (1.6-2.3) mg/dL Iron (49-181) ug/dL TIBC (261-497) ug/dL Iron Saturation (20-39) % Ferritin (17.9-464) ng/mL Vitamin B12 (239-931) pg/mL Folic Acid (2.76 - >20) ng/mL Slides for Path Review Micro Results-Entire Visit: Accuchecks Date 04/25/22 Date 04/25/22 Date 04/25/22 Time 15:55 Time 11:32 Time 08:10 - Radiology Exams Ordered Rad Exams-Entire Visit: Radiology Procedures Category Date Time Status CHEST 1 VIEW (PORTABLE) IN AM Exams 04/24/22 06:00 Completed CHEST 1 VIEW (PORTABLE) Stat Exams 04/23/22 18:59 Completed HEAD WITHOUT CONTRAST [CT] Stat Exams 04/23/22 19:19 Completed - Procedures and Test Procedures and Tests throughout Hospitalization: Therapy Orders & Screens 04/23/22 19:59 Oxygen NASAL CANNULA 2 lpm Comment: Diagnosis: CHF 04/25/22 08:51 PT Eval & Treat ( Order) ONCE Reason for Eval:: WEAKNESS, NH PLACEMENT Diagnosis: CHF Discharge Exam General Appearance: no apparent distress Neurologic Exam: alert, cooperative Respiratory Exam: normal breath sounds, lungs clear, No respiratory distress Cardiovascular Exam: regular rate/rhythm, normal heart sounds Gastrointestinal/Abdomen Exam: soft, No tenderness, No mass Skin Exam: normal color, warm, dry Final Diagnosis/Problem List - Final Discharge Diagnosis/Problem (1) CHF exacerbation Current Visit: Yes Status: Acute Assessment & Plan: renal function makes his volume status tenuous, I recommend we continue oxygen therapy and he can f/u with Dr Griffith on his renal function. he is SCO and is stable hemodynamically at this time on oxygen, I don't feel we can diurese him further without worsening his renal dysfunction. Code(s): I50.9 - HEART FAILURE, UNSPECIFIED (2) CKD (chronic kidney disease) stage 3, GFR 30-59 ml/min Current Visit: No Status: Acute Assessment & Plan: stable with minimal improvement Code(s): N18.30 - CHRONIC KIDNEY DISEASE, STAGE 3 UNSPECIFIED (3) Acute and chronic respiratory failure with hypoxia Current Visit: Yes Status: Acute Assessment & Plan: continue on 3L oxygen therapy after return to [facility] Code(s): J96.21 - ACUTE AND CHRONIC RESPIRATORY FAILURE WITH HYPOXIA (4) Hypoglycemia Current Visit: Yes Status: Acute Code(s): E16.2 - HYPOGLYCEMIA, UNSPECIFIED (5) Headache Current Visit: Yes Status: Acute Assessment & Plan: the patient has chronic headaches, nothing seen on head CT from 04/23. this is a chronic pain issue that can be addressed at [facility] Code(s): R51.9 - HEADACHE, UNSPECIFIED - Discharge Disposition: DC TO ANY "OTHER" GROUP HOME Condition: Stable Prescriptions: Continue Rosuvastatin Calcium 20 mg PO DAILY Gabapentin [Neurontin ] 600 mg PO TID Polyethylene Glycol 3350 [Miralax] 17 gm PO DAILY PRN PRN PRN Reason: Constipation Duloxetine HCl 30 mg [Cymbalta 30 MG Capsule] 30 mg PO BID Insulin Lispro [Humalog] 0 unit SQ ACHS Acetaminophen 325 mg [Tylenol 325 mg] 325 mg PO Q4H PRN PRN Reason: Pain Albuterol Sulfate [Proventil Hfa] 2 puff IH Q4H PRN PRN PRN Reason: Shortness Of Breath PANTOPRAZOLE 40 mg Tablet [Protonix 40MG Tablet] 40 mg PO QHS Oxycodone / APAP 10/325 mg [Oxycodone-Acetaminophen 10-325] 1 each PO Q6H PRN PRN Reason: pain HydrALAzine HCL 25 MG TAB [Apresoline 25 MG TABLET] 100 mg PO TID tablet Clonidine HCl 0.1 mg [Clonidine 0.1 mg Tablet] 0.3 mg PO TID tablet Metoprolol Tartrate 50 mg [Lopressor 50 MG] 100 mg PO BID tablet Insulin Glargine,Hum.rec.anlog [Lantus] 30 unit SQ HS Aspirin EC 81 mg [Ecotrin 81 mg] 81 mg PO DAILY glucagon HCL [Glucagon Emergency Kit] 1 mg SQ UD PRN PRN Reason: Hypoglycemia Clopidogrel Bisulfate [Clopidogrel] 75 mg PO QAM Amlodipine Besylate 5 mg [Norvasc 5 mg] 10 mg PO QHS Polyethylene Glycol 3350 [Miralax] 17 gm PO DAILY Follow up with: ALEXA HYMAN [CONSULTING PHYSICIAN] -
[2022-04-25] MEDS ORDERED: SUBLIMAZE 100 MCG/2 ML IV ONE (16:34)
[2022-04-25 17:27] VITALS: O2SAT 90
[2022-04-25] MEDS ORDERED: Lantus Insulin SQ SCH (22:00)
== END 2022-04-25 18:39 ==
LOC: ED 17:31 → MED SURG 22:45
PROVIDERS: ADMIT Family Medicine; ATTEND Family Medicine
DX: I13.0 Hypertensive heart and chronic kidney disease with heart failure and stage 1 through stage 4 chronic kidney disease, or unspecified chronic kidney disease (principal); I50.9 Heart failure, unspecified; E11.22 Type 2 diabetes mellitus with diabetic chronic kidney disease; N18.30 Chronic kidney disease, stage 3 unspecified; J96.21 Acute and chronic respiratory failure with hypoxia; E16.2 Hypoglycemia, unspecified; R51.9 Headache, unspecified; E03.9 Hypothyroidism, unspecified; I25.10 Atherosclerotic heart disease of native coronary artery without angina pectoris; Z79.899 Other long term (current) drug therapy; Z20.828 Contact with and (suspected) exposure to other viral communicable diseases
CPT/HCPCS: 0241U; 36000; 36415; 70450; 71045; 80048; 80053; 82607; 82728; 82746; 82947; 83540; 83550; 83605; 83735; 83880; 84443; 84484; 85025; 85027; 86850; 86900; 86901; 93005; 94762; 96374; 97162; 99285; 93268; J1817; J1940; J3010; A9270-GY; G0378

== ENCOUNTER 2022-11-25 12:44 | Emergency (ER) | payer MEDICARE ==
[2022-11-25] MEDS ORDERED: PIPERACILLIN/TAZOBACTAM 3.375 GM in Sodium Chloride 100ML MINI-BAG PLUS 100 ML IV ONE (14:17)
[2022-11-25 14:21] VITALS: BP 152/67; PULSE 58; TEMP 97.3; O2SAT 97
--- NOTE | 2022-11-25 14:25 | ERPHSYRPT ---
- History of Present Illness Time Seen by Provider: 11/25/22 14:23 Source: patient Physician History: Patient is a 72-year-old male currently on hospice/DNR presents to our ED for evaluation and treatment of a left second necrotic toe with lymphangitis. No fever. Patient currently on a fentanyl patch and is taking MS Contin at home for pain control. states that the necrosis appearing toe and lymphangitis has gotten significantly worse over the past couple days. Symptoms are progressive. Symptoms are moderate in intensity. No specific worsening improving factors. serving as a primary historian. Patient voices no other complaints or concerns at this time. Portions of this note were created with voice recognition technology. There may be grammatical, spelling, punctuation or sound alike errors Timing/Duration: day(s) Severity: moderate Modifying Factors: Improves With: nothing Associated Symptoms: denies symptoms Allergies/Adverse Reactions: gabapentin Adverse Reaction (Severe, Verified 11/25/22 14:23) Confusion; lethargy Home Medications: Duloxetine HCl 30 mg [Cymbalta 30 MG Capsule] 60 mg PO BID 07/12/21 [History] Insulin Lispro [Humalog] 0 unit SQ ACHS 07/12/21 [History] Rosuvastatin Calcium 20 mg PO DAILY 07/12/21 [History] Albuterol Sulfate [Proventil Hfa] 2 puff IH Q4H PRN PRN 09/07/21 [History] Amlodipine Besylate 5 mg [Norvasc 5 mg] 10 mg PO QHS 04/23/22 [History] Aspirin EC 81 mg [Ecotrin 81 mg] 81 mg PO DAILY 04/23/22 [History] Clopidogrel Bisulfate [Clopidogrel] 75 mg PO QAM 04/23/22 [History] Insulin Glargine,Hum.rec.anlog [Lantus] 29 unit SQ HS 04/23/22 [History] Polyethylene Glycol 3350 [Miralax] 17 gm PO DAILY 04/23/22 [History] Albuterol Sulfate [Proventil Hfa] 2 inh PO Q4H 11/25/22 [History] Cholecalciferol (Vitamin D3) [Vitamin D3] 1,000 unit PO WEEKLY 11/25/22 [History] Docusate Sodium 100 mg [Docusate Sodium 100 MG] 100 mg PO BID 11/25/22 [ History] Fentanyl 75Mcg Patch [Duragesic 75 MCG Patch] 75 mcg TOP Q3D 11/25/22 [History] Fluoxetine HCl 20 mg [Prozac 20 MG] 20 mg PO DAILY 11/25/22 [History] LORazepam [Lorazepam Intensol] 1 mg PO Q2H 11/25/22 [History] Morphine Sulfate 0.5 ml PO Q4H 11/25/22 [History] Morphine Sulfate Cr 15 mg [Ms Contin 15 MG] 15 mg PO BID 11/25/22 [History] Ondansetron [Ondansetron Odt ] 4 mg PO Q4H PRN 11/25/22 [History] Temazepam 15 mg [Restoril 15 MG] 15 mg PO HS 11/25/22 [History] Hx Tetanus, Diphtheria Vaccination/Date Given: Yes Hx Influenza Vaccination/Date Given: No Hx Pneumococcal Vaccination/Date Given: No Travel Risk - Vaccine Status Have you recieved a Covid-19 vaccination: Yes Bottom Filler: Moderna - Vaccination Dates Date of 2cond Vaccination (if applicable): 2020 - Review of Systems Constitutional: No Symptoms, No Fever, No Chills Eyes: No Symptoms Ears, Nose, & Throat: No Symptoms Respiratory: No Symptoms, No Cough, No Dyspnea Cardiac: No Symptoms, No Chest Pain, No Edema, No Syncope Abdominal/Gastrointestinal: No Symptoms, No Abdominal Pain, No Nausea, No Vomiting, No Diarrhea Genitourinary Symptoms: No Symptoms, No Dysuria Musculoskeletal: No Symptoms, No Back Pain, No Neck Pain Skin: No Symptoms, No Rash Neurological: No Symptoms, No Dizziness, No Focal Weakness, No Sensory Changes Psychological: No Symptoms Endocrine: No Symptoms Hematologic/Lymphatic: No Symptoms Immunological/Allergic: No Symptoms All Other Systems: Reviewed and Negative - Past Medical History Pertinent Past Medical History: Yes Neurological History: Epilepsy, Peripheral Neuropathy ENT History: Cataracts Cardiac History: Congestive Heart Failure, Coronary Artery Disease, High Cholesterol, Hypertension, Myocardial Infarction ([place]) Respiratory History: Pneumonia Endocrine Medical History: Diabetes Type II, Hypothyroidism Musculoskeletal History: No Pertinent History GI Medical History: GERD, Gallbladder Disease, Other History: Renal Disease Psycho-Social History: Anxiety, Depression Male Reproductive Disorders: No Pertinent History Other Medical History: Dysphagia; Renal Failure - Past Surgical History Past Surgical History: Yes Neuro Surgical History: No Pertinent History Cardiac: CABG, Cardiac Catheterization Respiratory: Chest Surgery Gastrointestinal: No Pertinent History Genitourinary: No Pertinent History Musculoskeletal: No Pertinent History Male Surgical History: No Pertinent History Other Surgical History: cervicle fusion - Social History Smoking Status: Former smoker How long have you smoked: 55 Exposure to second hand smoke: No Drug Use: none Patient [facility] Al[facility]: No ([facility] Significant Family History: no pertinent family hx - Nursing Vital Signs Nursing Vital Signs: Initial Vital Signs Temperature 97.3 F 11/25/22 13:54 Pulse Rate 58 L 11/25/22 13:54 Blood Pressure 152/67 11/25/22 13:54 O2 Sat by Pulse Oximetry 97 11/25/22 13:54 Pain Scale Pain Intensity 7 - Physical Exam General Appearance: no apparent distress, alert Eye Exam: PERRL/EOMI, eyes nml inspection Ears, Nose, Throat Exam: normal ENT inspection, TMs normal, pharynx normal, moist mucous membranes Neck Exam: normal inspection, non-tender, supple, full range of motion Respiratory Exam: normal breath sounds, lungs clear, airway intact, No respiratory distress Cardiovascular Exam: regular rate/rhythm, normal heart sounds, normal peripheral pulses Gastrointestinal/Abdomen Exam: soft, normal bowel sounds, No tenderness, No mass Back Exam: normal inspection, normal range of motion, No CVA tenderness, No ve rtebral tenderness Extremity Exam: normal inspection, normal range of motion, pelvis stable, other (Left second digit is gangrenous/necrotic with a lymphangitis tracking up pa tient's left leg) Neurologic Exam: alert, oriented x 3, cooperative, normal mood/affect, nml cerebellar function, nml station & gait, sensation nml, No motor deficits Skin Exam: normal color, warm, dry, No rash Lymphatic Exam: No adenopathy SpO2 Interpretation: normal SpO2: 97 O2 Delivery: Room Air - Course Nursing assessment & vital signs reviewed: Yes - Radiology Exams Foot X-ray Interpretation: Teleradiologist Report (No acute findings on foot x-ray) Ordered Tests: Active Orders 24 hr Category Date Time Status IV Insertion STAT Care 11/25/22 14:15 Active Pulse Oximetry (ED) STAT Care 11/25/22 14:15 Active FOOT (MINIMUM 3 VIEWS) Stat Exams 11/25/22 14:25 Completed BLOOD CULTURE Stat Lab 11/25/22 14:33 Received CBC W DIFF Stat Lab 11/25/22 14:25 Completed CMP Stat Lab 11/25/22 14:25 Completed Lactic Acid Stat Lab 11/25/22 14:28 Completed Transfer Order Routine Transfer 11/25/22 Ordered Medication Summary Generic Name Dose Route Start Last Admin Trade Name Freq PRN Reason Stop Dose Admin Vancomycin HCl 1 gm in 200 mls @ 125 mls/hr 11/25/22 15:15 Vancomycin 1 Gram/200 Ml Bag IV 11/25/22 16:50 ONCE ONE Discontinued Medications Generic Name Dose Route Start Last Admin Trade Name Freq PRN Reason Stop Dose Admin Piperacillin Sod/Tazobactam 100 mls @ 200 mls/hr 11/25/22 14:17 11/25/22 15:01 Sod 3.375 gm/ Sodium Chloride IV 11/25/22 14:46 200 mls/hr STAT ONE Administration Sodium Chloride Confirm 11/25/22 14:59 Sodium Chloride 100ml Mini-Bag Plus Administered 11/25/22 15:00 Dose 100 mls @ ud IV .STK-MED ONE Piperacillin Sod/Tazobactam Sod Confirm 11/25/22 14:58 Piperacillin/Tazobactam Sodium 3.375 Gm Vial Administered 11/25/22 14:59 Dose 3.375 gm IV .STK-MED ONE Lab/Rad Data: Laboratory Result Diagrams 11/25/22 14:25 11/25/22 14:25 Laboratory Results 11/25/22 11/25/22 11/25/22 Range/Units 14:28 14:25 14:25 WBC 8.2 (4.0-10.5) x10^3/uL RBC 3.46 L (4.1-5.6) x10^6/uL Hgb 10.3 L (12.5-18.0) g/dL Hct 31.4 L (42-50) % MCV 90.8 (78-100) fL MCH 29.8 (26-32) pg MCHC 32.8 (32-36) g/dL RDW 14.7 H (11.5-14.0) % Plt Count 247 (150-450) x10^3/uL MPV 10.5 (7.5-11.0) fL Gran % 62.2 (36.0-66.0) % Immature Gran % (Auto) 0.6 H (0.00-0.4) % Nucleat RBC Rel Count 0.0 (0.00-0.1) % Eos # (Auto) 0.91 H (0-0.5) x10^3/uL Immature Gran # (Auto) 0.05 H (0.00-0.03) x10^3u/L Absolute Lymphs (auto) 1.33 (1.0-4.6) x10^3/uL Absolute Monos (auto) 0.75 (0.0-1.3) x10^3/uL Absolute Nucleated RBC 0.00 (0.00-0.01) x10^3u/L Lymphocytes % 16.2 L (24.0-44.0) % Monocytes % 9.2 (0.0-12.0) % Eosinophils % 11.1 H (0.00-5.0) % Basophils % 0.7 (0.0-0.4) % Absolute Granulocytes 5.09 (1.4-6.9) x10^3/uL Basophils # 0.06 (0-0.4) x10^3/uL Sodium 136 L (137-145) mmol/L Potassium 4.3 (3.5-5.1) mmol/L Chloride 101 (98-107) mmol/L Carbon Dioxide 26 (22-30) mmol/L Anion Gap 13.0 (5-15) MEQ/L BUN 21 H (9-20) mg/dL Creatinine 1.71 H (0.66-1.25) mg/dL Estimated GFR 42.0 ML/MIN Glucose 302 H (74-106) mg/dL Lactic Acid 0.8 (0.4-2.0) Calcium 9.1 (8.4-10.2) mg/dL Total Bilirubin 0.40 (0.2-1.3) mg/dL AST 19 (17-59) U/L ALT 12 (0-50) U/L Alkaline Phosphatase 118 (38-126) U/L Serum Total Protein 6.8 (6.3-8.2) g/dL Albumin 3.8 (3.5-5.0) g/dL - Progress Progress: improved Progress Note: Patient is a 72-year-old male presents to our ED for evaluation of left second toe and red streak tracking up the left leg. X-ray negative for osteomyelitis however this particular imaging study is not very sensitive to diagnose oste omyelitis. No systemic manifestations at this time. advised that the patient is a hospice patient/DNR. No trauma no fever. No nausea vomiting or diaphoresis. Vancomycin and Zosyn administered. Case discussed with who excepts admission to observation at 3:24 PM. Complexity of problems addressed is moderate acute complicated No critical care time Complexity of data reviewed and analyzed is extensive. Test ordered. Test reviewed and analyzed. Clinical correlation made between findings and history and physical examination. Plan of care discussed with Dr. Marks, specialist. Risk complication and or risk morbidity/mortality patient management is high. Patient will require hospitalization for further evaluation and treatment. Plan of care discussed with patient. He agrees to admission to [facility] for further evaluation and treatment. Plan of care established for shared decision making. Time spent to admit patient approximately 15 minutes. Portions of this note were created with voice recognition technology. There may be grammatical, spelling, punctuation or sound alike errors 11/25/22 15:24 Discussed with .: More Counseled pt/family regarding: lab results, diagnosis, rad results - Departure Departure Disposition: Observation Clinical Impression: Toe gangrene, Lymphangitis Condition: Stable Critical Care Time: No Referrals: CRYSTAL MURILLO [ACTIVE STAFF] - Follow up/PCP as directed
[2022-11-25 14:42] LABS: Absolute Neutrophil Ct (ANC) 5.09 x10^3/uL (1.4-6.9); BASOPHIL % 0.7 % (0.0-0.4); Basophil (Absolute #) 0.06 x10^3/uL (0-0.4); Eosinophil % 11.1 % (0.00-5.0); Eosinophil (Absolute #) 0.91 x10^3/uL (0-0.5); Hematocrit 31.4 % (42-50); Hemoglobin 10.3 g/dL (12.5-18.0); IMMATURE GRAN # 0.05 x10^3u/L (0.00-0.03); IMMATURE GRAN % 0.6 % (0.00-0.4); Lymphocyte (Absolute #) 1.33 x10^3/uL (1.0-4.6); Lymphocytes % 16.2 % (24.0-44.0); Mean Cell Volume 90.8 fL (78-100); Mean Corpuscular Hemoglobin 29.8 pg (26-32); Mean Corpuscular Hgb Concent. 32.8 g/dL (32-36); Mean Platelet Volume 10.5 fL (7.5-11.0); Monocyte (Absolute #) 0.75 x10^3/uL (0.0-1.3); Monocytes % 9.2 % (0.0-12.0); Neutrophil % 62.2 % (36.0-66.0); Platelet Count 247 x10^3/uL (150-450); Red Blood Count 3.46 x10^6/uL (4.1-5.6); Red Cell Distribution Width 14.7 % (11.5-14.0); White Blood Count 8.2 x10^3/uL (4.0-10.5)
[2022-11-25] MEDS ORDERED: PIPERACILLIN/TAZOBACTAM IV ONE (14:58)
[2022-11-25] MEDS ORDERED: Sodium Chloride 100ML MINI-BAG PLUS 100 ML IV ONE (14:59)
--- NOTE | 2022-11-25 15:02 | XRAY ---
Indication: Second toe pain/distention. Comparison: October 25, 2021 3 portable views left foot again demonstrates mild valgus deformity 2nd DIP joint and mild diffuse scattered vascular calcifications. No new/acute bony, articular, or soft tissue abnormalities.
[2022-11-25 15:04] LABS: ALBUMIN 3.8 g/dL (3.5-5.0); BILIRUBIN,TOTAL 0.4 mg/dL (0.2-1.3); Calcium 9.1 mg/dL (8.4-10.2); Creatinine 1 1.71 mg/dL (0.66-1.25); Potassium 4.3 mmol/L (3.5-5.1); Total Protein 6.8 g/dL (6.3-8.2)
[2022-11-25] MEDS ORDERED: VANCOMYCIN 1 GRAM/200 ML BAG 1 GM/200 ML PIGGYBACK IV ONE ×2 (15:15→16:03)
== END 2022-11-25 19:52 | disposition short-term general hospital (02) ==
LOC: ED 12:44
DX: I96 Gangrene, not elsewhere classified (principal); E11.52 Type 2 diabetes mellitus with diabetic peripheral angiopathy with gangrene; I89.1 Lymphangitis; I13.0 Hypertensive heart and chronic kidney disease with heart failure and stage 1 through stage 4 chronic kidney disease, or unspecified chronic kidney disease; I50.9 Heart failure, unspecified; N18.9 Chronic kidney disease, unspecified; E11.42 Type 2 diabetes mellitus with diabetic polyneuropathy; Z79.4 Long term (current) use of insulin; Z79.02 Long term (current) use of antithrombotics/antiplatelets; Z79.891 Long term (current) use of opiate analgesic; Z79.899 Other long term (current) drug therapy
CPT/HCPCS: 36000; 36415; 73630; 80053; 83605; 85025; 87040; 94760; 96365; 99285; J3370